=== PATIENT | female | born 1955 | race Caucasian/White ===

== ENCOUNTER 2016-06-02 13:05 | Inpatient (IN) | payer OTHER ==
--- NOTE | 2016-06-02 14:15 | ED EKG INTERP ---
EKG Interpretation - EKG Time of EKG reading by physician:: 14:01 EKG Read and Signed by:: Rose Marie Kenney Jr EKG Interpretation (*Must complete 3 of following elements*): Abnormal (poss lae ) Rate: 103 Rhythm: sinus tach [place]: normal QRS: normal Attestation - Scribe Verification/Attestation Scribe:: Tania Bajwa Acting as Scribe for:: Rose Marie Kenney Jr Scribe documention review:: This chart was documented by a scribe and accurately reflects the service the provider performed and the decisions made by the provider.
[2016-06-02] MEDS ORDERED: ASPIRIN PO STA (15:14)
[2016-06-02] MEDS ORDERED: NITROGLYCERIN SL PRN (15:14)
[2016-06-02] MEDS ORDERED: DUONEB (A & A) INH ONE (15:43)
--- NOTE | 2016-06-02 15:43 | PROVIDER DOCUMENTATION ---
HPI-Respiratory General - General Source: patient - History of Present Illness-Resp Quality of Pain: reports: none Severity in ED: reports: moderate Onset/Duration: reports: other (2 weeks) Timing: reports: still present Cough Quality/Degree: reports: dry cough Episode Frequency: occasional episodes Current Respiratory Medication Therapy: Initiated see nurses note Modifying Factors: worse with: exertion Similar Symptoms Previously?: Yes Recently seen or treated by another doctor?: No <Tania Bajwa - Last Filed: 06/02/16 17:42> <Sandrita Deng - Last Filed: 06/02/16 20:12> - General Chief Complaint: Shortness of Breath Stated Complaint: TROUBLE BREATHING/NOSTRIL SWOLLEN Time Seen by Provider: 06/02/16 15:14 Allergies/Adverse Reactions: Patient Allergies Allergy/AdvReac Type Severity Reaction Status Date / Time erythromycin base Allergy Mild RASH Verified 06/02/16 16:34 [Erythromycin Base] amoxicillin trihydrate * Allergy Unknown Verified 06/02/16 16:34 [From Augmentin] potassium clavulanate * Allergy Unknown Verified 06/02/16 16:34 [From Augmentin] Home Medications: Cholecalciferol (Vitamin D3) [Vitamin D3] 1,000 unit PO QAM 04/30/15 Fluticasone 50 Mcg Nasal [place] [Flonase] 1 spray LI QAM 04/30/15 Guaifenesin [Mucinex] 600 mg PO BID 04/30/15 Levalbuterol HCl [Xopenex] 1.25 mg IH RTQ8H 04/30/15 Levothyroxine [Synthroid] 50 microgm PO QAM 04/30/15 Multivitamin [Multivitamins] 1 each PO QAM 04/30/15 Vitamin E Acetate [Vitamin E] 400 unit PO QAM 04/30/15 - History of Present Illness-Resp Nature of Presenting Problem: Reports to er with cc of Shortness of Breath. Reports diagnosed with CLL in 2008 pt reports she has been using a Holistic approach with juicing and states hxo f chronic bronchitis and diagnosed with copd and hx of pneumonia. Pt reports wearing 3 lpm of oxygen daily. Pt reports worsens with exertion better with rest. Pt also reports right nare swelling. Pt reports she has abd swelling but that will go away she reports if she takes prednisone because the internet said it would. (Tania Bajwa) Review of Systems - Adult - REVIEW OF SYSTEMS - ADULT Constitutional: reports: see HPI. denies: chills, fever, fatique Eyes: reports: no symptoms reported Ears, Nose, Mouth & Throat: reports: see HPI Cardiovascular: denies: chest pain, irregular heart rate, orthopnea Respiratory: reports: see HPI, cough, shortness of breath. denies: hemoptysis, pleurisy, wheezing Gastrointestinal: denies: abdominal pain, diarrhea, nausea, vomiting Genitourinary: reports: no symptoms reported Musculoskeletal: reports: no symptoms reported Integumentary: reports: no symptoms reported Neurological: reports: no symptoms reported Psychiatric: reports: no symptoms reported Endocrine: reports: no symptoms reported Hematologic/Lymphatic: reports: no symptoms reported Allergic/Immunologic: reports: no symptoms reported All Other Systems: Reviewed and Negative <Tania Bajwa - Last Filed: 06/02/16 17:42> Past History - Adult - PAST MEDICAL HISTORY-ADULT Review of Records: reports: Nursing Assessment Review, Medications Reviewed Major Childhood Illnesses: reports: denies history Cardiovascular: reports: HTN Respiratory: reports: bronchitis, COPD, pneumonia, sleep apnea Gastrointestinal: reports: denies history Obstetrical/Gynecological: reports: denies history Genitourinary: reports: denies history Musculoskeletal: reports: denies history Neurological: reports: denies history Endocrine/Immune: reports: Leukemia (CLL) Other Conditions: reports: denies history - PRIOR SURGERIES/PROCEDURES Surgical/Procedure History: reports: cholecystectomy, other (rhinoplasty, removal of acustic neuroma) - PRIOR HOSPITALIZATIONS Prior Hospitalizations: reports: for similar symptoms - IMMUNIZATION STATUS Childhood Immunizations: See Nurse Assessment Flu Vaccine: See Nurse Assessment - FAMILY HISTORY Family History: reviewed, not pertinent - SOCIAL HISTORY Smoking: denies Substance Use: none/never <Tania Bajwa - Last Filed: 06/02/16 17:42> Physical Exam-General - PHYSICAL EXAM-ADULT Initial Vital Signs Reviewed: Yes - CONSTITUTIONAL General Appearance: appears well, alert, no apparent distress, thin - EYES Eyes: PERRL/EOMI, pink conjunctivae - RESPIRATORY Respiratory: chest non-tender, lungs clear, normal breath sounds, no pleuratic chest pain, no accessory muscle use, respiratory distress - CARDIOVASCULAR Cardiovascular: normal peripheral pulses, tachycardia - GASTROINTESTINAL (ABDOMEN) Abdominal Exam: normal bowel sounds, non tender, no organomegaly, no pulsatile mass. negative: soft (hard) - MUSCULOSKELETAL Back Exam: normal inspection, no CVA tenderness, no vertebral tenderness Extremity: normal range of motion, non-tender - SKIN Integumentary: normal color, normal turgor, warm/dry - PSYCHIATRIC Psych/Mental Status: normal mood/affect, normal thought content, normal thought process, oriented x 3 <Tania Bajwa - Last Filed: 06/02/16 17:42> Progress - CHANGE OF SHIFT REPORT (ED Provider) Report Given and Care Transferred to:: Time of Transfer: 18:00 Items Pending: CT/MRI Results <Tania Bajwa - Last Filed: 06/02/16 17:42> - REASSESSMENT Reassessment #1 Time Reassessed: 18:38 (Dr. Manriquez at bedside discussing results of CT scans. Will consult with Dr. Chao for possible admission) - CT/MRI 1 CT Study: Abdomen, Pelvis Impression: Abnormal (worsening in severe lymphadnopathy, now measures up to 25x13 cm.) 2 CT Study: Angiogram Impression: Abnormal (No PE. Pulmonary edema. Bronchitis with endobronchially spread process such as aspiration or pneumonia.) - CONSULTS/PCP/HOSPITALIST Notification #1 *Consult/PCP/Hospitalist*: Dr. Chao Time Discussed: 20:00 Reason/Comments: SOB Consult Disposition: Admit <Sandrita Deng - Last Filed: 06/02/16 20:12> - PLAN OF CARE/RESULTS Progress/Plan/Lab Results: discussed with pt her options for plan of care. Pt agreed to having blood work done, a CT and medications to help her breathing. Orders Category Date Time Status Cardiac Monitoring DIRECTED Care 06/02/16 15:14 Active Saline Loc NOW Care 06/02/16 15:14 Active CBC WITH ELECTRONIC DIFF [HEME] Stat Lab 06/02/16 15:14 Uncollected CK PROFILE [SP CHEM] Stat Lab 06/02/16 15:14 Uncollected COMPREHENSIVE METABOLIC PANEL [CHEM] Stat Lab 06/02/16 15:14 Uncollected D-DIMER [CHEM] Stat Lab 06/02/16 15:14 Uncollected MAGNESIUM [CHEM] Stat Lab 06/02/16 15:14 Uncollected PRO B-NATRIURETIC PEPTIDE Stat Lab 06/02/16 15:14 Uncollected PROTIME WITH INR [COAG] Stat Lab 06/02/16 15:14 Uncollected PTT [COAG] Stat Lab 06/02/16 15:14 Uncollected TROPONIN T Stat Lab 06/02/16 15:14 Uncollected Albuterol 2.5MG/Ipratrop 0.5MG [Duoneb (A & A)] Med 06/02/16 15:43 Discontinued 3 ml INH NOW ONE Aspirin Med 06/02/16 15:14 Discontinued 325 mg PO STAT STA Nitroglycerin Sl [Nitroglycerin] Med 06/02/16 15:14 Active 0.4 mg SL Q5M PRN PRN Aerosol Treatments Routine Oth 06/02/16 15:43 Active Aerosol Treatments Stat Oth 06/02/16 15:43 Active EKG [EKG] Stat Ther 06/02/16 13:54 Ordered Vital Signs - 24 hr 06/02/16 13:48 Temperature 98.3 F Pulse Rate 106 H Respiratory 22 Rate Blood Pressure 111/63 O2 Sat by Pulse 93 L Oximetry Laboratory Tests 06/02/16 06/02/16 06/02/16 16:25 16:25 16:25 WBC 3.93 L RBC 4.18 L Hgb 12.1 Hct 37.8 MCV 90.4 MCH 28.9 MCHC 32.0 L RDW Std Deviation 14.4 Plt Count 122 L MPV 11.5 H Immature Gran % (Auto) 0.5 Neut % (Auto) 39.9 L Lymph % (Auto) 50.4 [place] % (Auto) 7.6 Eos % (Auto) 0.8 Baso % (Auto) 0.8 Immature Gran # (Auto) 0.02 Neut # 1.57 Lymph # 1.98 [place] # 0.30 Eos # 0.03 Baso # 0.03 PT INR PTT (Actin FS) D-Dimer 0.68 H Sodium 137 Potassium 4.5 Chloride 95 L Carbon Dioxide 30 Anion Gap 12 BUN 16 Creatinine 0.6 Estimated GFR/1.73 m2 > 60 BUN/Creatinine Ratio 27 Glucose 82 Calculated Osmolality 274 Calcium 9.1 Magnesium 2.0 Total Bilirubin 0.37 AST 34 H ALT 22 Alkaline Phosphatase 78 Creatine Kinase 16 L Troponin T Vso-Z-Lnwlbynpvzl Pept Total Protein 6.6 Albumin 4.2 Globulin 2.4 Albumin/Globulin Ratio 1.8 06/02/16 06/02/16 06/02/16 16:25 16:25 16:25 WBC RBC Hgb Hct MCV MCH MCHC RDW Std Deviation Plt Count MPV Immature Gran % (Auto) Neut % (Auto) Lymph % (Auto) [place] % (Auto) Eos % (Auto) Baso % (Auto) Immature Gran # (Auto) Neut # Lymph # [place] # Eos # Baso # PT 10.0 INR 0.94 PTT (Actin FS) 24.0 D-Dimer Sodium Potassium Chloride Carbon Dioxide Anion Gap BUN Creatinine Estimated GFR/1.73 m2 BUN/Creatinine Ratio Glucose Calculated Osmolality Calcium Magnesium Total Bilirubin AST ALT Alkaline Phosphatase Creatine Kinase Troponin T < 0.010 Ijb-F-Cpoaobhtpqw Pept 1895 H Total Protein Albumin Globulin Albumin/Globulin Ratio (Tania Bajwa) plan of care: imaging, labs, medications, EKG Orders Category Date Time Status Cardiac Monitoring DIRECTED Care 06/02/16 15:14 Active Saline Loc NOW Care 06/02/16 15:14 Active ABD/PELVIS/PULM ARTERIES [CT] Stat Exams 06/02/16 17:16 Taken CBC WITH ELECTRONIC DIFF [HEME] Stat Lab 06/02/16 16:25 Completed CK PROFILE [SP CHEM] Stat Lab 06/02/16 16:25 Completed COMPREHENSIVE METABOLIC PANEL [CHEM] Stat Lab 06/02/16 16:25 Completed D-DIMER [CHEM] Stat Lab 06/02/16 16:25 Completed MAGNESIUM [CHEM] Stat Lab 06/02/16 16:25 Completed PRO B-NATRIURETIC PEPTIDE Stat Lab 06/02/16 16:25 Completed PROTIME WITH INR [COAG] Stat Lab 06/02/16 16:25 Completed PTT [COAG] Stat Lab 06/02/16 16:25 Completed TROPONIN T Stat Lab 06/02/16 16:25 Completed Albuterol 2.5MG/Ipratrop 0.5MG [Duoneb (A & A)] Med 06/02/16 15:43 Discontinued 3 ml INH NOW ONE Aspirin Med 06/02/16 15:14 Discontinued 325 mg PO STAT STA Nitroglycerin Sl [Nitroglycerin] Med 06/02/16 15:14 Active 0.4 mg SL Q5M PRN PRN Aerosol Treatments Routine Oth 06/02/16 15:43 Completed Aerosol Treatments Stat Oth 06/02/16 15:43 Completed EKG [EKG] Stat Ther 06/02/16 13:54 Ordered Laboratory Tests 06/02/16 06/02/16 06/02/16 16:25 16:25 16:25 WBC 3.93 L RBC 4.18 L Hgb 12.1 Hct 37.8 MCV 90.4 MCH 28.9 MCHC 32.0 L RDW Std Deviation 14.4 Plt Count 122 L MPV 11.5 H Immature Gran % (Auto) 0.5 Neut % (Auto) 39.9 L Lymph % (Auto) 50.4 [place] % (Auto) 7.6 Eos % (Auto) 0.8 Baso % (Auto) 0.8 Immature Gran # (Auto) 0.02 Neut # 1.57 Lymph # 1.98 [place] # 0.30 Eos # 0.03 Baso # 0.03 PT INR PTT (Actin FS) D-Dimer 0.68 H Sodium 137 Potassium 4.5 Chloride 95 L Carbon Dioxide 30 Anion Gap 12 BUN 16 Creatinine 0.6 Estimated GFR/1.73 m2 > 60 BUN/Creatinine Ratio 27 Glucose 82 Calculated Osmolality 274 Calcium 9.1 Magnesium 2.0 Total Bilirubin 0.37 AST 34 H ALT 22 Alkaline Phosphatase 78 Creatine Kinase 16 L Troponin T Gfg-A-Yzvmcahsxis Pept Total Protein 6.6 Albumin 4.2 Globulin 2.4 Albumin/Globulin Ratio 1.8 06/02/16 06/02/16 06/02/16 16:25 16:25 16:25 WBC RBC Hgb Hct MCV MCH MCHC RDW Std Deviation Plt Count MPV Immature Gran % (Auto) Neut % (Auto) Lymph % (Auto) [place] % (Auto) Eos % (Auto) Baso % (Auto) Immature Gran # (Auto) Neut # Lymph # [place] # Eos # Baso # PT 10.0 INR 0.94 PTT (Actin FS) 24.0 D-Dimer Sodium Potassium Chloride Carbon Dioxide Anion Gap BUN Creatinine Estimated GFR/1.73 m2 BUN/Creatinine Ratio Glucose Calculated Osmolality Calcium Magnesium Total Bilirubin AST ALT Alkaline Phosphatase Creatine Kinase Troponin T < 0.010 Cae-J-Ttqwpypnuzq Pept 1895 H Total Protein Albumin Globulin Albumin/Globulin Ratio Vital Signs - 24 hr 06/02/16 06/02/16 06/02/16 13:48 17:23 17:25 Temperature 98.3 F Pulse Rate 106 H 104 H 104 H Respiratory 22 21 20 Rate Blood Pressure 111/63 136/75 O2 Sat by Pulse 93 L 96 Oximetry 06/02/16 19:36 Temperature Pulse Rate 105 H Respiratory 26 H Rate Blood Pressure 119/76 O2 Sat by Pulse 96 Oximetry Pt/family given results. Pt will be admitted to the hospital by Dr. Chao. PT/ Family in agreement with plan of care. (Sandrita Deng) Departure <Tania Bajwa - Last Filed: 06/02/16 17:42> - Departure Time of Disposition Order: 20:09 Certified Medical Emergency: Emergent <Sandrita Deng - Last Filed: 06/02/16 20:12> - Departure DIAGNOSIS: CLL (chronic lymphocytic leukemia) Disposition: ADMITTED INPATIENT 09 Condition: Stable Referrals: None,PCP [NON-STAFF] - Attestation - Scribe Verification/Attestation Scribe:: Tania Bajwa Acting as Scribe for:: Rose Marie Kenney Jr Scribe documention review:: This chart was documented by a scribe and accurately reflects the service the provider performed and the decisions made by the provider. <Tania Bajwa - Last Filed: 06/02/16 17:42> - Scribe Verification/Attestation #2 Shift Change Time: 18:00 Scribe Name: Sandrita Deng Acting as Scribe for:: Jeremi Manriquez <Sandrita Deng - Last Filed: 06/02/16 20:12> Physician Attestation - Physician Attestation I, the provider, attest to the following statement:: Jeremi Manriquez Physician documentation Attestation:: This documentation recorded by the scribe accurately reflects the service I personally performed and the decisions made by me. <Sandrita Deng - Last Filed: 06/02/16 20:12>
[2016-06-02 16:39] LABS: MANUAL DIFF NEEDED? NO
[2016-06-02 16:47] LABS: BASO% 0.8 % (0.0-0.8); EOS# 0.03 X1000 (0.0-0.7); EOS% 0.8 % (0.0-10.0); HEMATOCRIT 37.8 % (37.0-47.0); HEMOGLOBIN 12.1 g/dL (12.0-16.0); IMM GRAN# 0.02 X1000 (0.0-0.04); IMM GRAN% 0.5 % (0.0-0.5); LYMPH# 1.98 X1000 (1.2-3.4); LYMPH% 50.4 % (20.5-51.1); MCH 28.9 PG (27-31); MCV 90.4 FL (81-99); MONO% 7.6 % (1.7-9.3); MPV 11.5 FL (7.4-10.4); NEUT% 39.9 % (42.2-75.2); PLT 122 X1000 (130-400); RBC 4.18 XMIL (4.2-5.4)
[2016-06-02 16:58] LABS: INR 0.94
[2016-06-02 17:11] LABS: AGAP 12; ALBUMIN 4.2 g/dL (3.5-5.0); ALKALINE PHOSPHATASE 78 U/L (32-104); BUN 16 mg/dL (8-22); CALCIUM 9.1 mg/dL (8.8-10.2); CHLORIDE 95 mmol/L (98-107); CK PROFILE 16 U/L (24-173); COSMO 274; GOT 34 U/L (10-30); GPT 22 U/L (10-36); POTASSIUM 4.5 mmol/L (3.5-5.1); SODIUM 137 mmol/L (136-145); TCO2 30 mmol/L (25-35); TOTAL BILIRUBIN 0.37 mg/dL (0.20-1.00); TOTAL PROTEIN 6.6 g/dL (6.3-8.3)
[2016-06-02] MEDS ORDERED: MEDROL DOSEPAK PO SCH (21:03)
[2016-06-02] MEDS ORDERED: VANCOMYCIN IV PER PHARMACY MISC SCH (21:45)
--- NOTE | 2016-06-02 21:55 | HISTORY AND PHYSICAL ---
ATTENDING PHYSICIAN: Mario Black MD ADMITTING PHYSICIAN: Miguel Chao Jr., MD CHIEF COMPLAINT: Shortness of breath with cough. PRESENT ILLNESS: Patient presents with productive cough and cream-colored sputum. She has had a history of bronchiectasis and chronic bronchitis. She has a history of CLL and has had adenopathy on her scans in the past. Apparently has had lymph nodes that were swollen the past and she says was given steroids and they went down. Some question about whether this could be lymphoma, but some sort of adenopathy. She does not remember any biopsies. She decided when it was discovered she has CLL to treat holistically, but she does not even to do that most of the time. She says she needs help with it and she is now . Her son tries to help on occasion but her is not there to help. She started getting worse with her breathing over the last few days. Her abdomen is also swollen. She says that it happened earlier in the year as well and then it went down and that she had some large swellings under her jaw that also went down. 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 Davies, her director religious education-oncologist. She has a history of levothyroxine. She tells me she was allergic to erythromycin, but in our old chart it also mentioned Augmentin. PAST SURGICAL HISTORY: Cholecystectomy. Removal of acoustic neuroma. Rhinoplasty. FAMILY HISTORY: A grandfather of hers had leukemia. She has 1 son alive and in good health. Denies using any tobacco or any illicit substances. REVIEW OF SYSTEMS: Neurological: Denies headaches, seizures, visual problems, hearing problems, other than from the acoustic neuroma. Pulmonary: Has had a cough with occasional wheeze. Cardiovascular: She has had no chest pains, heart palpitations, PND orthopnea. GI: She has had swelling of her abdomen. It is somewhat firm. She says she had this before and it went down. Denies hematochezia, hematemesis, melena, constipation, diarrhea. : Denies any difficulty with urination. Endocrine: Does have hypothyroidism and is on replacement hormone. PHYSICAL EXAMINATION: VITAL SIGNS: Blood pressure is 111/63, respirations 22, pulse 106 and regular, temperature 98.3 degrees Fahrenheit. Oxygen saturation was 93% with 3 L per nasal cannula. She says she is on oxygen at home and her O2 saturations got down into the 80s when she was there. HEENT: She is normocephalic. Extraocular movements intact. PERRLA. Throat clear. Fundi not seen well due to constriction of pupils. NECK: Supple with some anterior cervical chain lymphadenopathy. I hear no carotid bruits. LUNGS: Have scattered rales and occasional wheeze. HEART: Regular rate and rhythm without murmurs, gallops, or friction rubs. Sinus tachycardia. ABDOMEN: Somewhat distended. CT scan seems to indicate masses and adenopathy there. She has had adenopathy in the past. No tenderness at this time. PELVIC EXAMINATION: Deferred. RECTAL EXAMINATION: Deferred. BREAST EXAMINATION: Deferred. INTEGUMENT: Shows no lesions consistent with melanoma or other skin cancers. LYMPH NODES: Are palpable in the anterior cervical chain. NEUROLOGICAL: Cranial nerves 2-12 intact grossly. Sensory and motor intact. Reflexes 1+ all. LABORATORY: Shows a white count 3930, hemoglobin 12.1. Platelet count slightly low at 122,000. ProBNP slightly up at 1895. Chemistry profile: Otherwise within normal limits. One liver enzyme was slightly up with an AST of 34. ASSESSMENT: 1. Respiratory distress. 2. Bronchitis. 3. Bronchiectasis. 4. Chronic lymphocytic leukemia. 5. Adenopathy possibly lymphoma that we will defer to Oncology. 6. Hypothyroidism. 7. Thrombocytopenia, mild. PLAN: We will admit. Start on IV steroids, IV antibiotics and breathing treatments as needed. We will consult Oncology in the morning.
[2016-06-02] MEDS: SOLU-MEDROL IV SCH (22:20)
[2016-06-02] MEDS: SEPTRA DS PO SCH (22:20)
[2016-06-02] MEDS: PROTONIX IV SCH (22:20)
[2016-06-02] MEDS: MUCINEX PO SCH (22:20)
[2016-06-02] MEDS: XOPENEX NEB INH SCH (22:50)
[2016-06-02] MEDS ORDERED: VANCOMYCIN 1,600 MG in NS 250 ML IV ONE (23:00)
[2016-06-03 05:37] LABS: MANUAL DIFF NEEDED? NO
[2016-06-03 05:40] LABS: BASO% 0.3 % (0.0-0.8); EOS# 0.01 X1000 (0.0-0.7); EOS% 0.3 % (0.0-10.0); HEMATOCRIT 40.8 % (37.0-47.0); HEMOGLOBIN 12.9 g/dL (12.0-16.0); IMM GRAN# 0.03 X1000 (0.0-0.04); LYMPH% 30.2 % (20.5-51.1); MCH 28.8 PG (27-31); MCHC 31.6 g/dL (33-37); MCV 91.1 FL (81-99); MONO# 0.08 X1000 (0.11-0.59); MONO% 2.7 % (1.7-9.3); MPV 11.2 FL (7.4-10.4); NEUT% 65.5 % (42.2-75.2); PLT 126 X1000 (130-400); RBC 4.48 XMIL (4.2-5.4)
--- NOTE | 2016-06-03 05:49 | EKG Report ---
Test Performed on : 06/02/2016 2:01:36 PM Test Reason : sob Blood Pressure : / mmHG Vent. Rate : 103 BPM Atrial Rate : 103 BPM P-R Int : 112 ms QRS Dur : 080 ms QT Int : 318 ms P-R-T Axes : 068 078 052 degrees QTc Int : 416 ms Sinus tachycardia. Possible Left atrial enlargement Borderline ECG When compared with ECG of 21-MAR-2016 13:18, No significant change was found Unconfirmed Result
[2016-06-03 06:28] LABS: AGAP 7; BUN 17 mg/dL (8-22); CALCIUM 9.1 mg/dL (8.8-10.2); CHLORIDE 97 mmol/L (98-107); COSMO 280; POTASSIUM 5.3 mmol/L (3.5-5.1); SODIUM 138 mmol/L (136-145); TCO2 34 mmol/L (25-35)
[2016-06-03] MEDS: SOLU-MEDROL IV SCH ×3 (06:30→21:00)
[2016-06-03] MEDS: XOPENEX NEB INH SCH ×3 (07:44→22:50)
--- NOTE | 2016-06-03 08:23 | Diag Imaging Result Document ---
PROCEDURE NAME: ABD/PELVIS/PULM ARTERIES - 06/02/2016 CT OF THE CHEST WITH INTRAVENOUS CONTRAST: FINDINGS: There area no filling defects in the pulmonary arteries. There is increasing mediastinal adenopathy with matted nodes throughout the superior mediastinum, aorticopulmonary window region, and subcarina. This in comparison with 12/12/2015. There is a loculated right pleural effusion which was also present at the time of the previous study. The patchy ground- glass opacities, which were present at the time of the previous study, have diminished and the more dense opacification of the upper lobes has resolved largely. There is peribronchial thickening and bilateral lower lobe bronchiectasis which was also present at the time of the previous study. There is apparent fibrosis in the inferior lingula. There is bilateral axillary adenopathy which appears worse than on the previous study. The largest left-sided axillary node has increased from over 15 mm in long axis dimension to currently over 18 mm. The inferiormost right axillary noted has increased in size from 18 mm to 23 mm. The regional skeleton appears stable. IMPRESSION: Right pulmonary parenchymal changes and right pleural effusion. Worsened adenopathy as described. No evidence of pulmonary emboli. CT OF THE ABDOMEN WITH INTRAVENOUS CONTRAST: FINDINGS: There is extensive retroperitoneal and mesenteric adenopathy which was also present at the time of the previous study of 12/07/2015, however, this has increased in bulk since the previous examination and when measured at the level of slice 87 of the current arterial series which appears to be identical with slice 81 of the previous study. The long axis transversely has increased from 22 to almost 25 cm and the AP dimension has increased from 9.2 to 11 cm. There is some prominence of the biliary tree with the common bile duct measuring up to 6 mm in the silva hepatis. This is more distended than it was on previous study. The spleen measures 13.8 cm in greatest dimension transverse, versus 12.9 cm previously. The portal vein is patent. The pancreas is distorted by the adenopathy, but otherwise unchanged in appearance. The kidneys are also displaced by the large lymph nodes but are essentially stable in appearance. The aorta is not distended. CT OF THE PELVIS WITH INTRAVENOUS CONTRAST: FINDINGS: There is no evidence of significant free fluid. There is some slight edema in the perirectal fat. There is significant adenopathy both in the mesentery of the retroperitoneum with large nodes in the iliac chains bilaterally. The previous abdominal study of 12/07/2015 did not include pelvis. The external and internal iliac adenopathy which is currently present has worsened considerably compared to the previous pelvic CT of 10/31/2013. The regional skeleton appears to be intact. IMPRESSION: Markedly worsened adenopathy and slightly worsened splenomegaly since 12/07/2015.
[2016-06-03] MEDS: THERA M PLUS PO SCH (09:06)
[2016-06-03] MEDS: VITAMIN D PO SCH (09:06)
[2016-06-03] MEDS: CULTURELLE PO SCH (09:06)
[2016-06-03] MEDS: VITAMIN E PO SCH (09:06)
[2016-06-03] MEDS: TYLENOL PO PRN (09:06)
[2016-06-03] MEDS: MUCINEX PO SCH ×2 (09:07→21:00)
[2016-06-03] MEDS: SEPTRA DS PO SCH ×2 (09:07→21:00)
[2016-06-03] MEDS: FLONASE NAS SCH (09:07)
[2016-06-03] MEDS: BACTROBAN OINTMENT TOP SCH (09:08)
[2016-06-03] MEDS: SYNTHROID PO SCH (09:08)
[2016-06-03] MEDS: LEVAQUIN 500 MG/D5W 100 ML IV SCH (09:58)
[2016-06-03] MEDS ORDERED: SODIUM CHLORIDE 0.9% 10 ML ONE (15:54)
[2016-06-03] MEDS: VANCOMYCIN 1,200 MG in NS 250 ML IV SCH (17:47)
[2016-06-03] MEDS ORDERED: COLACE PO PRN (19:43)
[2016-06-03] MEDS ORDERED: MILK OF MAGNESIA PO PRN (19:44)
[2016-06-03] MEDS ORDERED: AYR NASAL SPRAY NAS PRN (20:43)
[2016-06-03] MEDS: PROTONIX IV SCH (21:00)
[2016-06-04 06:10] LABS: MANUAL DIFF NEEDED? NO
[2016-06-04] MEDS: SOLU-MEDROL IV SCH ×3 (06:22→23:25)
[2016-06-04 06:27] LABS: BASO% 0.2 % (0.0-0.8); HEMATOCRIT 36.6 % (37.0-47.0); HEMOGLOBIN 11.5 g/dL (12.0-16.0); IMM GRAN# 0.02 X1000 (0.0-0.04); IMM GRAN% 0.5 % (0.0-0.5); LYMPH# 1.21 X1000 (1.2-3.4); LYMPH% 28.1 % (20.5-51.1); MCH 28.8 PG (27-31); MCHC 31.4 g/dL (33-37); MCV 91.5 FL (81-99); MONO# 0.37 X1000 (0.11-0.59); MONO% 8.6 % (1.7-9.3); MPV 11.6 FL (7.4-10.4); NEUT% 62.6 % (42.2-75.2); PLT 139 X1000 (130-400)
[2016-06-04 06:49] LABS: AGAP 8; BUN 28 mg/dL (8-22); CHLORIDE 97 mmol/L (98-107); COSMO 286; POTASSIUM 5.2 mmol/L (3.5-5.1); SODIUM 140 mmol/L (136-145); TCO2 35 mmol/L (25-35)
[2016-06-04] MEDS: XOPENEX NEB INH SCH ×3 (07:45→22:47)
[2016-06-04] MEDS: THERA M PLUS PO SCH (09:01)
[2016-06-04] MEDS: SYNTHROID PO SCH (09:01)
[2016-06-04] MEDS: VITAMIN D PO SCH (09:01)
[2016-06-04] MEDS: CULTURELLE PO SCH (09:01)
[2016-06-04] MEDS: MUCINEX PO SCH ×2 (09:01→23:26)
[2016-06-04] MEDS: VITAMIN E PO SCH (09:01)
[2016-06-04] MEDS: SEPTRA DS PO SCH ×2 (09:01→23:26)
[2016-06-04] MEDS: BACTROBAN OINTMENT TOP SCH (09:02)
[2016-06-04] MEDS: FLONASE NAS SCH (09:02)
[2016-06-04] MEDS: LEVAQUIN 500 MG/D5W 100 ML IV SCH (11:04)
[2016-06-04] MEDS: VANCOMYCIN 1,200 MG in NS 250 ML IV SCH (12:10)
[2016-06-04] MEDS ORDERED: SODIUM CHLORIDE 0.9% 10 ML ONE (15:18)
[2016-06-04] MEDS: PROTONIX IV SCH (23:25)
[2016-06-05] MEDS: TYLENOL PO PRN (04:16)
[2016-06-05 04:45] LABS: ALLEN TEST YES; BE 12.7 mmoll (-3.0-3.0); BLOOD TYPE ARTERIAL; DRAW SITE R RADIAL; METHB 2.1 % (0.0-1.5); PO2(98.6) 147 mmHg (60-100); SAMPLE BLOOD; SAO2 99.1 % (95.0-100.0); THB 11.7 g/dL (11.5-17.4); pH(98.6) 7.27 (7.35-7.45)
[2016-06-05 04:47] LABS: PCO2(98.6) 94 mmHg (35-45)
[2016-06-05 04:48] LABS: MODALITY CANNULA
[2016-06-05 05:32] LABS: MANUAL DIFF NEEDED? NO
[2016-06-05 05:35] LABS: BASO% 0.2 % (0.0-0.8); EOS# 0.01 X1000 (0.0-0.7); EOS% 0.2 % (0.0-10.0); HEMATOCRIT 37.2 % (37.0-47.0); HEMOGLOBIN 11.4 g/dL (12.0-16.0); IMM GRAN# 0.02 X1000 (0.0-0.04); IMM GRAN% 0.5 % (0.0-0.5); LYMPH# 2.05 X1000 (1.2-3.4); LYMPH% 47.3 % (20.5-51.1); MCH 28.4 PG (27-31); MCHC 30.6 g/dL (33-37); MCV 92.5 FL (81-99); MONO# 0.42 X1000 (0.11-0.59); MONO% 9.7 % (1.7-9.3); NEUT% 42.1 % (42.2-75.2); PLT 144 X1000 (130-400); RBC 4.02 XMIL (4.2-5.4)
[2016-06-05 06:03] LABS: AGAP 8; BUN 34 mg/dL (8-22); CALCIUM 8.8 mg/dL (8.8-10.2); CHLORIDE 93 mmol/L (98-107); COSMO 277; POTASSIUM 4.7 mmol/L (3.5-5.1); SODIUM 135 mmol/L (136-145); TCO2 34 mmol/L (25-35)
[2016-06-05] MEDS: SOLU-MEDROL IV SCH ×3 (06:13→19:45)
[2016-06-05] MEDS: VANCOMYCIN 1,200 MG in NS 250 ML IV SCH ×2 (07:52→19:45)
[2016-06-05] MEDS ORDERED: NS 500 ML ONE (07:54)
[2016-06-05] MEDS: XOPENEX NEB INH SCH ×3 (08:05→22:45)
[2016-06-05] MEDS: SYNTHROID PO SCH (08:10)
[2016-06-05] MEDS: FLONASE NAS SCH (08:10)
[2016-06-05] MEDS: THERA M PLUS PO SCH (08:10)
[2016-06-05] MEDS: BACTROBAN OINTMENT TOP SCH (08:10)
[2016-06-05] MEDS: MUCINEX PO SCH ×2 (08:10→19:46)
[2016-06-05] MEDS: CULTURELLE PO SCH (08:10)
[2016-06-05] MEDS: SEPTRA DS PO SCH ×2 (08:10→19:46)
[2016-06-05] MEDS: VITAMIN D PO SCH (08:10)
[2016-06-05] MEDS: VITAMIN E PO SCH (08:10)
--- NOTE | 2016-06-05 09:30 | Diag Imaging Result Document ---
PROCEDURE NAME: CHEST-PORTABLE - 06/05/2016 PORTABLE CHEST X-RAY: COMPARISON: 06/02/2016, 03/27/2016. FINDINGS: There is widening of the mediastinum due to mediastinal adenopathy. There is a small pleural effusion on the right. There are some peribronchial markings in the bases which may represent edema or bronchitis. IMPRESSION: Little change from prior.
[2016-06-05] MEDS: LEVAQUIN 500 MG/D5W 100 ML IV SCH (12:29)
[2016-06-05] MEDS ORDERED: SODIUM CHLORIDE 0.9% 10 ML ONE (16:59)
[2016-06-05] MEDS: PROTONIX IV SCH (19:45)
[2016-06-06] MEDS: PROTONIX IV SCH ×2 (00:06→21:14)
[2016-06-06] MEDS: MUCINEX PO SCH ×3 (00:06→21:13)
[2016-06-06] MEDS: SEPTRA DS PO SCH ×3 (00:06→21:14)
[2016-06-06] MEDS: SOLU-MEDROL IV SCH ×4 (00:06→21:14)
[2016-06-06] MEDS: XOPENEX NEB INH SCH ×3 (07:43→23:34)
[2016-06-06] MEDS: VANCOMYCIN 1,200 MG in NS 250 ML IV SCH ×2 (08:34→21:13)
[2016-06-06] MEDS: VITAMIN E PO SCH (08:35)
[2016-06-06] MEDS: VITAMIN D PO SCH (08:35)
[2016-06-06] MEDS: SYNTHROID PO SCH (08:35)
[2016-06-06] MEDS: THERA M PLUS PO SCH (08:35)
[2016-06-06] MEDS: CULTURELLE PO SCH (08:35)
[2016-06-06] MEDS: FLONASE NAS SCH (08:35)
[2016-06-06] MEDS: BACTROBAN OINTMENT TOP SCH (08:36)
[2016-06-06] MEDS: LEVAQUIN 500 MG/D5W 100 ML IV SCH (10:33)
[2016-06-06] MEDS: DUONEB (A & A) INH PRN (11:27)
[2016-06-06] MEDS ORDERED: SODIUM CHLORIDE 0.9% 10 ML ONE (17:18)
[2016-06-07 04:51] LABS: ALLEN TEST YES; BE 10.3 mmoll (-3.0-3.0); BLOOD TYPE ARTERIAL; DRAW SITE R RADIAL; METHB 1.4 % (0.0-1.5); O2(CT) 15.9 mL/dL (15.0-23.0); PO2(98.6) 73 mmHg (60-100); SAMPLE BLOOD; SAO2 96.7 % (95.0-100.0); SRATE 10 BPM; THB 12.1 g/dL (11.5-17.4); pH(98.6) 7.33 (7.35-7.45)
[2016-06-07 04:52] LABS: MODALITY BI PAP; PCO2(98.6) 74 mmHg (35-45)
[2016-06-07] MEDS: SOLU-MEDROL IV SCH ×3 (05:45→21:51)
[2016-06-07 05:55] LABS: HEMATOCRIT 35.9 % (37.0-47.0); HEMOGLOBIN 11.1 g/dL (12.0-16.0); MCHC 30.9 g/dL (33-37); MCV 93.7 FL (81-99); MPV 11.2 FL (7.4-10.4); RBC 3.83 XMIL (4.2-5.4)
[2016-06-07 06:19] LABS: AGAP 7; BUN 29 mg/dL (8-22); CALCIUM 9.2 mg/dL (8.8-10.2); CHLORIDE 95 mmol/L (98-107); COSMO 281; POTASSIUM 5.4 mmol/L (3.5-5.1); SODIUM 137 mmol/L (136-145); TCO2 35 mmol/L (25-35)
[2016-06-07] MEDS ORDERED: KAYEXALATE PO ONE (07:47)
[2016-06-07] MEDS: XOPENEX NEB INH SCH ×3 (07:51→22:59)
--- NOTE | 2016-06-07 08:32 | PROGRESS NOTE ---
DATE: 06/07/2016 SUBJECTIVE: The patient is a 60-year-old white female patient admitted with chest congestion, cough, shortness of breath, yellowish-creamish expectoration. The patient does have history of bronchiectasis and chronic bronchitis. The patient also had history of lymphadenopathy. The patient found to be in acute respiratory failure. The patient is using BiPAP. The patient is feeling some better. She denied any chest pain, does have cough. Shortness of breath improving. No nausea or vomiting. Does have mild abdominal distention. No diarrhea. No dysuria or hematuria. The patient does have Dorman catheter. Admission history and physical noted. PAST MEDICAL HISTORY: Significant for chronic bronchitis, lymphadenopathy, history suggestive of chronic lymphocytic leukemia, questionable lymphoma, removal of caustic neuroma, cholecystectomy, and rhinoplasty. OBJECTIVE: Vital signs: Reviewed. Neck: Supple. No JVD. Patient does have cervical adenopathy. Lungs: Bilateral occasional wheezing. CVS: S1 and S2 heard. Abdomen: Soft, globular. Bowel sounds present. Spleen is palpable. Extremities: No cyanosis, clubbing. No acute DVT. FARM SPECIALIST: Alert, awake, and able to move all 4 limbs. LABORATORY AND X-RAY DATA: Her lab data done today reveals hemoglobin of 11.1, hematocrit 35.9, WBC count 4.57, platelet 140,000. Blood gas: pH of 7.33, pCO2 of 74, PO2 was 73, this was done on BiPAP and it did show some improvement compared to yesterday. Her potassium today was 5.4, BUN 29, creatinine 0.7. CT scan results reviewed. CONSIDERATION: 1. Acute respiratory failure. 2. History of mediastinal lymphadenopathy. 3. Bronchitis. 4. Hyperkalemia. 5. Chronic lymphocytic leukemia. 6. She does have history of hypothyroidism on Synthroid. PLAN: We will continue current treatment. We will treat her hyperkalemia appropriately. The patient is on bronchodilator treatment, IV antibiotics. Overall plan discussed with the patient and she is in agreement.
[2016-06-07] MEDS: FLONASE NAS SCH (09:06)
[2016-06-07] MEDS: VANCOMYCIN 1,200 MG in NS 250 ML IV SCH ×2 (09:06→22:03)
[2016-06-07] MEDS: THERA M PLUS PO SCH (09:07)
[2016-06-07] MEDS: MUCINEX PO SCH ×2 (09:07→21:50)
[2016-06-07] MEDS: VITAMIN E PO SCH (09:07)
[2016-06-07] MEDS: LOVENOX SUBQ SCH (09:07)
[2016-06-07] MEDS: SEPTRA DS PO SCH ×2 (09:07→21:50)
[2016-06-07] MEDS: VITAMIN D PO SCH (09:07)
[2016-06-07] MEDS: BACTROBAN OINTMENT TOP SCH (09:07)
[2016-06-07] MEDS: SYNTHROID PO SCH (09:07)
[2016-06-07] MEDS: CULTURELLE PO SCH (09:07)
[2016-06-07] MEDS: LEVAQUIN 500 MG/D5W 100 ML IV SCH (12:51)
[2016-06-07] MEDS ORDERED: SODIUM CHLORIDE 0.9% 10 ML ONE (14:26)
[2016-06-07] MEDS: PROTONIX IV SCH (21:50)
[2016-06-08 04:54] LABS: ALLEN TEST YES; BE 12.8 mmoll (-3.0-3.0); BLOOD TYPE ARTERIAL; DRAW SITE R RADIAL; METHB 1.7 % (0.0-1.5); O2(CT) 14.3 mL/dL (15.0-23.0); PO2(98.6) 163 mmHg (60-100); SAMPLE BLOOD; SAO2 99.5 % (95.0-100.0); SRATE 10 BPM; THB 10.3 g/dL (11.5-17.4); pH(98.6) 7.31 (7.35-7.45)
[2016-06-08 05:11] LABS: MODALITY BI PAP
[2016-06-08] MEDS: SOLU-MEDROL IV SCH ×3 (05:34→21:46)
[2016-06-08 05:36] LABS: PCO2(98.6) 83 mmHg (35-45)
[2016-06-08 05:57] LABS: MANUAL DIFF NEEDED? NO
[2016-06-08 06:04] LABS: HEMATOCRIT 37.3 % (37.0-47.0); HEMOGLOBIN 11.5 g/dL (12.0-16.0); IMM GRAN# 0.03 X1000 (0.0-0.04); IMM GRAN% 0.5 % (0.0-0.5); LYMPH# 2.74 X1000 (1.2-3.4); LYMPH% 47.7 % (20.5-51.1); MCH 28.5 PG (27-31); MCHC 30.8 g/dL (33-37); MCV 92.3 FL (81-99); MONO# 0.24 X1000 (0.11-0.59); MONO% 4.2 % (1.7-9.3); MPV 11.1 FL (7.4-10.4); NEUT% 47.6 % (42.2-75.2); PLT 171 X1000 (130-400); RBC 4.04 XMIL (4.2-5.4)
[2016-06-08 06:46] LABS: AGAP 9; ALKALINE PHOSPHATASE 64 U/L (32-104); BUN 29 mg/dL (8-22); CALCIUM 8.9 mg/dL (8.8-10.2); CHLORIDE 96 mmol/L (98-107); COSMO 285; GOT 21 U/L (10-30); GPT 17 U/L (10-36); POTASSIUM 4.9 mmol/L (3.5-5.1); SODIUM 139 mmol/L (136-145); TCO2 34 mmol/L (25-35); TOTAL BILIRUBIN 0.16 mg/dL (0.20-1.00); TOTAL PROTEIN 6.2 g/dL (6.3-8.3)
[2016-06-08] MEDS: XOPENEX NEB INH SCH ×2 (07:37→23:25)
--- NOTE | 2016-06-08 08:48 | Diag Imaging Result Document ---
PROCEDURE NAME: CHEST-PORTABLE - 06/08/2016 AP PORTABLE CHEST AT 0500 HOURS: FINDINGS: There is a pleural effusion on the right. This was also present on 06/05/2016. There may be bronchiectasis, particularly in the right base. Overall, there has been no appreciable change since the previous study. IMPRESSION: Right pleural effusion. Basilar bronchiectasis, particularly in the right lower lobe.
[2016-06-08] MEDS: VANCOMYCIN 1,200 MG in NS 250 ML IV SCH ×2 (09:36→21:46)
[2016-06-08] MEDS: THERA M PLUS PO SCH (09:38)
[2016-06-08] MEDS: SYNTHROID PO SCH (09:38)
[2016-06-08] MEDS: VITAMIN D PO SCH (09:38)
[2016-06-08] MEDS: MUCINEX PO SCH ×2 (09:38→21:46)
[2016-06-08] MEDS: SEPTRA DS PO SCH ×2 (09:38→21:46)
[2016-06-08] MEDS: FLONASE NAS SCH (09:38)
[2016-06-08] MEDS: LOVENOX SUBQ SCH (09:38)
[2016-06-08] MEDS: CULTURELLE PO SCH (09:38)
[2016-06-08] MEDS: VITAMIN E PO SCH (09:38)
[2016-06-08] MEDS: LEVAQUIN 500 MG/D5W 100 ML IV SCH (09:39)
[2016-06-08] MEDS: BACTROBAN OINTMENT TOP SCH (09:57)
[2016-06-08] MEDS ORDERED: SODIUM CHLORIDE 0.9% 10 ML ONE (16:04)
[2016-06-08] MEDS: DUONEB (A & A) INH PRN (16:12)
--- NOTE | 2016-06-08 16:35 | PROGRESS NOTE ---
DATE: 06/08/2016 SUBJECTIVE: Ms. Erica Parnell is feeling better. The patient is using BiPAP at night. She does have mild cough with scanty sputum production. No fever or chills. The patient claims she feels 1000% better than when she came in. No typical chest pain. No diarrhea, blood, or mucus in the stool. Denied any hemoptysis. OBJECTIVE: Vital signs: Her vital signs reviewed. Neck: Supple. No JVD. Lungs: Bibasilar crepitations. Heart: S1 and S2 heard. Abdomen: Soft, globular. Bowel sounds present. Extremities: No cyanosis, clubbing. No acute DVT. MARKET CONSULTANT: Alert, awake and able to move all 4 limbs. LABORATORY DATA: Done today, hemoglobin 11.5, hematocrit 37.3. WBC count 5.74 platelet count 171,000. Blood gas: PH 7.31, pCO2 83, PO2 was 163. This was done on BiPAP. The patient electrolytes noted. CONSIDERATION: 1. Acute on chronic respiratory failure. 2. Bronchiectasis. 3. Chronic obstructive pulmonary disease exacerbation. 4. Hypothyroidism. PLAN: The patient is on antibiotics, Synthroid. Lab data noted. We will continue current treatment and close observation. Overall plan discussed with the patient and she is in agreement.
[2016-06-08] MEDS: PROTONIX IV SCH (21:46)
[2016-06-09] MEDS: SOLU-MEDROL IV SCH ×3 (05:34→22:06)
[2016-06-09] MEDS: XOPENEX NEB INH SCH ×3 (07:48→23:35)
[2016-06-09] MEDS: SEPTRA DS PO SCH ×3 (07:57→22:06)
[2016-06-09] MEDS: MUCINEX PO SCH ×3 (07:57→22:06)
[2016-06-09] MEDS: VITAMIN E PO SCH ×2 (07:57→10:13)
[2016-06-09] MEDS: LOVENOX SUBQ SCH (07:57)
[2016-06-09] MEDS: VITAMIN D PO SCH ×2 (07:58→10:13)
[2016-06-09] MEDS: THERA M PLUS PO SCH ×2 (07:58→10:14)
[2016-06-09] MEDS: SYNTHROID PO SCH ×2 (07:58→10:14)
[2016-06-09] MEDS: CULTURELLE PO SCH ×2 (07:58→10:13)
[2016-06-09] MEDS: FLONASE NAS SCH (07:59)
[2016-06-09] MEDS: LEVAQUIN 500 MG/D5W 100 ML IV SCH (07:59)
[2016-06-09] MEDS: VANCOMYCIN 1,200 MG in NS 250 ML IV SCH ×2 (11:21→22:06)
[2016-06-09] MEDS: BACTROBAN OINTMENT TOP SCH (15:24)
[2016-06-09] MEDS: PRILOSEC PO SCH (16:30)
--- NOTE | 2016-06-09 17:02 | PROGRESS NOTE ---
DATE: 06/09/2016 SUBJECTIVE: The patient has right pleural effusion. She has basilar infiltrate and some bronchiectasis on both bases more on the left side. She is on IV Levaquin as well as vancomycin and Solu-Medrol. ASSESSMENT/PLAN: PCO2 yesterday. We will do arterial blood gases on her. -7
[2016-06-10] MEDS: PRILOSEC PO SCH ×2 (05:51→06:34)
[2016-06-10] MEDS: SOLU-MEDROL IV SCH ×3 (05:51→22:07)
[2016-06-10] MEDS: XOPENEX NEB INH SCH ×3 (08:00→23:12)
[2016-06-10] MEDS: LOVENOX SUBQ SCH (08:19)
[2016-06-10] MEDS: VITAMIN E PO SCH (08:19)
[2016-06-10] MEDS: VITAMIN D PO SCH (08:19)
[2016-06-10] MEDS: SYNTHROID PO SCH (08:19)
[2016-06-10] MEDS: CULTURELLE PO SCH (08:19)
[2016-06-10] MEDS: MUCINEX PO SCH ×2 (08:19→22:07)
[2016-06-10] MEDS: THERA M PLUS PO SCH (08:20)
[2016-06-10] MEDS: LEVAQUIN 500 MG/D5W 100 ML IV SCH (08:20)
[2016-06-10] MEDS: SEPTRA DS PO SCH ×2 (08:20→22:07)
[2016-06-10] MEDS: FLONASE NAS SCH (08:20)
[2016-06-10] MEDS: BACTROBAN OINTMENT TOP SCH (08:21)
[2016-06-10] MEDS: VANCOMYCIN 1,200 MG in NS 250 ML IV SCH ×2 (11:30→22:07)
--- NOTE | 2016-06-10 15:09 | CONSULTATION ---
DATE OF CONSULTATION: 06/10/2016 REASON FOR CONSULT: The patient has known CLL and she has refused chemotherapy in the past. She also has hypogammaglobulinemia and known bronchiectasis and COPD on home oxygen. Her CLL has been slowly progressing. HISTORY OF PRESENT ILLNESS: This is a patient with known CLL with adenopathy who has refused treatment. She states that she would like to juice and cut out instead of take treatment. Continues to do worse. Her lymph glands have been more swollen recently. Her breathing has been getting worse over the past several days. Her abdomen is also swollen. Patient does have known hypogammaglobulinemia as well as bronchiectasis and COPD on home oxygen. She denies fevers or chills. REVIEW OF SYSTEMS: All other review of systems negative unless indicated in the HPI. PAST MEDICAL HISTORY: Positive for CLL, hypogammaglobulinemia, bronchiectasis and COPD on home oxygen. Noncompliance with treatment. FAMILY AND SOCIAL HISTORY: Patient has a grandfather with leukemia. She denies alcohol, illicit drug or tobacco usage. PHYSICAL EXAMINATION: Vital Signs: Stable. HEENT: Head is normocephalic, atraumatic. Pupils equal, round, reactive to light. Trachea is midline. Pulmonary: Occasional expiratory wheeze. Respiratory effort is unlabored. Cardiovascular: S1-S2 audible to auscultation. Abdomen: Distended. Positive bowel sounds. No tenderness. Skin: There is no petechiae and no rash. Musculoskeletal: Patient moves all extremities. Neurologic: Cranial nerves 2-12 grossly intact. Psychiatric: Patient is appropriate to the situation. DIAGNOSTIC DATA: CT of chest, abdomen and pelvis shows right pleural effusion, worsening bilateral axillary adenopathy, worsening retroperitoneal and mesenteric adenopathy, pelvic adenopathy as well and slight worsening of splenomegaly. WBC 5.74, hemoglobin 11.5, hematocrit 37.4, platelet count 171,000. Sodium 139, potassium 4.9, BUN is 29. Creatinine 0.6. ASSESSMENT AND PLAN: 1. Chronic lymphocytic anemia. Patient is in denial. She has refused chemotherapy. Her disease is slowly progressing. 2. Immunodeficiency. Continue IVIG. 3. Acute respiratory failure per Dr. Black. Dictated by ANNA MARIE Davis for Mack Davies MD
[2016-06-11] MEDS: PRILOSEC PO SCH (06:01)
[2016-06-11] MEDS: XOPENEX NEB INH SCH (07:30)
[2016-06-11 07:40] VITALS: BP 104/57
[2016-06-11] MEDS: CULTURELLE PO SCH (08:20)
[2016-06-11] MEDS: SEPTRA DS PO SCH (08:20)
[2016-06-11] MEDS: LEVAQUIN 500 MG/D5W 100 ML IV SCH (08:21)
[2016-06-11] MEDS: MUCINEX PO SCH (08:21)
[2016-06-11] MEDS: THERA M PLUS PO SCH (08:21)
[2016-06-11] MEDS: SYNTHROID PO SCH (08:21)
[2016-06-11] MEDS: VITAMIN E PO SCH (08:21)
[2016-06-11] MEDS: VITAMIN D PO SCH (08:21)
[2016-06-11] MEDS: LOVENOX SUBQ SCH (08:22)
[2016-06-11] MEDS: SOLU-MEDROL IV SCH (08:22)
[2016-06-11] MEDS: FLONASE NAS SCH (08:22)
[2016-06-11] MEDS: BACTROBAN OINTMENT TOP SCH (08:45)
[2016-06-11] MEDS: VANCOMYCIN 1,200 MG in NS 250 ML IV SCH (12:49)
--- NOTE | 2016-06-14 20:42 | DISCHARGE SUMMARY ---
ADMISSION DATE: 06/02/2016 DISCHARGE DATE: 06/11/2016 DISCHARGING DIAGNOSIS: Acute respiratory failure due to chronic obstructive pulmonary disease exacerbation. SECONDARY DIAGNOSES: 1. 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 2. Allergic rhinitis due to pollen. 3. History of bronchiectasis. 4. 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 5. Hypothyroidism. 6. 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 CONSULTS: Dr. Davies. BRIEF HISTORY: Please see the H and P that was done by Dr. Chao. In brief she is a 60-year-old white female, has been suffering from CLL with IgG deficiency refusing chemotherapy, is treating by [employer]. Basically admitted to the hospital with distention of the belly, cough, congestion, shortness of breath, hypoxemia. HOSPITAL COURSE: She was started on oxygen, BiPAP, bronchodilators, IV steroids , IV antibiotics along with the p.o. Bactrim. Patient was seen by Dr. Davies 2 days before the hospitalization for IgG transfusion. She has been refusing for chemotherapy. During this hospital course she had some constipation and no significant untoward side effects. LABS: Chest x-ray was stable. CT scan of the abdomen and pelvis. Worsening of adenopathy and splenomegaly since 12/2015. CT of the chest. Right pulmonary parenchymal changes with pleural effusion, worsening of adenopathy, no PE noted. The findings were discussed with the patient. She got better and she is going to see Dr. Davies as an outpatient. Labs at the time of discharge, CBC. White cell count 5.7, hematocrit 37, platelets 171,000. PT 10, INR 0.9. ABG on 06/08/2016 pH is 7.31, pCO2 83, po2 163 on BiPAP. SMA 7, sodium 139, potassium 4.9, chloride 96, BUN 29, creatinine 0.6, glucose 133. Liver function tests were normal. Cardiac enzymes were normal. ProBNP was 1800. DISCHARGE INSTRUCTIONS: The patient was discharged home in a stable condition with the following instructions. 1. Oxygen 2 L. 2. BiPAP at night. 3. Pneumococcal vaccine 12/05/2014. Refusing for flu vaccine. 4. Vitamin E 400 units in the morning. 5. Multivitamin 1 tablet daily. 6. Synthroid 50 mcg daily. 7. Guaifenesin 600 p.o. b.i.d. 8. Flonase 1 spray each nostril in the morning. 9. Vitamin D3 1000 units in the morning. 10. Xopenex every 8 hours as needed. 11. Culturelle 1 tablet daily. 12. Protonix 40 daily. 13. Bactroban ointment to the tip of the nose for dryness and irritation from continuous oxygen. 14. Bactrim 1 tablet p.o. b.i.d. for 10 days. 15. Medrol Dosepak. 16. Follow up in my office next week as well as arranging funeral director and Dr. Davies for maintenance treatment for IgG transfusion. [facility]
== END 2016-06-11 12:22 | disposition home or self-care (01) | DRG 190 ==
LOC: ED 13:05 → SUPCPDRO 13:05 → 4N 20:52 → DIRADM 06-06 07:52 → 4N 06-06 07:57
PROVIDERS: ADMIT Internal Medicine; ATTEND Internal Medicine
DX: J47.1 Bronchiectasis with (acute) exacerbation (principal); J96.20 Acute and chronic respiratory failure, unspecified whether with hypoxia or hypercapnia; C91.10 Chronic lymphocytic leukemia of B-cell type not having achieved remission; J90 Pleural effusion, not elsewhere classified; D80.1 Nonfamilial hypogammaglobulinemia; E87.5 Hyperkalemia; D69.6 Thrombocytopenia, unspecified; Z80.6 Family history of leukemia; E03.9 Hypothyroidism, unspecified; Z99.81 Dependence on supplemental oxygen; Z79.51 Long term (current) use of inhaled steroids; Z79.899 Other long term (current) drug therapy; K59.00 Constipation, unspecified
CPT/HCPCS: 71010; 71275; 74177; 80048; 80053; 80202; 82550; 82805; 83735; 83880; 84484; 85025; 85027; 85379; 85610; 85730; 93005; 94640; 94660; 94761; C9113; J1650; J2920; J2930; J3370; J7040; J7050; Q9967; 97001-GP; S0164

== ENCOUNTER 2016-07-29 12:00 | Inpatient (IN) | payer OTHER ==
[2016-07-29] MEDS ORDERED: DUONEB (A & A) INH PRN (14:08)
[2016-07-29] MEDS ORDERED: TYLENOL PO PRN (14:08)
[2016-07-29] MEDS ORDERED: TESSALON PO PRN (14:08)
[2016-07-29] MEDS ORDERED: AYR NASAL SPRAY NAS PRN (14:09)
[2016-07-29 14:59] LABS: MANUAL DIFF NEEDED? NO
[2016-07-29 15:05] LABS: ALLEN TEST YES; BE 12.6 mmoll (-3.0-3.0); BLOOD TYPE ARTERIAL; DRAW SITE R RADIAL; METHB 1.4 % (0.0-1.5); O2(CT) 15.4 mL/dL (15.0-23.0); PO2(98.6) 59 mmHg (60-100); SAMPLE BLOOD; SAO2 93.3 % (95.0-100.0); THB 12.2 g/dL (11.5-17.4); pH(98.6) 7.43 (7.35-7.45)
[2016-07-29 15:06] LABS: MODALITY CANNULA
[2016-07-29 15:06] LABS: BASO% 0.6 % (0.0-0.8); EOS# 0.72 X1000 (0.0-0.7); EOS% 14.1 % (0.0-10.0); HEMATOCRIT 37.9 % (37.0-47.0); HEMOGLOBIN 12.2 g/dL (12.0-16.0); LYMPH# 1.76 X1000 (1.2-3.4); LYMPH% 34.4 % (20.5-51.1); MCHC 32.2 g/dL (33-37); MCV 90.2 FL (81-99); MONO% 7.8 % (1.7-9.3); MPV 10.9 FL (7.4-10.4); NEUT% 43.1 % (42.2-75.2); PLT 178 X1000 (130-400)
[2016-07-29 15:08] LABS: PCO2(98.6) 59 mmHg (35-45)
[2016-07-29] MEDS: SOLU-MEDROL IV SCH ×2 (15:30→21:55)
[2016-07-29] MEDS: LOVENOX SUBQ SCH (15:30)
[2016-07-29] MEDS: ZOSYN 3.375 GM/NS 50 ML IV SCH ×2 (15:31→21:55)
[2016-07-29] MEDS: PROTONIX IV SCH (15:31)
[2016-07-29] MEDS: SODIUM CHLORIDE 0.9% INJ SCH (15:31)
[2016-07-29 15:41] LABS: AGAP 10; BUN 13 mg/dL (8-22); CALCIUM 9.5 mg/dL (8.8-10.2); CHLORIDE 92 mmol/L (98-107); COSMO 270; POTASSIUM 4.6 mmol/L (3.5-5.1); SODIUM 135 mmol/L (136-145); TCO2 33 mmol/L (25-35)
[2016-07-29] MEDS: LEVAQUIN 500 MG/D5W 100 ML IV SCH (16:27)
[2016-07-29] MEDS: XOPENEX NEB INH SCH (20:17)
[2016-07-29] MEDS: SEPTRA DS PO SCH (21:56)
--- NOTE | 2016-07-29 22:14 | HISTORY AND PHYSICAL ---
CHIEF COMPLAINT: Shortness of breath, cough, wheezing, swelling of the abdomen, swelling of the lymph nodes in the left submandibular. HPI: She is a 60-year-old white female recently discharged from the hospital for COPD exacerbation, bronchitis. She has a relapse of the CLL with lymphoma. Patient is declining for further options. She is well known to this institution. She had a follow up appointment showing left submandibular swelling and recommended see Dr. Davies for chemotherapy. She is refusing and looking for holistic medicine options. She returned to my office with shortness of breath, cough and wheezing. She has marked rhonchi and hypoxemia. Chest x-ray showed right paratracheal lymphadenopathy and also worsening of lymph nodes in the left neck and the abdomen. She is hypoxic admitted to the hospital with IV steroids, IV antibiotics. PAST MEDICAL HISTORY: Bronchiectasis on the right side, deafness, hyperthyroid, CLL, IgG deficiency, chronic loculated pleural effusion on the right side stable. PAST SURGICAL HISTORY: Cholecystectomy, right acoustic neuroma excision, status post tracheostomy. MEDICATIONS: Vitamin E 400 units, multivitamin 1 tablet daily, Synthroid 50 mcg daily, guaifenesin 600 p.o. b.i.d., Nasonex as needed, vitamin D3 1000 units daily, Culturelle and Bactrim double-strength 1 tablet p.o. b.i.d. ALLERGIES: Erythromycin, amoxicillin. SOCIAL HISTORY: 1 kid, disabled. Lives in [place]. No smoking. No alcohol. FAMILY HISTORY: Father of heart attack at 90, mom of dementia at 89. HEALTH MAINTENANCE: Pneumococcal vaccine 2014, declined flu vaccine. Living will, full code. REVIEW OF SYSTEMS: HEENT: No headache. No vision problem. 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 Lymph nodes swelling on the left neck . Neck: No goiter. Chest: Shortness of breath, cough and wheezing. No chest pain. GI: No nausea, vomiting, abdominal pain, swelling of the abdomen. : No history of hesitancy, frequency . Extremities: No swelling of feet, no joint pain. Neuro: Nonfocal symptoms. EXAMINATION: Vitals: Afebrile, 5 feet 6, 118 pounds on 4 L of oxygen. HEENT: Atraumatic, normocephalic. Pupils equal, react to light. TMs are normal. Submandibular lymphadenopathy present. Neck: Supple. Chest: Bilateral rhonchi. Heart: Sounds are tachycardic. Belly: Soft, obese, slightly protuberant and no hepatosplenomegaly. Extremities: No peripheral edema, cyanosis, clubbing. Neuro: Nonfocal. INVESTIGATIONS: CBC white cell count 5.9, hematocrit 37, platelet 178,000, sed rate 22. ABG pH is 7.43, pCO2 59, PO2 59, 89%. SMA 7 is normal. LDH 271, ProBNP is normal. ASSESSMENT AND PLAN: 1. A 60-year-old white female admitted to the hospital with decompensation of chronic obstructive pulmonary disease exacerbation due to underlying chronic lymphocytic leukemia with the lymphadenopathy refusing for further chemotherapy. Plan is IV steroids, IV Zosyn, Levaquin, Bactrim. 2. Cough. Tessalon Perles, bronchodilators. 3. Deep vein thrombosis, gastrointestinal prophylaxis with Lovenox and Protonix. 4. Health maintenance. Pneumococcal vaccine 2015. 5. Dryness nose on the right side due to continuous oxygen. Continue on Flonase and saline nasal spray and Bactroban. 6. Hypothyroidism on Synthroid. 7. Living Will is full code and if decompensate consider using BiPAP machine and will follow up.
[2016-07-30] MEDS: ZOSYN 3.375 GM/NS 50 ML IV SCH ×4 (02:04→20:03)
[2016-07-30] MEDS: SOLU-MEDROL IV SCH ×4 (06:11→22:34)
[2016-07-30] MEDS: SYNTHROID PO SCH (06:11)
[2016-07-30] MEDS: VITAMIN E PO SCH (08:23)
[2016-07-30] MEDS: VITAMIN D PO SCH (08:23)
[2016-07-30] MEDS: BACTROBAN OINTMENT TOP SCH (08:24)
[2016-07-30] MEDS: FLONASE NAS SCH (08:24)
[2016-07-30] MEDS: SEPTRA DS PO SCH ×2 (08:24→21:10)
[2016-07-30] MEDS: MUCINEX PO SCH (08:24)
[2016-07-30] MEDS: CULTURELLE PO SCH (08:24)
[2016-07-30] MEDS: XOPENEX NEB INH SCH ×2 (08:30→20:25)
[2016-07-30] MEDS ORDERED: CULTURELLE PO SCH (09:00)
[2016-07-30] MEDS ORDERED: PEPCID IV ONE (14:00)
[2016-07-30] MEDS ORDERED: NS IV ONE (14:00)
[2016-07-30] MEDS: LOVENOX SUBQ SCH (14:23)
[2016-07-30] MEDS: PROTONIX IV SCH (14:23)
[2016-07-30] MEDS ORDERED: TYLENOL PO ONE (14:30)
[2016-07-30] MEDS ORDERED: FLEBOGAMMA DIF 5% 20 GM in DILUENT 400 ML IV ONE (14:30)
--- NOTE | 2016-07-30 17:54 | CONSULTATION ---
DATE OF CONSULTATION: 07/30/2016 HEMATOLOGY/ONCOLOGY CONSULTATION: REASON FOR CONSULTATION: This patient is known to us. We treat her for hypogammaglobulinemia, she receives Octagam 400 mg/kg q.4 weekly, last received on June 17 of this year. Her IgG level at that time was 634. She is due to receive another round of IVIG today on the 30 of July. She also has small lymphocytic lymphoma that continues to get worse with retroperitoneal lymphadenopathy. Patient is in denial and does not want any therapy. HISTORY OF PRESENT ILLNESS: The patient with hypogammaglobulinemia on IV IgG last on June 17. IgG level was 634. Due to receive another dose of IV IgG today at our clinic. Also, small lymphocytic lymphoma in a great deal of denial. Does not wish for any treatment other than holistic therapy. Came in with increasing dyspnea, wheezing, and hypoxic. Chest x-ray showed right paratracheal lymphadenopathy and worsening lymph nodes in the left neck and abdomen. REVIEW OF SYSTEMS: Negative unless indicated in the HPI. ALLERGIES: Erythromycin and amoxicillin. PAST MEDICAL/SURGICAL HISTORY: Hypogammaglobulinemia. Bronchiectasis and COPD on home oxygen. Small lymphocytic lymphoma. MEDICATIONS: Vitamin E, Synthroid, guaifenesin, Nasonex, Bactrim. FAMILY AND SOCIAL HISTORY: The patient denies alcohol, illicit drugs, or tobacco use. PHYSICAL EXAMINATION: Vital Signs: Stable. HEENT: Head is normocephalic, atraumatic. Pupils equal, round, and symmetric. Cardiovascular: S1, S2 audible to auscultation with no heaves, lifts, or thrills. Pulmonary: Breath sounds. There is bilateral rhonchi. Abdomen: Soft, nontender. It is distended. Extremities: There is no edema. Neurologic: Alert and oriented. Psychiatric: The patient responds appropriately. DIAGNOSTIC DATA: WBC is 5.1, hemoglobin is 12.2, hematocrit 37.9, platelets 178,000. ASSESSMENT AND PLAN: 1. Hypogammaglobulinemia on replacement. She last received IV IgG on June 17. Her last IgG was 634. She is due to receive IV IgG today. We will replete that. 2. Small lymphocytic lymphoma with worsening lymphadenopathy. Patient continues to be in denial. She only wants holistic therapy. 3. Chronic obstructive pulmonary disease exacerbation. Steroids, antibiotics, and supportive care per primary team. 4. DVT prophylaxis with Lovenox. Dictated by ANNA MARIE Davis for Mack Davies MD
[2016-07-30] MEDS: LEVAQUIN 500 MG/D5W 100 ML IV SCH (18:42)
[2016-07-30] MEDS: NS NEB INH SCH (20:25)
[2016-07-31] MEDS: ZOSYN 3.375 GM/NS 50 ML IV SCH ×4 (01:32→20:28)
[2016-07-31] MEDS: SOLU-MEDROL IV SCH ×3 (06:10→21:22)
[2016-07-31] MEDS: SYNTHROID PO SCH (06:11)
[2016-07-31] MEDS: XOPENEX NEB INH SCH ×2 (08:52→20:25)
[2016-07-31] MEDS: NS NEB INH SCH ×2 (08:52→20:25)
[2016-07-31] MEDS: VITAMIN D PO SCH (09:10)
[2016-07-31] MEDS: FLONASE NAS SCH (09:10)
[2016-07-31] MEDS: SEPTRA DS PO SCH ×2 (09:11→20:28)
[2016-07-31] MEDS: MUCINEX PO SCH (09:11)
[2016-07-31] MEDS: CULTURELLE PO SCH (09:11)
[2016-07-31] MEDS: VITAMIN E PO SCH (09:11)
[2016-07-31] MEDS: BACTROBAN OINTMENT TOP SCH (09:19)
[2016-07-31] MEDS: PROTONIX IV SCH (13:56)
[2016-07-31] MEDS: SODIUM CHLORIDE 0.9% INJ SCH (13:56)
[2016-07-31] MEDS: LOVENOX SUBQ SCH (13:57)
[2016-07-31] MEDS: LEVAQUIN 500 MG/D5W 100 ML IV SCH (17:15)
[2016-08-01] MEDS: ZOSYN 3.375 GM/NS 50 ML IV SCH ×4 (02:34→20:39)
[2016-08-01] MEDS: SYNTHROID PO SCH (06:13)
[2016-08-01] MEDS: SOLU-MEDROL IV SCH ×3 (06:17→22:24)
[2016-08-01] MEDS: NS NEB INH SCH (07:39)
[2016-08-01] MEDS: XOPENEX NEB INH SCH ×2 (07:39→20:02)
[2016-08-01] MEDS: FLONASE NAS SCH (09:19)
[2016-08-01] MEDS: MUCINEX PO SCH (09:19)
[2016-08-01] MEDS: SEPTRA DS PO SCH ×2 (09:19→20:39)
[2016-08-01] MEDS: CULTURELLE PO SCH (09:19)
[2016-08-01] MEDS: BACTROBAN OINTMENT TOP SCH (09:20)
[2016-08-01] MEDS: VITAMIN E PO SCH (09:20)
[2016-08-01] MEDS: VITAMIN D PO SCH (09:20)
[2016-08-01] MEDS: LOVENOX SUBQ SCH (14:48)
[2016-08-01] MEDS: PROTONIX IV SCH (14:48)
[2016-08-01] MEDS: SODIUM CHLORIDE 0.9% INJ SCH (14:48)
[2016-08-01] MEDS: LEVAQUIN 500 MG/D5W 100 ML IV SCH (18:14)
[2016-08-02] MEDS: ZOSYN 3.375 GM/NS 50 ML IV SCH ×4 (04:04→20:05)
[2016-08-02] MEDS: SOLU-MEDROL IV SCH ×3 (05:42→21:37)
[2016-08-02] MEDS: SYNTHROID PO SCH (06:38)
[2016-08-02] MEDS: XOPENEX NEB INH SCH ×2 (07:33→19:11)
[2016-08-02] MEDS: NS NEB INH SCH ×2 (07:33→07:34)
[2016-08-02] MEDS: VITAMIN D PO SCH (11:04)
[2016-08-02] MEDS: VITAMIN E PO SCH (11:04)
[2016-08-02] MEDS: CULTURELLE PO SCH (11:04)
[2016-08-02] MEDS: SEPTRA DS PO SCH ×2 (11:04→20:08)
[2016-08-02] MEDS: MUCINEX PO SCH (11:04)
[2016-08-02] MEDS: FLONASE NAS SCH (11:04)
[2016-08-02] MEDS: BACTROBAN OINTMENT TOP SCH (11:04)
[2016-08-02] MEDS: LEVAQUIN 500 MG/D5W 100 ML IV SCH (17:00)
[2016-08-02] MEDS: LOVENOX SUBQ SCH (17:00)
[2016-08-02] MEDS: PROTONIX IV SCH (17:00)
[2016-08-03] MEDS: ZOSYN 3.375 GM/NS 50 ML IV SCH ×4 (01:49→21:00)
[2016-08-03] MEDS: SOLU-MEDROL IV SCH ×3 (06:03→22:00)
[2016-08-03] MEDS: SYNTHROID PO SCH (06:03)
[2016-08-03] MEDS: NS NEB INH SCH ×2 (08:39)
[2016-08-03] MEDS: XOPENEX NEB INH SCH ×2 (08:39→19:33)
[2016-08-03] MEDS: VITAMIN E PO SCH (10:10)
[2016-08-03] MEDS: CULTURELLE PO SCH (10:10)
[2016-08-03] MEDS: SEPTRA DS PO SCH ×2 (10:11→21:52)
[2016-08-03] MEDS: BACTROBAN OINTMENT TOP SCH (10:11)
[2016-08-03] MEDS: FLONASE NAS SCH (10:11)
[2016-08-03] MEDS: MUCINEX PO SCH (10:11)
[2016-08-03] MEDS: VITAMIN D PO SCH (10:11)
[2016-08-03] MEDS: LOVENOX SUBQ SCH (14:40)
[2016-08-03] MEDS: SODIUM CHLORIDE 0.9% INJ SCH (14:40)
[2016-08-03] MEDS: PROTONIX IV SCH (14:40)
[2016-08-03] MEDS: LEVAQUIN 500 MG/D5W 100 ML IV SCH (18:14)
[2016-08-04] MEDS: ZOSYN 3.375 GM/NS 50 ML IV SCH ×2 (02:55→09:41)
--- NOTE | 2016-08-04 03:01 | PROGRESS NOTE ---
DATE: 08/02/2016 SUBJECTIVE: Ms. Parnell is recovering from pneumonia. She has COPD. She says she is feeling better. She is on Mucinex as well as IV antibiotics. She mentioned that for her for malignancy problems, she is going for holistic medicine. Otherwise, condition is stable. -18
--- NOTE | 2016-08-04 03:05 | PROGRESS NOTE ---
DATE: 08/03/2016 Miss. Parnell is doing better. She has acute exacerbation of COPD. She is getting methylprednisone 40 mg q.8 hours. I am going to change it to q.12 hours. -23
[2016-08-04] MEDS: SYNTHROID PO SCH (06:24)
[2016-08-04 07:57] VITALS: BP 117/59
[2016-08-04] MEDS: XOPENEX NEB INH SCH (08:00)
[2016-08-04] MEDS: NS NEB INH SCH ×2 (08:00)
[2016-08-04] MEDS: FLONASE NAS SCH (09:40)
[2016-08-04] MEDS: SEPTRA DS PO SCH (09:41)
[2016-08-04] MEDS: VITAMIN D PO SCH (09:41)
[2016-08-04] MEDS: MUCINEX PO SCH (09:41)
[2016-08-04] MEDS: CULTURELLE PO SCH (09:41)
[2016-08-04] MEDS: VITAMIN E PO SCH (09:41)
--- NOTE | 2016-08-04 22:29 | DISCHARGE SUMMARY ---
ADMISSION DATE: 07/29/2016 DISCHARGE DATE: 08/04/2016 DISCHARGING DIAGNOSIS: Acute chronic obstructive pulmonary disease exacerbation due to bronchopneumonia. SECONDARY DIAGNOSES: 1. Bronchiectasis on the right side. 2. Deafness. 3. Hypothyroidism. 4. Chronic lymphocytic leukemia. 5. IgG deficiency. 6. Chronic loculated pleural effusion on the right side. CONSULTANTS: Dr. Davies. PROCEDURES: IgG transfusion. BRIEF HISTORY: Please see the H and P that was done on 07/29/2016. In brief she is a 60-year- old white female admitted to the hospital with shortness of breath, cough, wheezing, rhonchi. She has abnormal chest x-ray with worsening of lymphadenopathy. She has left submandibular swelling which is resolved. The patient was given IV steroids, oxygen, bronchodilators, Mucinex along with Bactrim. She got better. She was also seen by Dr. Davies and gave IgG transfusion. Rest of the hospital course was uneventful. LABORATORY DATA: CBC. White cell count 5.1, hematocrit 37, platelets 178,000, sedimentation rate is 22. ABG, pH is 7.43, pCO2 59, PO2 59 on 32%. SMA 7 is normal. LDH 271. ProBNP is normal. Cardiac enzymes were normal. Patient was discharged home with the following instructions. 1. Vitamin E 400 units daily. 2. Multivitamin 1 tablet daily. 3. Synthroid 50 mcg daily. 4. Mucinex 600 p.o. daily. 5. Flonase as needed. 6. Vitamin D 3000 units daily. 7. Xopenex as needed. 8. Culturelle 1 tablet daily. 9. Bactroban ointment as directed. 10. Bactrim 1 tablet p.o. b.i.d. 11. Oxygen. 12. BiPAP as needed. 13. IgG transfusion once a month. 14. Follow up with a Dr. Davies for CLL, IgG deficiency.
== END 2016-08-04 12:18 | disposition home or self-care (01) | DRG 191 ==
LOC: DIRADM 12:00 → 3N 13:45
PROVIDERS: ADMIT Internal Medicine; ATTEND Internal Medicine
PROC: 30233S1 Transfusion of Nonautologous Globulin into Peripheral Vein, Percutaneous Approach (ICD-10-PCS; principal; 2016-07-30)
DX: J47.0 Bronchiectasis with acute lower respiratory infection (principal); C91.12 Chronic lymphocytic leukemia of B-cell type in relapse; J18.0 Bronchopneumonia, unspecified organism; C83.00 Small cell B-cell lymphoma, unspecified site; D80.3 Selective deficiency of immunoglobulin G [IgG] subclasses; J90 Pleural effusion, not elsewhere classified; E87.2 Acidosis; Z99.81 Dependence on supplemental oxygen; E03.9 Hypothyroidism, unspecified; J34.89 Other specified disorders of nose and nasal sinuses; R09.02 Hypoxemia; Z82.49 Family history of ischemic heart disease and other diseases of the circulatory system; H91.90 Unspecified hearing loss, unspecified ear; Z79.51 Long term (current) use of inhaled steroids; Z79.899 Other long term (current) drug therapy; J47.1 Bronchiectasis with (acute) exacerbation
CPT/HCPCS: 80048; 82805; 83615; 83880; 84484; 85025; 85651; 94640; 94761; C9113; J1572; J1650; J2543; J2920; J2930; S0028; S0164

== ENCOUNTER 2016-09-16 13:00 | Inpatient (IN) ==
[2016-09-16 14:15] LABS: MANUAL DIFF NEEDED? NO
[2016-09-16 14:35] LABS: AGAP 8; ALBUMIN 4.2 g/dL (3.5-5.0); ALKALINE PHOSPHATASE 79 U/L (32-104); BASO% 0.5 % (0.0-0.8); BUN 18 mg/dL (8-22); CALCIUM 8.7 mg/dL (8.8-10.2); CHLORIDE 79 mmol/L (98-107); COSMO 247; EOS# 0.08 X1000 (0.0-0.7); EOS% 1.3 % (0.0-10.0); GOT 44 U/L (10-30); GPT 25 U/L (10-36); HEMATOCRIT 37.6 % (37.0-47.0); HEMOGLOBIN 13.4 g/dL (12.0-16.0); LYMPH# 3.05 X1000 (1.2-3.4); LYMPH% 48.9 % (20.5-51.1); MCH 29.8 PG (27-31); MCHC 35.6 g/dL (33-37); MCV 83.7 FL (81-99); MONO# 0.52 X1000 (0.11-0.59); MONO% 8.3 % (1.7-9.3); MPV 11.4 FL (7.4-10.4); PLT 122 X1000 (130-400); POTASSIUM 4.7 mmol/L (3.5-5.1); RBC 4.49 XMIL (4.2-5.4); SODIUM 121 mmol/L (136-145); TCO2 34 mmol/L (25-35); TOTAL BILIRUBIN 0.56 mg/dL (0.20-1.00); TOTAL PROTEIN 6.6 g/dL (6.3-8.3)
--- NOTE | 2016-09-16 14:56 | Diag Imaging Result Document ---
PROCEDURE NAME: KUB ABDOMEN - 09/16/2016 KUB: FINDINGS: There is some improvement in the constipation present on 09/12/2016. There is no evidence of small bowel dilatation. The possibility of ascites cannot be excluded. IMPRESSION: Improved constipation.
--- NOTE | 2016-09-16 15:11 | Diag Imaging Result Document ---
PROCEDURE NAME: HEAD W/O CONTRAST - 09/16/2016 CT OF THE HEAD WITHOUT CONTRAST: FINDINGS: There is no evidence of mass effect, bleed, or abnormal extra-axial fluid collection. There are no previous studies available for comparison. There has been previous temporal occipital craniotomy on the right. The mastoid has been resected. IMPRESSION: No evidence of acute intracranial disease.
[2016-09-16] MEDS ORDERED: NS 1,000 ML IV ONE ×2 (15:39→15:44)
[2016-09-16] MEDS ORDERED: ZOFRAN IV PRN (15:44)
[2016-09-16] MEDS ORDERED: TYLENOL PO PRN (15:44)
[2016-09-16 15:45] LABS: BILIRUBIN URINE NEGATIVE (NEGATIVE); BLOOD URINE NEGATIVE (NEGATIVE); COLOR YELLOW; GLUCOSE URINE NEGATIVE (NEGATIVE); LEUKOCYTES URINE NEGATIVE (NEGATIVE); NITRITE URINE NEGATIVE (NEGATIVE); PH URINE 8.5; TURBIDITY URINE HAZY (CLEAR); URINE CULTURE NEEDED? NO; URINE MICRO REVIEW NEEDED? NO; URINE SOURCE CLEAN CATCH; UROBILINOGEN URINE NORMAL (NORMAL)
[2016-09-16 15:47] LABS: UR EPITHELIAL CELLS <10 /HPF (<10); URINE BACTERIA NEGATIVE /HPF; URINE RBC <10 /HPF (<10); URINE WBC <10 /HPF (<10)
[2016-09-16 15:51] LABS: PROTEIN URINE 30 mg/dL (NEGATIVE); SP GRAVITY URINE 1.022
--- NOTE | 2016-09-16 15:51 | PROVIDER DOCUMENTATION ---
This chart was entered by Delfino Fong Scribe, acting as scribe for Loretta Womack PA. HPI-Neurological Disorder - General Chief Complaint: General Adult Stated Complaint: GENERAL WEAKNESS Time Seen by Provider: 09/16/16 13:44 Unable to obtain history due to:: altered Allergies/Adverse Reactions: Patient Allergies Allergy/AdvReac Type Severity Reaction Status Date / Time erythromycin base Allergy Mild RASH Verified 09/16/16 13:52 [Erythromycin Base] amoxicillin trihydrate * AdvReac Mild DRIES UP Verified 09/16/16 13:52 [From Augmentin] MUCUS IN HER THROAT potassium clavulanate * AdvReac Mild DRIES UP Verified 09/16/16 13:52 [From Augmentin] MUCUS IN HER THROAT Home Medications: Home Medication List Medication Instructions Recorded Confirmed Last Taken Type Cholecalciferol (Vitamin D3) 1,000 unit PO QAM 04/30/15 09/12/16 07/29/16 History [Vitamin D3] 1000 Fluticasone 50 Mcg Nasal [place] 1 spray LI QAM 04/30/15 09/12/16 07/29/16 History [Flonase] 1 Guaifenesin [Mucinex] 600 mg PO DAILY 04/30/15 09/12/16 07/29/16 History 600 Levalbuterol HCl [Xopenex] 1.25 mg IH BID 04/30/15 09/12/16 07/29/16 History 1.25 Levothyroxine [Synthroid] 50 microgm PO QAM 04/30/15 09/12/16 07/29/16 History 50 Multivitamin [Multivitamins] 1 each PO QAM 04/30/15 09/12/16 07/29/16 History 1 Vitamin E Acetate [Vitamin E] 400 unit PO QAM 04/30/15 09/12/16 07/29/16 History 400 Lactobacillus Rhamnosus GG 1 each PO DAILY #0 capsule 05/28/15 09/12/16 Rx [Culturelle] 1 Mupirocin Ointment [Bactroban 1 gm TOP DAILY #0 tube 07/07/16 09/12/16 07/29/16 Rx Ointment] 1 Sulfamethoxazole/Tmp D.s. [Septra 1 each PO BID #30 tablet 07/07/16 09/12/16/17 Rx Ds] 1 Bisacodyl [Dulcolax] 10 mg LA DAILY #5 supp 09/12/16 Unknown Rx Prednisone 40 mg PO DAILY #3 tablet 09/12/16 Unknown Rx - History of Present Illness-Neuro Nature of Presenting Problem: Patient is a 60 y/o F that presents to the ER with confusion, shakiness, generalized weakness, and memory loss since awakening this am. Patient was seen 3 days ago in the ER for shortness of breath and dx with constipation. She denies recent fall, fever/chills, urinary symptoms, or n/v/d. Severity: reports: moderate Onset/Duration: reports: unsure Timing: reports: still present, constant Context: denies: fever, impaired speech, paresthesia, facial droop, falling, seizure activity Character of Altered Mental Status: reports: confused. denies: trouble concentrating, seizure activity Character of Deficits: denies: new weakness New weakness or altered sensation location:: reports: none Cognitive Baseline: alert, oriented x3 Gait Baseline: walks without assistance Associated Symptoms: reports: confusion, weakness, other (tremors). denies: short of breath, headache, fainting, neck/back pain, fatigue, insomnia, loss of consciousness, nausea, sleepy, slurred speech, vomiting, vision changes Similar Symptoms Previously?: Yes Recently seen or treated by another doctor?: Yes (x 3 nights dx with constipation) Review of Systems - Adult - REVIEW OF SYSTEMS - ADULT ROS:: limited per condition (confusion) Constitutional: reports: fatique. denies: chills, fever Eyes: reports: no symptoms reported Ears, Nose, Mouth & Throat: denies: ear pain, sinus problem, throat pain Cardiovascular: denies: chest pain, palpitations, syncope Respiratory: denies: cough, shortness of breath, wheezing Gastrointestinal: denies: abdominal pain, diarrhea, nausea, rectal bleeding Genitourinary: reports: no symptoms reported Musculoskeletal: reports: no symptoms reported Integumentary: reports: no symptoms reported Neurological: reports: tremors, other (confusions). denies: dizziness/vertigo, headache/migraines Psychiatric: reports: no symptoms reported Endocrine: reports: no symptoms reported Hematologic/Lymphatic: reports: no symptoms reported Allergic/Immunologic: reports: no symptoms reported All Other Systems: Reviewed and Negative Past History - Adult - PAST MEDICAL HISTORY-ADULT Review of Records: reports: Old Records Reviewed, Nursing Assessment Review, Medications Reviewed Cardiovascular: reports: HTN Respiratory: reports: bronchitis, COPD, pneumonia, sleep apnea Endocrine/Immune: reports: Leukemia (CLL) - PRIOR SURGERIES/PROCEDURES Surgical/Procedure History: reports: cholecystectomy, other (rhinoplasty, removal of acustic neuroma) - PRIOR HOSPITALIZATIONS Prior Hospitalizations: reports: for similar symptoms - IMMUNIZATION STATUS Childhood Immunizations: See Nurse Assessment Flu Vaccine: See Nurse Assessment - FAMILY HISTORY Family History: reviewed, not pertinent Physical Exam- Neurological - Physical Exam-Neuro Initial Vital Signs Reviewed: Yes General Appearance: appears well, no apparent distress, thin, other (mild expressive aphasia and short attention span) Eye Exam: bilateral eye: normal inspection, PERRL, EOMI HENMT: normocephalic/atraumatic, moist mucous membranes, normal ENT inspection Neck: non-tender, full range of motion, supple. negative: carotid bruit Respiratory: chest non-tender, crackles, rhonchi. negative: accessory muscle use, rales, stridor, wheezing Cardiovascular: normal peripheral pulses, regular rate, rhythm, no edema Abdominal Exam: normal bowel sounds, non tender, soft. 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 negative: sensory deficit Integumentary: normal color, normal turgor, warm/dry Psych/Mental Status: normal mood/affect - Glascow Coma Scale Best Eye Response: (4) open spontaneously Best Verbal Response: (5) oriented Best Motor Response: (6) obeys commands Total Glascow Score: 15 Progress - PLAN OF CARE/RESULTS Progress/Plan/Lab Results: Vital Signs - 8 hr 09/16/16 13:28 09/16/16 15:25 Temperature 97.4 F L Pulse Rate 93 H 91 H Respiratory Rate 28 H 24 Blood Pressure 125/80 138/75 O2 Sat by Pulse Oximetry 90 L Laboratory Results - last 24 hr 09/16/16 09/16/16 13:49 13:49 WBC 6.24 RBC 4.49 Hgb 13.4 Hct 37.6 MCV 83.7 MCH 29.8 MCHC 35.6 RDW Std Deviation 14.3 Plt Count 122 L MPV 11.4 H Immature Gran % (Auto) 0.0 Neut % (Auto) 41.0 L Lymph % (Auto) 48.9 [place] % (Auto) 8.3 Eos % (Auto) 1.3 Baso % (Auto) 0.5 Immature Gran # (Auto) 0.00 Neut # (Auto) 2.56 Lymph # (Auto) 3.05 [place] # (Auto) 0.52 Eos # (Auto) 0.08 Baso # (Auto) 0.03 Sodium 121 L Potassium 4.7 Chloride 79 L Carbon Dioxide 34 Anion Gap 8 BUN 18 Creatinine 0.4 L Estimated GFR/1.73 m2 > 60 BUN/Creatinine Ratio 45 Glucose 109 H Calculated Osmolality 247 Calcium 8.7 L Total Bilirubin 0.56 AST 44 H ALT 25 Alkaline Phosphatase 79 Total Protein 6.6 Albumin 4.2 Globulin 2.4 Albumin/Globulin Ratio 1.8 Orders Category Date Time Status CHEST-2 VIEWS [RAD] Stat Exams 09/16/16 14:05 Taken HEAD W/O CONTRAST [CT] Stat Exams 09/16/16 14:15 Draft KUB ABDOMEN [RAD] Stat Exams 09/16/16 14:06 Draft CBC WITH ELECTRONIC DIFF [HEME] Stat Lab 09/16/16 13:49 Completed COMPREHENSIVE METABOLIC PANEL [CHEM] Stat Lab 09/16/16 13:49 Completed UA NIMS W/REFLEX CULT [URINALYSIS] Stat Lab 09/16/16 15:16 Ordered 0.9% Sodium Chloride Inj [Ns] 1,000 ml Med 09/16/16 15:39 Active IV 999 mls/hr Orders Category Date Time Status Admit - [facility] Routine AdmDCTranf 09/16/16 15:45 Ordered Activity - Strict Bedrest ORDERED Care 09/16/16 15:44 Ordered Call Admitting on Arrival AT ADMISSION Care 09/16/16 15:45 Ordered Neurological Check Q4H Care 09/16/16 15:45 Ordered Saline Loc DIRECTED Care 09/16/16 15:44 Ordered Vital Signs Order Q 8-HR ASSESS Care 09/16/16 15:45 Ordered Regular Diet Diet 09/16/16 19:00 Ordered CHEST-2 VIEWS [RAD] Stat Exams 09/16/16 14:05 Taken HEAD W/O CONTRAST [CT] Stat Exams 09/16/16 14:15 Draft KUB ABDOMEN [RAD] Stat Exams 09/16/16 14:06 Draft CBC WITH ELECTRONIC DIFF [HEME] Stat Lab 09/16/16 13:49 Completed COMPREHENSIVE METABOLIC PANEL [CHEM] Stat Lab 09/16/16 13:49 Completed UA NIMS W/REFLEX CULT [URINALYSIS] Stat Lab 09/16/16 15:16 Ordered 0.9% Sodium Chloride Inj [Ns] 1,000 ml Med 09/16/16 15:44 Ordered IV 75 mls/hr 0.9% Sodium Chloride Inj [Ns] 1,000 ml Med 09/16/16 15:39 Active IV 999 mls/hr Acetaminophen [Tylenol] Med 09/16/16 15:44 Ordered 650 mg PO Q6H PRN PRN Albuterol 2.5MG/Ipratrop 0.5MG [Duoneb (A & A)] Med 09/16/16 19:30 Ordered 3 ml INH RTQ4H Ondansetron [Zofran] Med 09/16/16 15:44 Ordered 4 mg IV Q4H PRN PRN Aerosol Treatments Routine Oth 09/16/16 15:49 Ordered Aerosol Treatments Stat Oth 09/16/16 15:49 Ordered Oxygen Device Routine Oth 09/16/16 15:45 Ordered Result Diagrams: 09/16/16 13:49 09/16/16 13:49 - XRAY 1 XRAY Study: Abdomen Impression: Abnormal Comparison with other Films: changes noted XRAY Interpretation: improving constipation - CT/MRI 1 CT Study: Head Impression: Normal CT Results: no acute changes - CONSULTS/PCP/HOSPITALIST Notification #1 *Consult/PCP/Hospitalist*: Kike Black Time Discussed: 15:44 Consult Disposition: Admit Departure - Departure Time of Disposition Decision: 15:22 DIAGNOSIS: Hyponatremia Disposition: ADMITTED INPATIENT 09 Certified Medical Emergency: Emergent Condition: Stable Referrals and Follow-Ups: None,PCP [NON-STAFF] - Attestation - Physician/ NASEEM Attestation Patient care was provided by Advanced Practice Provider:: Yes Advanced Practice Provider:: Loretta Womack Advanced Practice Provider documentation review:: The Mid-level provider documentation, treatment plan and medical decision making was reviewed by the physician who agrees with all treatment and medical decision making by the MLP. This chart was documented by the indicated scribe, (Delfino Fong, [place]) and accurately reflects the services I performed and decisions made by me, Loretta Womack PA, as attested by the provider's signature.
--- NOTE | 2016-09-16 16:19 | Diag Imaging Result Document ---
PROCEDURE NAME: CHEST-2 VIEWS - 09/16/2016 AP AND LATERAL CHEST: FINDINGS: There is pleural fluid on the right. The inspiration is suboptimal. There is apparent adenopathy or vascular engorgement in the right paratracheal region. The heart size is normal is within normal limits. The appearance of the chest has changed very little since 09/12/2016. IMPRESSION: 1. Right pleural effusion. 2. Adenopathy.
[2016-09-16] MEDS ORDERED: DUONEB (A & A) INH PRN (18:59)
[2016-09-16] MEDS ORDERED: VANCOMYCIN IV PER PHARMACY MISC SCH (19:00)
[2016-09-16] MEDS: DUONEB (A & A) INH SCH (19:35)
[2016-09-16] MEDS: LEVAQUIN 500 MG/D5W 500 MG/100 ML IVPB IV SCH (20:23)
[2016-09-16] MEDS: PROTONIX IV SCH (20:24)
[2016-09-16] MEDS: SODIUM CHLORIDE 0.9% INJ SCH (20:24)
[2016-09-16] MEDS: SOLU-MEDROL IV SCH ×2 (20:24→20:51)
[2016-09-16] MEDS: SEPTRA DS PO SCH (20:25)
[2016-09-16] MEDS ORDERED: VANCOMYCIN 1,750 MG in NS 500 ML IV ONE (21:00)
[2016-09-16] MEDS: XOPENEX NEB INH SCH (22:00)
--- NOTE | 2016-09-16 22:17 | HISTORY AND PHYSICAL ---
CHIEF COMPLAINT: Altered mental status, hyponatremia, upper respiratory infection and constipation. HISTORY OF PRESENT ILLNESS: She is a 60-year-old white female with a known history of bronchiectasis, COPD, underlying humoral immune deficiency with CLL. Was seen in the emergency room on Thursday. She has some abdominal swelling consistent with constipation. She was sent home on laxatives. She was also seen last week at Dr. Davies's office for IgG transfusion. She has IgG deficiency with underlying CLL, refusing for chemotherapy. She is slowly dwindling for the last few months. She came back to the ER with confusion, memory loss associated with upper respiratory infection, sodium levels 121. She has been hospitalized with altered mental status due to metabolic encephalopathy, hyponatremia and also acute COPD exacerbation. 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 PAST SURGICAL HISTORY: Cholecystectomy, right acoustic neuroma excision, status post tracheostomy. MEDICINES: Vitamin E 1 tablet daily, Synthroid 75 mcg daily, guaifenesin 600 p.o. b.i.d., Nasonex as needed, vitamin D 3000 units daily, calcitriol 1 tablet daily, and BiPAP machine. ALLERGIES: Erythromycin and amoxicillin. SOCIAL HISTORY: , 1 kid, disabled, lives in [place]. No smoking. No alcohol. FAMILY HISTORY: Father of heart attack at 90. Mom of dementia at 89. HEALTH MAINTENANCE: Pneumococcal vaccine 2014. Declined flu vaccine. Living will, full code. REVIEW OF SYSTEMS: HEENT: No headache. No vision problem. No earache. No sore throat. Neck: No goiter. No lymphadenopathy. No bruit. Cardiopulmonary: No chest pain, cough, shortness of breath, wheezing. Gastrointestinal: Abdominal swelling, constipation. No nausea or vomiting. No altered bowel habits other than constipation. Bleeding per rectum. Genitourinary: No history of hesitancy, frequency. No swelling of legs. No joint pain. No back pain. Endocrine: On Synthroid replacement therapy. Oncology: CLL. Refusing for treatment, taking drinking once a month IgG transfusion. NEUROLOGIC: No focal symptoms, weakness, seizures or syncope. PHYSICAL EXAMINATION: VITAL SIGNS: Afebrile. Temperature 97.6. Vitals are stable. 90% pulse ox with 2 L of nasal cannula. HEENT: Atraumatic, normocephalic. Pupils equal, reactive to light. No anemia. No cyanosis. No jaundice. Tongue is dry. No thrush noted. NECK: Supple. No lymphadenopathy. No goiter. CHEST: Bilateral wheezing. HEART: Sounds are regular, tachycardic. ABDOMEN: Belly is soft, protuberant. No masses palpable. Bowel sounds present. No signs of peritonitis. No peripheral edema, cyanosis or clubbing. NEUROLOGIC: No obvious deficits. INVESTIGATIONS: CBC: White cell count 6.8, hematocrit 37, platelets 122,000. SMA 7 sodium 121, potassium 4.7, chloride 79, BUN 18, creatinine 0.4, glucose 106, calcium 8.7. AST and ALT were normal. Urinalysis is clear. Chest x-ray was stable, right paratracheal adenopathy. Abdomen x- ray improved constipation comparing with the 09/12/2016. CT head no evidence of acute intracranial disease. ASSESSMENT AND PLAN: A 60-year-old white female, admitted to the hospital with: 1. Altered mental status due to metabolic encephalopathy. 2. Hyponatremia. IV fluids. 3. Acute chronic obstructive pulmonary disease exacerbation with underlying bronchiectasis and immunoglobulin deficiency. IV steroids, IV antibiotics. Bronchodilators, mucolytics and BiPAP as needed. 4. Chronic lymphocytic leukemia refusing for chemotherapy. 5. IgG deficiency. Recently given IgG transfusion. 6. Constipation is resolved. 7. DVT and GI prophylaxis with Protonix and Lovenox. 8. Reconcile home medications. 9. Living Will is full code. cc: Torsten Black MD
[2016-09-16] MEDS: NS 1,000 ML IV SCH (23:52)
[2016-09-17] MEDS: DUONEB (A & A) INH SCH ×6 (00:36→22:53)
[2016-09-17] MEDS: SOLU-MEDROL IV SCH ×3 (03:52→19:08)
[2016-09-17 05:55] LABS: ALLEN TEST YES; BLOOD TYPE ARTERIAL; DRAW SITE R RADIAL; METHB 1.7 % (0.0-1.5); O2(CT) 17.3 mL/dL (15.0-23.0); PO2(98.6) 84 mmHg (60-100); SAMPLE BLOOD; SAO2 98.7 % (95.0-100.0); pH(98.6) 7.32 (7.35-7.45)
[2016-09-17 05:57] LABS: MODALITY CANNULA
[2016-09-17 06:02] LABS: PCO2(98.6) 64 mmHg (35-45)
[2016-09-17 07:15] LABS: AGAP 11; BUN 19 mg/dL (8-22); CALCIUM 8.5 mg/dL (8.8-10.2); CHLORIDE 83 mmol/L (98-107); COSMO 253; POTASSIUM 5.3 mmol/L (3.5-5.1); SODIUM 124 mmol/L (136-145); TCO2 30 mmol/L (25-35)
[2016-09-17] MEDS: XOPENEX NEB INH SCH ×2 (07:29→19:37)
[2016-09-17] MEDS: THERA M PLUS PO SCH (08:47)
[2016-09-17] MEDS: SYNTHROID PO SCH (08:47)
[2016-09-17] MEDS: MUCINEX PO SCH (08:47)
[2016-09-17] MEDS: SEPTRA DS PO SCH ×2 (08:47→21:45)
[2016-09-17] MEDS: BACTROBAN OINTMENT TOP SCH (08:48)
[2016-09-17] MEDS: CULTURELLE PO SCH (08:48)
[2016-09-17] MEDS: FLONASE NAS SCH (08:48)
[2016-09-17] MEDS: VANCOMYCIN 1,350 MG in NS 250 ML IV SCH ×2 (08:49→21:45)
[2016-09-17] MEDS: LOVENOX SUBQ SCH (08:49)
[2016-09-17] MEDS: COLACE PO SCH ×2 (08:49→21:46)
[2016-09-17] MEDS: DULCOLAX PR SCH (08:49)
[2016-09-17] MEDS: VITAMIN D PO SCH (08:50)
--- NOTE | 2016-09-17 09:11 | PROGRESS NOTE ---
DATE: 09/17/2016 SUBJECTIVE: The patient is slightly improved and eating well. REVIEW OF SYSTEMS: General: No obvious shortness of breath, chest pain. Dry cough. GI: Constipation is improving. The rest of the review of systems: None reported. PHYSICAL EXAMINATION: Vital Signs: Stable. HEENT Exam: Within normal limits. Neck: Supple. No lymphadenopathy. Chest: Bilateral air entry with scattered wheezing and rhonchi. Abdomen: Belly is soft, protuberant. No signs of peritonitis. No edema noted. INVESTIGATIONS: ABG: The pH is 7.32, pCO2 64, PO2 84, bicarbonate 28 on 28%. SMA 7: Sodium 124, potassium 5.3, chloride 83. BUN 19, creatinine 0.4, glucose 111, calcium 8.5. Urinalysis is clear. ASSESSMENT AND PLAN: 1. Altered mental status due to metabolic encephalopathy due to hyponatremia. 2. Hyponatremia. Intravenous fluids. Follow up on SMA 7. 3. Acute chronic obstructive pulmonary disease on oxygen, bronchodilators, intravenous antibiotics with Bactrim, vancomycin and Levaquin. 4. Chronic lymphocytic leukemia, refusing for chemotherapy. 5. IgG deficiency. Recently given IgG g transfusion. 6. Hypothyroidism on Synthroid. 7. Nasal vestibulitis on Bactroban. 8. Constipation with use of Colace 100 oral twice daily. LEVEL OF DOCUMENTATION TIME: 25 minutes. cc: Torsten Black MD
[2016-09-17] MEDS: NS 1,000 ML IV SCH ×2 (13:04→21:46)
[2016-09-17] MEDS: LEVAQUIN 500 MG/D5W 500 MG/100 ML IVPB IV SCH (18:59)
[2016-09-17] MEDS: PROTONIX IV SCH (18:59)
[2016-09-17] MEDS: SODIUM CHLORIDE 0.9% INJ SCH (18:59)
[2016-09-18] MEDS: SOLU-MEDROL IV SCH ×3 (03:06→20:31)
[2016-09-18] MEDS: DUONEB (A & A) INH SCH ×5 (03:10→23:35)
[2016-09-18] MEDS: XOPENEX NEB INH SCH ×2 (07:21→19:41)
[2016-09-18 07:34] LABS: AGAP 10; BUN 26 mg/dL (8-22); CALCIUM 8.5 mg/dL (8.8-10.2); CHLORIDE 95 mmol/L (98-107); COSMO 279; POTASSIUM 5.5 mmol/L (3.5-5.1); SODIUM 136 mmol/L (136-145); TCO2 31 mmol/L (25-35)
[2016-09-18] MEDS: CULTURELLE PO SCH (10:38)
[2016-09-18] MEDS: MUCINEX PO SCH (10:38)
[2016-09-18] MEDS: LOVENOX SUBQ SCH (10:39)
[2016-09-18] MEDS: COLACE PO SCH ×2 (10:39→20:31)
[2016-09-18] MEDS: THERA M PLUS PO SCH (10:39)
[2016-09-18] MEDS: DULCOLAX PR SCH (10:39)
[2016-09-18] MEDS: SEPTRA DS PO SCH ×2 (10:39→20:30)
[2016-09-18] MEDS: VITAMIN D PO SCH (10:39)
[2016-09-18] MEDS: VANCOMYCIN 1,350 MG in NS 250 ML IV SCH ×2 (10:40→23:15)
[2016-09-18] MEDS: BACTROBAN OINTMENT TOP SCH (10:41)
[2016-09-18] MEDS: FLONASE NAS SCH (10:41)
[2016-09-18] MEDS: SYNTHROID PO SCH (10:43)
[2016-09-18] MEDS: LEVAQUIN 500 MG/D5W 500 MG/100 ML IVPB IV SCH (18:10)
[2016-09-18] MEDS: PROTONIX IV SCH (18:11)
--- NOTE | 2016-09-18 20:30 | PROGRESS NOTE ---
DATE: 09/18/2016 SUBJECTIVE: Mental confusion is improving. REVIEW OF SYSTEMS: None reported. Breathing is better. No shortness of breath or wheezing. Constipation is improving. PHYSICAL EXAMINATION: Vital Signs: Afebrile. Tachycardic on 2 L of oxygen 94%. HEENT: Within normal limits. No lymphadenopathy in the neck noted. Chest: Scattered wheezing. Heart: Sounds are tachycardic. Abdomen: Belly is soft, protuberant. No masses palpable. Extremities: No peripheral edema, cyanosis, clubbing. Neurologic: Nonfocal. INVESTIGATIONS: SMA7: Sodium 136, potassium 5.5, chloride 95, BUN 26, creatinine 0.5, glucose 131. ASSESSMENT AND PLAN: 1. Hyponatremia is improved after IV hydration. 2. Constipation is improving. 3. Chronic obstructive pulmonary disease exacerbation. Continue present IV antibiotics with Levaquin, IV steroids, IV vancomycin and Bactrim. LEVEL OF DICTATION: Levels 2. cc: Torsten Black MD
[2016-09-19] MEDS: DUONEB (A & A) INH SCH ×6 (03:09→23:07)
[2016-09-19] MEDS: NS 1,000 ML IV SCH ×2 (04:50→09:45)
[2016-09-19] MEDS: SOLU-MEDROL IV SCH ×3 (05:37→21:34)
[2016-09-19 07:15] LABS: AGAP 5; BUN 26 mg/dL (8-22); CALCIUM 8.1 mg/dL (8.8-10.2); CHLORIDE 100 mmol/L (98-107); COSMO 284; POTASSIUM 5.4 mmol/L (3.5-5.1); SODIUM 140 mmol/L (136-145); TCO2 35 mmol/L (25-35)
[2016-09-19] MEDS: XOPENEX NEB INH SCH ×2 (09:15→19:28)
[2016-09-19] MEDS: THERA M PLUS PO SCH (09:45)
[2016-09-19] MEDS: BACTROBAN OINTMENT TOP SCH (09:45)
[2016-09-19] MEDS: VITAMIN D PO SCH (09:45)
[2016-09-19] MEDS: SYNTHROID PO SCH (09:45)
[2016-09-19] MEDS: FLONASE NAS SCH (09:46)
[2016-09-19] MEDS: LOVENOX SUBQ SCH (09:46)
[2016-09-19] MEDS: SEPTRA DS PO SCH ×2 (09:46→21:34)
[2016-09-19] MEDS: CULTURELLE PO SCH (09:46)
[2016-09-19] MEDS: MUCINEX PO SCH (09:46)
[2016-09-19] MEDS: DULCOLAX PR SCH (09:46)
[2016-09-19] MEDS: COLACE PO SCH ×2 (09:46→21:34)
[2016-09-19] MEDS: VANCOMYCIN 1,350 MG in NS 250 ML IV SCH (11:52)
--- NOTE | 2016-09-19 12:01 | PROGRESS NOTE ---
DATE: 09/19/2016 Ms. Yu feels her mental status has improved. Sodium is 140 now, potassium 5.4, BUN 26, creatinine 0.4. She has COPD with acute exacerbation and had metabolic encephalopathy. Overall, condition is stable. -4 cc: MD Torsten Hercules MD
[2016-09-19] MEDS: LEVAQUIN 500 MG/D5W 500 MG/100 ML IVPB IV SCH (21:34)
[2016-09-19] MEDS: PROTONIX IV SCH (21:34)
[2016-09-19] MEDS: SODIUM CHLORIDE 0.9% INJ SCH (21:34)
[2016-09-20] MEDS: VANCOMYCIN 1,350 MG in NS 250 ML IV SCH ×3 (00:05→23:08)
[2016-09-20] MEDS: DUONEB (A & A) INH SCH ×4 (02:56→23:00)
[2016-09-20] MEDS: NS 1,000 ML IV SCH ×3 (04:32→23:07)
[2016-09-20] MEDS: SOLU-MEDROL IV SCH ×3 (04:33→20:20)
[2016-09-20] MEDS: XOPENEX NEB INH SCH ×2 (08:01→19:16)
[2016-09-20] MEDS: THERA M PLUS PO SCH (08:51)
[2016-09-20] MEDS: LOVENOX SUBQ SCH (08:51)
[2016-09-20] MEDS: CULTURELLE PO SCH (08:51)
[2016-09-20] MEDS: MUCINEX PO SCH (08:51)
[2016-09-20] MEDS: COLACE PO SCH ×2 (08:52→20:22)
[2016-09-20] MEDS: VITAMIN D PO SCH (08:52)
[2016-09-20] MEDS: SEPTRA DS PO SCH ×2 (08:52→20:21)
[2016-09-20] MEDS: DULCOLAX PR SCH (08:52)
[2016-09-20] MEDS: SYNTHROID PO SCH (08:53)
[2016-09-20] MEDS: BACTROBAN OINTMENT TOP SCH (09:00)
[2016-09-20] MEDS: FLONASE NAS SCH (09:00)
--- NOTE | 2016-09-20 12:19 | PROGRESS NOTE ---
DATE: 09/20/2016 SUBJECTIVE: The patient feels better. Her taking is better. She came in with mental confusion, thought that she was somewhat dehydrated. She was hyponatremic with a sodium of 121, and now it is 140. She had had constipation and COPD exacerbation. OBJECTIVE: Vital signs: Blood pressure 115/53, respirations 16, pulse 98, temp 97.5 degrees Fahrenheit. HEENT: She is normocephalic, EOMs intact. PERRLA. Throat clear. Lungs: Clear to auscultation and percussion without rhonchi, rales, or wheezes. Heart: Regular rate and rhythm without murmurs, gallops, or friction rubs. Abdomen: Somewhat distended from her constipation. Neurological: Exam is intact grossly. Her confusion and altered mental status has improved but not completely cleared. There are things that she says that she just cannot remember. PLAN: Will continue IV fluids and care. cc: MD Torsten Hammer Jr, MD
[2016-09-20] MEDS: SODIUM CHLORIDE 0.9% INJ SCH (20:20)
[2016-09-20] MEDS: LEVAQUIN 500 MG/D5W 500 MG/100 ML IVPB IV SCH (20:20)
[2016-09-20] MEDS: PROTONIX IV SCH (20:21)
[2016-09-21] MEDS: DUONEB (A & A) INH SCH ×4 (03:02→20:21)
[2016-09-21] MEDS: SOLU-MEDROL IV SCH ×3 (04:11→21:10)
[2016-09-21 07:38] LABS: AGAP 6; BUN 23 mg/dL (8-22); CALCIUM 8.5 mg/dL (8.8-10.2); CHLORIDE 99 mmol/L (98-107); COSMO 283; POTASSIUM 5.7 mmol/L (3.5-5.1); SODIUM 139 mmol/L (136-145); TCO2 34 mmol/L (25-35)
[2016-09-21] MEDS: XOPENEX NEB INH SCH ×2 (07:54→20:23)
[2016-09-21] MEDS: SYNTHROID PO SCH (10:04)
[2016-09-21] MEDS: THERA M PLUS PO SCH (10:05)
[2016-09-21] MEDS: SEPTRA DS PO SCH ×2 (10:05→21:10)
[2016-09-21] MEDS: VITAMIN D PO SCH (10:06)
[2016-09-21] MEDS: COLACE PO SCH ×2 (10:06→21:10)
[2016-09-21] MEDS: DULCOLAX PR SCH (10:06)
[2016-09-21] MEDS: CULTURELLE PO SCH (10:06)
[2016-09-21] MEDS: MUCINEX PO SCH (10:06)
[2016-09-21] MEDS: LOVENOX SUBQ SCH (10:06)
[2016-09-21] MEDS: BACTROBAN OINTMENT TOP SCH (10:07)
[2016-09-21] MEDS: FLONASE NAS SCH (10:08)
[2016-09-21] MEDS: VANCOMYCIN 1,350 MG in NS 250 ML IV SCH (12:12)
--- NOTE | 2016-09-21 13:23 | PROGRESS NOTE ---
DATE: 09/21/2016 SUBJECTIVE: The patient says she feels much better. She thinks her mentation is about normal now. She wonders why her abdomen is a little distended. She has apparently talked with her regular doctor, Dr. Black, about this. She also has questions about why she became hyponatremia. I have explained to her that there are a lot of different causes for hyponatremia and that she was very constipated and still may have some constipation issues with her abdomen. OBJECTIVE: Vital Signs: Blood pressure is 116/54, respirations 18, pulse 114, temperature 97.9 degrees. HEENT: She is normocephalic. PERRLA. Throat clear. Lungs: Clear to auscultation and percussion without rhonchi, rales, or wheezes. Heart: Regular rate and rhythm without murmurs, gallops, or friction rubs. Abdomen: A little distended but soft. Neurological: Intact grossly. Patient is oriented x3. ASSESSMENT: 1. Altered mental status. 2. Chronic lymphocytic leukemia. 3. Constipation. 4. Has some chronic obstructive pulmonary disease. Does not seem to be flared up at this time. PLAN: Continue support. cc: MD Torsten Hammer Jr, MD
[2016-09-21] MEDS: NS 1,000 ML IV SCH (15:52)
[2016-09-21] MEDS: LEVAQUIN 500 MG/D5W 500 MG/100 ML IVPB IV SCH (21:09)
[2016-09-21] MEDS: PROTONIX IV SCH (21:10)
[2016-09-21] MEDS: SODIUM CHLORIDE 0.9% INJ SCH (21:10)
[2016-09-22] MEDS: VANCOMYCIN 1,350 MG in NS 250 ML IV SCH ×2
[2016-09-22] MEDS: NS 1,000 ML IV SCH ×2 (03:07→06:18)
[2016-09-22] MEDS: SOLU-MEDROL IV SCH ×3 (03:15→20:53)
[2016-09-22] MEDS: DUONEB (A & A) INH SCH ×6 (04:49→21:59)
[2016-09-22 06:42] LABS: AGAP 6; BUN 24 mg/dL (8-22); CALCIUM 8.8 mg/dL (8.8-10.2); CHLORIDE 99 mmol/L (98-107); COSMO 286; POTASSIUM 5.7 mmol/L (3.5-5.1); SODIUM 140 mmol/L (136-145); TCO2 35 mmol/L (25-35)
[2016-09-22] MEDS: XOPENEX NEB INH SCH ×2 (08:06→19:50)
[2016-09-22] MEDS: MUCINEX PO SCH (08:39)
[2016-09-22] MEDS: LOVENOX SUBQ SCH (08:39)
[2016-09-22] MEDS: THERA M PLUS PO SCH (08:41)
[2016-09-22] MEDS: SEPTRA DS PO SCH ×2 (08:41→20:54)
[2016-09-22] MEDS: CULTURELLE PO SCH (08:41)
[2016-09-22] MEDS: COLACE PO SCH ×2 (08:41→20:54)
[2016-09-22] MEDS: VITAMIN D PO SCH (08:42)
[2016-09-22] MEDS: BACTROBAN OINTMENT TOP SCH (08:42)
[2016-09-22] MEDS: DULCOLAX PR SCH (08:42)
[2016-09-22] MEDS: SYNTHROID PO SCH (08:42)
[2016-09-22] MEDS: FLONASE NAS SCH (08:43)
[2016-09-22] MEDS: SODIUM CHLORIDE 0.9% INJ SCH (20:53)
[2016-09-22] MEDS: PROTONIX IV SCH (20:53)
--- NOTE | 2016-09-22 21:23 | PROGRESS NOTE ---
DATE: 09/22/2016 INTERVAL HISTORY: Reviewed for the last 3 days. Patient is doing very well. No significant compliance. Confusion is improved. REVIEW OF SYSTEMS: None reported other than swelling of the abdomen. PHYSICAL EXAMINATION: Vital Signs: Afebrile. Pulse is 90. Blood pressure is stable. HEENT Examination: Within normal limits. Neck: Supple. No lymphadenopathy. Chest : Decreased wheezing and rhonchi. Abdomen: Belly is soft, protuberant, no masses palpable. Extremities: No peripheral edema, cyanosis or clubbing. INVESTIGATIONS: SMA 7, sodium 140, potassium 5.7, chloride 99, CO2 35, BUN 24, creatinine 0.5, glucose 8.8. ASSESSMENT AND PLAN: 1. Hyponatremia is improving. Discontinue IV fluids. 2. Hypothyroidism on Synthroid. 3. Acute chronic obstructive pulmonary disease improving. Discontinue Levaquin and vancomycin. Continue on oral Bactrim and decrease IV steroids. As constipation is improving continue on Dulcolax. 4. Chronic lymphocytic leukemia. Consider chemotherapy. patient is declining. 5. If she is stable in the next 24 hours, we will be discharging her home in the morning. cc: Torsten Black MD MTDD
[2016-09-23] MEDS: SOLU-MEDROL IV SCH (03:35)
[2016-09-23] MEDS: DUONEB (A & A) INH SCH ×2 (04:06→08:51)
[2016-09-23 05:44] VITALS: BP 108/56
[2016-09-23 06:57] LABS: AGAP 5; BUN 26 mg/dL (8-22); CALCIUM 8.7 mg/dL (8.8-10.2); CHLORIDE 98 mmol/L (98-107); COSMO 286; POTASSIUM 5.6 mmol/L (3.5-5.1); SODIUM 140 mmol/L (136-145); TCO2 37 mmol/L (25-35)
[2016-09-23] MEDS: XOPENEX NEB INH SCH (08:50)
[2016-09-23] MEDS: VITAMIN D PO SCH (08:58)
[2016-09-23] MEDS: CULTURELLE PO SCH (08:58)
[2016-09-23] MEDS: LOVENOX SUBQ SCH (08:58)
[2016-09-23] MEDS: SEPTRA DS PO SCH (08:58)
[2016-09-23] MEDS: MUCINEX PO SCH (08:58)
[2016-09-23] MEDS: COLACE PO SCH (08:58)
[2016-09-23] MEDS: THERA M PLUS PO SCH (08:58)
[2016-09-23] MEDS: DULCOLAX PR SCH (08:58)
[2016-09-23] MEDS: SYNTHROID PO SCH (08:58)
[2016-09-23] MEDS: FLONASE NAS SCH (08:59)
--- NOTE | 2016-09-23 23:02 | DISCHARGE SUMMARY ---
ADMISSION DATE: 09/16/2016 DISCHARGE DATE: 09/23/2016 DISCHARGING DIAGNOSIS: Altered mental status, due to metabolic encephalopathy from hyponatremia. SECONDARY DIAGNOSIS: 1. Acute COPD exacerbation. 2. Bronchiectasis on the right side. 3. Deafness. 4. Hypothyroidism. 5. CLL. 6. IgG deficiency. 7. Chronic loculated effusion on the right side. BRIEF HISTORY: Please see the H and P was done on 09/16/2016. In brief, she is a 60-year-old white female, who was admitted to the hospital with shortness of breath, cough, and confusion. Patient was also was found to have hyponatremia. HOSPITAL COURSE: She was given IV fluids, follow up hydration. Sodium came back to normal. For her COPD, she was given IV steroids, IV antibiotics with vancomycin, Bactrim and Levaquin. Patient did not require any Bi-PAP. She continues to have intermittent constipation requiring laxatives. The rest of the hospital course was uneventful. She was given a week before this admission for IgG transfusion. Patient has been declining for chemotherapy for underlying CLL. LABORATORIES: At the time of discharge, SMA 7, sodium 140, potassium 5.6, chloride 98, CO2 of 37, BUN 26, creatinine 0.4, glucose 87. Chest x-ray was stable. ABG pH is 7.32, pCO2 of 64, PO2 of 84 on 28%. CBC: White cell count 6.2, hematocrit 37, platelets 122,000. DISCHARGE INSTRUCTIONS: As follows: 1. Multivitamins 1 tablet daily. 2. Synthroid 75 mcg daily. 3. Mucinex 600 daily. 4. Flonase 1 spray in the morning daily. 5. Vitamin D 3000 units daily. 6. Xopenex b.i.d. 7. Culturelle 1 tablet daily. 8. Bactroban ointment topically daily. 9. Dulcolax as needed. 10. Bi-PAP machine as needed. 11. IgG transfusion once a month under Dr. Davies. 12. Vaccinations are up-to-date. 13. Follow up all my office in 1 week, as well as, Dr. Davies. cc: Mack Davies MD
== END 2016-09-23 11:35 | disposition home or self-care (01) ==
LOC: SUPCPDRO → ED 13:00 → 3N 16:22
PROVIDERS: ADMIT Internal Medicine; ATTEND Internal Medicine

== ENCOUNTER 2016-09-29 04:53 | Inpatient (IN) ==
[2016-09-29] MEDS ORDERED: ASPIRIN PO STA (05:02)
[2016-09-29 05:20] LABS: MANUAL DIFF NEEDED? NO
[2016-09-29 05:25] LABS: ALLEN TEST YES; BE 8.1 mmoll (-3.0-3.0); BLOOD TYPE ARTERIAL; DRAW SITE R RADIAL; METHB 1.8 % (0.0-1.5); O2(CT) 13.7 mL/dL (15.0-23.0); PO2(98.6) 69 mmHg (60-100); SAMPLE BLOOD; SAO2 97.2 % (95.0-100.0); THB 10.4 g/dL (11.5-17.4); pH(98.6) 7.33 (7.35-7.45)
[2016-09-29 05:26] LABS: MODALITY CANNULA; PCO2(98.6) 68 mmHg (35-45)
--- NOTE | 2016-09-29 05:26 | EKG Report ---
Test Performed on : 09/29/2016 05:03:32 AM Test Reason : sob Blood Pressure : / mmHG Vent. Rate : 107 BPM Atrial Rate : 107 BPM P-R Int : 126 ms QRS Dur : 082 ms QT Int : 320 ms P-R-T Axes : 069 082 051 degrees QTc Int : 427 ms Sinus tachycardia. Otherwise normal ECG When compared with ECG of 02-JUN-2016 14:01, No significant change was found Unconfirmed Result
[2016-09-29 05:35] LABS: BASO% 0.2 % (0.0-0.8); EOS# 0.02 X1000 (0.0-0.7); EOS% 0.4 % (0.0-10.0); HEMATOCRIT 35.6 % (37.0-47.0); HEMOGLOBIN 11.5 g/dL (12.0-16.0); LYMPH# 0.95 X1000 (1.2-3.4); MCH 29.6 PG (27-31); MCHC 32.3 g/dL (33-37); MCV 91.5 FL (81-99); MONO# 0.25 X1000 (0.11-0.59); MPV 10.6 FL (7.4-10.4); NEUT% 75.4 % (42.2-75.2); PLT 105 X1000 (130-400); RBC 3.89 XMIL (4.2-5.4)
--- NOTE | 2016-09-29 05:37 | PROVIDER DOCUMENTATION ---
HPI-Respiratory General - General Chief Complaint: Shortness of Breath Stated Complaint: sob Time Seen by Provider: 09/29/16 05:17 Source: patient, old records Allergies/Adverse Reactions: Patient Allergies Allergy/AdvReac Type Severity Reaction Status Date / Time erythromycin base Allergy Mild RASH Verified 09/29/16 05:29 [Erythromycin Base] amoxicillin trihydrate * AdvReac Mild DRIES UP Verified 09/29/16 05:29 [From Augmentin] MUCUS IN HER THROAT potassium clavulanate * AdvReac Mild DRIES UP Verified 09/29/16 05:29 [From Augmentin] MUCUS IN HER THROAT Home Medications: Home Medication List Medication Instructions Recorded Confirmed Last Taken Type Cholecalciferol (Vitamin D3) 1,000 unit PO QAM 04/30/15 09/29/16 09/28/16 09:00 History [Vitamin D3] Fluticasone 50 Mcg Nasal Libby 1 spray LI QAM 04/30/15 09/29/16 09/28/16 09:00 History [Flonase] Guaifenesin [Mucinex] 600 mg PO DAILY 04/30/15 09/29/16 09/28/16 09:00 History Levalbuterol HCl [Xopenex] 1.25 mg IH BID 04/30/15 09/29/16 09/28/16 21:00 History Levothyroxine [Synthroid] 75 microgm PO QAM 04/30/15 09/29/16 09/28/16 09:00 History Multivitamin [Multivitamins] 1 each PO QAM 04/30/15 09/29/16 1 Day Ago History Lactobacillus Rhamnosus GG 1 each PO DAILY #0 capsule 05/28/15 09/29/16 1 Day Ago Rx [Culturelle] 1 Mupirocin Ointment [Bactroban 1 gm TOP DAILY #0 tube 07/07/16 09/29/16 09/28/16 09:00 Rx Ointment] Bisacodyl [Dulcolax] 10 mg AL DAILY #5 supp 09/12/16 09/29/16 1 Day Ago Rx Fluticasone/Vilanterol [Breo 1 each IH DAILY #1 aer.pow.ba 10/07/16 Unknown Rx Ellipta Inhaler] Prednisone 10 mg PO DAILY #30 tablet 10/07/16 Unknown Rx Sulfamethoxazole/Trimethoprim 1 each PO BID #28 tablet 10/07/16 Unknown Rx [Bactrim Ds Tablet] - History of Present Illness-Resp Nature of Presenting Problem: pt w/ hx of COPD (as well as IgG deficiency w/ CLL) reports worsening dyspnea at home. ABG done here today following EMS transport shows cont'd CO2 retention w/ assoc mild resp acidosis, but today p02 is 68 on 4L, whereas last ( 09/17) was 84 on 2L. no report of fever or sputum production. last chest CT neg for PE. Review of Systems - Adult - REVIEW OF SYSTEMS - ADULT Constitutional: reports: fatique Eyes: reports: no symptoms reported Ears, Nose, Mouth & Throat: reports: no symptoms reported Cardiovascular: reports: no symptoms reported Respiratory: reports: see HPI, chronic cough, shortness of breath Gastrointestinal: reports: no symptoms reported Genitourinary: reports: no symptoms reported Musculoskeletal: reports: no symptoms reported Integumentary: reports: no symptoms reported Neurological: reports: no symptoms reported Psychiatric: reports: no symptoms reported Endocrine: reports: no symptoms reported Hematologic/Lymphatic: reports: no symptoms reported Allergic/Immunologic: reports: no symptoms reported All Other Systems: Reviewed and Negative Past History - Adult - PAST MEDICAL HISTORY-ADULT Review of Records: reports: Old Records Reviewed Major Childhood Illnesses: reports: denies history Cardiovascular: reports: HTN Respiratory: reports: bronchitis, COPD, pneumonia, sleep apnea Gastrointestinal: reports: denies history Obstetrical/Gynecological: reports: denies history Genitourinary: reports: denies history Musculoskeletal: reports: denies history Neurological: reports: denies history Endocrine/Immune: reports: Leukemia (CLL) Other Conditions: reports: denies history - PRIOR SURGERIES/PROCEDURES Surgical/Procedure History: reports: cholecystectomy, other (rhinoplasty, removal of acustic neuroma) - PRIOR HOSPITALIZATIONS Prior Hospitalizations: reports: for similar symptoms - IMMUNIZATION STATUS Childhood Immunizations: See Nurse Assessment Flu Vaccine: See Nurse Assessment - FAMILY HISTORY Family History: reviewed, not pertinent Physical Exam-General - PHYSICAL EXAM-ADULT Initial Vital Signs Reviewed: Yes - CONSTITUTIONAL General Appearance: alert, mild distress - EYES Eyes: PERRL/EOMI, pink conjunctivae - HEAD, EARS, NOSE, MOUTH & THROAT HENMT: normocephalic/atraumatic, moist mucous membranes, normal ENT inspection, TMs normal, pharynx normal - NECK Neck: non-tender, full range of motion, supple, normal inspection - RESPIRATORY Respiratory: chest non-tender, no pleuratic chest pain, crackles, wheezing ( faint) - CARDIOVASCULAR Cardiovascular: normal peripheral pulses, regular rate, rhythm, no edema, no gallop, no murmur, other (mild JVD) - GASTROINTESTINAL (ABDOMEN) Abdominal Exam: normal bowel sounds, non tender, soft, no pulsatile mass, distended (hx of splenomegaly and path. 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, no motor/sensory deficits - PSYCHIATRIC Psych/Mental Status: normal mood/affect, normal thought content, normal thought process, oriented x 3 Progress - PLAN OF CARE/RESULTS Progress/Plan/Lab Results: Orders Category Date Time Status Admit - [facility] Routine AdmDCTranf 09/29/16 08:33 Ordered Cardiac Monitoring DIRECTED Care 09/29/16 05:02 Completed Oxygen Therapy- ED Nursing DIRECTED Care 09/29/16 05:02 Completed Saline Loc NOW Care 09/29/16 05:02 Completed CHEST-2 VIEWS [RAD] Stat Exams 09/29/16 05:02 Completed ABG [RESP] Routine Lab 09/29/16 05:14 Completed CBC WITH ELECTRONIC DIFF [HEME] Stat Lab 09/29/16 05:02 Completed CK PROFILE [SP CHEM] Stat Lab 09/29/16 05:02 Completed COMPREHENSIVE METABOLIC PANEL [CHEM] Stat Lab 09/29/16 05:02 Completed D-DIMER [CHEM] Stat Lab 09/29/16 05:02 Completed LACTATE, PLASMA [CHEM] Stat Lab 09/29/16 05:02 Completed MAGNESIUM [CHEM] Stat Lab 09/29/16 05:02 Completed PRO B-NATRIURETIC PEPTIDE Stat Lab 09/29/16 05:02 Completed PROTIME WITH INR [COAG] Stat Lab 09/29/16 05:02 Completed PTT [COAG] Stat Lab 09/29/16 05:02 Completed TROPONIN T Stat Lab 09/29/16 05:02 Completed Aspirin Med 09/29/16 05:02 Discontinued 325 mg PO STAT STA EKG [EKG] Stat Ther 09/29/16 04:58 Draft Transfer/Admit Order [TRANSFER] Routine Transfer 09/29/16 08:35 Completed CXR shows cont'd limited inspiratory excursion (likely due to abd distension), R pleural effusion, little changed if at all from 09/27. Result Diagrams: 10/03/16 04:45 10/03/16 04:45 Departure - Departure Time of Disposition Decision: 13:00 DIAGNOSIS: COPD exacerbation, CLL (chronic lymphocytic leukemia) Disposition: ADMITTED INPATIENT 09 Certified Medical Emergency: Emergent Condition: Serious - Critical Care Note This patient required my direct & personal management of CC.: Yes
[2016-09-29 05:49] LABS: INR 0.92; PROTIME 9.6 Seconds (9.2-11.7); PTT 24.5 Seconds (22.0-36.0)
[2016-09-29 05:56] LABS: AGAP 8; ALKALINE PHOSPHATASE 66 U/L (32-104); BUN 13 mg/dL (8-22); CALCIUM 8.7 mg/dL (8.8-10.2); CHLORIDE 90 mmol/L (98-107); CK PROFILE 19 U/L (24-173); COSMO 263; GOT 35 U/L (10-30); GPT 25 U/L (10-36); MAGNESIUM 1.8 mg/dL (1.5-2.7); POTASSIUM 5.4 mmol/L (3.5-5.1); SODIUM 131 mmol/L (136-145); TCO2 33 mmol/L (25-35); TOTAL BILIRUBIN 0.38 mg/dL (0.20-1.00); TOTAL PROTEIN 6.4 g/dL (6.3-8.3)
--- NOTE | 2016-09-29 08:22 | Diag Imaging Result Document ---
PROCEDURE NAME: CHEST-2 VIEWS - 09/29/2016 TWO VIEWS OF THE CHEST: FINDINGS: There are pleural effusions, particularly on the right. There is apparent adenopathy in the upper mediastinum, particularly in the right paratracheal region. This has been seen on previous studies including the CT of 06/02/2016. Compared to 09/27/2016 there has been no appreciable change. IMPRESSION: Stable chest.
[2016-09-29] MEDS ORDERED: ATIVAN IV PRN (14:54)
[2016-09-29] MEDS ORDERED: DUONEB (A & A) INH SCH (15:30)
[2016-09-29] MEDS: NS 1,000 ML IV SCH (15:51)
[2016-09-29] MEDS: LEVAQUIN 500 MG/D5W 500 MG/100 ML IVPB IV SCH (15:51)
[2016-09-29] MEDS: ZOSYN 3.375 GM/NS 3.375 GM/50 ML IVPB IV SCH ×2 (15:51→21:47)
[2016-09-29] MEDS: SOLU-MEDROL IV SCH (15:52)
[2016-09-29] MEDS: LOVENOX SUBQ SCH (15:52)
[2016-09-29] MEDS: PROTONIX IV SCH (15:52)
[2016-09-29] MEDS: SODIUM CHLORIDE 0.9% INJ SCH (15:52)
[2016-09-29] MEDS: HUMALOG SUBQ SCH ×2 (18:44→21:48)
[2016-09-29] MEDS: XOPENEX NEB INH SCH ×2 (19:29→23:17)
[2016-09-29] MEDS ORDERED: XOPENEX NEB INH SCH (19:30)
--- NOTE | 2016-09-29 22:10 | HISTORY AND PHYSICAL ---
CHIEF COMPLAINT: Shortness of breath, cough, and wheezing. HISTORY OF PRESENT ILLNESS: She is a 60-year-old white female recently discharged from the hospital for hyponatremia, altered mental status and constipation. She came to the ER twice this week with the above symptoms. Initially she was sent home. Today she has some wheezing and hypercarbia, hypoxemia on 36%. She has been hospitalized for acute COPD exacerbation with underlying bronchiectasis and immunodeficiency. She needs some BiPAP and also needs a bronchial toilet with IV steroids IV antibiotics. I did ask Dr. Cummins to assist for immunocompromised state. She is a full code. She is refusing for treatment for CLL. She is slowly declining and increasing adenopathy in the abdomen as well as splenomegaly. PAST MEDICAL HISTORY: Bronchiectasis on the right side. Deafness, hypothyroidism, CLL, IgG deficiency, chronic loculated pleural effusion on the right side. PAST SURGICAL HISTORY: Cholecystectomy, right acoustic neuroma excision status post tracheostomy. MEDICATIONS: Multivitamin 1 tablet daily. Synthroid 75 mcg daily. Mucinex 600 daily. Flonase 1 spray every day. Vitamin D3 1000 units daily. Xopenex b.i.d. Culturelle 1 tablet daily. Bactroban ointment daily. Dulcolax 10 mg daily. ALLERGIES: Erythromycin. amoxicillin. SOCIAL HISTORY: , 1 child. Disabled. Lives in [place]. No smoking. No alcohol. FAMILY HISTORY: Father of heart attack at 90. Mom of dementia at 89. HEALTH MAINTENANCE: Pneumococcal vaccine 2014. Flu vaccine declined. Living will, full code. REVIEW OF SYSTEMS: HEENT: No headache. No vision problem. No earache. No sore throat. Neck: No goiter. No lymphadenopathy. Cardiopulmonary: Cough, shortness of breath and wheezing. No chest pain. No PND. No orthopnea. No swelling of legs. GI: Abdominal swelling. Constipation. No nausea, vomiting. No bleeding per rectum. : No history of hesitancy, frequency. No swelling of feet. No joint pain. Skin: No skin rashes. Neurologic: No focal symptoms, weakness or seizures. PHYSICAL EXAMINATION: VITAL SIGNS: Afebrile. Tachycardic. VITALS: Stable. HEENT: Atraumatic, normocephalic. Pupils equal, react to light. TMs are normal. Nose and throat within normal limits. NECK: Supple. No lymphadenopathy. No goiter. CHEST: Bilateral wheezing, rhonchi. HEART: Sounds are tachycardic. ABDOMEN: Belly is soft, protuberant. No signs of peritonitis. No hepatosplenomegaly palpable. EXTREMITIES: No peripheral edema, cyanosis, clubbing. NEUROLOGIC: No obvious neurological deficits. INVESTIGATIONS: Chest x-ray was stable with a right paratracheal adenopathy and chronic right blunting of costophrenic angle. CBC: White cell count 4.9, hematocrit 35, platelets 105,000. PT/INR is normal. ABG: PH is 7.33, pCO2 68, PO2 69. SMA7: Sodium 131, potassium 5.4, chloride 90, BUN 13, creatinine 0.4, glucose 110, calcium 8.7. LFTs were normal. ProBNP slightly high. ASSESSMENT AND PLAN: 1. A 60-year-old white female with known history of bronchiectasis and chronic lymphocytic leukemia readmitted to the hospital with acute respiratory insufficiency with hypercarbia, hypoxemia, due to worsening of bronchitis. Plan is BiPAP machine, guaifenesin, IV steroids, IV Zosyn and Levaquin. Dr. Cummins consult. Chronic lymphocytic leukemia immunocompromised state with immune deficiency, status post IgG transfusion. 2. Chronic lymphocytic leukemia. Refusing for chemotherapy. 3. Deep venous thrombosis. Gastrointestinal prophylaxis with Lovenox and Protonix. 4. Reconcile home medications. 5. Dehydration. IV fluids. 6. Care of the skin, bladder, and bowels. Once again, thanks for Dr. Cummins consult. If she is agreeable for chemotherapy, we will ask for Dr. Davies to be consulted. cc: Torsten Black MD
[2016-09-30] MEDS: SOLU-MEDROL IV SCH ×3 (00:16→16:18)
[2016-09-30] MEDS: XOPENEX NEB INH SCH ×5 (02:43→19:30)
[2016-09-30] MEDS: ZOSYN 3.375 GM/NS 3.375 GM/50 ML IVPB IV SCH ×4 (03:01→20:52)
[2016-09-30] MEDS: NS 1,000 ML IV SCH ×2 (04:35→16:18)
[2016-09-30 05:05] LABS: BLOOD TYPE ARTERIAL; SAMPLE BLOOD
[2016-09-30 05:07] LABS: PO2(98.6) 117 mmHg (60-100)
[2016-09-30 05:08] LABS: ALLEN TEST YES; DRAW SITE R RADIAL; MODALITY BI PAP; pH(98.6) 7.18 (7.35-7.45)
[2016-09-30 05:09] LABS: PCO2(98.6) 94 mmHg (35-45)
--- NOTE | 2016-09-30 05:47 | CONSULTATION ---
DATE OF CONSULTATION: 09/29/2016 CONCLUSION: Patient is admitted to the hospital. Her main complaint is dyspnea, cough rarely accompanied with mucous, and abdominal swelling. I am at this time unable to identify a definite infection in the patient. RECOMMENDATIONS: I have ordered 2 blood cultures and a urine analysis and urine culture if appropriate. DISCUSSION: The patient tells me in the past week she has had dyspnea, a cough that is productive infrequently of a mucoid-like fluid. Her abdomen also has swollen of up. Chest x-ray shows pleural effusions and mediastinal adenopathy. The patient's CBC shows a white count of 4990, hemoglobin 11.5, and platelet count 105,000. Patient's blood gases show a pH of 7.33, a PO2 of 69, and a pCO2 of 68. Creatinine 0.4. GFR is greater than 60. OBSTETRICAL AND GYNECOLOGICAL HISTORY: She is a 1, para 1, AB 0. REVIEW OF SYSTEMS: Eyes and Ears: She can hear okay. She wears glasses. Neck: No stiffness. Respiratory: She is short of breath, and she has been coughing. Cardiovascular: She is not having chest pain or palpitations. Gastrointestinal: No nausea, vomiting, or diarrhea. Genitourinary: No dysuria or flank pain. Bones, Joints, Muscles: The patient has generalized weakness. She has not had any joint swelling or pain. Endocrine: Patient has hypothyroidism, but not diabetes. Neurologic: The patient has not had a seizure. She complains of have having generalized weakness. PREVIOUS HOSPITALIZATIONS AND OPERATIONS: She has had labor and delivery, removal of acoustic neuroma, a cholecystectomy, and multiple admissions for pneumonia. MEDICAL DISEASES: Positive for CLL and associated hypogammaglobulinemia. The patient also has COPD and hypothyroidism. INFECTIOUS DISEASE HISTORY: Positive for pneumonia. FAMILY HISTORY: Positive for myocardial infarction, cancer, and dementia. SOCIAL HISTORY: The patient lives in [place]. She does not smoke cigarettes or drink alcoholic beverages. She is . She lives with her son. She has a dog as a pet. HOME MEDICATIONS: Multivitamins, Synthroid, Xopenex, lactobacillus, Mucinex, fluticasone, cholecalciferol, and Dulcolax. PHYSICAL EXAMINATION: Vital Signs: Temperature is 97.5 degrees, pulse 112, respirations 20, blood pressure 136/81. Patient weighs 119 pounds. General: Generally, this is a chronically ill-appearing middle-aged female. She is in no acute distress. Head, Eyes, Ears, Nose, and Throat: She can hear my spoken words and see near objects. There were no white patches on the tongue. Neck: No meningismus. Thorax: There was increased AP diameter of the chest. Lungs: There were bilateral rhonchi and a few wheezes. Cardiovascular: Heart rate was regular. There was a slight edema of the legs. Abdomen: It was firm and very distended. Neurologic: The patient is awake. She is very weak. She is not having any tremors. Her sensation was intact to touch. Integument: No rash noted. Thank you for the consultation. cc: MD Torsten Cruz MD
[2016-09-30 05:53] LABS: INR 0.95; PROTIME 9.9 Seconds (9.2-11.7)
[2016-09-30 05:59] LABS: HEMATOCRIT 34.1 % (37.0-47.0); HEMOGLOBIN 11.3 g/dL (12.0-16.0); IMM GRAN# 0.02 X1000 (0.0-0.04); IMM GRAN% 0.4 % (0.0-0.5); LYMPH# 0.41 X1000 (1.2-3.4); LYMPH% 7.5 % (20.5-51.1); MANUAL DIFF NEEDED? YES; MCH 29.8 PG (27-31); MCHC 33.1 g/dL (33-37); MONO# 0.06 X1000 (0.11-0.59); MONO% 1.1 % (1.7-9.3); MPV 11.3 FL (7.4-10.4); PLT 111 X1000 (130-400); RBC 3.79 XMIL (4.2-5.4)
[2016-09-30] MEDS: SYNTHROID PO SCH (06:11)
[2016-09-30 06:14] LABS: AGAP 8; ALBUMIN 3.7 g/dL (3.5-5.0); ALKALINE PHOSPHATASE 66 U/L (32-104); BUN 22 mg/dL (8-22); CALCIUM 8.2 mg/dL (8.8-10.2); CHLORIDE 90 mmol/L (98-107); COSMO 266; GOT 27 U/L (10-30); GPT 20 U/L (10-36); POTASSIUM 5.5 mmol/L (3.5-5.1); SODIUM 130 mmol/L (136-145); TCO2 32 mmol/L (25-35); TOTAL BILIRUBIN 0.28 mg/dL (0.20-1.00)
[2016-09-30] MEDS: HUMALOG SUBQ SCH ×5 (06:35→20:56)
[2016-09-30 06:39] LABS: URINE CULTURE NEEDED? NO; URINE MICRO REVIEW NEEDED? NO; URINE SOURCE CLEAN CATCH
[2016-09-30 06:40] LABS: ALLEN TEST YES; BE 9.3 mmoll (-3.0-3.0); BLOOD TYPE ARTERIAL; DRAW SITE R RADIAL; O2(CT) 14.9 mL/dL (15.0-23.0); PO2(98.6) 68 mmHg (60-100); SAMPLE BLOOD; SAO2 96.9 % (95.0-100.0); THB 11.4 g/dL (11.5-17.4); pH(98.6) 7.29 (7.35-7.45)
[2016-09-30 06:44] LABS: MODALITY BI PAP
[2016-09-30 06:45] LABS: PCO2(98.6) 80 mmHg (35-45)
[2016-09-30 06:49] LABS: BILIRUBIN URINE NEGATIVE (NEGATIVE); BLOOD URINE NEGATIVE (NEGATIVE); COLOR STRAW; GLUCOSE URINE NEGATIVE (NEGATIVE); LEUKOCYTES URINE NEGATIVE (NEGATIVE); NITRITE URINE NEGATIVE (NEGATIVE); PROTEIN URINE TRACE mg/dL (NEGATIVE); SP GRAVITY URINE 1.011; TURBIDITY URINE CLEAR (CLEAR); UR EPITHELIAL CELLS <10 /HPF (<10); URINE BACTERIA NEGATIVE /HPF; URINE RBC <10 /HPF (<10); URINE WBC <10 /HPF (<10); UROBILINOGEN URINE NORMAL (NORMAL)
[2016-09-30 06:50] LABS: BANDS 10 % (0-1); LYMPHS 6 % (21-51); MONO 2 % (1-9)
[2016-09-30 06:51] LABS: SED RATE 21 mm/hr (0-20)
--- NOTE | 2016-09-30 08:21 | Diag Imaging Result Document ---
PROCEDURE NAME: CHEST-1 VIEW - 09/30/2016 PORTABLE CHEST: COMPARISON: 09/29/2016. FINDINGS: The lungs are well expanded. There is a small to moderate sized right sided pleural effusion which remains and is unchanged. There are bibasilar infiltrates versus atelectasis. No definite improvement. The heart remains mildly prominent similar to the prior exam. The overall appearance of the chest has changed very little considering the differences in technique. IMPRESSION: Stable chest.
[2016-09-30] MEDS: THERA M PLUS PO SCH (08:28)
[2016-09-30] MEDS: FLONASE NAS SCH (08:28)
[2016-09-30] MEDS: VITAMIN D PO SCH (08:28)
[2016-09-30] MEDS: DULCOLAX PR SCH (08:28)
[2016-09-30] MEDS: MUCINEX PO SCH (08:28)
[2016-09-30] MEDS: BACTROBAN OINTMENT TOP SCH (08:28)
[2016-09-30] MEDS: CULTURELLE PO SCH (08:28)
--- NOTE | 2016-09-30 11:23 | PROGRESS NOTE ---
DATE: 09/29/2016 SUBJECTIVE: Patient is increased work of breathing last night. She is retaining CO2. She was placed on BiPAP machine. History was not obtained. Vitals: Afebrile. Stable on BiPAP machine. Chest: Bilateral air entry with rhonchi and squeaks. Tachycardic. Belly is soft, nontender. Obese. Extremities: No peripheral edema, cyanosis clubbing. No obvious neurological deficits. INVESTIGATIONS: CBC: White cell count 5.4, hematocrit 34, platelets 111,000. PT 9.9, INR 0.95. ABG pH is 7.39, pCO2 80, PO2 68 on BiPAP. SMA 7: Sodium 135, potassium 5.5, chloride 90, glucose 119, calcium 8.2. LFTs were normal. Cardiac enzymes were normal. Blood cultures are pending. ASSESSMENT AND PLAN: 1. Acute respiratory failure with underlying COPD requiring BiPAP machine. Continue on IV Zosyn, Levaquin, IV steroids, bronchodilators. 2. Hyponatremia, IV fluids. 3. DVT. GI prophylaxis with Lovenox and Protonix. 4. CLL. Patient is refusing for chemotherapy. Level of documentation 25 minute. cc: MD Dr. Placido Arriola
[2016-09-30 12:09] LABS: ALLEN TEST YES; BE 13.7 mmoll (-3.0-3.0); BLOOD TYPE ARTERIAL; DRAW SITE R RADIAL; METHB 1.6 % (0.0-1.5); PO2(98.6) 72 mmHg (60-100); SAMPLE BLOOD; SAO2 98.3 % (95.0-100.0); THB 10.5 g/dL (11.5-17.4); pH(98.6) 7.37 (7.35-7.45)
[2016-09-30 12:12] LABS: MODALITY BI PAP; PCO2(98.6) 72 mmHg (35-45)
--- NOTE | 2016-09-30 14:36 | CONSULTATION ---
DATE OF CONSULTATION: 09/30/2016 REFERRING PHYSICIAN: Dr. Black. CHIEF COMPLAINT: Shortness of breath. HISTORY OF PRESENT ILLNESS: This is a 60-year-old female with a past medical history of bronchiectasis on the right side, deafness, hypothyroidism, CLL, IgE deficiency , chronic loculated pleural effusion on the right side that presented to the hospital with complaints of shortness of breath. She does have a chronic cough. She was also wheezing upon arrival. She was found to be in respiratory distress with hypoxic hypercapnic respiratory failure. She denies any chest pain, nausea, vomiting, diarrhea, weakness, headache. She does have chronic abdominal pain and chronic cough. REVIEW OF SYSTEMS: A 10-point review of systems was conducted. Pertinent as noted in HPI, otherwise noncontributory. PAST MEDICAL HISTORY: As mentioned in HPI, otherwise noncontributory. PAST SURGICAL HISTORY: Cholecystectomy, right acoustic neuroma excision status post tracheostomy. ALLERGIES: Erythromycin, amoxicillin. SOCIAL HISTORY: The patient is , disabled. Denies use of tobacco, alcohol, or illicit drugs. FAMILY HISTORY: Notable for LA and dementia. ACTIVE MEDICATIONS: Dulcolax, vitamin D, Lovenox, Flonase, Mucinex, Humalog, Culturelle, Xopenex, Levaquin, Synthroid, Ativan, Solu-Medrol, Protonix, Zosyn. PHYSICAL EXAMINATION: Vital Signs: Temperature 96.5 degrees heart rate 82, respiratory rate 32, blood pressure 110/61, oxygen saturation 96%. General: Awake, alert, no acute distress noted. HEENT: Normocephalic, atraumatic. PERRL. Cardiovascular: S1, S2 present. Chest: Reduced entry with expiratory wheezes. Abdomen: Abdominal swelling is present with no nausea, vomiting or diarrhea. Bowel sounds present. Extremities: No edema noted. Neurologic: No focal deficits. LABS/INVESTIGATIONS: WBC 5.44, RBC 3.7, hemoglobin 11.3, hematocrit 34.1, platelet count 111,000. Sodium 130, potassium 5.5, chloride 90, CO2 32, anion gap 8, glucose 127, BUN 22 , creatinine 0.5. Blood gas reveals a pH of 7.29, CO2 of 80, PO2 of 68, HC03 of 32.1, base excess 9.3, saturated oxygen 93. Chest x-ray performed on 09/30/2016 shows stable chest. ASSESSMENT AND PLAN: This is a 60-year-old female with a past medical history mentioned in the history of present illness presented to the hospital with complaints of shortness of breath and cough. Respiratory failure, COPD, Bronchiecatsis. She also had hyponatremia and has recently been hospitalized for the same. She appears to be tolerating BiPAP well. Continue IV antibiotics, Xopenex, DVT and GI prophylaxis. Further recommendations pending diagnostic studies. Thank you for the courtesy of this consult. Dictated by ANNA MARIE Yeh for Nataliya Nair MD cc: ANNA MARIE Yeh MD Jagan Reddy, MD MTDD
[2016-09-30] MEDS: PROTONIX IV SCH (14:38)
[2016-09-30] MEDS: LOVENOX SUBQ SCH (14:38)
[2016-09-30] MEDS: LEVAQUIN 500 MG/D5W 500 MG/100 ML IVPB IV SCH (14:38)
[2016-10-01] MEDS: SOLU-MEDROL IV SCH ×4 (00:39→23:57)
[2016-10-01] MEDS: XOPENEX NEB INH SCH ×6 (04:20→23:23)
[2016-10-01 04:29] LABS: ALLEN TEST YES; BE 11.4 mmoll (-3.0-3.0); BLOOD TYPE ARTERIAL; DRAW SITE R RADIAL; METHB 1.2 % (0.0-1.5); PO2(98.6) 90 mmHg (60-100); SAMPLE BLOOD; SAO2 99.2 % (95.0-100.0); THB 12.6 g/dL (11.5-17.4); pH(98.6) 7.32 (7.35-7.45)
[2016-10-01 04:30] LABS: MODALITY BI PAP
[2016-10-01 04:31] LABS: PCO2(98.6) 79 mmHg (35-45)
[2016-10-01 05:24] LABS: HEMATOCRIT 30.9 % (37.0-47.0); IMM GRAN# 0.02 X1000 (0.0-0.04); IMM GRAN% 0.6 % (0.0-0.5); LYMPH# 0.34 X1000 (1.2-3.4); LYMPH% 10.9 % (20.5-51.1); MANUAL DIFF NEEDED? YES; MCH 29.7 PG (27-31); MCHC 32.4 g/dL (33-37); MCV 91.7 FL (81-99); MONO# 0.06 X1000 (0.11-0.59); MONO% 1.9 % (1.7-9.3); MPV 11.5 FL (7.4-10.4); NEUT% 86.6 % (42.2-75.2); PLT 91 X1000 (130-400); RBC 3.37 XMIL (4.2-5.4)
[2016-10-01] MEDS: NS 1,000 ML IV SCH (05:30)
[2016-10-01] MEDS: ZOSYN 3.375 GM/NS 3.375 GM/50 ML IVPB IV SCH ×4 (05:30→23:57)
[2016-10-01] MEDS: SYNTHROID PO SCH ×2 (05:32→20:30)
[2016-10-01 05:42] LABS: AGAP 7; BUN 26 mg/dL (8-22); CALCIUM 8.5 mg/dL (8.8-10.2); CHLORIDE 100 mmol/L (98-107); COSMO 289; POTASSIUM 4.9 mmol/L (3.5-5.1); SODIUM 141 mmol/L (136-145); TCO2 34 mmol/L (25-35)
[2016-10-01 06:01] LABS: BANDS 8 % (0-1); LYMPHS 8 % (21-51); MONO 4 % (1-9)
[2016-10-01] MEDS: HUMALOG SUBQ SCH ×4 (06:01→20:30)
--- NOTE | 2016-10-01 08:08 | PROGRESS NOTE ---
DATE: 10/01/2016 PRESENT ILLNESS: The patient has bibasilar infiltrates, which I think are due to pneumonia. MEDICATIONS: Currently, the patient is receiving Zosyn. This is day 2 of Zosyn. She is also on Levaquin, and it is day 2 for Levaquin also. PHYSICAL EXAMINATION: Vital Signs: Temperature 97.4, pulse 103, respirations 23, blood pressure 111/59. Patient weighs 124 pounds. General: This is an ill-appearing middle- aged female. She seems to be somewhat short of breath even at rest. Ears, nose, and throat: No white patches were noted in the mouth. Lungs: There were bibasilar rales. Cardiovascular: Heart rate is regular. Abdomen is very protuberant and firm. LABORATORY DATA AND X-RAY: CBC today shows a white count of 3110, hemoglobin 10 , platelet count 91,000. Blood gases show a pH of 7.32, a PO2 of 90 and CO2 of 79, creatinine 0.5. GFR is greater than 60. Blood cultures are sterile. As mentioned above, the chest x-ray showed bibasilar infiltrates versus atelectasis. ASSESSMENT AND PLAN: The patient has bibasilar pneumonia. My plan is to continue Zosyn, stop Levaquin and add Septra. The patient in the past has tolerated Septra well, and it seems to have helped her when she was sick. The patient's comorbidities include CLL, and she refuses treatment for the CLL. She also has COPD. cc: MD Torsten Cruz MD MTDD
--- NOTE | 2016-10-01 09:20 | PROGRESS NOTE ---
DATE: 10/01/2016 SUBJECTIVE: The patient has been off BiPAP machine. Doing a little better and wants to eat. REVIEW OF SYSTEMS: Decreased shortness of breath, work of breathing, nonproductive cough. No chest pain.GI: Abdominal distention. No constipation. PHYSICAL EXAMINATION: Vital Signs: Afebrile. Vitals are stable. HEENT: Within normal limits. Neck: Supple. No lymphadenopathy. Chest: Bilateral rhonchi and wheezing. Cardiovascular: Heart sounds are tachycardic. Abdomen: Belly is soft, protuberant. Extremities: No peripheral edema, cyanosis, clubbing. INVESTIGATIONS: CBC: White cell count 3.1, hematocrit 30.9, platelets 91,000. ABG: PH is 7.32, pCO2 79, PO2 90 on BiPAP. SMA 7 is normal. Blood sugar is 140. ASSESSMENT AND PLAN: 1. Acute respiratory failure. Off BiPAP. Continue IV antibiotics, steroids, bronchodilators. Added on Bactrim. 2. Chronic lymphocytic leukemia with IgG deficiency. Will find out when is next due for the IgG transfusion. 3. Chronic lymphocytic leukemia. Refusing chemo. 4. Advance diet. 5. Hyponatremia, better. Change the IV fluids to IV PPN 50 mL/hour. LEVEL OF DOCUMENTATION: 25 minutes. cc: Torsten Black MD [facility]
[2016-10-01] MEDS: BACTROBAN OINTMENT TOP SCH (09:27)
[2016-10-01] MEDS: FLONASE NAS SCH (09:27)
[2016-10-01] MEDS: VITAMIN D PO SCH (09:28)
[2016-10-01] MEDS: THERA M PLUS PO SCH (09:29)
[2016-10-01] MEDS: CULTURELLE PO SCH (09:29)
[2016-10-01] MEDS: SEPTRA DS PO SCH ×2 (09:29→20:30)
[2016-10-01] MEDS: MUCINEX PO SCH (09:29)
[2016-10-01] MEDS: DULCOLAX PR SCH (09:30)
[2016-10-01] MEDS: CLINIMIX E 4.25%-5% SOLUTION 1,000 ML IV SCH (09:30)
[2016-10-01] MEDS: PROTONIX IV SCH (16:03)
[2016-10-01] MEDS: LOVENOX SUBQ SCH (16:03)
[2016-10-02] MEDS: XOPENEX NEB INH SCH ×6 (03:48→23:33)
[2016-10-02 04:39] LABS: ALLEN TEST YES; BE 14.1 mmoll (-3.0-3.0); BLOOD TYPE ARTERIAL; DRAW SITE R RADIAL; METHB 1.8 % (0.0-1.5); O2(CT) 14.7 mL/dL (15.0-23.0); PO2(98.6) 111 mmHg (60-100); SAMPLE BLOOD; THB 10.8 g/dL (11.5-17.4); pH(98.6) 7.32 (7.35-7.45)
[2016-10-02 04:41] LABS: MODALITY BI PAP; PCO2(98.6) 84 mmHg (35-45)
[2016-10-02 05:28] LABS: HEMOGLOBIN 10.5 g/dL (12.0-16.0); IMM GRAN# 0.05 X1000 (0.0-0.04); IMM GRAN% 0.9 % (0.0-0.5); LYMPH# 0.52 X1000 (1.2-3.4); LYMPH% 9.8 % (20.5-51.1); MANUAL DIFF NEEDED? YES; MCH 30.1 PG (27-31); MCHC 31.8 g/dL (33-37); MCV 94.6 FL (81-99); MONO# 0.18 X1000 (0.11-0.59); MONO% 3.4 % (1.7-9.3); MPV 11.2 FL (7.4-10.4); NEUT% 85.9 % (42.2-75.2); PLT 99 X1000 (130-400); RBC 3.49 XMIL (4.2-5.4)
[2016-10-02 05:36] LABS: BANDS 4 % (0-1); LYMPHS 10 % (21-51); MONO 4 % (1-9)
[2016-10-02] MEDS: SYNTHROID PO SCH ×2 (05:46→06:13)
[2016-10-02] MEDS: ZOSYN 3.375 GM/NS 3.375 GM/50 ML IVPB IV SCH ×5 (05:46→23:45)
[2016-10-02] MEDS: CLINIMIX E 4.25%-5% SOLUTION 1,000 ML IV SCH ×2 (05:46→23:45)
[2016-10-02 05:50] LABS: AGAP 7; BUN 30 mg/dL (8-22); CALCIUM 8.9 mg/dL (8.8-10.2); CHLORIDE 100 mmol/L (98-107); COSMO 290; POTASSIUM 5.4 mmol/L (3.5-5.1); SODIUM 141 mmol/L (136-145); TCO2 34 mmol/L (25-35)
[2016-10-02] MEDS: HUMALOG SUBQ SCH ×4 (06:13→23:13)
[2016-10-02] MEDS: SEPTRA DS PO SCH ×2 (08:54→20:59)
[2016-10-02] MEDS: CULTURELLE PO SCH (08:54)
[2016-10-02] MEDS: MUCINEX PO SCH (08:54)
[2016-10-02] MEDS: THERA M PLUS PO SCH (08:55)
[2016-10-02] MEDS: SOLU-MEDROL IV SCH ×3 (08:55→23:44)
[2016-10-02] MEDS: FLONASE NAS SCH (08:55)
[2016-10-02] MEDS: VITAMIN D PO SCH (08:55)
[2016-10-02] MEDS: BACTROBAN OINTMENT TOP SCH (08:55)
[2016-10-02] MEDS: DULCOLAX PR SCH (09:19)
--- NOTE | 2016-10-02 10:31 | PROGRESS NOTE ---
DATE: 10/02/2016 SUBJECTIVE: Off BiPAP machine, improving breathing. Patient has been on triple antibiotics. REVIEW OF SYSTEMS: None reported. PHYSICAL EXAMINATION: Vital Signs: Stable. HEENT: Within normal limits. Neck: Supple. No lymphadenopathy. Chest: Wheezing, occasional rhonchi. Heart: Sounds are tachycardic. Abdomen: Belly is soft, protuberant. No signs of peritonitis. Extremities: No peripheral edema, cyanosis, clubbing. INVESTIGATIONS: CBC: White cell count 5.2, hematocrit 33, platelets 99,000. ABG: pH is 7.32, pCO2 is 84, PO2 is 111 on BiPAP. SMA-7 is normal. ASSESSMENT AND PLAN: 1. Acute respiratory failure with hypercarbia, off BiPAP machine. Decrease oxygen to 3L. Continue on triple antibiotics and IV steroids. 2. Chronic lymphocytic leukemia, refusing chemotherapy. 3. IgG deficiency. The patient is due for IgG transfusion on 10/04/2016. 4. Protein calorie malnutrition. IV PPN and continue present medical therapy. LEVEL OF DOCUMENTATION: Twenty-five minutes. cc: Torsten Black MD
[2016-10-02] MEDS: PROTONIX IV SCH (16:27)
[2016-10-02] MEDS: LOVENOX SUBQ SCH (16:27)
[2016-10-03] MEDS: ZOSYN 3.375 GM/NS 3.375 GM/50 ML IVPB IV SCH ×3 (04:40→19:18)
[2016-10-03 05:19] LABS: ALLEN TEST YES; BE 12.1 mmoll (-3.0-3.0); BLOOD TYPE ARTERIAL; DRAW SITE R RADIAL; METHB 1.9 % (0.0-1.5); O2(CT) 15.3 mL/dL (15.0-23.0); PO2(98.6) 122 mmHg (60-100); SAMPLE BLOOD; SAO2 99.3 % (95.0-100.0); THB 11.2 g/dL (11.5-17.4); pH(98.6) 7.31 (7.35-7.45)
[2016-10-03 05:20] LABS: MODALITY BI PAP; PCO2(98.6) 82 mmHg (35-45)
[2016-10-03 05:34] LABS: MANUAL DIFF NEEDED? NO
[2016-10-03 05:41] LABS: HEMATOCRIT 35.5 % (37.0-47.0); HEMOGLOBIN 11.1 g/dL (12.0-16.0); IMM GRAN# 0.03 X1000 (0.0-0.04); IMM GRAN% 0.6 % (0.0-0.5); LYMPH# 0.71 X1000 (1.2-3.4); LYMPH% 13.4 % (20.5-51.1); MCH 29.7 PG (27-31); MCHC 31.3 g/dL (33-37); MCV 94.9 FL (81-99); MONO# 0.14 X1000 (0.11-0.59); MONO% 2.6 % (1.7-9.3); MPV 11.7 FL (7.4-10.4); NEUT% 83.4 % (42.2-75.2); PLT 106 X1000 (130-400); RBC 3.74 XMIL (4.2-5.4)
[2016-10-03 05:57] LABS: AGAP 8; BUN 30 mg/dL (8-22); CALCIUM 9.4 mg/dL (8.8-10.2); CHLORIDE 97 mmol/L (98-107); COSMO 292; POTASSIUM 5.8 mmol/L (3.5-5.1); SODIUM 142 mmol/L (136-145); TCO2 37 mmol/L (25-35)
[2016-10-03] MEDS: HUMALOG SUBQ SCH ×4 (06:36→22:16)
[2016-10-03] MEDS: SYNTHROID PO SCH (06:37)
[2016-10-03] MEDS: XOPENEX NEB INH SCH ×4 (07:59→19:45)
[2016-10-03] MEDS ORDERED: FLEBOGAMMA DIF 5% IV ONE (08:30)
[2016-10-03] MEDS: FLONASE NAS SCH (08:37)
[2016-10-03] MEDS: BACTROBAN OINTMENT TOP SCH (08:37)
[2016-10-03] MEDS: SEPTRA DS PO SCH ×2 (08:37→20:39)
[2016-10-03] MEDS: SOLU-MEDROL IV SCH ×2 (08:38→15:17)
[2016-10-03] MEDS: MUCINEX PO SCH (08:38)
[2016-10-03] MEDS: DULCOLAX PR SCH (08:38)
[2016-10-03] MEDS: THERA M PLUS PO SCH (08:38)
[2016-10-03] MEDS: VITAMIN D PO SCH (08:38)
[2016-10-03] MEDS: CULTURELLE PO SCH (08:38)
--- NOTE | 2016-10-03 10:39 | PROGRESS NOTE ---
DATE: 10/03/2016 PRESENT ILLNESS: The patient has a bibasilar pneumonia. MEDICATIONS: This is day 3 of treatment with Zosyn and day 1 of treatment with Septra. PHYSICAL EXAMINATION: Vital Signs: Temperature is 97.6 degrees, pulse 88, respirations 20, blood pressure 127/68. General: This is a chronically ill-appearing, middle-aged female who is in no acute distress. Lungs: Clear to auscultation. Cardiovascular: Heart rate is regular. Abdomen: Protuberant and somewhat firm. It is not tender. Extremities: Patient has a minimal amount of edema in the legs. LAB AND X-RAY: The patient's CBC today shows a white count of 5300, hemoglobin 11.1, and platelet count 106,000. Patient's blood gases show a pH of 7.31, a PO2 of 122 and a pCO2 of 82, creatinine 0.6. GFR is greater than 60. Blood cultures are sterile. ASSESSMENT AND PLAN: Patient has pneumonia. I plan to continue her current antibiotics, namely Septra and Zosyn. COMORBIDITIES: The patient's comorbidities include CLL and COPD. cc: MD Torsten Cruz MD
--- NOTE | 2016-10-03 11:55 | PROGRESS NOTE ---
DATE: 10/03/2016 SUBJECTIVE: The patient has been off the BiPAP machine. Mental status is clear and declining for chemotherapy for CLL. Patient was seen by Dr. Cummins and started on IgG transfusion. REVIEW OF SYSTEMS: None reported. OBJECTIVE: Vital Signs: On exam, vitals are stable. HEENT: Exam within normal limits. Neck: Supple. No lymphadenopathy. Chest: Wheezing. Heart: Sounds are regular. Abdomen: Belly is soft, protuberant. No masses palpable. Extremities: No peripheral edema, cyanosis, clubbing. INVESTIGATIONS: CBC: White cell count 5.3, hematocrit 35, platelet 106. ABG: The pH is 7.31, pCO2 82, PO2 122 on BiPAP. SMA 7: Sodium 142, potassium 5.8, chloride 97, BUN 30, creatinine 0.6, calcium 9.4. Urinalysis is clear. Blood cultures were negative. ASSESSMENT AND PLAN: 1. Acute respiratory failure on BiPAP machine. Continue on triple antibiotics and BiPAP in the night time. 2. Protein calorie malnutrition. Continue intravenous peripheral parenteral nutrition. 3. Thrombocytopenia. I discussed with the patient possible hypersplenism or involvement of the bone marrow of chronic lymphocytic leukemia. 4. IgG deficiency. Will transfuse 20 g of intravenous immunoglobulin today. 5. Hypothyroidism on Synthroid. Continue present medical therapy. Will follow up this weekend. cc: Torsten Black MD
[2016-10-03] MEDS: LOVENOX SUBQ SCH (15:17)
[2016-10-03] MEDS: PROTONIX IV SCH (15:17)
[2016-10-03] MEDS: SODIUM CHLORIDE 0.9% INJ SCH (15:17)
[2016-10-03] MEDS: CLINIMIX E 4.25%-5% SOLUTION 1,000 ML IV SCH (20:40)
[2016-10-04] MEDS: SOLU-MEDROL IV SCH ×5 (00:21→23:51)
[2016-10-04] MEDS: ZOSYN 3.375 GM/NS 3.375 GM/50 ML IVPB IV SCH ×6 (00:21→23:51)
[2016-10-04 05:35] LABS: ALLEN TEST YES; BE 12.5 mmoll (-3.0-3.0); BLOOD TYPE ARTERIAL; DRAW SITE R BRACHIAL; O2(CT) 15.4 mL/dL (15.0-23.0); PO2(98.6) 146 mmHg (60-100); SAMPLE BLOOD; SAO2 99.8 % (95.0-100.0); THB 11.2 g/dL (11.5-17.4); pH(98.6) 7.31 (7.35-7.45)
[2016-10-04 05:36] LABS: MODALITY BI PAP; PCO2(98.6) 83 mmHg (35-45)
[2016-10-04] MEDS: SYNTHROID PO SCH ×2 (05:51→06:10)
[2016-10-04] MEDS: XOPENEX NEB INH SCH ×5 (05:51→20:00)
[2016-10-04] MEDS: HUMALOG SUBQ SCH ×4 (06:09→20:39)
[2016-10-04] MEDS: CULTURELLE PO SCH (08:51)
[2016-10-04] MEDS: MUCINEX PO SCH (08:51)
[2016-10-04] MEDS: VITAMIN D PO SCH (08:51)
[2016-10-04] MEDS: SEPTRA DS PO SCH ×2 (08:51→20:39)
[2016-10-04] MEDS: DULCOLAX PR SCH (08:52)
[2016-10-04] MEDS: BACTROBAN OINTMENT TOP SCH (08:52)
[2016-10-04] MEDS: FLONASE NAS SCH (08:52)
[2016-10-04] MEDS: THERA M PLUS PO SCH (10:19)
--- NOTE | 2016-10-04 12:59 | PROGRESS NOTE ---
DATE: 10/04/2016 SUBJECTIVE: No complaints. Decreased shortness of breath. Able to get in and out of the bed. Off BiPAP machine. The patient did receive IgG transfusion yesterday 10/03/2016. REVIEW OF SYSTEMS: None reported. OBJECTIVE: Vital Signs: Vitals are stable. HEENT: Within normal limits. Neck: Supple. No lymphadenopathy. No goiter. Abdomen: Belly is soft, nontender. Good bowel sounds. LABS: ABG: The pH is 7.31, pCO2 83, PO2 146 on BiPAP. INVESTIGATIONS: No other investigations. ASSESSMENT AND PLAN: 1. Chronic lymphocytic leukemia with immunocompromise state, status post IgG transfusion on 10/03/2016. 2. Acute respiratory failure with hypercarbia. Continue on BiPAP. Continue the antibiotics and decrease the intravenous steroids. 3. Currently stable. Continue present medical therapy. LEVEL OF DOCUMENTATION: 15 minutes. cc: Torsten Black MD
[2016-10-04] MEDS: PROTONIX IV SCH ×2 (15:23→15:42)
[2016-10-04] MEDS: LOVENOX SUBQ SCH ×2 (15:23→15:42)
[2016-10-04] MEDS: SODIUM CHLORIDE 0.9% INJ SCH (15:42)
[2016-10-04] MEDS: CLINIMIX E 4.25%-5% SOLUTION 1,000 ML IV SCH (15:43)
[2016-10-05] MEDS: SOLU-MEDROL IV SCH ×3 (00:20→16:41)
[2016-10-05] MEDS: ZOSYN 3.375 GM/NS 3.375 GM/50 ML IVPB IV SCH ×5 (03:39→19:17)
[2016-10-05 04:59] LABS: ALLEN TEST YES; BE 13.1 mmoll (-3.0-3.0); BLOOD TYPE ARTERIAL; DRAW SITE R RADIAL; METHB 1.7 % (0.0-1.5); O2(CT) 14.8 mL/dL (15.0-23.0); PO2(98.6) 138 mmHg (60-100); SAMPLE BLOOD; SAO2 100.7 % (95.0-100.0); THB 10.7 g/dL (11.5-17.4); pH(98.6) 7.31 (7.35-7.45)
[2016-10-05 05:01] LABS: MODALITY BI PAP; PCO2(98.6) 84 mmHg (35-45)
[2016-10-05] MEDS: SYNTHROID PO SCH ×2 (05:35→06:23)
[2016-10-05] MEDS: HUMALOG SUBQ SCH ×4 (06:23→19:42)
[2016-10-05] MEDS: XOPENEX NEB INH SCH ×5 (07:23→19:21)
[2016-10-05] MEDS: DULCOLAX PR SCH (08:55)
[2016-10-05] MEDS: VITAMIN D PO SCH (08:55)
[2016-10-05] MEDS: MUCINEX PO SCH (08:55)
[2016-10-05] MEDS: THERA M PLUS PO SCH (08:55)
[2016-10-05] MEDS: CULTURELLE PO SCH (08:55)
[2016-10-05] MEDS: SEPTRA DS PO SCH ×2 (08:55→19:41)
[2016-10-05] MEDS: BACTROBAN OINTMENT TOP SCH (08:56)
[2016-10-05] MEDS: FLONASE NAS SCH (08:56)
[2016-10-05] MEDS: CLINIMIX E 4.25%-5% SOLUTION 1,000 ML IV SCH (14:18)
--- NOTE | 2016-10-05 14:23 | PROGRESS NOTE ---
DATE: 10/05/2016 SUBJECTIVE: Patient is doing very well off the BiPAP. Decreased work of breathing, cough. REVIEW OF SYSTEMS: None reported. PHYSICAL EXAMINATION: Vital Signs: Stable. Slightly tachycardic. General: Emaciated. Chest: Decreased rhonchi and wheezing. Cardiovascular: Heart sounds are regular. Abdomen: Belly is soft, protuberant. No masses palpable. Extremities: No peripheral edema, cyanosis, clubbing. LABS: Today pH is 7.31, pCO2 84, PO2 138 on BiPAP machine. Blood sugars are running well. ASSESSMENT AND PLAN: 1. Acute respiratory failure on BiPAP. Slowly improving. Continue oral antibiotics with Bactrim, Levaquin, Zosyn, bronchodilators. 2. Deep vein thrombosis prophylaxis with Lovenox. 3. Protein calorie malnutrition. IV PPN. Continue present medical therapy. LEVEL OF DOCUMENTATION: 15 minutes. cc: Torsten Black MD
[2016-10-05] MEDS: LOVENOX SUBQ SCH (16:41)
[2016-10-05] MEDS: SODIUM CHLORIDE 0.9% INJ SCH (16:41)
[2016-10-05] MEDS: PROTONIX IV SCH (16:41)
[2016-10-06] MEDS: XOPENEX NEB INH SCH ×6 (00:16→19:19)
[2016-10-06] MEDS: SEPTRA DS PO SCH ×3 (00:37→20:18)
[2016-10-06] MEDS: SOLU-MEDROL IV SCH ×3 (00:37→20:18)
[2016-10-06] MEDS: HUMALOG SUBQ SCH ×5 (00:38→20:22)
[2016-10-06] MEDS: ZOSYN 3.375 GM/NS 3.375 GM/50 ML IVPB IV SCH ×4 (00:39→18:31)
[2016-10-06 04:48] LABS: ALLEN TEST YES; BE 12.1 mmoll (-3.0-3.0); BLOOD TYPE ARTERIAL; DRAW SITE R RADIAL; METHB 1.5 % (0.0-1.5); O2(CT) 15.1 mL/dL (15.0-23.0); PO2(98.6) 102 mmHg (60-100); SAMPLE BLOOD; SAO2 99.2 % (95.0-100.0); THB 11.1 g/dL (11.5-17.4); pH(98.6) 7.31 (7.35-7.45)
[2016-10-06 04:49] LABS: PCO2(98.6) 82 mmHg (35-45)
[2016-10-06 04:50] LABS: MODALITY BI PAP
[2016-10-06] MEDS: SYNTHROID PO SCH (06:04)
--- NOTE | 2016-10-06 07:11 | PROGRESS NOTE ---
DATE: 10/06/2016 PRESENT ILLNESS: The patient is being treated for a pneumonia. Also, her abdomen was quite protuberant. MEDICATIONS: The patient is on Zosyn, Septra, and steroids. PHYSICAL EXAMINATION: Vital Signs: Temperature is 97.5 degrees, pulse 97, respirations 20, blood pressure 101/55. General: This is a chronically ill-appearing elderly female. She is in no acute distress. Lungs: There were few rales heard in the bases. The left lung appeared clear. Cardiovascular: Heart rate is regular. Abdomen: Much less swollen than it was. It is not tender. Neurologic: The patient is alert. She can move her extremities. LABORATORY AND X-RAY: There is no new x-ray. The labs for today show a CBC with a white count of 5300, hemoglobin 11.1, and platelet count 106,000. Arterial blood gases show a pH of 7.31, a PO2 of 102, and a pCO2 of 82. Blood cultures are sterile. The patient's creatinine, the last one I have is on the 2016 and was 0.6. ASSESSMENT AND PLAN: The patient has a bibasilar pneumonia. Also, she had a severe flare-up of her chronic lymphocytic leukemia. Medications, this is day 6 of treatment with Zosyn and day 4 of treatment with Septra. Also, she has had a marked decrease in her abdominal girth. I think most likely that is due to the fact that she is on steroids, which are treating her chronic lymphocytic leukemia. Also, she is on Septra, which may be treating her bilateral pulmonary infiltrates. My suggestion is to let the patient go home today on a combination of Septra DS 1 p.o. every 12 hours and also continue her steroids because it appears it is helping. I would suggest treating her with steroids because it appears to be benefitting her chronic lymphocytic leukemia.. COMORBIDITIES: Include chronic lymphocytic leukemia and chronic obstructive pulmonary disease. I am available to see the patient on a p.r.n. basis after discharge. cc: MD Torsten Cruz MD MTDD
[2016-10-06] MEDS: DULCOLAX PR SCH (09:45)
[2016-10-06] MEDS: CLINIMIX E 4.25%-5% SOLUTION 1,000 ML IV SCH (09:45)
[2016-10-06] MEDS: MUCINEX PO SCH (09:45)
--- NOTE | 2016-10-06 09:45 | PROGRESS NOTE ---
DATE: 10/06/2016 SUBJECTIVE: Patient is slowly improving. I discussed with Dr. Cummins. Decreased shortness of breath off BiPAP. PHYSICAL EXAMINATION: Vital Signs: She is afebrile. Vitals are stable. On 3 L of nasal cannula 93%. I's and O's negative 1.5. HEENT: Within normal limits. Neck: Supple. No lymphadenopathy. Chest: Bilateral air entry. Decreased wheezing. Abdomen: Belly is soft, protuberant. No masses palpable. INVESTIGATIONS: ABG, pH is 7.31, pCO2 82, PO2 102, bicarb 34 on BiPAP. Blood sugars are running fine. ASSESSMENT AND PLAN: 1. Acute respiratory failure is improving. Decrease the IV steroids. 2. Chronic obstructive pulmonary disease. Dr. Cummins recommended continue on low dose prednisone 10 mg a day and also Bactrim for 14 days. 3. Acute respiratory failure. Continue the BiPAP at home. 4. Chronic lymphocytic leukemia. Not interested in chemotherapy. Will be discharged in the morning. cc: Torsten Black MD
[2016-10-06] MEDS: CULTURELLE PO SCH (09:46)
[2016-10-06] MEDS: THERA M PLUS PO SCH (09:46)
[2016-10-06] MEDS: VITAMIN D PO SCH (09:46)
[2016-10-06] MEDS: BACTROBAN OINTMENT TOP SCH (12:48)
[2016-10-06] MEDS: FLONASE NAS SCH (12:48)
[2016-10-06] MEDS: LOVENOX SUBQ SCH (16:50)
[2016-10-06] MEDS: PROTONIX IV SCH (16:50)
[2016-10-06] MEDS: SODIUM CHLORIDE 0.9% INJ SCH (16:50)
[2016-10-07] MEDS: ZOSYN 3.375 GM/NS 3.375 GM/50 ML IVPB IV SCH ×2 (00:04→06:01)
[2016-10-07] MEDS: CLINIMIX E 4.25%-5% SOLUTION 1,000 ML IV SCH (03:53)
[2016-10-07] MEDS: XOPENEX NEB INH SCH ×2 (04:48→07:47)
[2016-10-07] MEDS: HUMALOG SUBQ SCH (06:00)
[2016-10-07] MEDS: SYNTHROID PO SCH (06:01)
--- NOTE | 2016-10-07 06:43 | PROGRESS NOTE ---
DATE: 10/07/2016 PRESENT ILLNESS: The patient is being treated for pneumonia. She also has a very protuberant abdomen which has gotten much better on steroids and is felt to be due to her chronic lymphocytic leukemia. PHYSICAL EXAMINATION: Vital Signs: Temperature is 96.8 degrees, pulse 103, respirations 18, blood pressure 125/67. Generally: This is an ill-appearing, middle-aged female. She is in no acute distress. Lungs: Clear to auscultation. Cardiovascular: Heart rate was regular. Abdomen: Less protuberant. It is soft and not tender. LAB AND X-RAY: For today, there are no new laboratory studies except for a glucose which was 86. The patient's blood cultures are sterile. There is no new radiographic study. ASSESSMENT AND PLAN: The patient has pneumonia superimposed on chronic lymphocytic leukemia. The plan today is Dr. Black will discharge the patient on p.o. Septra and p.o. steroids and he will be seeing the patient back in the office in 1-2 weeks. COMORBIDITIES: Include chronic lymphocytic leukemia and COPD. I am available to see the patient on a p.r.n. basis. cc: MD Torsten Cruz MD MTDD
[2016-10-07 07:57] VITALS: BP 110/60
[2016-10-07] MEDS: VITAMIN D PO SCH (08:24)
[2016-10-07] MEDS: THERA M PLUS PO SCH (08:24)
[2016-10-07] MEDS: SOLU-MEDROL IV SCH (08:24)
[2016-10-07] MEDS: SEPTRA DS PO SCH (08:24)
[2016-10-07] MEDS: BACTROBAN OINTMENT TOP SCH (08:24)
[2016-10-07] MEDS: FLONASE NAS SCH (08:24)
[2016-10-07] MEDS: MUCINEX PO SCH (08:24)
[2016-10-07] MEDS: CULTURELLE PO SCH (08:24)
[2016-10-07] MEDS: DULCOLAX PR SCH (08:25)
[2016-10-07 09:16] LABS: ALLEN TEST YES; BE 12.9 mmoll (-3.0-3.0); BLOOD TYPE ARTERIAL; DRAW SITE L RADIAL; METHB 1.7 % (0.0-1.5); O2(CT) 15.2 mL/dL (15.0-23.0); PCO2(98.6) 47 mmHg (35-45); PO2(98.6) 74 mmHg (60-100); SAMPLE BLOOD; SAO2 98.4 % (95.0-100.0); THB 11.3 g/dL (11.5-17.4); pH(98.6) 7.51 (7.35-7.45)
[2016-10-07 09:17] LABS: MODALITY CANNULA
--- NOTE | 2016-10-08 09:17 | DISCHARGE SUMMARY ---
ADMISSION DATE: 09/29/2016 DISCHARGE DATE: 10/07/2016 DISCHARGING DIAGNOSIS: Acute respiratory failure due to chronic obstructive pulmonary disease with bronchitis. SECONDARY DIAGNOSES: 1. Chronic right bronchiectasis. 2. Deafness. 3. Hypothyroidism. 4. Chronic lymphocytic leukemia. 5. IgG deficiency. 6. Chronic loculated pleural effusion on the right side. 7. Deconditioning. CONSULTS: 1. Lebron Cummins MD 2. Nataliya Nair MD PROCEDURES: 1. BiPAP machine. 2. IgG transfusion on 10/04/2016. BRIEF HISTORY: Please see the history and physical that was done on 09/29/2016. In brief, she is a 60-year-old white female who was recently discharged from the hospital for hyponatremia. Came back with shortness of breath, cough, and wheezing. Seen twice in the emergency room. HOSPITAL COURSE: She was given oxygen, bronchodilators, triple antibiotics, with Zosyn, Levaquin, and Bactrim, along with prednisone. She was also assisted with BiPAP machine. Patient refusing for chemotherapy for chronic lymphocytic leukemia. She was given IgG transfusion on 10/04/2016. The patient got better. Dr. Lebron Cummins recommended prednisone 10 mg daily, along with 2 weeks of Bactrim. The rest of the hospital course was uneventful. LABS: ABGs: pH is 7.41, pCO2 47, pO2 74 on 32%. CBC 5.3. White cell count: Hematocrit 35, platelets 106,000. PT/INR is normal. SMA-7: Sodium 142, potassium 5.8, BUN 30, creatinine 0.6. DISCHARGE INSTRUCTIONS: 1. Outpatient home health care. 2. Oxygen 3 L. 3. BiPAP 15/50 at nighttime. 4. Multivitamin one tablet daily. 5. Synthroid 75 mcg daily. 6. Mucinex 600 daily. 7. Flonase 1 spray in each nostril daily. 8. Vitamin D3 1000 units daily. 9. Xopenex 1 puff q.12 hours. 10. Culturelle 1 tablet daily. 11. Bactroban ointment to the nose daily. 12. Dulcolax 10 mg as needed for constipation. 13. Breo 1 puff daily. 14. Bactrim one tablet p.o. b.i.d. for 2 weeks. 15. Prednisone 10 mg daily. FOLLOWUP: Followup in my office in 10 days, as well as Dr. Cummins. She is also going to see Dr. Davies once a month for IgG transfusion. cc: Torsten Black MD
== END 2016-10-07 11:10 | disposition home health service (06) ==
LOC: SUPCPDRO → ED 04:53 → 3S 08:47
PROVIDERS: ADMIT Internal Medicine; ATTEND Internal Medicine

== ENCOUNTER 2016-11-15 14:49 | Inpatient (IN) ==
[2016-11-15] MEDS ORDERED: DUONEB (A & A) INH ONE (16:17)
[2016-11-15] MEDS ORDERED: ROCEPHIN 1 GM/NS 1 GM/50 ML IVPB IV ONE (16:20)
--- NOTE | 2016-11-15 16:22 | PROVIDER DOCUMENTATION ---
HPI-Respiratory General - General Chief Complaint: Shortness of Breath Stated Complaint: SOB/ on home O2 Time Seen by Provider: 11/15/16 15:00 Source: patient Allergies/Adverse Reactions: Patient Allergies Allergy/AdvReac Type Severity Reaction Status Date / Time erythromycin base Allergy Mild RASH Verified 11/15/16 16:03 [Erythromycin Base] amoxicillin trihydrate * AdvReac Mild DRIES UP Verified 11/15/16 16:03 [From Augmentin] MUCUS IN HER THROAT potassium clavulanate * AdvReac Mild DRIES UP Verified 11/15/16 16:03 [From Augmentin] MUCUS IN HER THROAT Home Medications: Home Medication List Medication Instructions Recorded Confirmed Last Taken Type Cholecalciferol (Vitamin D3) 1,000 unit PO QAM 04/30/15 09/29/16 11/15/16 History [Vitamin D3] Levothyroxine [Synthroid] 75 microgm PO QAM 04/30/15 09/29/16 11/15/16 History Multivitamin [Multivitamins] 1 each PO QAM 04/30/15 09/29/16 11/15/16 History - History of Present Illness-Resp Nature of Presenting Problem: Pt is a 61 y/o F c chief complaint of cough and shortness of breath x 2-3 weeks. Pt states that she has a h/o COPD, CLL, and PNA. She has had progressive weakness and productive cough. Pt arrived via EMS. On arrival, she is in minimal distress. Review of Systems - Adult - REVIEW OF SYSTEMS - ADULT Constitutional: reports: no symptoms reported. denies: chills, fatique Eyes: reports: no symptoms reported. denies: blurred vision, double vision Ears, Nose, Mouth & Throat: reports: no symptoms reported. denies: ear pain, nose pain Cardiovascular: reports: no symptoms reported. denies: chest pain, orthopnea Respiratory: reports: see HPI, cough, shortness of breath, wheezing Gastrointestinal: reports: no symptoms reported. denies: abdominal pain, nausea , vomiting Genitourinary: reports: no symptoms reported. denies: frequent UTI's, hematuria Musculoskeletal: reports: no symptoms reported. denies: bone pain, joint pain Integumentary: reports: no symptoms reported. denies: itching, rash Neurological: reports: no symptoms reported. denies: numbness, paresthesia Psychiatric: reports: no symptoms reported. denies: anxiety, emotional problems Endocrine: reports: no symptoms reported. denies: cold intolerance, heat intolerance Hematologic/Lymphatic: reports: no symptoms reported. denies: blood clots, low blood count Allergic/Immunologic: reports: no symptoms reported. denies: food allergy All Other Systems: Reviewed and Negative Past History - Adult - PAST MEDICAL HISTORY-ADULT Review of Records: reports: Old Records Reviewed, Nursing Assessment Review, Medications Reviewed, Social history reviewed & non-contributory. Major Childhood Illnesses: reports: denies history Cardiovascular: reports: HTN Respiratory: reports: bronchitis, COPD, pneumonia, sleep apnea Gastrointestinal: reports: denies history Obstetrical/Gynecological: reports: denies history Genitourinary: reports: denies history Musculoskeletal: reports: denies history Neurological: reports: denies history Endocrine/Immune: reports: Leukemia (CLL) Other Conditions: reports: denies history - PRIOR SURGERIES/PROCEDURES Surgical/Procedure History: reports: cholecystectomy, other (rhinoplasty, removal of acustic neuroma) - PRIOR HOSPITALIZATIONS Prior Hospitalizations: reports: for similar symptoms - IMMUNIZATION STATUS Childhood Immunizations: See Nurse Assessment Flu Vaccine: See Nurse Assessment - FAMILY HISTORY Family History: reviewed, not pertinent - SOCIAL HISTORY Smoking: denies Substance Use: none/never Alcohol Use Frequency: never Number of drinks per typical drinking period:: 2 drinks Physical Exam-General - PHYSICAL EXAM-ADULT Initial Vital Signs Reviewed: Yes - CONSTITUTIONAL General Appearance: alert, mild distress - EYES Eyes: PERRL/EOMI, pink conjunctivae - HEAD, EARS, NOSE, MOUTH & THROAT HENMT: normocephalic/atraumatic, moist mucous membranes, normal ENT inspection - NECK Neck: normal inspection - RESPIRATORY Respiratory: chest non-tender, accessory muscle use, rales, rhonchi, wheezing - CARDIOVASCULAR Cardiovascular: normal peripheral pulses, regular rate, rhythm - GASTROINTESTINAL (ABDOMEN) Abdominal Exam: normal bowel sounds, non tender, soft - LYMPHATIC Lymphatic: no adenopathy - MUSCULOSKELETAL Back Exam: normal inspection, no CVA tenderness, no vertebral tenderness Extremity: normal range of motion, non-tender, normal inspection - SKIN Integumentary: normal color, normal turgor, warm/dry - NEUROLOGIC Neurologic: grossly normal, no motor/sensory deficits - PSYCHIATRIC Psych/Mental Status: normal mood/affect, normal thought content, normal thought process, oriented x 3 Progress - PLAN OF CARE/RESULTS Progress/Plan/Lab Results: Vital Signs - 8 hr 11/15/16 15:48 11/15/16 17:04 11/15/16 17:09 Temperature 97.9 F Pulse Rate 112 H 102 H 103 H Respiratory Rate 30 H 20 Blood Pressure 118/67 116/69 O2 Sat by Pulse Oximetry 92 L 94 L 93 L 11/15/16 18:40 Temperature Pulse Rate 114 H Respiratory Rate 20 Blood Pressure 103/68 O2 Sat by Pulse Oximetry 94 L Laboratory Results - last 24 hr 11/15/16 11/15/16 11/15/16 16:17 16:56 16:56 WBC 3.53 L RBC 3.80 L Hgb 11.6 L Hct 35.9 L MCV 94.5 MCH 30.5 MCHC 32.3 L RDW Std Deviation 14.6 H Plt Count 90 L MPV 11.1 H Immature Gran % (Auto) 1.7 H Neut % (Auto) 51.3 Lymph % (Auto) 38.2 Armstrong % (Auto) 7.1 Eos % (Auto) 1.1 Baso % (Auto) 0.6 Immature Gran # (Auto) 0.06 H Neut # (Auto) 1.81 Lymph # (Auto) 1.35 Armstrong # (Auto) 0.25 Eos # (Auto) 0.04 Baso # (Auto) 0.02 Specimen Type ARTERIAL Sample Site R BRACHIAL pH 7.37 pCO2 70 H* pO2 83 HCO3 34.5 H Base Excess 12.3 H Oxyhemoglobin 95.4 ABG O2 Sat (Calculated) 17.1 ABG O2 Saturation 97.9 ABG Carboxyhemoglobin 1.80 ABG Methemoglobin 0.8 Mega Test NO A-a O2 Difference 58.0 Total Hemoglobin 12.7 Lactate 0.50 Liter Flow 3.0 Blood Gas Modality CANNULA FiO2 % 32.0 Sodium 141 Potassium 4.5 Chloride 97 L Carbon Dioxide 38 H Anion Gap 6 BUN 11 Creatinine 0.6 Estimated GFR/1.73 m2 > 60 BUN/Creatinine Ratio 18 Glucose 108 H Calculated Osmolality 281 Calcium 9.1 Total Bilirubin 0.35 AST 37 H ALT 17 Alkaline Phosphatase 75 Total Protein 6.6 Albumin 4.2 Globulin 2.4 Albumin/Globulin Ratio 1.8 Plasma Lactate 11/15/16 16:56 WBC RBC Hgb Hct MCV MCH MCHC RDW Std Deviation Plt Count MPV Immature Gran % (Auto) Neut % (Auto) Lymph % (Auto) Armstrong % (Auto) Eos % (Auto) Baso % (Auto) Immature Gran # (Auto) Neut # (Auto) Lymph # (Auto) Armstrong # (Auto) Eos # (Auto) Baso # (Auto) Specimen Type Sample Site pH pCO2 pO2 HCO3 Base Excess Oxyhemoglobin ABG O2 Sat (Calculated) ABG O2 Saturation ABG Carboxyhemoglobin ABG Methemoglobin Mega Test A-a O2 Difference Total Hemoglobin Lactate Liter Flow Blood Gas Modality FiO2 % Sodium Potassium Chloride Carbon Dioxide Anion Gap BUN Creatinine Estimated GFR/1.73 m2 BUN/Creatinine Ratio Glucose Calculated Osmolality Calcium Total Bilirubin AST ALT Alkaline Phosphatase Total Protein Albumin Globulin Albumin/Globulin Ratio Plasma Lactate 0.4 L Orders Category Date Time Status Saline Loc NOW Care 11/15/16 16:17 Active Regular Diet Diet 11/15/16 17:34 Active CHEST-2 VIEWS [RAD] Stat Exams 11/15/16 16:17 Completed ABG [RESP] Routine Lab 11/15/16 16:17 Completed BLOOD CULTURE [BLDCUL] Stat Lab 11/15/16 16:56 Results CBC WITH DIFF [HEME] Stat Lab 11/15/16 16:56 Completed COMPREHENSIVE METABOLIC PANEL [CHEM] Stat Lab 11/15/16 16:56 Completed LACTATE, PLASMA [CHEM] Stat Lab 11/15/16 16:56 Completed Albuterol 2.5MG/Ipratrop 0.5MG [Duoneb (A & A)] Med 11/15/16 16:17 Discontinued 6 ml INH NOW ONE CefTRIAXONE 1 GM/NS [Rocephin 1 gm/Ns] Med 11/15/16 16:20 Discontinued 1 gm in 50 ml IV NOW Dexamethasone [Decadron] Med 11/15/16 19:06 Discontinued 10 mg IV NOW ONE Aerosol Treatments Routine Oth 11/15/16 16:18 Completed Aerosol Treatments Stat Oth 11/15/16 16:18 Completed Pulse Oximetry Stat Oth 11/15/16 16:17 Completed EKG [EKG] Stat Ther 11/15/16 15:32 Ordered Result Diagrams: 11/15/16 16:56 11/15/16 16:56 - REASSESSMENT Reassessment #1 Time Reassessed: 16:22 (Discussed plan of care c Dr. Reis who agreed. ) - XRAY 1 XRAY Study: Chest Impression: Abnormal (DECREASED DENSITY IN R BASE, STABLE CHEST- RADIOLOGY) - CONSULTS/PCP/HOSPITALIST Notification #1 *Consult/PCP/Hospitalist*: Dr. Wild (call center support consultant for Dr. Black) Time Discussed: 18:30 (Admit pt. Write transition orders. Start abx. ) Departure - Departure Date of Disposition Decision: 11/15/16 Time of Disposition Decision: 18:30 DIAGNOSIS: COPD exacerbation Disposition: ADMITTED INPATIENT 09 Certified Medical Emergency: Emergent Condition: Stable Referrals and Follow-Ups: None,PCP [Clinical Support] - - Critical Care Note This patient required my direct & personal management of CC.: No Attestation - Physician/ NASEEM Attestation Patient care was provided by Advanced Practice Provider:: Yes Advanced Practice Provider:: Wyatt Biggs Advanced Practice Provider documentation review:: The Mid-level provider documentation, treatment plan and medical decision making was reviewed by the physician who agrees with all treatment and medical decision making by the MLP.
[2016-11-15 16:53] LABS: ALLEN TEST NO; BE 12.3 mmoll (-3.0-3.0); BLOOD TYPE ARTERIAL; DRAW SITE R BRACHIAL; METHB 0.8 % (0.0-1.5); O2(CT) 17.1 mL/dL (15.0-23.0); PO2(98.6) 83 mmHg (60-100); SAMPLE BLOOD; SAO2 97.9 % (95.0-100.0); THB 12.7 g/dL (11.5-17.4); pH(98.6) 7.37 (7.35-7.45)
[2016-11-15 16:56] LABS: MODALITY CANNULA; PCO2(98.6) 70 mmHg (35-45)
[2016-11-15 17:12] LABS: MANUAL DIFF NEEDED? NO
[2016-11-15 17:23] LABS: BASO% 0.6 % (0.0-0.8); EOS# 0.04 X1000 (0.0-0.7); EOS% 1.1 % (0.0-10.0); HEMATOCRIT 35.9 % (37.0-47.0); HEMOGLOBIN 11.6 g/dL (12.0-16.0); IMM GRAN# 0.06 X1000 (0.0-0.04); IMM GRAN% 1.7 % (0.0-0.5); LYMPH# 1.35 X1000 (1.2-3.4); LYMPH% 38.2 % (20.5-51.1); MCH 30.5 PG (27-31); MCHC 32.3 g/dL (33-37); MCV 94.5 FL (81-99); MONO# 0.25 X1000 (0.11-0.59); MONO% 7.1 % (1.7-9.3); MPV 11.1 FL (7.4-10.4); NEUT% 51.3 % (42.2-75.2); PLT 90 X1000 (130-400)
--- NOTE | 2016-11-15 17:30 | Diag Imaging Result Doc PS360 ---
EXAM: CHEST-2 VIEWS HISTORY: cough TECHNIQUE: COMPARISON: 09/30/2016 FINDINGS: There is blunting to the right costophrenic angle secondary to a small pleural effusion versus pleural thickening. Mild mediastinal prominence is unchanged since the prior exam. Heart is not enlarged. Poor inspiratory effort. Likely scarring in the left costophrenic angle. IMPRESSION: Decreased density in the right base compared to the prior exam, otherwise stable chest. Electronically signed by Cory Kang 11/15/2016 5:27 PM
[2016-11-15 17:44] LABS: AGAP 6; ALBUMIN 4.2 g/dL (3.5-5.0); ALKALINE PHOSPHATASE 75 U/L (32-104); BUN 11 mg/dL (8-22); CALCIUM 9.1 mg/dL (8.8-10.2); CHLORIDE 97 mmol/L (98-107); COSMO 281; GOT 37 U/L (10-30); GPT 17 U/L (10-36); POTASSIUM 4.5 mmol/L (3.5-5.1); SODIUM 141 mmol/L (136-145); TCO2 38 mmol/L (25-35); TOTAL BILIRUBIN 0.35 mg/dL (0.20-1.00); TOTAL PROTEIN 6.6 g/dL (6.3-8.3)
[2016-11-15] MEDS ORDERED: DECADRON IV ONE (19:06)
[2016-11-15] MEDS ORDERED: NS 1,000 ML IV ONE (19:08)
[2016-11-15] MEDS ORDERED: DUONEB (A & A) INH PRN (19:12)
[2016-11-15] MEDS ORDERED: SOLU-MEDROL IV SCH (20:00)
--- NOTE | 2016-11-15 21:36 | HISTORY AND PHYSICAL ---
HISTORY OF PRESENT ILLNESS: She is a 61-year-old white female a patient of Dr. Black, known case of COPD, comes with generalized weakness, increased shortness of breath and more cough with expectoration which is not very dark according to her. Ms. Parnell has COPD for last 3 years. She has never smoked, she does not drink, she is allergic to azithromycin and amoxicillin trihydrate as well as some potassium at it looks like it she is allergic to Augmentin. MEDICATIONS: Will be mentioned later on, other than bronchodilator she takes antibiotics intermittently. REVIEW OF SYSTEMS: Other than generalized weakness, cough with expectoration, increasing shortness of breath denies any history of chest pain for the time being. Review of systems otherwise negative for GI, , endocrine, breast, neurological systems. PHYSICAL EXAMINATION: VITAL SIGNS: Reveal temperature normal, pulse 114 per minute, respiratory rate 20 per minute, blood pressure 103/68, O2 saturation was 94%. HEENT: Head normocephalic. Pupils PERRLA. Fundus examination normal. NECK: Supple. JVP normal. ENT examination unremarkable. There is no evidence of lymphadenopathy, thyroid enlargement, pedal edema, calf tenderness, anemia, cyanosis or clubbing. Pedal pulses well felt. BREASTS: Exam not done. CHEST: Normal inspection. LUNGS: Reveal bilateral expiratory wheezing with some basal rales bilaterally, PMI in the normal position. HEART: Sounds normal. No murmur, gallop or rub noted. ABDOMEN: Nondistended. Hernial orifices normal. No guarding, rigidity, free fluid, masses, organomegaly. Bowel sounds normal. RECTAL: Deferred. She has a scar from previous surgery. AIR CHIEF MARSHAL: Higher functions. Patient is apprehensive, cranial nerves normal. Motor and sensory system examination unremarkable. Deep tendon reflexes normal. Plantars downgoing. Skull and spine examination normal for age. No cerebellar signs or signs of meningeal irritation. Locomotor system and skin exam unremarkable. CLINICAL IMPRESSION: Acute exacerbation of chronic obstructive pulmonary disease . Her pCO2 is around 70, heart rate is high but she is in regular sinus rhythm. We will continue the bronchodilators as well as IV Solu-Medrol and IV antibiotics. She is on Rocephin which will continue. cc: MD Torsten Hercules MD
[2016-11-15] MEDS: LOVENOX SUBQ SCH (21:49)
[2016-11-16] MEDS: PRILOSEC PO SCH (06:52)
[2016-11-16] MEDS ORDERED: SYNTHROID PO SCH (07:00)
[2016-11-16] MEDS ORDERED: THERA M PLUS PO SCH (09:00)
[2016-11-16] MEDS ORDERED: VITAMIN D PO SCH (09:00)
[2016-11-16] MEDS ORDERED: TYLENOL PO PRN (12:25)
[2016-11-16] MEDS: SOLU-MEDROL IV SCH ×2 (12:35→22:46)
[2016-11-16] MEDS: XOPENEX NEB INH PRN ×2 (13:08→21:00)
--- NOTE | 2016-11-16 14:10 | PROGRESS NOTE ---
DATE: 11/16/2016 Ms. Parnell is doing better. Her lung sounds slightly better. She is on IV Solu-Medrol as well as IV Rocephin. Overall condition is improving. We will continue with the current management. cc: MD Torsten Hercules MD
[2016-11-16] MEDS: ROCEPHIN 1 GM/NS 1 GM/50 ML IVPB IV SCH (16:49)
[2016-11-16] MEDS: ATROVENT NEB INH PRN (21:00)
[2016-11-16] MEDS: MUCINEX PO SCH (22:46)
[2016-11-16] MEDS: LOVENOX SUBQ SCH (22:46)
[2016-11-16] MEDS: BACTROBAN OINTMENT TOP SCH (22:46)
[2016-11-17] MEDS: SOLU-MEDROL IV SCH ×4 (06:50→22:36)
[2016-11-17] MEDS: PRILOSEC PO SCH (06:50)
--- NOTE | 2016-11-17 07:22 | EKG Report ---
Test Performed on : 11/15/2016 3:24:38 PM Test Reason : SOB Blood Pressure : / mmHG Vent. Rate : 107 BPM Atrial Rate : 107 BPM P-R Int : 122 ms QRS Dur : 080 ms QT Int : 320 ms P-R-T Axes : 070 067 047 degrees QTc Int : 427 ms Sinus tachycardia. Otherwise normal ECG When compared with ECG of 29-SEP-2016 05:03, No significant change was found Unconfirmed Result
[2016-11-17] MEDS: XOPENEX NEB INH PRN (07:45)
[2016-11-17] MEDS: ATROVENT NEB INH PRN (07:45)
[2016-11-17] MEDS ORDERED: SYNTHROID PO ONE (08:15)
[2016-11-17] MEDS: MUCINEX PO SCH ×3 (09:28→22:35)
[2016-11-17] MEDS: BACTROBAN OINTMENT TOP SCH ×2 (09:28→22:50)
[2016-11-17] MEDS: PROTONIX IV SCH (09:35)
[2016-11-17] MEDS: SEPTRA DS PO SCH ×2 (09:35→20:33)
--- NOTE | 2016-11-17 09:57 | PROGRESS NOTE ---
DATE: 11/17/2016 SUBJECTIVE: The patient is here for shortness of breath, coughing, and wheezing, and review of systems slowly improving. The patient did receive IgG gamma globulin transfusion. OBJECTIVE: Vital signs: Stable. HEENT: Within normal limits. Neck: Supple. No lymphadenopathy. Chest: Bilateral wheezing. Heart: Sounds are tachycardic. Abdomen: Belly is soft, nontender, protuberant. Extremities: No peripheral edema or cyanosis. Neurologic: No neurological deficits. INVESTIGATIONS: CBC was normal. ABG, pCO2 70, SMA 12; is normal. Chest x-ray was stable. ASSESSMENT AND PLAN: 1. Acute chronic obstructive pulmonary disease exacerbation, stable. Continue on IV steroids, oxygen, BiPAP machine, ceftriaxone, and Bactrim. 2. Deep vein thrombosis prophylaxis with Lovenox. 3. Gastrointestinal prophylaxis with IV Protonix. 4. Hypothyroidism. On Synthroid. 5. Mucolytics with Mucinex. 6. IgG deficiency. Status post recent transfusion by Dr. Davies. We will follow up. LEVEL OF DOCUMENTATION: 25 minute. cc: Torsten Black MD
[2016-11-17] MEDS: ROCEPHIN 1 GM/NS 1 GM/50 ML IVPB IV SCH (15:09)
[2016-11-17] MEDS: LOVENOX SUBQ SCH (20:35)
[2016-11-18] MEDS: SOLU-MEDROL IV SCH ×3 (06:20→21:48)
[2016-11-18] MEDS: SODIUM CHLORIDE 0.9% INJ SCH (08:29)
[2016-11-18] MEDS: PROTONIX IV SCH (08:29)
[2016-11-18] MEDS: SEPTRA DS PO SCH ×2 (08:30→21:48)
[2016-11-18] MEDS: BACTROBAN OINTMENT TOP SCH ×2 (08:30→21:48)
[2016-11-18] MEDS: MUCINEX PO SCH ×3 (08:30→21:48)
[2016-11-18] MEDS: MIRALAX PO SCH (09:21)
[2016-11-18] MEDS: ROCEPHIN 1 GM/NS 1 GM/50 ML IVPB IV SCH (15:31)
[2016-11-18] MEDS: XOPENEX NEB INH PRN ×3 (16:51→23:11)
[2016-11-18] MEDS: ATROVENT NEB INH PRN ×3 (16:51→23:11)
--- NOTE | 2016-11-18 18:10 | PROGRESS NOTE ---
DATE: 11/18/2016 SUBJECTIVE: Decreased shortness of breath. No chest pain. REVIEW OF SYSTEMS: Abdominal swelling, constipation. OBJECTIVE: Vital signs: Afebrile. Vitals are stable. HEENT: Within normal limits. Neck: Supple. No lymphadenopathy. No goiter. Chest: Bilateral air entry. Decreased rhonchi and wheezing. Heart: Sounds are regular. Abdomen: Belly is soft, protuberant. No signs of peritonitis. ASSESSMENT AND PLAN: 1. Acute chronic obstructive pulmonary disease exacerbation. Continue on oxygen, BiPAP, ceftriaxone, Bactrim, and IV steroids. 2. Deep vein thrombosis prophylaxis with Lovenox. 3. Constipation. Start on MiraLAX. 4. Hypothyroidism. On Synthroid. 5. Repeat the CBC, SMA 7, and blood gas in the morning. LEVEL OF DOCUMENTATION: 25 minutes. cc: Torsten Black MD
[2016-11-18] MEDS: LOVENOX SUBQ SCH (21:48)
[2016-11-19 03:32] LABS: ALLEN TEST YES; BE 13.7 mmoll (-3.0-3.0); BLOOD TYPE ARTERIAL; DRAW SITE R BRACHIAL; METHB 1.5 % (0.0-1.5); O2(CT) 17.2 mL/dL (15.0-23.0); PO2(98.6) 177 mmHg (60-100); SAMPLE BLOOD; SAO2 99.7 % (95.0-100.0); THB 12.4 g/dL (11.5-17.4); pH(98.6) 7.24 (7.35-7.45)
[2016-11-19 03:34] LABS: MODALITY BI PAP; PCO2(98.6) 106 mmHg (35-45)
[2016-11-19] MEDS: SOLU-MEDROL IV SCH ×4 (05:27→22:06)
[2016-11-19 05:59] LABS: MANUAL DIFF NEEDED? NO
[2016-11-19 06:08] LABS: HEMATOCRIT 36.7 % (37.0-47.0); HEMOGLOBIN 11.4 g/dL (12.0-16.0); IMM GRAN# 0.05 X1000 (0.0-0.04); LYMPH# 1.43 X1000 (1.2-3.4); LYMPH% 29.7 % (20.5-51.1); MCH 30.2 PG (27-31); MCHC 31.1 g/dL (33-37); MCV 97.1 FL (81-99); MONO# 0.25 X1000 (0.11-0.59); MONO% 5.2 % (1.7-9.3); MPV 10.8 FL (7.4-10.4); NEUT% 64.1 % (42.2-75.2); PLT 116 X1000 (130-400); RBC 3.78 XMIL (4.2-5.4)
[2016-11-19 06:30] LABS: AGAP 7; BUN 31 mg/dL (8-22); CHLORIDE 99 mmol/L (98-107); COSMO 298; POTASSIUM 4.9 mmol/L (3.5-5.1); SODIUM 145 mmol/L (136-145); TCO2 39 mmol/L (25-35)
[2016-11-19] MEDS: MUCINEX PO SCH ×3 (09:37→22:06)
[2016-11-19] MEDS: SODIUM CHLORIDE 0.9% INJ SCH (09:37)
[2016-11-19] MEDS: PROTONIX IV SCH (09:37)
[2016-11-19] MEDS: SEPTRA DS PO SCH ×2 (09:38→20:07)
[2016-11-19] MEDS: MIRALAX PO SCH (09:38)
[2016-11-19] MEDS: BACTROBAN OINTMENT TOP SCH ×2 (09:38→20:11)
[2016-11-19] MEDS: ATROVENT NEB INH PRN ×3 (09:45→22:23)
[2016-11-19] MEDS: XOPENEX NEB INH PRN ×3 (09:45→22:23)
[2016-11-19] MEDS: ROCEPHIN 1 GM/NS 1 GM/50 ML IVPB IV SCH (15:37)
--- NOTE | 2016-11-19 19:50 | PROGRESS NOTE ---
DATE: 11/19/2016 SUBJECTIVE: The patient is on BiPAP, slightly confused. FiO2 was 44%. She is hypercarbic. REVIEW OF SYSTEMS: Slightly confused on BiPAP machine. OBJECTIVE: Vital signs: Vitals are stable. HEENT: On BiPAP machine. Chest: Bilateral air entry. Cardiac: Heart sounds are tachycardic. Abdomen: Soft, obese, nontender. No masses palpable. Extremities: No peripheral edema. Neurologic: Nonfocal. LABORATORY DATA: CBC: White cell count 4.8, hematocrit 36, platelets 116. ABG with pH 7.24, pCO2 of 106, pO2 of 177 on BiPAP, 40%. SMA7 is normal. ASSESSMENT AND PLAN: Acute chronic obstructive pulmonary disease exacerbation. On BiPAP. Decrease FiO2 to 28%. Continue bronchodilators, IV steroids, IV antibiotics. DVT and GI prophylaxis respectively. LEVEL OF DOCUMENTATION: Twenty-five minutes. cc: Torsten Black MD
[2016-11-19] MEDS: LOVENOX SUBQ SCH (20:07)
[2016-11-20] MEDS: ATROVENT NEB INH PRN ×4 (04:22→22:25)
[2016-11-20] MEDS: XOPENEX NEB INH PRN ×4 (04:22→22:25)
[2016-11-20] MEDS: SOLU-MEDROL IV SCH ×3 (05:39→20:22)
[2016-11-20] MEDS: PROTONIX IV SCH (07:59)
[2016-11-20] MEDS: SODIUM CHLORIDE 0.9% INJ SCH (07:59)
[2016-11-20] MEDS: BACTROBAN OINTMENT TOP SCH ×2 (08:03→20:22)
[2016-11-20] MEDS: SEPTRA DS PO SCH ×2 (08:03→20:22)
[2016-11-20] MEDS: MIRALAX PO SCH (08:03)
[2016-11-20] MEDS: MUCINEX PO SCH ×3 (08:04→20:22)
[2016-11-20] MEDS: ROCEPHIN 1 GM/NS 1 GM/50 ML IVPB IV SCH (17:14)
--- NOTE | 2016-11-20 19:46 | PROGRESS NOTE ---
DATE: 11/20/2016 SUBJECTIVE: Patient is doing very well. Decreased shortness of breath off BiPAP. No chest pain, shortness of breath. REVIEW OF SYSTEMS: None reported. PHYSICAL EXAMINATION: Vital Signs: Stable. Tachycardic. Afebrile. Blood pressure is 130/75, on nasal cannula 3 L. Chest: Decreased wheezing. Heart: Sounds are regular. Abdomen: Belly is soft, nontender. Good bowel sounds. ASSESSMENT AND PLAN: Acute chronic obstructive pulmonary disease exacerbation. Stable. Continue present medical treatment with IV steroids, IV antibiotics. Deep venous thrombosis, gastrointestinal prophylaxis with Lovenox and Protonix respectively. Constipation is improving. History of chronic lymphocytic leukemia with conservative management with IgG transfusion. If she is stable, will be discharged in the home in the morning. LEVEL OF DOCUMENTATION: 15 minutes. cc: Torsten Black MD
[2016-11-20] MEDS: LOVENOX SUBQ SCH (20:22)
[2016-11-21] MEDS: MUCINEX PO SCH ×2 (01:08→09:04)
[2016-11-21] MEDS: SOLU-MEDROL IV SCH ×2 (01:08→06:06)
[2016-11-21] MEDS: ATROVENT NEB INH PRN ×2 (03:35→11:14)
[2016-11-21] MEDS: XOPENEX NEB INH PRN ×2 (03:35→11:14)
[2016-11-21 08:30] VITALS: BP 127/74
[2016-11-21] MEDS: PROTONIX IV SCH (09:03)
[2016-11-21] MEDS: SEPTRA DS PO SCH (09:04)
[2016-11-21] MEDS: SODIUM CHLORIDE 0.9% INJ SCH (09:04)
[2016-11-21] MEDS: MIRALAX PO SCH (09:07)
[2016-11-21] MEDS: BACTROBAN OINTMENT TOP SCH (09:12)
--- NOTE | 2016-11-21 20:35 | DISCHARGE SUMMARY ---
ADMISSION DATE: 11/15/2016 DISCHARGE DATE: 11/21/2016 DISCHARGE DIAGNOSIS: Acute chronic obstructive pulmonary disease exacerbation. SECONDARY DIAGNOSES: 1. IgG deficiency. 2. Chronic right bronchiectasis. 3. Deafness. 4. Hypothyroidism. 5. Chronic lymphocytic leukemia. 6. Chronic loculated effusion on the right side. PROCEDURES: BiPAP machine. BRIEF HISTORY: Please see the H and P that was done by Dr. Combs. In brief, she is a 61-year-old white female with above problems, admitted to the hospital with shortness of breath, cough, wheezing. She was given IV steroids, bronchodilators, BiPAP and antibiotics. Chest x-ray was stable. She just received IgG transfusion by Dr. Davies. Rest of the hospital course was uneventful. LABS DURING THIS ADMISSION: CBC: White cell count 4.8, hematocrit 36, platelets 116,000. SMA 7, sodium 145, potassium 4.9, BUN 31, creatinine 0.6, glucose 141, liver function tests were normal. DISCHARGE INSTRUCTIONS: 1. Oxygen 2 L/3 L nasal cannula. 2. BiPAP machine at nighttime. 3. Bactroban put in the nose for chronic irritation and vestibulitis 4. Multivitamin 1 tablet daily. 5. Synthroid 75 mcg daily. 6. Vitamin D 3000 units daily. 7. Probiotic 1 tablet daily. 8. Xopenex nebulizer as needed. 9. MiraLAX 17 g daily. 10. Prednisone 5 mg daily. 11. Guaifenesin 600 p.o. b.i.d. 12. Bactrim 1 tablet p.o. BID . 13. The patient is refusing CLL treatment. 14. Followup in my office next week as well as Dr. Davies for monthly IgG transfusion. cc: Torsten Black MD [facility]
== END 2016-11-21 14:10 | disposition home or self-care (01) ==
LOC: SUPCPDRO → ED 14:49 → 4N 19:33
PROVIDERS: ADMIT Internal Medicine; ATTEND Internal Medicine

== ENCOUNTER 2017-01-13 18:43 | Inpatient (IN) ==
[2017-01-13 20:05] LABS: MANUAL DIFF NEEDED? NO
[2017-01-13 20:08] LABS: BASO% 0.2 % (0.0-0.8); EOS% 1.2 % (0.0-10.0); HEMOGLOBIN 12.8 g/dL (12.0-16.0); IMM GRAN# 0.02 X1000 (0.0-0.04); IMM GRAN% 0.2 % (0.0-0.5); LYMPH% 43.3 % (20.5-51.1); MCH 30.4 PG (27-31); MCHC 34.6 g/dL (33-37); MCV 87.9 FL (81-99); MONO# 0.14 X1000 (0.11-0.59); MONO% 1.6 % (1.7-9.3); MPV 10.3 FL (7.4-10.4); NEUT% 53.5 % (42.2-75.2); PLT 244 X1000 (130-400); RBC 4.21 XMIL (4.2-5.4)
--- NOTE | 2017-01-13 20:26 | Diag Imaging Result Doc PS360 ---
EXAM: CHEST-PORTABLE HISTORY: crackles TECHNIQUE: Portable AP COMPARISON: 11/15/2016 FINDINGS: There is a small right-sided pleural effusion with basilar atelectasis. There is scarring in the left costophrenic angle. The heart is not enlarged. The vessels are not distended. Mediastinal prominence is similar to the prior exam. IMPRESSION: Stable chest. Electronically signed by Cory Kang 01/13/2017 8:23 PM
[2017-01-13 20:28] LABS: AGAP 6; ALBUMIN 4.3 g/dL (3.5-5.0); ALKALINE PHOSPHATASE 113 U/L (32-104); BUN 27 mg/dL (8-22); CALCIUM 8.9 mg/dL (8.8-10.2); CHLORIDE 81 mmol/L (98-107); COSMO 263; GOT 31 U/L (10-30); GPT 15 U/L (10-36); POTASSIUM 4.5 mmol/L (3.5-5.1); SODIUM 127 mmol/L (136-145); TCO2 40 mmol/L (25-35); TOTAL BILIRUBIN 0.42 mg/dL (0.20-1.00); TOTAL PROTEIN 6.8 g/dL (6.3-8.3)
[2017-01-13 20:38] LABS: URINE CULTURE NEEDED? NO; URINE MICRO REVIEW NEEDED? NO; URINE SOURCE CATH
[2017-01-13 20:40] LABS: BILIRUBIN URINE NEGATIVE (NEGATIVE); BLOOD URINE NEGATIVE (NEGATIVE); COLOR YELLOW; GLUCOSE URINE NEGATIVE (NEGATIVE); LEUKOCYTES URINE NEGATIVE (NEGATIVE); NITRITE URINE NEGATIVE (NEGATIVE); PROTEIN URINE 30 mg/dL (NEGATIVE); SP GRAVITY URINE 1.026; TURBIDITY URINE CLEAR (CLEAR); UROBILINOGEN URINE NORMAL (NORMAL)
[2017-01-13 20:42] LABS: UR EPITHELIAL CELLS <10 /HPF (<10); URINE BACTERIA NEGATIVE /HPF; URINE RBC <10 /HPF (<10); URINE WBC <10 /HPF (<10)
[2017-01-13] MEDS ORDERED: NS 1,000 ML IV ONE (21:06)
[2017-01-13 21:52] LABS: UR AMPHETAMINES QUAL NONE DETECTED (NONE DETECT); UR BARBITUATES QUAL NONE DETECTED (NONE DETECT); UR BENZODIAZEPIN QUAL NONE DETECTED (NONE DETECT); UR CANNABINOIDS QUAL NONE DETECTED (NONE DETECT); UR COCAINE QUAL NONE DETECTED (NONE DETECT); UR METHADONE QUAL NONE DETECTED (NONE DETECT); UR OPIATES QUAL NONE DETECTED (NONE DETECT); UR OXYCODONE QUAL NONE DETECTED (NONE DETECT); UR PCP QUAL NONE DETECTED (NONE DETECT)
--- NOTE | 2017-01-14 02:49 | PROVIDER DOCUMENTATION ---
This chart was entered by Sandrita Deng Scribe, acting as scribe for Stalin Kumar MD. HPI-General Adult - General Chief Complaint: Abnormal Lab[s] Stated Complaint: "LOW SODIUM" Time Seen by Provider: 01/13/17 19:43 Source: family, RN notes reviewed Unable to obtain history due to:: altered (confusion) Allergies/Adverse Reactions: Patient Allergies Allergy/AdvReac Type Severity Reaction Status Date / Time erythromycin base Allergy Mild RASH Verified 11/15/16 16:03 [Erythromycin Base] amoxicillin trihydrate * AdvReac Mild DRIES UP Verified 11/15/16 16:03 [From Augmentin] MUCUS IN HER THROAT potassium clavulanate * AdvReac Mild DRIES UP Verified 11/15/16 16:03 [From Augmentin] MUCUS IN HER THROAT Home Medications: Home Medication List Medication Instructions Recorded Confirmed Last Taken Type Unobtainable [Home Meds 01/14/17 01/14/17 Unknown History Unobtainable] - History of Present Illness -Gen Adult Nature of Presenting Problems: 61 year old F presents to the ED due to low sodium. Pt had labs drawn today and was told that sodium was low. PT unable to answer questions due to the confusion. Family states that pt has been more altered over the last 24 hours. Onset/Duration: reports: this afternoon Timing: reports: still present Similar Symptoms Previously?: No Recently seen or treated by another doctor?: No Review of Systems - Adult - REVIEW OF SYSTEMS - ADULT ROS:: unobtainable per condition Constitutional: reports: no symptoms reported Eyes: reports: no symptoms reported Ears, Nose, Mouth & Throat: reports: no symptoms reported Cardiovascular: reports: no symptoms reported Respiratory: reports: no symptoms reported Gastrointestinal: reports: no symptoms reported Genitourinary: reports: no symptoms reported Musculoskeletal: reports: no symptoms reported Integumentary: reports: no symptoms reported Neurological: reports: no symptoms reported Psychiatric: reports: no symptoms reported Endocrine: reports: no symptoms reported Hematologic/Lymphatic: reports: no symptoms reported Allergic/Immunologic: reports: no symptoms reported All Other Systems: Reviewed and Negative Past History - Adult - PAST MEDICAL HISTORY-ADULT Review of Records: reports: Nursing Assessment Review, Medications Reviewed Major Childhood Illnesses: reports: denies history Cardiovascular: reports: HTN Respiratory: reports: bronchitis, COPD, pneumonia, sleep apnea Gastrointestinal: reports: denies history Obstetrical/Gynecological: reports: denies history Genitourinary: reports: denies history Musculoskeletal: reports: denies history Neurological: reports: denies history Endocrine/Immune: reports: Leukemia (CLL) Other Conditions: reports: denies history - PRIOR SURGERIES/PROCEDURES Surgical/Procedure History: reports: cholecystectomy, other (rhinoplasty, removal of acustic neuroma) - PRIOR HOSPITALIZATIONS Prior Hospitalizations: reports: for similar symptoms - IMMUNIZATION STATUS Childhood Immunizations: See Nurse Assessment Flu Vaccine: See Nurse Assessment - FAMILY HISTORY Family History: reviewed, not pertinent - SOCIAL HISTORY Smoking: non-smoker Substance Use: none/never Alcohol Use Frequency: never Living Situation: family Physical Exam-General - PHYSICAL EXAM-ADULT Initial Vital Signs Reviewed: Yes - CONSTITUTIONAL General Appearance: appears well, alert, no apparent distress - RESPIRATORY Respiratory: crackles (bilateral crackles) - CARDIOVASCULAR Cardiovascular: normal peripheral pulses, regular rate, rhythm, no edema - GASTROINTESTINAL (ABDOMEN) Abdominal Exam: distended - SKIN Integumentary: normal color, normal turgor, warm/dry - PSYCHIATRIC Psych/Mental Status: normal mood/affect, normal thought content, normal thought process, oriented x 3 Progress - PLAN OF CARE/RESULTS Progress/Plan/Lab Results: Vital Signs - 8 hr 01/13/17 19:02 Temperature 97.2 F L Pulse Rate 99 H Respiratory Rate 24 Blood Pressure 119/62 O2 Sat by Pulse Oximetry 94 L Orders Category Date Time Status CBC WITH DIFF [HEME] Stat Lab 01/13/17 19:35 Received Chem12 [COMPREHENSIVE METABOLIC PANEL] [CHEM] Stat Lab 01/13/17 19:35 Received EKG [EKG] Stat Ther 01/13/17 19:11 Ordered Result Diagrams: 01/13/17 19:35 01/13/17 19:35 - EKG 1 Time of EKG reading by physician:: 19:07 EKG Read and Signed by:: Stalin Kumar EKG Interpretation (*Must complete 3 of following elements*): Abnormal Rate: 98 Rhythm: sinus rhythm with short KS Comments: possible LAE - CT/MRI 1 CT Study: Head Impression: Normal (status post right mastoidectomy. Small right area of encephalomalacia within the right lobe of the cerebellum. This is secondary to postoperative change. This is unchanged: Dr. Delgado(radiologist)) 2 CT Study: Abdomen, Pelvis Impression: Abnormal (Moderate right pleural effusion with associated volume loss, increased. Prominent brochiectasis with micronodular disease in the lower lobes. Large mass withing the central mesentery. This likely represents lymphoma. This has increased. Retroperitoneal adenopathy increased.: Dr. Delgado (radiologist)) - CONSULTS/PCP/HOSPITALIST Notification #1 *Consult/PCP/Hospitalist*: Dr. Zamora(hospitalist) Time Discussed: 02:46 Consult Disposition: Admit Departure - Departure Date of Disposition Decision: 01/14/17 Time of Disposition Decision: 01:00 DIAGNOSIS: Hyponatremia, Altered mental status Disposition: ADMITTED INPATIENT 09 Certified Medical Emergency: Emergent Condition: Fair Referrals and Follow-Ups: Kike Black MD [Primary Care Provider] - - Critical Care Note This patient required my direct & personal management of CC.: No Attestation - Physician/ NASEEM Attestation Patient care was provided by Advanced Practice Provider:: No The physician spent face to face time with patient:: Yes (there was no NASEEM involvement) Advanced Practice Provider documentation review:: Supervising physician onsite and consulted in the evaluation and care of this patient. The physician did have a face to face encounter with the patient. This chart was documented by the indicated scribe, (Sandrita Deng Scribe) and accurately reflects the services I performed and decisions made by me, Stalin Kumar MD, as attested by the provider's signature.
--- NOTE | 2017-01-14 05:05 | EKG Report ---
Test Performed on : 01/13/2017 7:07:31 PM Test Reason : abnormal labs Blood Pressure : / mmHG Vent. Rate : 098 BPM Atrial Rate : 098 BPM P-R Int : 110 ms QRS Dur : 088 ms QT Int : 336 ms P-R-T Axes : 073 069 059 degrees QTc Int : 428 ms Sinus rhythm. with short DC Possible Left atrial enlargement Borderline ECG When compared with ECG of 15-NOV-2016 15:24, No significant change was found Unconfirmed Result
--- NOTE | 2017-01-14 05:07 | Diag Imaging Result Doc PS360 ---
EXAM: HEAD W/O CONTRAST HISTORY: ams TECHNIQUE: CT brain without contrast. Dose reduction protocol. COMPARISON: 09/16/2016 FINDINGS: No parenchymal hemorrhage. No epidural or subdural hematoma. No subarachnoid hemorrhage. No mass identified on this noncontrasted exam. No hydrocephalus. There is a small area of encephalomalacia in the lateral right cerebellum secondary to prior surgery. No sinus opacification. IMPRESSION: No hemorrhage. Prior right mastoidectomy with a tiny area of encephalomalacia lateral right cerebellum. A preliminary report was given at 11:17 PM. Electronically signed by Cory Kang 01/14/2017 5:05 AM
[2017-01-14] MEDS ORDERED: ZOFRAN IV PRN (05:50)
[2017-01-14] MEDS ORDERED: DUONEB (A & A) INH PRN (05:50)
[2017-01-14 05:54] LABS: ALLEN TEST YES; BLOOD TYPE ARTERIAL; DRAW SITE R RADIAL; METHB 1.5 % (0.0-1.5); PO2(98.6) 123 mmHg (60-100); SAMPLE BLOOD; SAO2 99.6 % (95.0-100.0); THB 11.7 g/dL (11.5-17.4); pH(98.6) 7.27 (7.35-7.45)
[2017-01-14 06:01] LABS: MODALITY CANNULA; PCO2(98.6) 100 mmHg (35-45)
--- NOTE | 2017-01-14 06:16 | Diag Imaging Result Doc PS360 ---
EXAM: ABDOMEN/PELVIS W/PO AND IV CON HISTORY: abd distention TECHNIQUE: CT abdomen and pelvis with oral and intravenous contrast. Dose reduction protocol. COMPARISON: 10/31/2013 FINDINGS: There is a tiny right-sided pleural effusion. Mild bronchiectasis in the lower lobes. The spleen is borderline mildly enlarged measuring 13.0 cm. The gallbladder apparently has been removed. Normal liver, pancreas, adrenal glands, and kidneys. There is massive adenopathy throughout the abdomen and pelvis. This has markedly increased in size since the prior exam. This measures over 26 cm in transverse dimension. No bowel obstruction. Urinary bladder is decompressed with a Dorman catheter. Uterus is small or has been removed. IMPRESSION: 1. Massive abdominal, retroperitoneal, and pelvis adenopathy 2. Small right pleural effusion with lower lobe bronchiectasis 3. Mildly prominent spleen A preliminary report was given at 11:21 PM Electronically signed by Cory Kang 01/14/2017 6:14 AM
--- NOTE | 2017-01-14 06:36 | HISTORY AND PHYSICAL ---
PRIMARY CARE PROVIDER: Mario Black MD. ONCOLOGIST: Mack Davies MD. CHIEF COMPLAINT: Altered mental status. HISTORY OF PRESENT ILLNESS: This is a 61-year-old female who presented to the emergency room with family members originally. However, during my assessment, no family was present. She has had altered mental status for the past couple of days, which has been worsening. She has had admissions in the past for altered mental status secondary for hyponatremia. She is known to have a lymphocytic lymphoma, with worsening lymphadenopathy, for which she does not undergo treatment, as well as hypogammaglobulinemia, and apparently receives IgG treatments. She also has COPD, some degree of deafness, hypothyroidism, and a chronic loculated pleural effusion on the right side. Patient's laboratory data was grossly normal, other than a sodium of 127, chloride of 81, and a carbon dioxide of 40. ABG will be ordered, but is pending. CT scan of her head without contrast showed a prior right mastoidectomy, with a tiny area of encephalomalacia lateral right cerebellum. CT of her abdomen showed moderate right-sided pleural effusion, with volume loss , which is increased over last scan. She has had a thoracentesis of this in the past. Prominent bronchiectasis, with micronodular disease in the lower lobes, which likely represents an atypical infection. A large mass within the central mesentery, with a total size of 24.5 x 12.5 cm. She will be admitted to the medical floor, and Dr. Mario Black will resume care, as this is his primary patient, after admission. PAST MEDICAL HISTORY: See HPI. PREVIOUS SURGICAL HISTORY: 1. Cholecystectomy. 2. Right acoustic neuroma excision, status post tracheostomy. 3. Previous thoracentesis secondary to pleural effusion. ALLERGIES: Amoxicillin and erythromycin. SOCIAL HISTORY: , with 1 child. Disabled. Lives in [place]. No tobacco, alcohol, or illicit drug use or abuse. FAMILY HISTORY: Father of a heart attack at 90. Mother of dementia at age 89. HOME MEDICATIONS: The list is not available at this time. An order was placed for nursing to reconcile home medications. REVIEW OF SYSTEMS: Fourteen-point review of systems could not be conducted, as the patient is very somnolent. Will arouse, but does not follow commands or answer questions. No family is present at the time of assessment. PHYSICAL EXAMINATION: VITAL SIGNS: Temperature 98.2 degrees, pulse 93, respirations 19, blood pressure 115/58, oxygen saturation 97% on 4 L nasal cannula. GENERAL: Very frail, chronically ill-appearing, 61-year-old female lying in the medical floor bed. Does arouse. Nonverbal at this time. Does retract from painful stimulus. Does not follow commands. No family is present. HEENT: Head is atraumatic, normocephalic. Pupils equal, round, reactive to light. Extraocular eye movement could not be tested. Sclerae is anicteric. Conjunctivae is pink. Oral mucosa is dry. NECK: Supple. Trachea is midline. No carotid bruit. CARDIAC: S1-S2 appreciated. No murmurs, gallops, rubs. Regular rhythm. LUNGS: Decreased bilaterally, right greater than left. No rhonchi, wheezes, or rales. Symmetrical rise and fall with respirations. ABDOMEN: Protuberant, soft, and mildly distended. Negative fluid wave test. Nonrigid. No guarding. No pulsatile mass. No organomegaly could be palpated. EXTREMITIES: No clubbing, cyanosis, or edema. 2+ pedal pulses. GENITOURINARY: Dorman catheter in place, draining clear yellow urine. Otherwise , deferred. SKIN: Warm, dry, and intact. Poor skin turgor noted. NEUROLOGICAL: Patient nonverbal at this time. Retracts to painful stimulus. Does not follow commands. Cranial nerves could not be evaluated. DIAGNOSTIC DATA: CT of the head and abdomen: See HPI. LABORATORY DATA: WBC within normal limits. Sodium 127, potassium 4.5, chloride 81, carbon dioxide 40, BUN 27, creatinine 0.5, glucose 151. Urine unremarkable. Urine sodium is 60. Urine specific gravity 1.026. Toxicology screen is negative. Stat ABG is pending. ASSESSMENT AND PLAN: 1. Altered mental status of unknown etiology. Could be secondary to hyponatremia or metabolic acidosis. ABG is pending at this time. Could also be infectious encephalopathy. The patient had what appeared to be atypical pneumonia on the CT scan. Last sodium was checked at 7 p.m. on 01/13/2017. She has received fluids. We will order a stat sodium at this time. 2. Atypical pneumonia. We will treat with IV doxycycline and Rocephin. Obtain blood cultures. ABG pending. 3. Chronic obstructive pulmonary disease, with unknown exacerbation status. As noted above, ABG is ordered stat. Unsure whether the patient is retaining CO2 at this time, which could be resolved possibly with BiPAP. Will order DuoNebs. A home medication list is not available at this time. 4. Lymphocytic lymphoma. Has refused all treatment, except for homeopathic apparently. We will defer to Dr. Mario Black. 5. Fluid volume depletion. Normal saline has been administered. We will continue at 100 mL an hour. Further recommendations per patient's clinical course. Dictated by ANNA MARIE Miller for Raleigh Zamora MD Seen and examined pt: discussed case with CHIEF SECURITY AND SAFETY OFFICER. cc: MD Sudheer Auguste CRNP [place] P. Akins[place], MD Jagan Reddy, MD MTDD
[2017-01-14] MEDS: ROCEPHIN 1 GM/NS 1 GM/50 ML IVPB IV SCH (07:06)
[2017-01-14] MEDS: LOVENOX SUBQ SCH (07:06)
[2017-01-14] MEDS: DOXYCYCLINE 100 MG in NS 250 ML IV SCH ×2 (09:06→22:00)
[2017-01-14] MEDS: CLINIMIX E 4.25%-5% SOLUTION 1,000 ML IV SCH (09:17)
[2017-01-14] MEDS: SODIUM CHLORIDE 0.9% INJ SCH (09:17)
[2017-01-14] MEDS: PROTONIX IV SCH (09:17)
[2017-01-14] MEDS: SOLU-MEDROL IV SCH ×2 (09:18→17:34)
[2017-01-14] MEDS: DUONEB (A & A) INH SCH ×3 (11:20→21:33)
--- NOTE | 2017-01-14 14:06 | CONSULTATION ---
DATE OF CONSULTATION: 01/14/2017 REASON FOR CONSULT: The patient is known to us with small lymphocytic lymphoma with progression and hypogammaglobulinemia. HISTORY OF PRESENT ILLNESS: This patient who is known to us, recent most last seen in our clinic by provider on 01/06. She has small lymphocytic lymphoma with progression, as well as hypogammaglobulinemia. Her last IVIG was on 01/07. She received 400 mg/kg. Her last IgG level on 01/06 was 695. When the patient was seen in our clinic on 01/06 she reported a rapidly enlarging lymph node on the right side of her neck. She had went to an urgent care clinic for this and was given 7 days of Levaquin for possible infection, although she did not have any fevers or chills. It did not improve on antibiotics and she was noted to have some night sweats that are non-drenching. We were concerned that her SLL had transformed into diffuse large B-cell lymphoma. We discussed the need for a biopsy to confirm and patient decided she did not want that. She only wanted holistic treatment. But she apparently has been having altered mental status for the last several days, getting worse, so she was brought into the emergency room for further evaluation. ABG was performed which showed her to be quite hypercapnic as her CO2 was 100. Sodium was 127. CT of the head was performed which showed prior right mastoidectomy with a tiny area of encephalomalacia lateral right cerebellum. She also had a CT abdomen and pelvis performed that showed massive abdominal, retroperitoneal, and pelvic adenopathy, small right pleural effusion with lower lobe bronchiectasis, and a prominent spleen. She has been admitted for further evaluation and management. ALLERGIES: Amoxicillin and erythromycin. REVIEW OF SYSTEMS: Negative unless indicated in the HPI. SOCIAL HISTORY: Patient denies alcohol, tobacco, or illicit drug use. PAST MEDICAL HISTORY: 1. Small lymphocytic lymphoma with progression with concerns of it transforming to diffuse large B-cell lymphoma. She continued to decline any type of treatment. 2. Hypogammaglobulinemia status post IVIG. Gets it every 4 weeks. Last on . 3. History of thrombocytopenia. 4. History of bronchiectasis and chronic obstructive pulmonary disease, on home oxygen. HOME MEDICATIONS: Not available at this time. PHYSICAL EXAMINATION: Vital Signs: Stable. Constitutional: This is a frail- appearing, chronically ill, female, who does not follow commands. HEENT: Head is normocephalic. There are large lymph nodes on the right side of her neck that appear to be larger than when she was in our clinic on 01/06. Trachea is midline. Cardiovascular: S1, S2 audible to auscultation with no heaves, lifts, thrills. Pulmonary: Breath sounds clear to auscultation with diminished bases. Abdomen: Protuberant, distended. Positive bowel sounds. Skin: No petechiae, ecchymosis, or rash. Neurologic: Patient is lethargic. DIAGNOSTIC DATA: CT abdomen, pelvis, and head as above. As stated in HPI, WBC 8.52, hemoglobin 12.8, hematocrit 37, platelet count 244,000. ABG showed a pH of 7.27 with a pCO2 of 100, bicarb of 36.6, and a PO2 of 123. Sodium was 127. Upon repeat, however, it was 130. Potassium 4.5, BUN 27, creatinine 0.5. ASSESSMENT AND PLAN: 1. Small lymphocytic lymphoma with progression. It is concerning for diffuse large B-cell lymphoma. Patient has vehemently declined any type of medical treatment for this. She has chosen to use holistic therapy instead. Last seen in our clinic on 01/06. The patient continues to decline any further biopsy or treatment. 2. Hypogammaglobulinemia from small lymphocytic lymphoma. She remains on IVIG treatment q.4 weekly at 400 mcg/kg; last received on 01/07. Her last IgG level in our clinic on 01/07 was 695. 3. Altered mental status, likely multifactorial. Per primary team. 4. Chronic obstructive pulmonary disease, bronchiectasis. Hypercapnic. She remains on oxygen. Dictated by ANNA MARIE Davis for Mack Davies MD cc: ANNA MARIE Davis MD Jagan Reddy, MD [facility]
[2017-01-14 16:15] LABS: ALLEN TEST YES; BE 17.4 mmoll (-3.0-3.0); BLOOD TYPE ARTERIAL; DRAW SITE R RADIAL; METHB 1.3 % (0.0-1.5); O2(CT) 15.3 mL/dL (15.0-23.0); PO2(98.6) 61 mmHg (60-100); SAMPLE BLOOD; SAO2 95.9 % (95.0-100.0); THB 11.7 g/dL (11.5-17.4); pH(98.6) 7.38 (7.35-7.45)
[2017-01-14 16:18] LABS: MODALITY BI PAP; PCO2(98.6) 78 mmHg (35-45)
--- NOTE | 2017-01-14 21:14 | PROGRESS NOTE ---
DATE: 01/14/2017 SUBJECTIVE: The patient was seen this morning on BiPAP machine. The patient was admitted by hospitalist yesterday with altered mental status, hypercarbia and shortness of breath. The patient was seen a week ago at Dr. Davies's office. She has a recurrence of CLL, with significant lymphadenopathy on the right side of the neck as well as in the belly. Interval history was obtained. REVIEW OF SYSTEMS: Unable to obtain. Patient was awake on the BiPAP machine on 40% FiO2. PAST MEDICAL HISTORY: Reviewed. PAST SURGICAL HISTORY: Reviewed. MEDICINES: Reviewed. PHYSICAL EXAMINATION: Vital Signs: She is afebrile, tachycardic. Blood pressure is 100/60 on BiPAP machine. Neck: Significant right-sided lymphadenopathy noted. Chest: Bilateral air entry. Heart: Sounds are tachycardic. Belly is soft, protuberant. Extremities: No peripheral edema, cyanosis. Neurologic: No obvious neurological deficits. LABORATORY: CBC: White cell count 8.5, hematocrit 37, platelet count 244,000. ABG: PH is 7.27, pCO2 100, PO2 123 on 40%. SMA7: Sodium 127, potassium 4.5, carbon dioxide 40, BUN 27, creatinine 0.5, glucose 151, calcium 8.9. AST, ALT normal. Alkaline phosphatase is normal. ProBNP 375. LDH 192. TSH is normal. Free T4 is normal. Blood cultures are pending. IMAGING: CT head: No hemorrhage prior to the right mastectomy. CT scan of the abdomen and pelvis: Massive abdominal retroperitoneal and pelvic adenopathy. Small chronic right pleural effusion. Chest x-ray was stable. ASSESSMENT AND PLAN: 1. Altered mental status due to metabolic encephalopathy from hypercarbia. 2. Chronic obstructive pulmonary disease. Discussed with respiratory therapist. Cut down the FiO2 to 3 L to prevent CO2 narcosis and continue on low dose of FiO2 of oxygen, not more than 35% and continue on IV steroids, IV antibiotics with doxycycline and ceftriaxone. 3. Protein calorie malnutrition. IV total parenteral nutrition. 4. Deep venous thrombosis and gastrointestinal prophylaxis with Lovenox and Protonix. 5. IgG deficiency and chronic lymphocytic leukemia. Patient is refusing for further interventions. We will discuss with the family. 6. Living Will is Full Code. We will reconcile home medications. Discussed with Dr. Davies. LEVEL OF DOCUMENTATION: 35 minutes. cc: Torsten Black MD
[2017-01-15] MEDS: SOLU-MEDROL IV SCH ×4 (01:31→18:16)
[2017-01-15] MEDS: DUONEB (A & A) INH SCH ×4 (03:20→21:00)
[2017-01-15 04:43] LABS: ALLEN TEST YES; BE 14.7 mmoll (-3.0-3.0); BLOOD TYPE ARTERIAL; DRAW SITE R RADIAL; METHB 0.3 % (0.0-1.5); O2(CT) 15.4 mL/dL (15.0-23.0); PO2(98.6) 140 mmHg (60-100); SAMPLE BLOOD; pH(98.6) 7.33 (7.35-7.45)
[2017-01-15 04:44] LABS: MODALITY BI PAP; PCO2(98.6) 83 mmHg (35-45)
[2017-01-15] MEDS: SYNTHROID PO SCH ×2 (05:35→06:04)
[2017-01-15] MEDS: ROCEPHIN 1 GM/NS 1 GM/50 ML IVPB IV SCH (05:36)
[2017-01-15] MEDS: LOVENOX SUBQ SCH (05:36)
[2017-01-15 06:33] LABS: HEMOGLOBIN 11.2 g/dL (12.0-16.0); IMM GRAN# 0.02 X1000 (0.0-0.04); IMM GRAN% 0.3 % (0.0-0.5); LYMPH# 1.52 X1000 (1.2-3.4); LYMPH% 19.6 % (20.5-51.1); MANUAL DIFF NEEDED? YES; MCH 30.4 PG (27-31); MCHC 32.9 g/dL (33-37); MCV 92.1 FL (81-99); MONO# 0.37 X1000 (0.11-0.59); MONO% 4.8 % (1.7-9.3); NEUT% 75.3 % (42.2-75.2); PLT 201 X1000 (130-400); RBC 3.69 XMIL (4.2-5.4)
[2017-01-15 06:47] LABS: AGAP 4; ALBUMIN 4.2 g/dL (3.5-5.0); ALKALINE PHOSPHATASE 99 U/L (32-104); BUN 31 mg/dL (8-22); CALCIUM 8.6 mg/dL (8.8-10.2); CHLORIDE 92 mmol/L (98-107); COSMO 283; GOT 24 U/L (10-30); GPT 12 U/L (10-36); POTASSIUM 5.1 mmol/L (3.5-5.1); SODIUM 137 mmol/L (136-145); TCO2 41 mmol/L (25-35); TOTAL BILIRUBIN 0.28 mg/dL (0.20-1.00); TOTAL PROTEIN 6.7 g/dL (6.3-8.3)
[2017-01-15] MEDS: CLINIMIX E 4.25%-5% SOLUTION 1,000 ML IV SCH (06:56)
[2017-01-15 07:35] LABS: LYMPHS 24 % (21-51); MONO 3 % (1-9)
[2017-01-15] MEDS: SODIUM CHLORIDE 0.9% INJ SCH (08:07)
[2017-01-15] MEDS: PROTONIX IV SCH (08:07)
[2017-01-15] MEDS: DOXYCYCLINE 100 MG in NS 250 ML IV SCH ×3 (08:08→22:01)
--- NOTE | 2017-01-15 20:46 | PROGRESS NOTE ---
DATE: 01/15/2017 SUBJECTIVE: The patient is still on BiPAP. No respiratory distress. Emaciated. REVIEW OF SYSTEMS: Shortness of breath, wants to get off prednisone, to go for cataracts. PHYSICAL EXAMINATION: Vital Signs: She is afebrile, tachycardic. Vitals are stable. Input and positive 90 mL. HEENT: Within normal limits except significant lymphadenopathy in the right neck. Chest: Is clear. Heart: Sounds are regular. Abdomen: Belly is soft. Splenomegaly, distended. Extremities: No peripheral edema, cyanosis. Neurologic: No obvious neurological deficits. INVESTIGATIONS: CBC: White cell count 7.7, hematocrit 34, platelets 201,000. ABG: PH is 7.3, pCO2 83, PO2 140 on BiPAP. SMA7: Sodium 137, potassium 5.1, chloride 92, BUN 31, creatinine 0.5, glucose 152. Calcium is normal. LDH 262. Urinalysis is clear. ASSESSMENT AND PLAN: 1. Acute respiratory failure due to chronic obstructive pulmonary disease, on BiPAP machine. Keep the FiO2 35%. 2. Chronic lymphocytic leukemia with progression. Not interested in further treatment plans. I will defer to Dr. Davies. 3. DVT, gastrointestinal prophylaxis with Lovenox and Protonix. 4. Hypothyroidism on Synthroid. 5. Cataracts. We will discuss once her clinical situation improves. 6. IgG deficiency. We will discuss with Dr. Davies about the last IgG transfusion. 7. Poor nutritional status. Continue on IV ProcalAmine. 8. Living will, Do Not Resuscitate: Full code. We will follow up. Continue present medical therapy. LEVEL OF DOCUMENTATION: 25 minutes. cc: Torsten Black MD
[2017-01-15] MEDS ORDERED: TYLENOL PO ONE (23:29)
[2017-01-16] MEDS: SOLU-MEDROL IV SCH ×3 (01:40→18:17)
[2017-01-16] MEDS: DUONEB (A & A) INH SCH ×4 (03:29→22:13)
[2017-01-16] MEDS: ROCEPHIN 1 GM/NS 1 GM/50 ML IVPB IV SCH (05:39)
[2017-01-16] MEDS: LOVENOX SUBQ SCH (05:40)
[2017-01-16] MEDS: SYNTHROID PO SCH ×2 (05:40→07:26)
[2017-01-16 06:42] LABS: AGAP 8; ALBUMIN 3.6 g/dL (3.5-5.0); ALKALINE PHOSPHATASE 89 U/L (32-104); BUN 33 mg/dL (8-22); CALCIUM 9.3 mg/dL (8.8-10.2); CHLORIDE 94 mmol/L (98-107); COSMO 290; GOT 22 U/L (10-30); GPT 10 U/L (10-36); SODIUM 140 mmol/L (136-145); TCO2 38 mmol/L (25-35); TOTAL BILIRUBIN 0.25 mg/dL (0.20-1.00); TOTAL PROTEIN 6.3 g/dL (6.3-8.3)
[2017-01-16] MEDS: CLINIMIX E 4.25%-5% SOLUTION 1,000 ML IV SCH (10:30)
[2017-01-16] MEDS: SODIUM CHLORIDE 0.9% INJ SCH (10:31)
[2017-01-16] MEDS: PROTONIX IV SCH (10:31)
[2017-01-16] MEDS: DOXYCYCLINE 100 MG in NS 250 ML IV SCH (16:58)
--- NOTE | 2017-01-16 18:58 | PROGRESS NOTE ---
DATE: 01/16/2017 SUBJECTIVE: The patient is here for followup from the lymphadenopathy. Dr. Davies's consult was appreciated. Patient is off by BiPAP, losing weight. Still coughing. No significant complaints. Vitals: Are afebrile, tachycardic. Hemodynamics are stable. 2 L nasal cannula 97%. Chest: Is scattered wheezing. No rhonchi. Abdomen: Belly is soft, protuberant. Splenomegaly. Significant adenopathy on the right neck. No obvious neurological deficits. INVESTIGATIONS: None reported except SMA 7: Sodium 140, potassium 5.0, chloride 94, BUN 33, creatinine 0.4. Glucose 164. LFTs were normal. ASSESSMENT AND PLAN: 1. Hyponatremia is better. 2. Acute respiratory failure off BiPAP. 3. COPD exacerbation. Continue present medical therapy with IV steroids, IV antibiotics. 4. Hypothyroidism on Synthroid. 5. CLL with lymphoma. Patient is not interested on biopsy or further treatment. 6. Protein calorie malnutrition. IV PPN. 7. DVT and GI prophylaxis. 8. Cataracts, stable. 9. Last IgG transfusion on 01/07/2017 and we will follow up. Level of documentation 25 minutes. cc: Torsten Black MD
[2017-01-17] MEDS: CLINIMIX E 4.25%-5% SOLUTION 1,000 ML IV SCH ×2 (01:49→15:27)
[2017-01-17] MEDS: DUONEB (A & A) INH SCH ×4 (03:42→18:54)
[2017-01-17] MEDS: DOXYCYCLINE 100 MG in NS 250 ML IV SCH ×3 (06:07→22:34)
[2017-01-17] MEDS: SYNTHROID PO SCH (06:09)
[2017-01-17] MEDS: LOVENOX SUBQ SCH (06:09)
[2017-01-17] MEDS: SOLU-MEDROL IV SCH ×3 (06:09→22:35)
[2017-01-17] MEDS: ROCEPHIN 1 GM/NS 1 GM/50 ML IVPB IV SCH (06:15)
[2017-01-17 07:57] LABS: AGAP 4; ALBUMIN 3.5 g/dL (3.5-5.0); ALKALINE PHOSPHATASE 78 U/L (32-104); BUN 27 mg/dL (8-22); CALCIUM 8.9 mg/dL (8.8-10.2); CHLORIDE 96 mmol/L (98-107); COSMO 284; GOT 16 U/L (10-30); GPT 10 U/L (10-36); POTASSIUM 5.1 mmol/L (3.5-5.1); SODIUM 138 mmol/L (136-145); TCO2 38 mmol/L (25-35); TOTAL PROTEIN 6.4 g/dL (6.3-8.3)
[2017-01-17] MEDS: PROTONIX IV SCH (08:50)
[2017-01-17] MEDS: SODIUM CHLORIDE 0.9% INJ SCH (08:51)
[2017-01-17] MEDS ORDERED: XOPENEX HFA INH PRN (11:45)
--- NOTE | 2017-01-17 17:39 | PROGRESS NOTE ---
DATE: 01/17/2017 SUBJECTIVE: The patient is off the BiPAP machine. Wants to start her home medicines which include Nasonex, multivitamins. Patient is not interested in further biopsy and also workup for CLL. Obviously she has a significant change in the lymph nodes. REVIEW OF SYSTEMS: None reported. OBJECTIVE: Vital Signs: Afebrile, tachycardic. Vitals are stable. HEENT: Within normal limits. Significant right-sided lymphadenopathy noted. Chest: Scattered wheezing. Heart: Sounds are regular. Abdomen: Belly is soft, nontender. Good bowel sounds without hepatosplenomegaly and protuberant. No focal deficits. INVESTIGATIONS: Sodium 138, potassium 5.1. BUN 27, creatinine 0.4, glucose 153. LFTs were normal. Blood cultures were negative. ASSESSMENT AND PLAN: 1. Acute COPD exacerbation. Off BiPAP. We will do the blood gas on Thursday and continue on present IV doxycycline, IV ceftriaxone, IV steroids. 2. DVT prophylaxis with Lovenox. 3. CLL, not interested in further treatment options. 4. Protein calorie malnutrition. IV PPN. 5. Hyponatremia resolving. 6. Reconcile home medications. Level of documentation 25 minutes. cc: Torsten Black MD
[2017-01-17] MEDS: MUCINEX PO SCH (22:35)
[2017-01-18] MEDS: DUONEB (A & A) INH SCH ×4 (03:11→19:19)
[2017-01-18] MEDS: SOLU-MEDROL IV SCH ×3 (04:13→21:54)
[2017-01-18] MEDS: ROCEPHIN 1 GM/NS 1 GM/50 ML IVPB IV SCH (05:51)
[2017-01-18] MEDS: LOVENOX SUBQ SCH (05:51)
[2017-01-18] MEDS: DOXYCYCLINE 100 MG in NS 250 ML IV SCH ×2 (05:51→17:13)
[2017-01-18] MEDS: PROTONIX IV SCH ×2 (05:52→07:37)
[2017-01-18] MEDS: SYNTHROID PO SCH ×2 (05:52→07:36)
[2017-01-18] MEDS: THERA M PLUS PO SCH (09:10)
[2017-01-18] MEDS: MUCINEX PO SCH ×2 (09:10→21:54)
[2017-01-18] MEDS: CLINIMIX E 4.25%-5% SOLUTION 1,000 ML IV SCH (13:39)
--- NOTE | 2017-01-18 13:51 | PROGRESS NOTE ---
DATE: 01/18/2017 SUBJECTIVE: The patient is doing very well. No complaints. Decreased shortness of breath. REVIEW OF SYSTEMS: None reported. PHYSICAL EXAMINATION: Vital Signs: Stable. Afebrile. Tachycardic. HEENT: No significant change in the right cervical lymphadenopathy. Chest: Decreased wheezing. No rhonchi. Heart: Sounds are tachycardic. Abdomen: Belly is soft, protuberant. Extremities: No peripheral edema. Neurologic: No obvious neurological deficits. ASSESSMENT AND PLAN: 1. Hyponatremia is better. 2. Acute chronic obstructive pulmonary disease. Off BiPAP machine. We will repeat the labs in the morning. 3. Deep vein thrombosis prophylaxis with Lovenox. 4. Protein calorie malnutrition, IV PPN. 5. Chronic lymphocytic leukemia, progression of the disease. Refusing further biopsies and treatment as per Dr. Davies. LEVEL OF DOCUMENTATION: 15 minutes. cc: Torsten Black MD
[2017-01-19] MEDS: ROCEPHIN 1 GM/NS 1 GM/50 ML IVPB IV SCH (04:31)
[2017-01-19] MEDS: SOLU-MEDROL IV SCH ×2 (04:31→09:27)
[2017-01-19] MEDS: DOXYCYCLINE 100 MG in NS 250 ML IV SCH ×2 (04:31→19:06)
[2017-01-19 04:43] LABS: ALLEN TEST YES; BE 11.4 mmoll (-3.0-3.0); BLOOD TYPE ARTERIAL; DRAW SITE R RADIAL; METHB 0.7 % (0.0-1.5); O2(CT) 16.5 mL/dL (15.0-23.0); PO2(98.6) 122 mmHg (60-100); SAMPLE BLOOD; SAO2 100.7 % (95.0-100.0); THB 11.9 g/dL (11.5-17.4); pH(98.6) 7.38 (7.35-7.45)
[2017-01-19 04:44] LABS: MODALITY BI PAP
[2017-01-19 04:45] LABS: PCO2(98.6) 66 mmHg (35-45)
[2017-01-19] MEDS: DUONEB (A & A) INH SCH ×4 (04:57→20:30)
[2017-01-19 06:11] LABS: MANUAL DIFF NEEDED? NO
[2017-01-19 06:19] LABS: BASO% 0.1 % (0.0-0.8); HEMATOCRIT 36.1 % (37.0-47.0); HEMOGLOBIN 11.3 g/dL (12.0-16.0); IMM GRAN# 0.04 X1000 (0.0-0.04); IMM GRAN% 0.3 % (0.0-0.5); LYMPH# 3.32 X1000 (1.2-3.4); LYMPH% 20.8 % (20.5-51.1); MCH 30.4 PG (27-31); MCHC 31.3 g/dL (33-37); MONO# 0.25 X1000 (0.11-0.59); MONO% 1.6 % (1.7-9.3); MPV 10.4 FL (7.4-10.4); NEUT% 77.2 % (42.2-75.2); PLT 241 X1000 (130-400); RBC 3.72 XMIL (4.2-5.4)
[2017-01-19 06:39] LABS: AGAP 6; BUN 30 mg/dL (8-22); CALCIUM 9.2 mg/dL (8.8-10.2); CHLORIDE 96 mmol/L (98-107); COSMO 288; POTASSIUM 5.4 mmol/L (3.5-5.1); SODIUM 140 mmol/L (136-145); TCO2 38 mmol/L (25-35)
[2017-01-19] MEDS: LOVENOX SUBQ SCH (06:53)
[2017-01-19] MEDS: PROTONIX IV SCH (06:53)
[2017-01-19] MEDS: SYNTHROID PO SCH (06:53)
[2017-01-19] MEDS ORDERED: MIRALAX PO ONE (08:36)
--- NOTE | 2017-01-19 09:05 | PROGRESS NOTE ---
DATE: 01/19/2017 SUBJECTIVE: The patient is doing very well. Extremely weak. Not able to go to the bathroom. REVIEW OF SYSTEMS: No shortness of breath, constipation. OBJECTIVE: Vital signs: Vitals are stable. Off BiPAP machine. I's and O's are positive 1000 mL. HEENT: No changes in the cervical lymphadenopathy. Chest: Clear. Heart: Sounds are tachycardic. Abdomen: Belly is soft, nontender. Good bowel. Protuberant. Extremities: No peripheral edema. INVESTIGATIONS: CBC: White cell count 15, hematocrit 36, platelets 241,000. ABG, pH is 7.38, pCO2 66, PO2 122 on BiPAP 30%. SMA 7 is normal. ASSESSMENT AND PLAN: 1. Acute chronic obstructive pulmonary disease exacerbation. Stable. 2. Constipation. Will use the MiraLAX and discontinue IV PPN. Out of bed with physical therapy. 3. Decreased intravenous steroids once a day. Continue present intravenous antibiotics. Refusing further treatment options for CLL. LEVEL OF DOCUMENTATION: 15 minutes. cc: Torsten Black MD
[2017-01-19] MEDS: THERA M PLUS PO SCH (09:27)
[2017-01-19] MEDS: MUCINEX PO SCH ×2 (09:27→21:01)
[2017-01-20] MEDS: ROCEPHIN 1 GM/NS 1 GM/50 ML IVPB IV SCH (03:18)
[2017-01-20] MEDS: DUONEB (A & A) INH SCH ×2 (03:23→09:22)
[2017-01-20] MEDS: DOXYCYCLINE 100 MG in NS 250 ML IV SCH (04:00)
[2017-01-20 05:30] VITALS: BP 118/70
[2017-01-20] MEDS: LOVENOX SUBQ SCH (05:34)
[2017-01-20] MEDS: SYNTHROID PO SCH ×2 (05:35→06:04)
[2017-01-20] MEDS: PROTONIX PO SCH ×2 (05:35→06:04)
[2017-01-20] MEDS ORDERED: TYLENOL PO PRN (05:43)
[2017-01-20] MEDS: THERA M PLUS PO SCH (10:30)
[2017-01-20] MEDS: MUCINEX PO SCH (10:30)
[2017-01-20] MEDS: SOLU-MEDROL IV SCH (10:30)
--- NOTE | 2017-01-20 21:40 | DISCHARGE SUMMARY ---
ADMISSION DATE: 01/14/2017 DISCHARGE DATE: 01/20/2017 DISCHARGING DIAGNOSIS: Altered mental status due to metabolic encephalopathy. SECONDARY DIAGNOSES: 1. Acute chronic obstructive pulmonary disease exacerbation with hypercarbia. 2. IgG deficiency. 3. Chronic right bronchiectasis. 4. 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 5. Hypothyroidism. 6. Chronic lymphocytic leukemia with worsening of lymphadenopathy. 7. Chronic loculated effusion on the right side. PROCEDURES: BiPAP machine. CONSULTATIONS: Mack Davies MD. BRIEF HISTORY: Please see the H and P that was done by the hospitalist. In brief, she is a 61- year-old white female with a known history of CLL, IgG deficiency, worsening of lymph nodes on the right neck as well as the lymph nodes in the belly, splenomegaly, declining of performance status. Was seen by Dr. Davies in beginning of January. He did advise the patient to undergo the biopsy and further treatment. The patient vehemently refused present options on the table and continues to believe in holistic medicine. She did receive IgG transfusion office. She came into the hospital with confusion, hyponatremia, constipation, and increased work of breathing. HOSPITAL COURSE: Patient was given IV ceftriaxone, doxycycline, IV steroids, and bronchodilators on BiPAP machine. Chest x-ray was stable. Clinically she has significant lymphadenopathy in the right neck. I did reiterate about going for the options that were discussed by Dr. Davies. The patient did not want to do any further intervention at this time. She is worried about the cataracts and is going to see Dr. Carrillo. During this hospital course, she was hyponatremic. Given IV fluids followed by IV ProcalAmine. MiraLAX was given for constipation. The patient is stable. She wants to go home. DISCHARGE LABORATORY STUDIES: At the time of discharge, the labs are as follows. CBC, white cell count 15, hematocrit 36, platelet count 241,000. ABG revealed pH is 7.38, pCO2 66, pO2 102 on BiPAP. SMA 7: Sodium 140, potassium 5.4, chloride 96, BUN 30, creatinine 0.5, glucose 140. LFTs were normal. Blood cultures were negative. CT head is negative. Chest x-ray was stable. CT scan of the abdomen and pelvis: Massive abdominal, retroperitoneal, pelvic adenopathy. Small right pleural effusion with lower lobe bronchiectasis. Prominent spleen. DISCHARGE INSTRUCTIONS: 1. Continue oxygen 2 L. 2. Bi-PAP machine at home. 3. IgG transfusion once a month. 4. Synthroid 75 mcg daily. 5. Guaifenesin 600 p.o. b.i.d. 6. Medrol Dosepak. 7. Multivitamin 1 tablet daily. 8. MiraLAX 17 g daily. 9. Nebulizers 1 q.6 h. as needed. 10. Bactrim double-strength 1 tablet p.o. b.i.d. for 10 days. 11. Probiotic 1 tablet daily. 12. IgG transfusion as per Dr. Davies. 13. Follow up in my office next week. cc: MD Mack Arriola MD Leroy F. Harris, MD MTDD
== END 2017-01-20 12:36 | disposition home or self-care (01) ==
LOC: ED 18:43 → SUATTDRO 01-14 03:27 → 4N 01-14 03:27
PROVIDERS: ADMIT Internal Medicine; ATTEND Internal Medicine

== ENCOUNTER 2017-02-04 21:56 | Inpatient (IN) ==
[2017-02-04] MEDS ORDERED: DUONEB (A & A) INH ONE (22:06)
[2017-02-04 22:17] LABS: ALLEN TEST YES; BE 16.2 mmoll (-3.0-3.0); BLOOD TYPE ARTERIAL; DRAW SITE L RADIAL; O2(CT) 17.1 mL/dL (15.0-23.0); PO2(98.6) 177 mmHg (60-100); SAMPLE BLOOD; SAO2 99.8 % (95.0-100.0); THB 12.3 g/dL (11.5-17.4); pH(98.6) 7.29 (7.35-7.45)
[2017-02-04 22:18] LABS: MODALITY NRB; PCO2(98.6) 98 mmHg (35-45)
[2017-02-04 22:45] LABS: INR 0.96; PROTIME 10.1 Seconds (9.2-11.7); PTT 25.9 Seconds (22.0-36.0)
[2017-02-04 23:07] LABS: MANUAL DIFF NEEDED? NO
[2017-02-04 23:09] LABS: BASO% 0.1 % (0.0-0.8); EOS# 0.13 X1000 (0.0-0.7); EOS% 1.8 % (0.0-10.0); HEMATOCRIT 35.5 % (37.0-47.0); LYMPH# 1.73 X1000 (1.2-3.4); LYMPH% 23.9 % (20.5-51.1); MCH 29.7 PG (27-31); MCV 95.9 FL (81-99); MONO# 0.38 X1000 (0.11-0.59); MONO% 5.3 % (1.7-9.3); MPV 10.3 FL (7.4-10.4); NEUT% 68.9 % (42.2-75.2); PLT 146 X1000 (130-400)
[2017-02-04] MEDS ORDERED: LASIX IV ONE (23:34)
[2017-02-04 23:36] LABS: AGAP 4; ALBUMIN 3.5 g/dL (3.5-5.0); ALKALINE PHOSPHATASE 92 U/L (32-104); BUN 16 mg/dL (8-22); CALCIUM 8.6 mg/dL (8.8-10.2); CHLORIDE 96 mmol/L (98-107); COSMO 285; GOT 15 U/L (10-30); GPT 10 U/L (10-36); LIPASE 23 U/L (13-60); POTASSIUM 5.6 mmol/L (3.5-5.1); SODIUM 141 mmol/L (136-145); TCO2 41 mmol/L (25-35); TOTAL PROTEIN 5.7 g/dL (6.3-8.3)
[2017-02-04 23:37] LABS: ALLEN TEST YES; BE 16.2 mmoll (-3.0-3.0); BLOOD TYPE ARTERIAL; DRAW SITE R RADIAL; LACTATE < 0.30 mmoll (0.44-2.22); METHB 1.1 % (0.0-1.5); O2(CT) 15.8 mL/dL (15.0-23.0); PO2(98.6) 154 mmHg (60-100); SAMPLE BLOOD; SAO2 100.1 % (95.0-100.0); SRATE 12 BPM; THB 11.4 g/dL (11.5-17.4); pH(98.6) 7.28 (7.35-7.45)
[2017-02-04 23:38] LABS: PCO2(98.6) 100 mmHg (35-45)
[2017-02-04 23:39] LABS: MODALITY BI PAP
[2017-02-04] MEDS ORDERED: AMIDATE IV ONE (23:54)
[2017-02-04] MEDS ORDERED: ZEMURON IV ONE (23:54)
[2017-02-04] MEDS ORDERED: DIPRIVAN 1% 1,000 MG/100 ML BOTTLE ONE (23:58)
--- NOTE | 2017-02-05 00:05 | PROVIDER DOCUMENTATION ---
HPI-Respiratory General - General Chief Complaint: Shortness of Breath Stated Complaint: sob Time Seen by Provider: 02/04/17 22:03 Source: patient Allergies/Adverse Reactions: Patient Allergies Allergy/AdvReac Type Severity Reaction Status Date / Time erythromycin base Allergy Mild RASH Verified 02/04/17 22:49 [Erythromycin Base] amoxicillin trihydrate * AdvReac Mild DRIES UP Verified 02/04/17 22:49 [From Augmentin] MUCUS IN HER THROAT potassium clavulanate * AdvReac Mild DRIES UP Verified 02/04/17 22:49 [From Augmentin] MUCUS IN HER THROAT Home Medications: Home Medication List Medication Instructions Recorded Confirmed Last Taken Type Guaifenesin E.r. [Mucinex] 600 mg PO BID 01/17/17 01/17/17 01/12/17 History 600 Levothyroxine [Synthroid] 75 microgm PO DAILY 01/17/17 01/17/17 01/12/17 History Albuterol 2.5MG/Ipratrop 0.5MG 3 ml INH RTQ6H #120 neb 01/20/17 Unknown Rx [Duoneb (A & A)] Methylprednisolone [Medrol Dosepak] 4 mg PO DIRECTED #1 package 01/20/17 Unknown Rx Multivit,Fe,Ca,FA & Min [Thera M 1 each PO DAILY #30 tablet 01/20/17 Unknown Rx Plus] Polyethylene Glycol 3350 [Miralax] 17 gm PO DAILY #30 powd.pack 01/20/17 Unknown Rx Sulfamethoxazole/Trimethoprim 1 each PO BID #20 tablet 01/20/17 Unknown Rx [Bactrim Ds Tablet] - History of Present Illness-Resp Nature of Presenting Problem: Mrs. Parnell presents today with acute onset of respiratory distress. She has a PMH of CLL, COPD, abdominal ascites. Her symptoms have started this afternoon. She was sating at 85% on 6 L NC. She is alert and orientated while in the ED. ABG CO2 was 98% on initial blood work. Patient placed on BiPAP. She also has purluent drainage from the right side of her neck - two separate abscess's. Patient will be admitted in ICU. Quality of Pain: reports: none Severity in ED: reports: mild Onset/Duration: reports: abrupt Timing: reports: still present, constant, getting worse Context: denies: recent foreign travel, insect bite (possible tick) Exposure: reports: unknown cause Episode Frequency: other (Previous episodes) Current Respiratory Medication Therapy: Initiated see nurses note, Initiated prednisone, Initiated albuterol Modifying Factors: improves with: albuterol nebulizer, antibiotics, coughing, oxygen, sitting upright Associated Symptoms: reports: shortness of breath, short of breath, wheezing. denies: chest pain/soreness, dizziness, facial pain, flu-like symptoms, headache , heart racing, hurts to breathe, hyperventilating, lightheadedness, nasal congestion, nasal drainage Similar Symptoms Previously?: Yes Recently seen or treated by another doctor?: No Review of Systems - Adult - REVIEW OF SYSTEMS - ADULT Constitutional: reports: no symptoms reported Eyes: reports: no symptoms reported Ears, Nose, Mouth & Throat: reports: no symptoms reported Cardiovascular: reports: no symptoms reported Respiratory: reports: chronic cough, dyspnea on exertion, shortness of breath, wheezing Gastrointestinal: reports: no symptoms reported Genitourinary: reports: no symptoms reported Musculoskeletal: reports: no symptoms reported Integumentary: reports: skin sores/ulcer (lateral side of neck) Neurological: reports: no symptoms reported Psychiatric: reports: no symptoms reported Endocrine: reports: no symptoms reported Hematologic/Lymphatic: reports: no symptoms reported Allergic/Immunologic: reports: no symptoms reported All Other Systems: Reviewed and Negative Past History - Adult - PAST MEDICAL HISTORY-ADULT Review of Records: reports: Old Records Reviewed, Nursing Assessment Review, Medications Reviewed, Social history reviewed & non-contributory. Major Childhood Illnesses: reports: denies history Cardiovascular: reports: HTN Respiratory: reports: bronchitis, COPD, pneumonia, sleep apnea Gastrointestinal: reports: denies history Obstetrical/Gynecological: reports: denies history Genitourinary: reports: denies history Musculoskeletal: reports: denies history Neurological: reports: denies history Endocrine/Immune: reports: Leukemia (CLL) Other Conditions: reports: denies history - PRIOR SURGERIES/PROCEDURES Surgical/Procedure History: reports: cholecystectomy, other (rhinoplasty, removal of acustic neuroma) - PRIOR HOSPITALIZATIONS Prior Hospitalizations: reports: for similar symptoms - IMMUNIZATION STATUS Childhood Immunizations: See Nurse Assessment Flu Vaccine: See Nurse Assessment - FAMILY HISTORY Family History: reviewed, not pertinent Physical Exam-General - PHYSICAL EXAM-ADULT Initial Vital Signs Reviewed: Yes - CONSTITUTIONAL General Appearance: appears well, alert, no apparent distress - EYES Eyes: PERRL/EOMI - HEAD, EARS, NOSE, MOUTH & THROAT HENMT: normocephalic/atraumatic, moist mucous membranes - NECK Neck: non-tender, full range of motion, other (two purluent draining ulcers on the right lateral side of the neck) - RESPIRATORY Respiratory: respiratory distress, accessory muscle use, rhonchi, wheezing, retractions, increased rate. negative: decreased breath sounds - CARDIOVASCULAR Cardiovascular: normal peripheral pulses, regular rate, rhythm - GASTROINTESTINAL (ABDOMEN) Abdominal Exam: distended. negative: guarding, rigid, rebound, tenderness - LYMPHATIC Lymphatic: enlargement - MUSCULOSKELETAL Back Exam: normal inspection Extremity: normal range of motion - SKIN Integumentary: normal color - NEUROLOGIC Neurologic: grossly normal - PSYCHIATRIC Psych/Mental Status: normal mood/affect Progress - PLAN OF CARE/RESULTS Progress/Plan/Lab Results: Vital Signs - 8 hr 02/04/17 22:10 02/04/17 22:15 02/04/17 22:30 Pulse Rate 120 H 117 H Respiratory Rate 24 41 H Blood Pressure 138/81 148/79 O2 Sat by Pulse Oximetry 98 99 97 02/04/17 23:40 02/05/17 00:49 Pulse Rate 123 H 129 H Respiratory Rate 32 H 26 H Blood Pressure 162/84 122/83 O2 Sat by Pulse Oximetry 96 97 Laboratory Results - last 24 hr 02/04/17 02/04/17 02/04/17 22:00 22:00 22:00 WBC RBC Hgb Hct MCV MCH MCHC RDW Std Deviation Plt Count MPV Immature Gran % (Auto) Neut % (Auto) Lymph % (Auto) [place] % (Auto) Eos % (Auto) Baso % (Auto) Immature Gran # (Auto) Neut # (Auto) Lymph # (Auto) [place] # (Auto) Eos # (Auto) Baso # (Auto) PT 10.1 INR 0.96 PTT (Actin FS) 25.9 D-Dimer Specimen Type Sample Site pH pCO2 pO2 HCO3 Base Excess Oxyhemoglobin ABG O2 Sat (Calculated) ABG O2 Saturation ABG Carboxyhemoglobin ABG Methemoglobin Mega Test A-a O2 Difference Total Hemoglobin Lactate Blood Gas Modality Vent Mode Spontaneous Rate FiO2 % Inspiratory BiPAP Expiratory BiPAP Sodium Potassium Chloride Carbon Dioxide Anion Gap BUN Creatinine Estimated GFR/1.73 m2 BUN/Creatinine Ratio Glucose Calculated Osmolality Calcium Total Bilirubin AST ALT Alkaline Phosphatase Troponin T < 0.010 Aog-W-Uphvtlgykzn Pept 1242 H Total Protein Albumin Globulin Albumin/Globulin Ratio Lipase Plasma Lactate 02/04/17 02/04/17 02/04/17 22:00 22:00 22:00 WBC 7.23 RBC 3.70 L Hgb 11.0 L Hct 35.5 L MCV 95.9 MCH 29.7 MCHC 31.0 L RDW Std Deviation 14.0 Plt Count 146 MPV 10.3 Immature Gran % (Auto) 0.0 Neut % (Auto) 68.9 Lymph % (Auto) 23.9 [place] % (Auto) 5.3 Eos % (Auto) 1.8 Baso % (Auto) 0.1 Immature Gran # (Auto) 0.00 Neut # (Auto) 4.98 Lymph # (Auto) 1.73 [place] # (Auto) 0.38 Eos # (Auto) 0.13 Baso # (Auto) 0.01 PT INR PTT (Actin FS) D-Dimer 0.63 H Specimen Type Sample Site pH pCO2 pO2 HCO3 Base Excess Oxyhemoglobin ABG O2 Sat (Calculated) ABG O2 Saturation ABG Carboxyhemoglobin ABG Methemoglobin Mega Test A-a O2 Difference Total Hemoglobin Lactate Blood Gas Modality Vent Mode Spontaneous Rate FiO2 % Inspiratory BiPAP Expiratory BiPAP Sodium 141 Potassium 5.6 H Chloride 96 L Carbon Dioxide 41 H Anion Gap 4 BUN 16 Creatinine 0.3 L Estimated GFR/1.73 m2 > 60 BUN/Creatinine Ratio 53 Glucose 139 H Calculated Osmolality 285 Calcium 8.6 L Total Bilirubin 0.50 AST 15 ALT 10 Alkaline Phosphatase 92 Troponin T Gyf-I-Ctxawozktvr Pept Total Protein 5.7 L Albumin 3.5 Globulin 2.2 Albumin/Globulin Ratio 1.6 Lipase 23 Plasma Lactate 02/04/17 02/04/17 02/04/17 22:00 22:07 23:23 WBC RBC Hgb Hct MCV MCH MCHC RDW Std Deviation Plt Count MPV Immature Gran % (Auto) Neut % (Auto) Lymph % (Auto) [place] % (Auto) Eos % (Auto) Baso % (Auto) Immature Gran # (Auto) Neut # (Auto) Lymph # (Auto) [place] # (Auto) Eos # (Auto) Baso # (Auto) PT INR PTT (Actin FS) D-Dimer Specimen Type ARTERIAL ARTERIAL Sample Site L RADIAL R RADIAL pH 7.29 L 7.28 L pCO2 98 H* 100 H* pO2 177 H 154 H HCO3 37.6 H 37.6 H Base Excess 16.2 H 16.2 H Oxyhemoglobin 96.6 96.5 ABG O2 Sat (Calculated) 17.1 15.8 ABG O2 Saturation 99.8 100.1 H ABG Carboxyhemoglobin 2.20 2.50 ABG Methemoglobin 1.0 1.1 Mega Test YES YES A-a O2 Difference 414.0 78.0 Total Hemoglobin 12.3 11.4 L Lactate 0.30 L < 0.30 L Blood Gas Modality NRB BI PAP Vent Mode BIPAP Spontaneous Rate 12 FiO2 % 100.0 50.0 Inspiratory BiPAP 14.0 Expiratory BiPAP 6.0 Sodium Potassium Chloride Carbon Dioxide Anion Gap BUN Creatinine Estimated GFR/1.73 m2 BUN/Creatinine Ratio Glucose Calculated Osmolality Calcium Total Bilirubin AST ALT Alkaline Phosphatase Troponin T Dey-K-Hsokqducfix Pept Total Protein Albumin Globulin Albumin/Globulin Ratio Lipase Plasma Lactate 0.4 L Orders Category Date Time Status CHEST-1 VIEW [RAD] Stat Exams 02/04/17 22:07 Taken KUB ABDOMEN [RAD] Stat Exams 02/04/17 22:07 Taken ABG [RESP] Routine Lab 02/04/17 22:07 Completed ABG [RESP] Routine Lab 02/04/17 23:23 Completed ANAEROBIC CULTURE [RM] Routine Lab 02/05/17 00:30 Ordered BLOOD CULTURE [BLDCUL] Stat Lab 02/04/17 22:15 Received CBC WITH ELECTRONIC DIFF [HEME] Stat Lab 02/04/17 22:00 Completed CMP [COMPREHENSIVE METABOLIC PANEL] [CHEM] Stat Lab 02/04/17 22:00 Completed D-DIMER [CHEM] Stat Lab 02/04/17 22:00 Completed LACTATE, PLASMA [CHEM] Stat Lab 02/04/17 22:00 Completed LIPASE [CHEM] Stat Lab 02/04/17 22:00 Completed PRO B-NATRIURETIC PEPTIDE Stat Lab 02/04/17 22:00 Completed PROTIME WITH INR [COAG] Stat Lab 02/04/17 22:00 Completed PTT [COAG] Stat Lab 02/04/17 22:00 Completed TROPONIN T Stat Lab 02/04/17 22:00 Completed URINALYSIS W/POSS RFLX CULT-1 [URINALYSIS] Stat Lab 02/04/17 22:51 Ordered WOUND CULTURE INC GRAM STAIN [RM] Routine Lab 02/04/17 22:20 Received Albuterol 2.5MG/Ipratrop 0.5MG [Duoneb (A & A)] Med 02/04/17 22:06 Discontinued 9 ml INH NOW ONE Etomidate [Amidate] Med 02/04/17 23:54 Discontinued 20 mg IV NOW ONE Furosemide [Lasix] Med 02/04/17 23:34 Discontinued 20 mg IV NOW ONE Propofol [Diprivan 1%] Med 02/04/17 23:58 Discontinued 1,000 mg in 100 ml .ROUTE As Directed Propofol [Diprivan 1%] Med 02/04/17 23:45 Active 1,000 mg in 100 ml IV Per Protocol Rocuronium [place] [Zemuron] Med 02/04/17 23:54 Discontinued 50 mg IV NOW ONE Aerosol Treatments Routine Oth 02/04/17 22:06 Active Aerosol Treatments Stat Oth 02/04/17 22:06 Active BIPAP Stat Oth 02/04/17 22:25 Active Oxygen Device Stat Oth 02/04/17 22:08 Active Result Diagrams: 02/04/17 22:00 02/04/17 22:00 - REASSESSMENT Reassessment #1 Time Reassessed: 23:50 (Discussed with and Son and Mrs. Parnell that her CO2 is now 100 and she is failing BIPAP treatment --they are in agreeance with intubation. Discussed potential for extubation failure. Patient states she is FULL CODE. ) Status: worsening Reassessment #2 Time Reassessed: 00:58 (Patient was intubated - will be admited to Dr. Ellis ) - XRAY 1 XRAY: Bilateral XRAY Study: Chest Impression: Abnormal (mild right pleural effusion) 2 XRAY: Bilateral XRAY Study: Abdomen Impression: Abnormal, See EMR Report - CONSULTS/PCP/HOSPITALIST Notification #1 *Consult/PCP/Hospitalist*: Dr. Ellis Time Discussed: 00:18 (Patient will be admitted to ICU) Consult Disposition: Admit Procedures - INTUBATION Time of Intubation: 00:59 Intubation Method: orotracheal Equipment: Glidescope Tube Size (cm): 6.5 Pretreated with 100% Oxygen?: Yes Breath Sounds after Intubation: equal ETT Primary Tube Confirmation: Capnometry CO2 Change, Chest Rise and Fall, Tube placement verified on XRAY Intubation Complications: no complications Vent Settings: See Respiratory Therapy Notes Procedure Comment: 50 of Rocuronium and 30 of Etomidate Departure - Departure Date of Disposition Decision: 02/05/17 Time of Disposition Decision: 01:00 DIAGNOSIS: Respiratory failure, CLL (chronic lymphocytic leukemia), Neck abscess Disposition: ADMITTED INPATIENT 09 Certified Medical Emergency: Emergent Condition: Critical Referrals and Follow-Ups: None,PCP [Primary Care Provider] - - Critical Care Note This patient required my direct & personal management of CC.: Yes Total Time (mins): 75 Critical Care Statement: This patient required my direct personal management to treat or rule out processes, the absence of which, could potentiallly result in sudden, clinically significant life or limb threatening deterioration. Attestation - Physician/ NASEEM Attestation Patient care was provided by Advanced Practice Provider:: No The physician spent face to face time with patient:: Yes Advanced Practice Provider documentation review:: Supervising physician onsite and consulted in the evaluation and care of this patient. The physician did have a face to face encounter with the patient.
[2017-02-05] MEDS: DIPRIVAN 1% 1,000 MG/100 ML BOTTLE IV SCH ×3 (00:40→04:42)
[2017-02-05 01:09] LABS: URINE CULTURE NEEDED? NO; URINE MICRO REVIEW NEEDED? NO; URINE SOURCE CATH
[2017-02-05 01:13] LABS: BILIRUBIN URINE NEGATIVE (NEGATIVE); BLOOD URINE NEGATIVE (NEGATIVE); COLOR STRAW; GLUCOSE URINE NEGATIVE (NEGATIVE); LEUKOCYTES URINE NEGATIVE (NEGATIVE); NITRITE URINE NEGATIVE (NEGATIVE); PROTEIN URINE NEGATIVE (NEGATIVE); SP GRAVITY URINE 1.004; TURBIDITY URINE CLEAR (CLEAR); UROBILINOGEN URINE NORMAL (NORMAL)
[2017-02-05 01:14] LABS: UR EPITHELIAL CELLS <10 /HPF (<10); URINE BACTERIA NEGATIVE /HPF; URINE RBC <10 /HPF (<10); URINE WBC <10 /HPF (<10)
[2017-02-05 02:23] LABS: ALLEN TEST YES; BE 13.1 mmoll (-3.0-3.0); BLOOD TYPE ARTERIAL; DRAW SITE R RADIAL; METHB 1.3 % (0.0-1.5); O2(CT) 25.9 mL/dL (15.0-23.0); PO2(98.6) 104 mmHg (60-100); SAMPLE BLOOD; SAO2 98.3 % (95.0-100.0); SRATE 18 BPM; THB 19.3 g/dL (11.5-17.4); TVOL 400 mL; pH(98.6) 7.27 (7.35-7.45)
[2017-02-05 02:24] LABS: MODALITY VENTILATOR; PCO2(98.6) 103 mmHg (35-45)
[2017-02-05] MEDS ORDERED: ZOFRAN IV PRN (02:25)
--- NOTE | 2017-02-05 02:41 | ED EKG INTERP ---
This chart was entered by Trinidad Orozco Scribe, acting as scribe for Mak Nguyễn MD. EKG Interpretation - EKG Time of EKG reading by physician:: 23:35 EKG Read and Signed by:: Mak Nguyễn EKG Interpretation (*Must complete 3 of following elements*): Normal Rate: 122 Rhythm: Sinus Tachycardia Comments: Borderline ECG, Possible left atrial enlargement Attestation - Physician/ NASEEM Attestation Patient care was provided by Advanced Practice Provider:: No The physician spent face to face time with patient:: Yes Advanced Practice Provider documentation review:: Supervising physician onsite and consulted in the evaluation and care of this patient. The physician did have a face to face encounter with the patient. This chart was documented by the indicated scribe, (Trinidad Orozco Scribe) and accurately reflects the services I performed and decisions made by me, Mak Nguyễn MD, as attested by the provider's signature.
[2017-02-05] MEDS: LEVAQUIN 500 MG/D5W 500 MG/100 ML IVPB IV SCH (03:30)
[2017-02-05] MEDS: DUONEB (A & A) INH SCH ×4 (03:35→19:17)
[2017-02-05] MEDS ORDERED: NS 500 ML ONE (03:40)
[2017-02-05] MEDS ORDERED: NS 500 ML IV ONE (03:40)
[2017-02-05] MEDS: LEVOPHED 8 MG in D5 1/2 NS 250 ML IV SCH ×2 (04:00→04:40)
--- NOTE | 2017-02-05 04:36 | HISTORY AND PHYSICAL ---
PRIMARY CARE PHYSICIAN: Dr. Black. CHIEF COMPLAINT: Lethargic, difficulty breathing. HISTORY OF PRESENTING ILLNESS: A 61-year-old female with a history of COPD on home oxygen and small lymphocytic lymphoma who had presented to the emergency department with a several days history of having shortness of breath. Patient apparently went into respiratory distress in the emergency department and subsequently, she was intubated. Most of the history, due to her current condition, is obtained from family members. As per family members, she was getting lethargic for the past week or so. Earlier today, the symptoms worsened. However, the family had denied patient having any fevers, chills, chest pain, or any nausea. PAST MEDICAL HISTORY: Includes COPD on home oxygen, small lymphocytic lymphoma. PAST SURGICAL HISTORY: Cholecystectomy. ALLERGIES: Erythromycin, amoxicillin. CURRENT MEDICATIONS: As listed on the medication reconciliation sheet. SOCIAL HISTORY: No history of smoking, alcohol, or illicit drug use. FAMILY HISTORY: No history of coronary artery disease. REVIEW OF SYSTEMS: Unable to obtain due to patient being intubated. PHYSICAL EXAMINATION: GENERAL: The patient is currently intubated and on a ventilator. VITAL SIGNS: Temperature 97.8 degrees, pulse 117, blood pressure 120/66. HEENT: Atraumatic, normocephalic. CHEST: Bibasilar rales. CARDIOVASCULAR: Regular rate and rhythm. ABDOMEN: Soft, obese, positive bowel sounds. EXTREMITIES: Trace edema. NEUROLOGIC: Patient is sedated. : No bladder distention. SKIN: Warm. LABORATORIES AND STUDIES: WBC 7.23, hemoglobin 11.1, hematocrit 35.5, platelets 146,000. Sodium 141, potassium 5.6, chloride 96, CO2 41, BUN is 16, creatinine 0.3, glucose is 139. ASSESSMENT: A 61-year-old female with a history of chronic obstructive pulmonary disease on home oxygen and small lymphocytic lymphoma who had presented to the emergency department due to shortness of breath. She apparently went into respiratory distress and subsequently was intubated. Patient will need hospitalization and admission to the intensive care unit for further management. 1. Acute hypercapnic respiratory failure. 2. Chronic obstructive pulmonary disease exacerbation, acute. 3. Small lymphocytic lymphoma. PLAN: 1. We will admit patient to ICU. 2. We will continue with ventilator support. 3. We will consult pulmonology for management of ventilator. 4. We will continue patient on IV antibiotics and DuoNebs. 5. We will put patient on DVT prophylaxis with SCD. 6. We will continue to follow and reassess. cc: Collins Ellis MD MTDEneida
--- NOTE | 2017-02-05 05:52 | EKG Report ---
Test Performed on : 02/04/2017 10:35:51 PM Test Reason : SOB Blood Pressure : / mmHG Vent. Rate : 122 BPM Atrial Rate : 122 BPM P-R Int : 128 ms QRS Dur : 084 ms QT Int : 288 ms P-R-T Axes : 064 077 051 degrees QTc Int : 410 ms Sinus tachycardia. Possible Left atrial enlargement Borderline ECG When compared with ECG of 13-JAN-2017 19:07, No significant change was found Unconfirmed Result
[2017-02-05 06:34] LABS: MANUAL DIFF NEEDED? NO
[2017-02-05 06:36] LABS: BASO% 0.2 % (0.0-0.8); EOS# 0.13 X1000 (0.0-0.7); EOS% 1.5 % (0.0-10.0); HEMOGLOBIN 10.7 g/dL (12.0-16.0); IMM GRAN# 0.02 X1000 (0.0-0.04); IMM GRAN% 0.2 % (0.0-0.5); LYMPH# 2.16 X1000 (1.2-3.4); LYMPH% 25.6 % (20.5-51.1); MCH 29.9 PG (27-31); MCHC 31.5 g/dL (33-37); MONO# 0.17 X1000 (0.11-0.59); MPV 9.8 FL (7.4-10.4); NEUT% 70.5 % (42.2-75.2); PLT 180 X1000 (130-400); RBC 3.58 XMIL (4.2-5.4)
[2017-02-05 06:37] LABS: ALLEN TEST YES; BE 21.7 mmoll (-3.0-3.0); BLOOD TYPE ARTERIAL; DRAW SITE R RADIAL; METHB 1.5 % (0.0-1.5); O2(CT) 15.1 mL/dL (15.0-23.0); PO2(98.6) 130 mmHg (60-100); SAMPLE BLOOD; SAO2 99.9 % (95.0-100.0); SRATE 23 BPM; TVOL 450 mL; pH(98.6) 7.51 (7.35-7.45)
[2017-02-05 06:38] LABS: MODALITY VENTILATOR; PCO2(98.6) 60 mmHg (35-45)
[2017-02-05] MEDS ORDERED: CALMOSEPTINE OINTMENT TOP SCH (06:45)
[2017-02-05 07:02] LABS: AGAP 8; BUN 19 mg/dL (8-22); CALCIUM 8.7 mg/dL (8.8-10.2); CHLORIDE 94 mmol/L (98-107); COSMO 281; MAGNESIUM 1.7 mg/dL (1.5-2.7); POTASSIUM 5.3 mmol/L (3.5-5.1); SODIUM 140 mmol/L (136-145); TCO2 38 mmol/L (25-35)
--- NOTE | 2017-02-05 07:31 | Diag Imaging Result Doc PS360 ---
CHEST-1 VIEW - 02/04/2017 INDICATION: Shortness of breath TECHNIQUE: COMPARISON: 01/13/2017 FINDINGS: Lung volumes are low. Stable small right basilar pleural effusion. There is worsening pulmonary vascular congestion and some interstitial pulmonary edema. Heart size remains borderline enlarged. IMPRESSION: Worsening from prior. Small right pleural effusion. Mild pulmonary edema. Electronically signed by Jayden Potter 02/05/2017 7:29 AM
--- NOTE | 2017-02-05 07:32 | Diag Imaging Result Doc PS360 ---
CHEST-1 VIEW - 02/05/2017 INDICATION: tube placement TECHNIQUE: COMPARISON: 02/04/2017 FINDINGS: There is a new endotracheal tube at T3. New nasogastric tube with the tip in the stomach. Lung volumes are slightly improved. Otherwise the lungs are unchanged. IMPRESSION: Good tube placement. Otherwise no significant change from prior. Electronically signed by Jayden Potter 02/05/2017 7:30 AM
--- NOTE | 2017-02-05 07:47 | Diag Imaging Result Doc PS360 ---
KUB ABDOMEN - 02/04/2017 INDICATION: Abdominal distention TECHNIQUE: COMPARISON: 09/16/2016 FINDINGS: The transverse and descending colon are hyperinflated with gas. No small bowel obstruction. There is moderate stool in the ascending colon. No free air or abnormal calcifications. IMPRESSION: Mildly abnormal but nonspecific colonic gas pattern. Electronically signed by Jayden Potter 02/05/2017 7:44 AM
[2017-02-05] MEDS ORDERED: DIPRIVAN 1% 1,000 MG/100 ML BOTTLE ONE (08:50)
--- NOTE | 2017-02-05 09:33 | CONSULTATION ---
DATE OF CONSULTATION: 02/05/2017 REFERRING PHYSICIAN: Dr. Collins Ellis. CHIEF COMPLAINT: Respiratory distress. HISTORY OF PRESENT ILLNESS: This is a 61-year-old female with a past medical history of COPD and small lymphocytic lymphoma that presented to the emergency room with a several- day history of shortness of breath. Apparently, she went into severe respiratory distress and was intubated in the emergency room. She will be placed in ICU for close evaluation, monitoring , and treatment. REVIEW OF SYSTEMS: Unable to obtain. PAST MEDICAL HISTORY: COPD and small lymphocytic lymphoma. PAST SURGICAL HISTORY: Cholecystectomy. ALLERGIES: Erythromycin and amoxicillin. FAMILY HISTORY: Noncontributory. SOCIAL HISTORY: No documented history of smoking, alcohol use, or illicit drug use. ACTIVE MEDICATIONS: 1. DuoNeb. 2. Levaquin. 3. Solu-Medrol. 4. Levophed. 5. Zofran. PHYSICAL EXAMINATION: Vital Signs: Temperature 99.6, heart rate 107, respiratory rate 18, blood pressure 112/65, oxygen saturation 95%. General: Lying on a stretcher, intubated. HEENT: Normocephalic and atraumatic. ET tube in place. Cardiovascular: S1-S2 present. Chest: Reduced entry. Abdomen: Soft. Bowel sounds present. Extremities: Trace pedal edema. Neurologic: Sedated. LABORATORY DATA AND INVESTIGATIONS: WBC 8.45, RBCs 3.5, hemoglobin 10.7, hematocrit 34, platelet count 180,000. Sodium 140, potassium 5.3, chloride 94, CO2 of 38, anion gap 8. BUN 19, creatinine 0.5, glucose 92. Blood gas reveals a pH of 7.51, pCO2 of 60, PO2 of 130, HCO3 of 41.8, base excess 21.7. Saturated oxygen 100. Chest x-ray performed on 02/05/2017 shows improved lung volumes, otherwise, stable chest. ASSESSMENT AND PLAN: This is a 61-year-old female with past medical history mentioned in the history of present illness that presented to the hospital in respiratory distress and was intubated in the emergency room. She awaits placement in the ICU. Continue inhaled bronchodilators and IV steroids for chronic obstructive pulmonary disease exacerbation. Also, IV antibiotics, ventilator support, sequential compression devices for deep venous thrombosis prophylaxis. Further recommendations pending diagnostic studies. Respiratory failure due to end stage COPD and Lymphoma as a co-morbidity. Thank for the courtesy of this consult. Dictated by ANNA MARIE Yeh for Nataliya Nair MD cc: ANNA MARIE Yeh MD Jagan Reddy, MD [facility]
[2017-02-05] MEDS: PEPCID IV SCH ×2 (09:35→20:48)
[2017-02-05] MEDS: SOLU-MEDROL IV SCH ×3 (09:35→18:27)
[2017-02-05] MEDS ORDERED: VANCOMYCIN 1 GM/NS 1 GM/250 ML IVPB IV ONE (12:42)
[2017-02-05] MEDS ORDERED: VANCOMYCIN IV PER PHARMACY MISC SCH (12:45)
[2017-02-05] MEDS: ATIVAN IV PRN ×2 (13:43→20:29)
[2017-02-05] MEDS ORDERED: VANCOMYCIN 1,200 MG in NS 250 ML IV ONE (15:00)
--- NOTE | 2017-02-05 18:43 | PROGRESS NOTE ---
DATE: 02/05/2017 SUBJECTIVE: Interval history was reviewed. The patient came to the emergency room with acute respiratory failure, was intubated based on the clinical grounds. Patient was examined in the ER this morning as well as in the ICU. LEVEL OF DOCUMENTATION: 35 minutes. HISTORY: A 61-year-old, white female with a known history of CLL IgG deficiency. Worsening of lymphoma, refusing for further palliative chemotherapy as per Dr. Davies suggested. I had a long discussion a week ago in my office. The patient has been refusing. I offered to go for palliative services. Instead, she came back to the hospital. The patient is awake, intubated, oral gastric tube was seen. REVIEW OF SYSTEMS: None reported. EXAM: Vital Signs: She is afebrile. Tachycardic on ventilator support. HEENT Exam: Huge, matted lymphadenopathy on the right neck, opened up. Chest: Bilateral air entry, wheezing. Heart: Sounds are tachycardic. Abdomen: Belly is soft, protuberant. Extremities: No peripheral edema, cyanosis. Neurologic: No obvious neurological deficits noted. INVESTIGATIONS: CBC: White cell count 8.4, hematocrit 34, platelet 180. ABG: pH is 7.51, pCO2 of 60, pO2 of 130 on 60% assisted control. SMA-7: Sodium 140, potassium 5.3, chloride 94, BUN 19, creatinine 0.5. Glucose 92, magnesium 1.7. LFTs were normal. Wound cultures were negative. ASSESSMENT AND PLAN: 1. Acute respiratory failure due to chronic obstructive pulmonary disease exacerbation, along with underlying lymphadenopathy. Continue IV steroids. 2. Deep vein thrombosis prophylaxis with Lovenox. 3. Gastrointestinal prophylaxis with IV Pepcid. 4. Ventilator support as per Dr. Nataliya Nair. 5. IgG deficiency secondary infection. Continue on vancomycin and Levaquin. 6. Will initiate either enteral feeding, if not successfully extubated and will discuss with the family about advanced care planning and further palliative services. LEVEL OF DOCUMENTATION: 35 minutes. cc: Torsten Black MD
[2017-02-05] MEDS: SODIUM CHLORIDE 0.9% INJ SCH (20:48)
[2017-02-06] MEDS: MORPHINE IV PRN ×3 (00:52→19:45)
[2017-02-06] MEDS: ATIVAN IV PRN ×5 (01:21→21:40)
[2017-02-06] MEDS: SOLU-MEDROL IV SCH ×3 (02:25→17:54)
[2017-02-06] MEDS: LEVAQUIN 500 MG/D5W 500 MG/100 ML IVPB IV SCH (02:25)
[2017-02-06] MEDS: DUONEB (A & A) INH SCH ×4 (02:56→19:08)
[2017-02-06] MEDS: VANCOMYCIN 1 GM/NS 1 GM/250 ML IVPB IV SCH ×2 (03:45→15:45)
[2017-02-06 04:32] LABS: ALLEN TEST YES; BE 16.7 mmoll (-3.0-3.0); BLOOD TYPE ARTERIAL; DRAW SITE R RADIAL; METHB 1.4 % (0.0-1.5); O2(CT) 22.1 mL/dL (15.0-23.0); PO2(98.6) 93 mmHg (60-100); SAMPLE BLOOD; SAO2 98.3 % (95.0-100.0); SRATE 12 BPM; THB 16.5 g/dL (11.5-17.4); TVOL 500 mL
[2017-02-06 04:33] LABS: MODALITY VENTILATOR
[2017-02-06 04:34] LABS: PCO2(98.6) 75 mmHg (35-45)
[2017-02-06 05:19] LABS: MANUAL DIFF NEEDED? NO
[2017-02-06 05:32] LABS: HEMATOCRIT 32.6 % (37.0-47.0); HEMOGLOBIN 10.3 g/dL (12.0-16.0); LYMPH% 15.7 % (20.5-51.1); MCHC 31.6 g/dL (33-37); MONO# 0.27 X1000 (0.11-0.59); MONO% 3.3 % (1.7-9.3); MPV 10.7 FL (7.4-10.4); PLT 188 X1000 (130-400); RBC 3.43 XMIL (4.2-5.4)
[2017-02-06 06:39] LABS: AGAP 9; BUN 41 mg/dL (8-22); CALCIUM 9.1 mg/dL (8.8-10.2); CHLORIDE 96 mmol/L (98-107); COSMO 297; MAGNESIUM 2.4 mg/dL (1.5-2.7); POTASSIUM 5.3 mmol/L (3.5-5.1); SODIUM 144 mmol/L (136-145); TCO2 39 mmol/L (25-35)
--- NOTE | 2017-02-06 07:31 | Diag Imaging Result Doc PS360 ---
CHEST-1 VIEW - 02/06/2017 INDICATION: SOB TECHNIQUE: COMPARISON: 02/05/2017 FINDINGS: Support tubes are stable. Stable small right basilar pleural effusion. There is improvement in the hazy central infiltrates suggesting pulmonary edema. No new infiltrates. Heart size remains normal. IMPRESSION: Slight improvement in the hazy central infiltrates/edema. Electronically signed by Jayden Potter 02/06/2017 7:29 AM
[2017-02-06] MEDS: NS 1,000 ML IV SCH ×2 (07:41→21:22)
[2017-02-06] MEDS: PEPCID IV SCH ×2 (08:15→20:35)
[2017-02-06] MEDS: SODIUM CHLORIDE 0.9% INJ SCH ×2 (08:15→20:35)
[2017-02-06] MEDS: LOVENOX SUBQ SCH (08:16)
[2017-02-06] MEDS: CLINIMIX E 4.25%-5% SOLUTION 1,000 ML IV SCH (21:25)
[2017-02-07] MEDS: ATIVAN IV PRN ×3 (00:52→23:30)
[2017-02-07] MEDS: MORPHINE IV PRN ×2 (00:53→16:55)
[2017-02-07] MEDS ORDERED: LOPRESSOR IV ONE (02:34)
[2017-02-07] MEDS: LEVAQUIN 500 MG/D5W 500 MG/100 ML IVPB IV SCH (02:49)
[2017-02-07] MEDS: SOLU-MEDROL IV SCH ×3 (02:49→18:45)
[2017-02-07] MEDS: DUONEB (A & A) INH SCH ×4 (03:16→20:15)
[2017-02-07] MEDS: VANCOMYCIN 1 GM/NS 1 GM/250 ML IVPB IV SCH ×2 (03:50→16:14)
[2017-02-07 04:12] LABS: ALLEN TEST YES; BE 13.2 mmoll (-3.0-3.0); BLOOD TYPE ARTERIAL; DRAW SITE R RADIAL; METHB 1.3 % (0.0-1.5); PO2(98.6) 78 mmHg (60-100); SAMPLE BLOOD; SAO2 96.7 % (95.0-100.0); SRATE 12 BPM; THB 16.8 g/dL (11.5-17.4); TVOL 500 mL; pH(98.6) 7.33 (7.35-7.45)
[2017-02-07 04:14] LABS: MODALITY VENTILATOR; PCO2(98.6) 84 mmHg (35-45)
[2017-02-07 04:55] LABS: MANUAL DIFF NEEDED? NO
[2017-02-07 04:58] LABS: HEMOGLOBIN 9.9 g/dL (12.0-16.0); LYMPH# 1.64 X1000 (1.2-3.4); LYMPH% 16.3 % (20.5-51.1); MCH 30.2 PG (27-31); MCHC 30.9 g/dL (33-37); MCV 97.6 FL (81-99); MONO# 0.19 X1000 (0.11-0.59); MONO% 1.9 % (1.7-9.3); MPV 10.7 FL (7.4-10.4); NEUT% 81.8 % (42.2-75.2); PLT 216 X1000 (130-400); RBC 3.28 XMIL (4.2-5.4)
--- NOTE | 2017-02-07 05:24 | PROGRESS NOTE ---
DATE: 02/06/2017 SUBJECTIVE: The patient was seen in the ICU. She was intubated. Oral gastric tube noted. Awake. Slowly weaning off from the vent. Chest x-ray was stable. REVIEW OF SYSTEMS: None reported. PHYSICAL EXAMINATION: Vital Signs: Low-grade fever, tachycardic. Vitals are stable. HEENT: A necrotic mass on the right side of the neck noted. Chest: Bilateral air entry. Heart: Sounds are regular, tachycardic. Abdomen: Belly is soft, protuberant. Extremities: No peripheral edema or cyanosis. Orogastric tube. No secretions are coming out. Minimal amount of bile noted. INVESTIGATIONS: CBC: White cell count 8.3, hematocrit 32, platelet count 188,000. Blood gas: ABG pH is 7.40, pCO2 75, PO2 93, on AC mode ventilated 12, FiO2 40%. SMA-7: Sodium 144, potassium 5.3, chloride 96, BUN 41, creatinine 0.6, glucose 105. Urinalysis was clear. Wound cultures are pending. Blood cultures were negative. ASSESSMENT AND PLAN: 1. Acute respiratory failure, with underlying chronic lymphocytic leukemia lymphadenopathy. Weaning protocol as per Dr. Nair. 2. Impending dehydration. Clamp the nasogastric tube. We will start with IV fluids and enteral feeding. 3. Deep vein thrombosis prophylaxis with Lovenox. 4. Gastrointestinal prophylaxis with Protonix. 5. Continue antibiotics with vancomycin and Levaquin, along with steroids. 6. Hypothyroidism, on Synthroid. 7. No family was there to discuss the advanced care planning. 8. She is full code. LEVEL OF DOCUMENTATION: 35 minutes. cc: Torsten Black MD
[2017-02-07] MEDS: SYNTHROID PO SCH (06:09)
--- NOTE | 2017-02-07 07:17 | Diag Imaging Result Doc PS360 ---
EXAM: CHEST-1 VIEW HISTORY: SOB TECHNIQUE: Erect AP portable at 0510 COMMENT: There is an endotracheal tube with its tip slightly below the thoracic inlet and an NG tube which passes into the distal stomach. There is pleural thickening versus loculated effusion on the right. The appearance of the chest has not changed appreciably since 02/06/2017. Compared to 02/05/2017 the right lower lobe opacities may have improved slightly. IMPRESSION: Loculated right pleural effusion with basilar atelectasis versus pneumonia, slightly improved since 02/05/2017. Electronically signed by Sunil Camacho 02/07/2017 7:14 AM
[2017-02-07] MEDS: LOVENOX SUBQ SCH (08:52)
[2017-02-07] MEDS: SODIUM CHLORIDE 0.9% INJ SCH (08:52)
[2017-02-07] MEDS: PEPCID IV SCH ×2 (08:52→20:19)
[2017-02-07] MEDS: NS 1,000 ML IV SCH (10:22)
[2017-02-07] MEDS: CLINIMIX E 4.25%-5% SOLUTION 1,000 ML IV SCH (13:13)
--- NOTE | 2017-02-07 19:22 | PROGRESS NOTE ---
DATE: 02/07/2017 Ms. Parnell is dependent on the ventilator. She has slight hypotension and stays in tachycardia heart rate around 110, at times heart rate fluctuates and goes up to 180 for few seconds and comes down. She is very nervous person. Her lungs reveal some expiratory wheezing. She has history of lymphoma however she is not getting any therapy for it. CBC is unremarkable except that the hemoglobin is 9.9, hematocrit is 32. ABGs reveal pCO2 went up to 84 from 75, pH is 7.33 and potassium is 5.3, BUN is 41, creatinine 0.6, magnesium was 2.4. Chest x-ray done this morning revealed loculated right pleural effusion with basilar atelectasis versus pneumonia on the right side. She is getting peripheral hyperalimentation as well as enoxaparin 40 mg q.12 hours and she is on IV Levaquin and vancomycin. She is followed by the senior administrative assistant Dr. James and Dr. Nair. Overall condition is unchanged. Will continue with the current management. Last night we had to give her some IV Lopressor as the heart rate went up however since the blood pressure is borderline we want to just watch her heart rate. -9 cc: MD Torsten Hercules MD
[2017-02-08] MEDS: NS 1,000 ML IV SCH ×2 (01:30→14:27)
[2017-02-08] MEDS: SOLU-MEDROL IV SCH ×3 (02:01→17:28)
[2017-02-08] MEDS: LEVAQUIN 500 MG/D5W 500 MG/100 ML IVPB IV SCH (02:01)
[2017-02-08] MEDS: MORPHINE IV PRN ×3 (02:32→20:35)
[2017-02-08] MEDS: DUONEB (A & A) INH SCH ×4 (03:10→21:30)
[2017-02-08] MEDS: VANCOMYCIN 1 GM/NS 1 GM/250 ML IVPB IV SCH (03:37)
[2017-02-08 04:20] LABS: ALLEN TEST YES; BE 15.5 mmoll (-3.0-3.0); BLOOD TYPE ARTERIAL; DRAW SITE R RADIAL; METHB 1.1 % (0.0-1.5); O2(CT) 13.4 mL/dL (15.0-23.0); PO2(98.6) 93 mmHg (60-100); SAMPLE BLOOD; SAO2 99.3 % (95.0-100.0); SRATE 12 BPM; THB 9.8 g/dL (11.5-17.4); TVOL 600 mL; pH(98.6) 7.39 (7.35-7.45)
[2017-02-08 04:21] LABS: MODALITY VENTILATOR; PCO2(98.6) 71 mmHg (35-45)
[2017-02-08 05:41] LABS: MANUAL DIFF NEEDED? NO
[2017-02-08] MEDS: ATIVAN IV PRN ×4 (05:45→23:55)
[2017-02-08 05:48] LABS: HEMATOCRIT 30.2 % (37.0-47.0); HEMOGLOBIN 9.3 g/dL (12.0-16.0); LYMPH% 11.7 % (20.5-51.1); MCH 29.8 PG (27-31); MCHC 30.8 g/dL (33-37); MCV 96.8 FL (81-99); MONO# 0.23 X1000 (0.11-0.59); MONO% 3.8 % (1.7-9.3); MPV 10.9 FL (7.4-10.4); NEUT% 84.5 % (42.2-75.2); PLT 162 X1000 (130-400); RBC 3.12 XMIL (4.2-5.4)
[2017-02-08] MEDS: SYNTHROID PO SCH (06:00)
--- NOTE | 2017-02-08 07:03 | Diag Imaging Result Doc PS360 ---
EXAM: CHEST-1 VIEW HISTORY: SOB TECHNIQUE: Erect AP portable at 0535 COMMENT: There is an endotracheal tube approximately 2 cm above the fracisco and an NG tube which passes into the distal stomach. There are patchy opacities throughout the left upper lobe and the entire right lung. This is not appreciably changed since 02/07/2017. Inspiration is slightly less optimal. IMPRESSION: Patchy pneumonia versus pulmonary edema. Electronically signed by Sunil Camacho 02/08/2017 7:01 AM
[2017-02-08] MEDS: CLINIMIX E 4.25%-5% SOLUTION 1,000 ML IV SCH ×2 (07:13→23:55)
[2017-02-08] MEDS: SODIUM CHLORIDE 0.9% INJ SCH (08:15)
[2017-02-08] MEDS: LOVENOX SUBQ SCH (08:15)
[2017-02-08] MEDS: PEPCID IV SCH ×2 (08:15→20:35)
[2017-02-08] MEDS ORDERED: LASIX IV ONE (09:15)
[2017-02-08] MEDS: HALDOL IV PRN (09:40)
[2017-02-08 10:16] LABS: ALLEN TEST YES; BE 14.8 mmoll (-3.0-3.0); BLOOD TYPE ARTERIAL; DRAW SITE R RADIAL; METHB 1.3 % (0.0-1.5); O2(CT) 11.8 mL/dL (15.0-23.0); PO2(98.6) 78 mmHg (60-100); SAMPLE BLOOD; SAO2 97.6 % (95.0-100.0); THB 8.8 g/dL (11.5-17.4); pH(98.6) 7.32 (7.35-7.45)
[2017-02-08 10:18] LABS: MODALITY VENTILATOR; PCO2(98.6) 84 mmHg (35-45)
--- NOTE | 2017-02-08 15:38 | PROGRESS NOTE ---
DATE: 02/08/2017 The patient is still dependent on the vent. We had a weaning trial this morning, and her pCO2 went up from 71 to 82, and she was placed back on the vent again. Her heart rate is around 120. Hemoglobin is 9.2, hematocrit is 30.2, white count is 5.93. Chest x-ray continues to show some patchy pneumonia. She had a low urine output this morning. She was given injection of Lasix 40 mg. We will see the results. Overall prognosis is poor. She believes in holistic medicine and does not want to take any medication for her cancer. We will continue the current management. cc: MD Torsten Hercules MD
[2017-02-08] MEDS: VANCOMYCIN 1,200 MG in NS 250 ML IV SCH (16:08)
[2017-02-09] MEDS: LEVAQUIN 500 MG/D5W 500 MG/100 ML IVPB IV SCH (02:20)
[2017-02-09] MEDS: MORPHINE IV PRN ×3 (02:20→19:25)
[2017-02-09] MEDS: SOLU-MEDROL IV SCH ×3 (02:20→17:25)
[2017-02-09] MEDS: DUONEB (A & A) INH SCH ×5 (03:25→19:11)
[2017-02-09] MEDS: VANCOMYCIN 1,200 MG in NS 250 ML IV SCH ×2 (03:42→14:01)
[2017-02-09] MEDS: ATIVAN IV PRN ×5 (03:42→23:35)
[2017-02-09] MEDS: NS 1,000 ML IV SCH ×2 (03:46→17:46)
[2017-02-09 04:53] LABS: ALLEN TEST YES; BE 16.6 mmoll (-3.0-3.0); BLOOD TYPE ARTERIAL; DRAW SITE R RADIAL; METHB 1.1 % (0.0-1.5); O2(CT) 13.5 mL/dL (15.0-23.0); PO2(98.6) 143 mmHg (60-100); SAMPLE BLOOD; SAO2 100.6 % (95.0-100.0); SRATE 12 BPM; THB 9.7 g/dL (11.5-17.4); TVOL 600 mL; pH(98.6) 7.46 (7.35-7.45)
[2017-02-09 04:55] LABS: MODALITY VENTILATOR; PCO2(98.6) 60 mmHg (35-45)
[2017-02-09] MEDS: SYNTHROID PO SCH (06:15)
[2017-02-09 06:19] LABS: MANUAL DIFF NEEDED? NO
[2017-02-09 06:34] LABS: EOS# 0.02 X1000 (0.0-0.7); EOS% 0.4 % (0.0-10.0); HEMATOCRIT 29.9 % (37.0-47.0); HEMOGLOBIN 9.3 g/dL (12.0-16.0); LYMPH% 14.7 % (20.5-51.1); MCH 29.8 PG (27-31); MCHC 31.1 g/dL (33-37); MCV 95.8 FL (81-99); MONO# 0.13 X1000 (0.11-0.59); MONO% 2.7 % (1.7-9.3); NEUT% 82.2 % (42.2-75.2); PLT 169 X1000 (130-400); RBC 3.12 XMIL (4.2-5.4)
--- NOTE | 2017-02-09 07:13 | Diag Imaging Result Doc PS360 ---
EXAM: CHEST-1 VIEW HISTORY: SOB TECHNIQUE: AP portable upright at 0450 COMMENT: Compared to the previous study of 02/08/2017 there is slightly more pleural fluid on the right. There continues to be patchy opacification of the right lung which is slightly worse particularly in the perihilar region and there is some question of increasing opacification in the central left lung. IMPRESSION: Worsening pulmonary edema and/or pneumonia with increasing right pleural effusion. Electronically signed by Sunil Camacho 02/09/2017 7:11 AM
[2017-02-09] MEDS: PEPCID IV SCH ×2 (08:56→20:33)
[2017-02-09] MEDS: LOVENOX SUBQ SCH (08:56)
--- NOTE | 2017-02-09 10:35 | EKG Report ---
Test Performed on : 02/07/2017 02:36:18 AM Test Reason : HR 175 Blood Pressure : / mmHG Vent. Rate : 116 BPM Atrial Rate : 116 BPM P-R Int : 130 ms QRS Dur : 080 ms QT Int : 292 ms P-R-T Axes : 071 076 056 degrees QTc Int : 405 ms Sinus tachycardia. Possible Left atrial enlargement Borderline ECG When compared with ECG of February 04, 2017- No significant change was found Confirmed by Arley Conley MD ([id number]) on 02/09/2017 9:26:08 PM
--- NOTE | 2017-02-09 11:26 | Diag Imaging Result Doc PS360 ---
EXAM: CT NECK W/O CONTRAST HISTORY: lymphadenopathy TECHNIQUE: CT of the neck without contrast with reduced radiation dose. COMMENT: There has been partial resection of the temporal bone on the right. There is a mucous retention cyst in the right sphenoid sinus. The nasopharynx is normal in appearance. There is an endotracheal tube and an OG tube. The endotracheal tube terminates slightly below the thoracic inlet just above the sternal notch. There is extensive adenopathy which is some matted along the right jugular chain from just below the parotid gland with a maximum AP and transverse dimension of 7.1 and 4.1 cm respectively. This deviates the pharynx slightly to the left. There is also extensive spinal accessory adenopathy bilaterally and left jugular adenopathy. There is matted adenopathy on the left side extending into the supraclavicular region with a makeda mass measuring at least 5 cm in transverse dimension and 2.5 cm in anterior posterior dimension. The thyroid gland is not enlarged. No prevertebral soft tissue swelling is demonstrated. IMPRESSION: Extensive adenopathy as described, particularly in the right jugular and submandibular regions. Electronically signed by Sunil Camahco 02/09/2017 11:24 AM
--- NOTE | 2017-02-09 11:34 | Diag Imaging Result Doc PS360 ---
EXAM: CT THORAX W/O CONTRAST HISTORY: adenopathy TECHNIQUE: CT of the chest without contrast with dose reduction (clarity.) COMMENT: There is some fibrosis in both apices. There is patchy air trapping and tree-in-bud opacities present in both upper lobes and lower lobes. There is some bronchiectasis particularly in the lower lobes and particularly on the right side. There is atelectasis or pneumonia present in the costophrenic sulci again mostly in the right lower lobe. There are bilateral pleural effusions more so on the right than the left. There is also apparent ascites. The NG tube passes into the stomach. There is massive supraclavicular adenopathy bilaterally. This is apparently worse than on 06/02/2016. There is bilateral axillary adenopathy which was also present at the time the previous study. One of the larger nodes in the right axilla seen on image 34 is actually slightly smaller than on the previous study measuring 1.9 cm versus 2.1 cm previously. Right paratracheal adenopathy is also apparently slightly improved having measured at least 2.4 cm in transverse dimension at the time the previous study versus 1.5 cm now. The adenopathy in the mediastinum is somewhat matted in appearance with very little fat to finding the individual nodes. Subcarinal adenopathy has apparently improved as well since the previous examination. Pleural effusions and atelectasis present today are worse than on the previous exam. Previously there was no pleural fluid at all on the left side. The spleen is less enlarged than it was previously now measuring 12.3 cm transversely compared to over 13.8 cm previously. The visualized portion of the abdomen demonstrates massive retroperitoneal and mesenteric adenopathy which were probably also present previously. Peribronchial thickening in the right lower lobe is worse than it was. The tree-in-bud opacities present in the lingula and left lower lobe were apparently worse previously. IMPRESSION: Improved lymphadenopathy in the chest and diminished splenomegaly since 06/02/2016. Worsened pneumonitis and atelectasis in the right base. Enlarged pleural effusions. Electronically signed by Sunil Camacho 02/09/2017 11:32 AM
--- NOTE | 2017-02-09 11:44 | PROGRESS NOTE ---
DATE: 02/09/2017 SUBJECTIVE: Interval history was reviewed. The patient remains on the vent. Dr. James was ribbon lap machine tender. The patient was attempted CPAP trial; however, chest x-ray showed right upper lobe infiltrate. Dr. James ordered IgG levels, CT of the neck and CT of thorax. The patient is awake. REVIEW OF SYSTEMS: None reported. OBJECTIVE: Vital signs: On examination, she is a tachycardic. Temp is 98 degrees, blood pressure is 106/71. Weight 112 pounds. Inputs and outputs are even. HEENT: Right-sided fungating lymph node mass noted. Chest: Bilateral air entry. Heart: Sounds are tachycardic. abdomen: Belly is soft, protuberant, emaciated. Extremities: No edema noted. INVESTIGATIONS: CBC: White cell count 4.7, hematocrit 29, platelets 169,000. ABG: PH is 7.46, pCO2 60. PO2 143, on the ventilator support. SMA-7 was not done. ASSESSMENT AND PLAN: 1. Acute respiratory failure, with right upper lobe pneumonia. Continue on IV steroids, IV Levaquin, IV vancomycin. 2. Deep vein thrombosis prophylaxis with Lovenox. 3. Gastrointestinal prophylaxis with IV Protonix. 4. Hypothyroidism, on Synthroid. 5. Nutrition through the IV, partial parenteral nutrition. 6. Right upper lobe pneumonia. If no better, add IV Bactrim. 7. IgG deficiency. Check the levels in the morning. 8. Living Will is full code. 9. Fungating lymph nodes on the right side. Follow up on CT of the neck and thorax. Prognosis is poor. We will attempt to reach the son about condition. LEVEL OF DOCUMENTATION: 35 minutes. cc: Torsten Black MD
[2017-02-09] MEDS: CLINIMIX E 4.25%-5% SOLUTION 1,000 ML IV SCH (17:26)
[2017-02-10] MEDS: SOLU-MEDROL IV SCH ×3 (02:09→17:33)
[2017-02-10] MEDS: LEVAQUIN 500 MG/D5W 500 MG/100 ML IVPB IV SCH (02:09)
[2017-02-10] MEDS: MORPHINE IV PRN ×3 (02:16→14:54)
[2017-02-10] MEDS: ATIVAN IV PRN ×5 (03:06→23:29)
[2017-02-10] MEDS: DUONEB (A & A) INH SCH ×4 (03:36→21:10)
[2017-02-10] MEDS: VANCOMYCIN 1,200 MG in NS 250 ML IV SCH ×2 (03:39→14:03)
[2017-02-10 04:42] LABS: ALLEN TEST YES; BE 16.5 mmoll (-3.0-3.0); BLOOD TYPE ARTERIAL; DRAW SITE R RADIAL; METHB 1.7 % (0.0-1.5); O2(CT) 13.7 mL/dL (15.0-23.0); PO2(98.6) 160 mmHg (60-100); SAMPLE BLOOD; SAO2 99.1 % (95.0-100.0); SRATE 12 BPM; THB 9.9 g/dL (11.5-17.4); TVOL 600 mL; pH(98.6) 7.46 (7.35-7.45)
[2017-02-10 04:43] LABS: MODALITY VENTILATOR; PCO2(98.6) 60 mmHg (35-45)
[2017-02-10 04:47] LABS: HEMATOCRIT 29.6 % (37.0-47.0); HEMOGLOBIN 9.3 g/dL (12.0-16.0); LYMPH# 0.86 X1000 (1.2-3.4); LYMPH% 12.1 % (20.5-51.1); MANUAL DIFF NEEDED? YES; MCH 30.2 PG (27-31); MCHC 31.4 g/dL (33-37); MCV 96.1 FL (81-99); MONO# 0.19 X1000 (0.11-0.59); MONO% 2.7 % (1.7-9.3); MPV 10.4 FL (7.4-10.4); NEUT% 85.2 % (42.2-75.2); PLT 198 X1000 (130-400); RBC 3.08 XMIL (4.2-5.4)
[2017-02-10 05:07] LABS: BANDS 2 % (0-1); LYMPHS 20 % (21-51); MONO 1 % (1-9)
[2017-02-10] MEDS: SYNTHROID PO SCH (06:07)
--- NOTE | 2017-02-10 07:13 | Diag Imaging Result Doc PS360 ---
EXAM: CHEST-1 VIEW HISTORY: SOB TECHNIQUE: AP portable at 0435 upright COMMENT: There is an endotracheal tube with its tip of the thoracic inlet and an NG tube which passes below the diaphragm. There is a right pleural effusion. There is alveolar opacity in the right lower lobe which was also present at the time the previous study of 02/09/2017. IMPRESSION: Right pleural effusion and lower lobe pneumonia. Electronically signed by Sunil Camacho 02/10/2017 7:10 AM
[2017-02-10] MEDS: NS 1,000 ML IV SCH (07:41)
[2017-02-10] MEDS: CLINIMIX E 4.25%-5% SOLUTION 1,000 ML IV SCH (07:41)
[2017-02-10] MEDS: LOVENOX SUBQ SCH (08:08)
[2017-02-10] MEDS: PEPCID IV SCH ×2 (09:39→20:18)
[2017-02-10] MEDS: SODIUM CHLORIDE 0.9% INJ SCH ×2 (09:39→20:18)
[2017-02-10 10:29] LABS: BLOOD TYPE ARTERIAL; SAMPLE BLOOD
[2017-02-10 10:32] LABS: ALLEN TEST YES; BE 11.9 mmoll (-3.0-3.0); DRAW SITE R RADIAL; METHB 1.2 % (0.0-1.5); O2(CT) 14.8 mL/dL (15.0-23.0); PO2(98.6) 88 mmHg (60-100); SAO2 98.3 % (95.0-100.0); pH(98.6) 7.32 (7.35-7.45)
[2017-02-10 10:38] LABS: MODALITY VENTILATOR; PCO2(98.6) 79 mmHg (35-45)
--- NOTE | 2017-02-10 18:02 | PROGRESS NOTE ---
DATE: 02/10/2017 SUBJECTIVE: The patient remains in a ventilator support. The patient was started on PPN. The patient is extremely feeble. Had a CT of the neck and a CT of the chest done. IgG levels are pending. Unable to tolerate CPAP trial. Chest x-ray showed right upper lobe infiltrate. REVIEW OF SYSTEMS: None reported. PHYSICAL EXAMINATION: Vital signs: She is afebrile. Tachycardic. Hemodynamics were stable. HEENT: Emaciated, intubated. Orogastric tube present. neck: Significant lymphadenopathy in the right neck. Chest: Bilateral air entry. Heart: Sounds are tachycardic. abdomen: Belly is soft, protuberant. INVESTIGATIONS: CBC: White cell count 7, hematocrit 29, platelets 198,000. ABG: PH is 7.32, pCO2 is 79, PO2 is 88 on ventilator support 40%. Chest x-ray: Right lower lobe pneumonia. CT of the chest: Extensive lymphadenopathy in the right neck. CT thorax: Adenopathy is better. Slight splenomegaly. Worsening of the pneumonia and atelectasis. ASSESSMENT AND PLAN: 1. Acute respiratory failure with right-sided lung pneumonia, not improving. Consult with Dr. Cummins. 2. Protein calorie malnutrition. IV partial parenteral nutrition. 3. Enteral feeding with Jevity. 4. IgG deficiency. Follow up on IgG levels. Discussed with Dr. Cummins. Poor prognosis. LEVEL OF DOCUMENTATION: 25 minutes. cc: Torsten Black MD
--- NOTE | 2017-02-10 18:49 | CONSULTATION ---
DATE OF CONSULTATION: 02/10/2017 CONCLUSION: The patient has a known lymphoma and chronic obstructive pulmonary disease. She was admitted to the hospital with respiratory failure. It was also found that her lymph nodes in the neck have penetrated the skin and caused among other things, a cellulitis of the neck. The patient's chest x-ray shows that she has a right lower lobe pneumonia with a pleural effusion. RECOMMENDATIONS: I agree with treating the patient with vancomycin. I have substituted cefepime for Levaquin pending culture results. I took a culture of the lymph node which herniated through the skin. The patient is intubated and sedated, and no family was present, therefore I was unable to obtain a history. The history I did obtain was from the information in the computer. PAST MEDICAL HISTORY: Positive for COPD, lymphoma, hypothyroidism. PAST SURGICAL HISTORY: Positive for cholecystectomy. ALLERGIES: The patient has allergies to erythromycin and Augmentin. HOME MEDICATIONS: Include Bactrim, MiraLAX, vitamins, Medrol Dosepak, Synthroid , Mucinex and albuterol. SOCIAL HISTORY: The patient does not smoke cigarettes, drink alcoholic beverages or use illicit drugs. FAMILY HISTORY: Negative for coronary artery disease. REVIEW OF SYSTEMS: Unable to obtain. PHYSICAL EXAMINATION: General: This is an ill-appearing middle-aged female who is intubated and sedated. Head eyes, ears, nose, and throat: Oral tracheal tube is in place. No drainage noted from the nose or ears. Neck: On the right side there is a lymph node that is penetrated through the skin. The skin is erythematous. Anterior to that there was a prominent lymph node, but not as big as the 1 behind it and it did not penetrate the skin. Lungs: There were scattered rhonchi bilaterally. Cardiovascular: Heart rate is regular. Abdomen: Protuberant with ascites. Neurologic: Patient is obtunded. She did not respond to verbal stimuli. There was no tremor. Integument: No rash noted. Thank you for the consult. cc: MD Torsten Cruz MD MTDD
[2017-02-10] MEDS: MAXIPIME 1 GM in NS 50 ML IV SCH (20:17)
[2017-02-11] MEDS: NS 1,000 ML IV SCH ×3 (00:19→13:37)
[2017-02-11] MEDS: CLINIMIX E 4.25%-5% SOLUTION 1,000 ML IV SCH ×2 (00:20→16:56)
[2017-02-11] MEDS: MORPHINE IV PRN ×2 (00:20→06:33)
[2017-02-11] MEDS: VANCOMYCIN 1,200 MG in NS 250 ML IV SCH ×2 (02:43→16:03)
[2017-02-11] MEDS: SOLU-MEDROL IV SCH ×3 (02:43→18:12)
[2017-02-11] MEDS: DUONEB (A & A) INH SCH ×4 (03:18→19:22)
[2017-02-11] MEDS: ATIVAN IV PRN ×2 (04:29→08:35)
[2017-02-11 05:17] LABS: ALLEN TEST YES; BE 9.8 mmoll (-3.0-3.0); BLOOD TYPE ARTERIAL; DRAW SITE R RADIAL; O2(CT) 22.7 mL/dL (15.0-23.0); PO2(98.6) 136 mmHg (60-100); SAMPLE BLOOD; SAO2 99.2 % (95.0-100.0); SRATE 12 BPM; THB 16.6 g/dL (11.5-17.4); TVOL 600 mL; pH(98.6) 7.35 (7.35-7.45)
[2017-02-11 05:18] LABS: MODALITY VENTILATOR; PCO2(98.6) 71 mmHg (35-45)
[2017-02-11] MEDS: MAXIPIME 1 GM in NS 50 ML IV SCH ×2 (05:43→18:12)
[2017-02-11 06:31] LABS: EOS# 0.06 X1000 (0.0-0.7); EOS% 1.1 % (0.0-10.0); HEMATOCRIT 30.8 % (37.0-47.0); HEMOGLOBIN 9.5 g/dL (12.0-16.0); LYMPH# 0.77 X1000 (1.2-3.4); LYMPH% 13.8 % (20.5-51.1); MANUAL DIFF NEEDED? YES; MCH 29.6 PG (27-31); MCHC 30.8 g/dL (33-37); MONO# 0.18 X1000 (0.11-0.59); MONO% 3.2 % (1.7-9.3); MPV 11.4 FL (7.4-10.4); NEUT% 81.9 % (42.2-75.2); PLT 205 X1000 (130-400); RBC 3.21 XMIL (4.2-5.4)
[2017-02-11] MEDS: SYNTHROID PO SCH (06:33)
[2017-02-11 06:50] LABS: LYMPHS 8 % (21-51); MONO 3 % (1-9)
--- NOTE | 2017-02-11 07:28 | Diag Imaging Result Doc PS360 ---
EXAM: CHEST-1 VIEW HISTORY: SOB TECHNIQUE: Erect AP portable at 0455 COMMENT: There is a right pleural effusion. Compared to 02/10/2017 there has been some improvement in expansion of both lungs. There continues to be some patchy opacity on the right side particularly in the lower lobe. IMPRESSION: Right pleural effusion and basilar atelectasis versus pneumonia. Electronically signed by Sunil Camacho 02/11/2017 7:26 AM
[2017-02-11] MEDS: LOVENOX SUBQ SCH (08:35)
[2017-02-11] MEDS: PEPCID IV SCH ×2 (08:36→20:36)
[2017-02-11] MEDS: SODIUM CHLORIDE 0.9% INJ SCH ×2 (08:36→20:36)
--- NOTE | 2017-02-11 08:56 | PROGRESS NOTE ---
DATE: 02/11/2017 SUBJECTIVE: The patient is seen by Dr. Cummins. Appreciated his input. Also discussed with Dr. Davies this morning. She is still on CPAP, more awake. REVIEW OF SYSTEMS: None reported. PHYSICAL EXAMINATION: Vital Signs: Afebrile. Vitals are stable. General Appearance: 118 pounds. HEENT: Slightly pale. right neck necrotic lymph nodes. Culture was done. Chest: Bilateral air entry. Heart: Sounds are regular. Abdomen: Belly is soft, protuberant. Extremities: No peripheral edema. INVESTIGATIONS: CBC, white cell count 5.6, hematocrit 30 platelets 205,000. ABG pH is 7.35, pCO2 71, pO2 136, on ventilator support. FiO2 40%. IgG 400. Cultures are pending. ASSESSMENT AND PLAN: 1. Acute respiratory failure with pneumonia, slowly better and slowly weaned off from the vent. 2. ID. Appreciated Dr. Cummins currently doing cefepime and vancomycin. 3. Chronic obstructive pulmonary disease on IV steroids. 4. Deep venous thrombosis. GI prophylaxis with Lovenox and Protonix. 5. Enteral feeding with Ensure and TPN. 6. IgG is low. Consult Dr. Mack Davies. LEVEL OF DOCUMENTATION: Was 25 minutes. cc: Torsten Black MD [facility]
[2017-02-11 10:27] LABS: BE 13.8 mmoll (-3.0-3.0); BLOOD TYPE ARTERIAL; METHB 0.9 % (0.0-1.5); O2(CT) 14.7 mL/dL (15.0-23.0); PO2(98.6) 88 mmHg (60-100); SAMPLE BLOOD; SAO2 98.6 % (95.0-100.0); THB 10.8 g/dL (11.5-17.4); pH(98.6) 7.33 (7.35-7.45)
[2017-02-11 10:29] LABS: ALLEN TEST YES; DRAW SITE R RADIAL; MODALITY VENTILATOR; PCO2(98.6) 81 mmHg (35-45)
[2017-02-11] MEDS: HALDOL IV PRN (13:37)
[2017-02-11] MEDS: DIPRIVAN 1% 1,000 MG/100 ML BOTTLE IV SCH (16:22)
[2017-02-11] MEDS ORDERED: FLEBOGAMMA DIF 5% IV ONE (20:00)
[2017-02-11] MEDS ORDERED: FLEBOGAMMA DIF 5% 20 GM in DILUENT 400 ML IV ONE (20:00)
--- NOTE | 2017-02-12 00:23 | PROGRESS NOTE ---
DATE: 02/11/2017 PRESENT ILLNESS: The patient is admitted to the hospital with respiratory failure. She appears to have pneumonia. In addition, because of her lymphoma, she has marked enlargement of her lymph nodes, especially in the neck, where one on the right side of the neck has perforated through the skin. MEDICATIONS: Patient currently is receiving a combination of vancomycin and cefepime. PHYSICAL EXAMINATION: Vital Signs: Temperature is 98 degrees, pulse 117, respirations 21, blood pressure 103/59. General: This is a chronically ill and malnourished-appearing middle-aged female. She is intubated and sedated. Neck: Patient has large lymph nodes on the right side, the largest one has eroded through the skin. Lungs: There were bilateral rhonchi. Cardiovascular: Regular heart rate. Abdomen: The abdomen is protuberant, most likely because of ascites. Neurologic: The patient, as mentioned above, is intubated and sedated. She did not respond to verbal stimuli. LABS AND X-RAYS: The patient's chest x-ray shows a right pleural effusion and basilar atelectasis and/or pneumonia. The patient's IgG level was only 405. Blood gases showed a pH of 7.33, a PO2 of 88, pCO2 of 81. A sputum culture is growing normal kristina. CBC shows a white count of 5600, hemoglobin 9.5, and platelet count 205,000. Early culture from the neck shows no growth. One culture that I took last night is pending. Blood cultures are negative. ASSESSMENT AND PLAN: The patient has lymphoma. It has eroded through her neck on the right side. She also has pneumonia. Also, we found that her IgG level was low at 405. My plan is to continue with the current antibiotics, and give the patient an infusion of gammaglobulin tonight. Tomorrow morning, I have ordered a BMP. COMORBIDITIES: She has COPD, lymphoma, and an immunoglobulin G deficiency. cc: MD Torsten Cruz MD
[2017-02-12] MEDS: NS 1,000 ML IV SCH ×2 (00:27→10:40)
[2017-02-12] MEDS: SOLU-MEDROL IV SCH ×3 (02:22→17:01)
[2017-02-12] MEDS: DIPRIVAN 1% 1,000 MG/100 ML BOTTLE IV SCH ×4 (02:22→21:22)
[2017-02-12] MEDS: DUONEB (A & A) INH SCH ×4 (03:19→20:08)
[2017-02-12] MEDS: VANCOMYCIN 1,200 MG in NS 250 ML IV SCH ×2 (04:06→14:52)
[2017-02-12 04:17] LABS: ALLEN TEST YES; BE 16.6 mmoll (-3.0-3.0); BLOOD TYPE ARTERIAL; DRAW SITE R RADIAL; METHB 1.3 % (0.0-1.5); O2(CT) 9.1 mL/dL (15.0-23.0); PO2(98.6) 113 mmHg (60-100); SAMPLE BLOOD; SAO2 99.5 % (95.0-100.0); SRATE 12 BPM; THB 6.5 g/dL (11.5-17.4); TVOL 600 mL; pH(98.6) 7.46 (7.35-7.45)
[2017-02-12 04:18] LABS: MODALITY VENTILATOR; PCO2(98.6) 59 mmHg (35-45)
[2017-02-12 04:56] LABS: MANUAL DIFF NEEDED? NO
[2017-02-12 05:00] LABS: HEMATOCRIT 29.6 % (37.0-47.0); HEMOGLOBIN 9.3 g/dL (12.0-16.0); LYMPH# 1.01 X1000 (1.2-3.4); LYMPH% 18.9 % (20.5-51.1); MCH 30.1 PG (27-31); MCHC 31.4 g/dL (33-37); MCV 95.8 FL (81-99); MONO# 0.25 X1000 (0.11-0.59); MONO% 4.7 % (1.7-9.3); MPV 10.8 FL (7.4-10.4); NEUT% 76.4 % (42.2-75.2); PLT 202 X1000 (130-400); RBC 3.09 XMIL (4.2-5.4)
[2017-02-12 05:40] LABS: AGAP 5; BUN 28 mg/dL (8-22); CALCIUM 8.3 mg/dL (8.8-10.2); CHLORIDE 101 mmol/L (98-107); COSMO 292; POTASSIUM 4.3 mmol/L (3.5-5.1); SODIUM 142 mmol/L (136-145); TCO2 36 mmol/L (25-35)
[2017-02-12] MEDS: MAXIPIME 1 GM in NS 50 ML IV SCH ×2 (06:29→17:01)
[2017-02-12] MEDS: SYNTHROID PO SCH (06:29)
--- NOTE | 2017-02-12 07:24 | Diag Imaging Result Doc PS360 ---
CHEST-1 VIEW - 02/12/2017 INDICATION: SOB TECHNIQUE: COMPARISON: 02/11/2017 FINDINGS: Support tubes are stable. Stable small right pleural effusion. Stable hazy infiltrate at the right lung base, and to a lesser extent at the left lung base. Heart size is normal. Pulmonary vascularity is top normal. IMPRESSION: No change from prior. Electronically signed by Jayden Potter 02/12/2017 7:21 AM
[2017-02-12] MEDS: PEPCID IV SCH ×2 (08:37→21:28)
[2017-02-12] MEDS: LOVENOX SUBQ SCH (08:37)
[2017-02-12 09:36] LABS: BLOOD TYPE ARTERIAL; SAMPLE BLOOD
[2017-02-12 09:45] LABS: ALLEN TEST YES; BE 11.3 mmoll (-3.0-3.0); DRAW SITE R RADIAL; METHB 1.3 % (0.0-1.5); O2(CT) 16.4 mL/dL (15.0-23.0); PO2(98.6) 97 mmHg (60-100); SAO2 98.7 % (95.0-100.0); THB 12.1 g/dL (11.5-17.4); pH(98.6) 7.34 (7.35-7.45)
[2017-02-12 09:47] LABS: MODALITY VENTILATOR; PCO2(98.6) 74 mmHg (35-45)
[2017-02-12] MEDS: CLINIMIX E 4.25%-5% SOLUTION 1,000 ML IV SCH (10:39)
[2017-02-12] MEDS ORDERED: NS 1,000 ML IV SCH (18:13)
[2017-02-12] MEDS ORDERED: FLEET ENEMA PR PRN (18:18)
--- NOTE | 2017-02-12 18:47 | PROGRESS NOTE ---
DATE: 02/12/2017 SUBJECTIVE: The patient is awake, unable to wean off from the vent, extremely feeble. Abdomen is distended, constipated. Tolerating the tube feeding intermittently well. REVIEW OF SYSTEMS: None reported. OBJECTIVE: Vital Signs: She is tachycardic, afebrile. Vitals are stable. Input and output are positive 130 mL. HEENT: Within normal limits. Right- sided necrotic material from the lymph nodes seen. Wound has a Band-Aid. Chest: Bilateral air entry. Heart: Heart sounds are regular. Abdomen: Belly is soft, protuberant. Extremities: No edema. INVESTIGATIONS: CBC: White cell count 5.3, hematocrit 29, platelet count 202: ABG: pH is 7.34, pCO2 74, PO2 97 on ventilator support. SMA 7 is normal. INVESTIGATIONS: Gram-positive cocci. Chest x-ray: Infiltrate in the right lung base. ASSESSMENT AND PLAN: 1. Acute respiratory failure. Continue weaning as per Dr. cates.. 2. Chronic lymphocytic leukemia. Refusing chemo treatment. 3. IgG deficiency. IV immunoglobulin today. 4. Right lower lobe pneumonia. Continue on vancomycin and cefepime. 5. Hypothyroidism on Synthroid. 6. Constipation. We will use Dulcolax versus Fleet enema. 7. DVT and GI prophylaxis. Add Lovenox and Pepcid. 8. Prognosis is poor. 9. Nutrition: Enteral feeding. Also we will change to Clinimix 60 mL/h and decrease IV fluids. LEVEL OF DOCUMENTATION: 25 minutes. cc: Torsten Black MD [facility]
[2017-02-12] MEDS: SODIUM CHLORIDE 0.9% INJ SCH (21:28)
[2017-02-12] MEDS: DULCOLAX PR SCH (21:29)
[2017-02-13] MEDS: SOLU-MEDROL IV SCH ×3 (01:52→17:14)
[2017-02-13] MEDS: DIPRIVAN 1% 1,000 MG/100 ML BOTTLE IV SCH ×5 (02:34→23:56)
[2017-02-13] MEDS: VANCOMYCIN 1,200 MG in NS 250 ML IV SCH ×2 (02:36→15:29)
[2017-02-13] MEDS: CLINIMIX E 4.25%-5% SOLUTION 1,000 ML IV SCH (02:54)
[2017-02-13] MEDS: DUONEB (A & A) INH SCH ×4 (03:17→18:59)
[2017-02-13 04:54] LABS: ALLEN TEST YES; BE 18.2 mmoll (-3.0-3.0); BLOOD TYPE ARTERIAL; DRAW SITE R RADIAL; METHB 1.7 % (0.0-1.5); O2(CT) 12.5 mL/dL (15.0-23.0); PCO2(98.6) 46 mmHg (35-45); PO2(98.6) 145 mmHg (60-100); SAMPLE BLOOD; SAO2 99.2 % (95.0-100.0); SRATE 12 BPM; TVOL 600 mL
[2017-02-13 04:56] LABS: MODALITY VENTILATOR; pH(98.6) 7.57 (7.35-7.45)
[2017-02-13 05:06] LABS: MANUAL DIFF NEEDED? NO
[2017-02-13 05:28] LABS: EOS# 0.04 X1000 (0.0-0.7); EOS% 0.6 % (0.0-10.0); HEMATOCRIT 29.7 % (37.0-47.0); HEMOGLOBIN 9.2 g/dL (12.0-16.0); IMM GRAN# 0.02 X1000 (0.0-0.04); IMM GRAN% 0.3 % (0.0-0.5); LYMPH# 1.24 X1000 (1.2-3.4); LYMPH% 17.6 % (20.5-51.1); MCH 29.9 PG (27-31); MCV 96.4 FL (81-99); MONO% 4.3 % (1.7-9.3); NEUT% 77.2 % (42.2-75.2); PLT 127 X1000 (130-400); RBC 3.08 XMIL (4.2-5.4)
[2017-02-13] MEDS: MAXIPIME 1 GM in NS 50 ML IV SCH ×2 (05:56→17:41)
[2017-02-13] MEDS: SYNTHROID PO SCH (06:15)
--- NOTE | 2017-02-13 07:39 | Diag Imaging Result Doc PS360 ---
EXAM: CHEST-1 VIEW - 02/13/2017 HISTORY: SOB TECHNIQUE: Portable chest 0500 COMPARISON: 02/12/2017 FINDINGS: Ill-defined infiltrate and pleural fluid on the right appear grossly stable. There is mild prominence of infrahilar markings on the left similar to the previous exam. There is no pneumothorax identified. Heart size appears within normal limits. Endotracheal tube and nasogastric tube remain in place. IMPRESSION: Stable exam compared to prior. Electronically signed by Casey Weller 02/13/2017 7:37 AM
[2017-02-13] MEDS: PEPCID IV SCH ×2 (09:47→20:50)
[2017-02-13] MEDS: LOVENOX SUBQ SCH (09:47)
[2017-02-13] MEDS: HALDOL IV PRN (09:48)
[2017-02-13 10:25] LABS: ALLEN TEST YES; BE 14.6 mmoll (-3.0-3.0); BLOOD TYPE ARTERIAL; DRAW SITE R RADIAL; METHB 1.6 % (0.0-1.5); O2(CT) 14.3 mL/dL (15.0-23.0); PO2(98.6) 87 mmHg (60-100); SAMPLE BLOOD; SAO2 98.8 % (95.0-100.0); THB 10.6 g/dL (11.5-17.4); pH(98.6) 7.42 (7.35-7.45)
[2017-02-13 10:27] LABS: MODALITY VENTILATOR; PCO2(98.6) 64 mmHg (35-45)
[2017-02-13] MEDS: LASIX IV SCH ×3 (12:17→23:50)
[2017-02-13] MEDS: ALBUMIN 25% IV SCH ×3 (12:17→23:50)
[2017-02-13] MEDS: MIRALAX NG SCH (12:27)
--- NOTE | 2017-02-13 17:55 | PROGRESS NOTE ---
DATE: 02/13/2017 SUBJECT: The patient remains on the vent trying the CPAP trial by Dr. Nair and she is constipated. REVIEW OF SYSTEMS: None reported. PHYSICAL EXAMINATION: Vital Signs: Temperature is 98 degrees, tachycardic, blood pressure is 102/59. I's and O's are negative -500 mL. HEENT: Pale, intubated, orogastric tube present. Chest: Bilateral air entry. Heart: Sounds are regular. Belly: Soft, protuberant. Extremities: No peripheral edema. Neuro: No obvious neurological deficits. INVESTIGATIONS: CBC, white cell count 7, hematocrit 29.7, platelet 127,000. ABG pH is 7.42, pCO2 64, PO2 87 on CPAP trial. SMA 7. Sodium 142, potassium 4.3, BUN 28, creatinine 0.3. Chest x-ray stable. ASSESSMENT AND PLAN: 1. Acute respiratory failure on ventilator support. Continue to wean off as per the platen grinder. 2. Right lower lobe pneumonia currently on IV cefepime and vancomycin. 3. Staph epidermidis from the right neck culture. 4. Hypothyroidism on Synthroid. 5. Constipation. Laxatives as directed. 6. Continue DVT, GI prophylaxis. 7. Appreciated consults with Dr. James and Dr. Lebron Cummins. LEVEL OF DOCUMENTATION: 25 minutes. cc: Torsten Black MD
--- NOTE | 2017-02-13 20:10 | PROGRESS NOTE ---
DATE: 02/13/2017 PRESENT ILLNESS: The patient has respiratory failure. She has a right-sided pneumonia. She has marked lymphadenopathy secondary to her lymphoma. One of the nodes on the right side has perforated through the skin. MEDICATIONS: The patient is on vancomycin and cefepime. This is day 3 of treatment with both of those antibiotics. PHYSICAL EXAMINATION: Vital Signs: Temperature is 98.2 degrees, pulse 117, respirations 25, blood pressure 102/59. General: This is an ill-appearing middle-aged female. She is intubated and sedated. Neck: There are lymph nodes as mentioned above. Lungs: Clear to auscultation. Cardiovascular: Regular heart rate. Abdomen: Seemed to be protuberant with ascites. Neurologic: Patient is sedated. ASSESSMENT AND PLAN: The patient has lymphoma with adenopathy. She has infection where the node perforated through the skin. Patient also has pneumonia. She has secondary to her chronic lymphocytic leukemia a low IgG level. The patient received a dose of immunoglobulin last night. COMORBIDITIES: Include COPD, lymphoma and low IgG level. I plan to repeat the patient's immunoglobulin levels tomorrow. cc: MD Torsten Cruz MD
[2017-02-13] MEDS: DULCOLAX PR SCH (20:50)
[2017-02-14] MEDS: VANCOMYCIN 1,200 MG in NS 250 ML IV SCH (02:23)
[2017-02-14] MEDS: SOLU-MEDROL IV SCH ×3 (02:23→17:38)
[2017-02-14] MEDS: DUONEB (A & A) INH SCH ×4 (03:02→21:05)
[2017-02-14 04:14] LABS: ALLEN TEST YES; BE 28.1 mmoll (-3.0-3.0); BLOOD TYPE ARTERIAL; DRAW SITE R RADIAL; O2(CT) 13.1 mL/dL (15.0-23.0); PO2(98.6) 141 mmHg (60-100); SAMPLE BLOOD; SAO2 99.5 % (95.0-100.0); SRATE 12 BPM; THB 9.4 g/dL (11.5-17.4); TVOL 500 mL
[2017-02-14 04:19] LABS: MODALITY VENTILATOR; PCO2(98.6) 57 mmHg (35-45); pH(98.6) 7.58 (7.35-7.45)
[2017-02-14 04:48] LABS: MANUAL DIFF NEEDED? NO
[2017-02-14] MEDS: DIPRIVAN 1% 1,000 MG/100 ML BOTTLE IV SCH ×5 (04:48→22:19)
[2017-02-14] MEDS: CLINIMIX E 4.25%-5% SOLUTION 1,000 ML IV SCH ×2 (04:48→13:16)
[2017-02-14 05:01] LABS: HEMATOCRIT 29.8 % (37.0-47.0); HEMOGLOBIN 9.1 g/dL (12.0-16.0); IMM GRAN# 0.02 X1000 (0.0-0.04); IMM GRAN% 0.2 % (0.0-0.5); LYMPH# 1.53 X1000 (1.2-3.4); LYMPH% 19.1 % (20.5-51.1); MCH 29.8 PG (27-31); MCHC 30.5 g/dL (33-37); MCV 97.7 FL (81-99); MONO# 0.43 X1000 (0.11-0.59); MONO% 5.4 % (1.7-9.3); NEUT% 75.3 % (42.2-75.2); PLT 183 X1000 (130-400); RBC 3.05 XMIL (4.2-5.4)
[2017-02-14 05:56] LABS: AGAP 4; ALBUMIN 3.8 g/dL (3.5-5.0); ALKALINE PHOSPHATASE 51 U/L (32-104); BUN 35 mg/dL (8-22); CALCIUM 9.5 mg/dL (8.8-10.2); CHLORIDE 96 mmol/L (98-107); COSMO 304; GOT 10 U/L (10-30); GPT 7 U/L (10-36); MAGNESIUM 2.3 mg/dL (1.5-2.7); POTASSIUM 3.9 mmol/L (3.5-5.1); SODIUM 148 mmol/L (136-145); TOTAL PROTEIN 6.3 g/dL (6.3-8.3)
[2017-02-14 05:57] LABS: TCO2 48 mmol/L (25-35)
[2017-02-14] MEDS: MAXIPIME 1 GM in NS 50 ML IV SCH ×2 (06:07→17:39)
[2017-02-14] MEDS: LASIX IV SCH ×3 (06:07→23:26)
[2017-02-14] MEDS: SYNTHROID PO SCH (06:07)
--- NOTE | 2017-02-14 09:08 | Diag Imaging Result Doc PS360 ---
CHEST-1 VIEW - 02/14/2017 INDICATION: SOB TECHNIQUE: COMPARISON: 02/13/2017 FINDINGS: Support tubes are stable. Stable small right basilar pleural effusion. There is improvement in the indistinct hazy central infiltrates bilaterally, nonspecific but the appearance suggests edema. Heart size remains normal. IMPRESSION: Improvement in the hazy central infiltrates/pulmonary edema. Electronically signed by Jayden Potter 02/14/2017 9:05 AM
[2017-02-14] MEDS: LOVENOX SUBQ SCH (09:18)
[2017-02-14] MEDS: MIRALAX NG SCH (09:18)
[2017-02-14] MEDS: PEPCID IV SCH ×2 (09:18→21:37)
[2017-02-14] MEDS: D5W 1,000 ML IV SCH (10:50)
[2017-02-14] MEDS: ALBUMIN 25% IV SCH ×2 (10:53→21:38)
--- NOTE | 2017-02-14 11:45 | PROGRESS NOTE ---
DATE: 02/14/2017 SUBJECTIVE: Patient is still under sedation. Apparently, she was given IV albumin, followed by dialysis yesterday. She is not extremely edematous. As a result, she has excellent diuresis. About -5.5 L negative. REVIEW OF SYSTEMS: None reported. No bowel movements received. PHYSICAL EXAMINATION: Vital Signs: He is afebrile, tachycardic. Blood pressure is low. On mechanical ventilation. Orogastric tube was placed. Chest: Clear. Heart: Sounds are regular. Abdomen: Belly is soft, protuberant. No peripheral edema, cyanosis. No obvious neurological deficits. INVESTIGATIONS: CBC: White cell count 8, hematocrit 29.8, platelet 183. ABG: pH is 7.58, pCO2 of 57, pO2 of 141. SMA-7: Sodium 148, potassium 3.9. BUN 35, creatinine 0.4, glucose 126. Chest x-ray: Improvement of the infiltrates and pulmonary edema. ASSESSMENT AND PLAN: 1. Acute respiratory failure improving, wean off as per Dr. James. 2. Slight azotemia due to excellent diuresis. Currently on normal saline PPN. 3. Enteral feeding. Three cans of Jevity. 4. Constipation, continue on laxatives. 5. Chronic lymphocytic leukemia, IgG deficiency. Status post transfusion. 6. Right upper lobe pneumonia. Currently on cefepime and vancomycin. 7. Deep venous thrombosis and gastrointestinal prophylaxis as per order sheet. CODE STATUS: Living Will, full code. LEVEL OF DOCUMENTATION: 25 minutes. cc: Torsten Black MD
[2017-02-14] MEDS: DULCOLAX PR SCH (21:37)
[2017-02-14] MEDS: VANCOMYCIN 1 GM/NS 1 GM/250 ML IVPB IV SCH (21:38)
[2017-02-15] MEDS: SOLU-MEDROL IV SCH ×3 (02:12→17:22)
[2017-02-15] MEDS: DIPRIVAN 1% 1,000 MG/100 ML BOTTLE IV SCH ×2 (03:02→07:41)
[2017-02-15] MEDS: DUONEB (A & A) INH SCH ×4 (03:27→20:05)
[2017-02-15 04:32] LABS: ALLEN TEST YES; BE 29.8 mmoll (-3.0-3.0); BLOOD TYPE ARTERIAL; DRAW SITE R RADIAL; METHB 1.3 % (0.0-1.5); O2(CT) 11.3 mL/dL (15.0-23.0); PO2(98.6) 65 mmHg (60-100); SAMPLE BLOOD; SAO2 96.8 % (95.0-100.0); SRATE 8 BPM; THB 8.5 g/dL (11.5-17.4); TVOL 550 mL
[2017-02-15 04:33] LABS: MODALITY VENTILATOR; PCO2(98.6) 62 mmHg (35-45); pH(98.6) 7.56 (7.35-7.45)
[2017-02-15 04:54] LABS: MANUAL DIFF NEEDED? NO
[2017-02-15] MEDS: CLINIMIX E 4.25%-5% SOLUTION 1,000 ML IV SCH ×2 (05:17→20:58)
[2017-02-15 05:22] LABS: BASO% 0.1 % (0.0-0.8); HEMATOCRIT 30.9 % (37.0-47.0); HEMOGLOBIN 9.6 g/dL (12.0-16.0); IMM GRAN# 0.03 X1000 (0.0-0.04); IMM GRAN% 0.3 % (0.0-0.5); LYMPH# 1.62 X1000 (1.2-3.4); LYMPH% 16.5 % (20.5-51.1); MCH 29.9 PG (27-31); MCHC 31.1 g/dL (33-37); MCV 96.3 FL (81-99); MONO# 0.44 X1000 (0.11-0.59); MONO% 4.5 % (1.7-9.3); MPV 11.4 FL (7.4-10.4); NEUT% 78.6 % (42.2-75.2); PLT 202 X1000 (130-400); RBC 3.21 XMIL (4.2-5.4)
[2017-02-15] MEDS: SYNTHROID PO SCH (06:12)
[2017-02-15] MEDS: MAXIPIME 1 GM in NS 50 ML IV SCH ×2 (06:12→17:22)
[2017-02-15] MEDS: D5W 1,000 ML IV SCH (06:12)
--- NOTE | 2017-02-15 08:53 | Diag Imaging Result Doc PS360 ---
CHEST-1 VIEW - 02/15/2017 INDICATION: SOB TECHNIQUE: COMPARISON: 02/14/2017 FINDINGS: Support tubes are stable. Stable small right basilar pleural effusion. Stable ill-defined central interstitial opacities in the lungs right greater than left, consistent with pneumonia or pulmonary edema. Heart size remains top normal. IMPRESSION: No change from prior. Electronically signed by Jayden Potter 02/15/2017 8:50 AM
[2017-02-15] MEDS: SODIUM CHLORIDE 0.9% INJ SCH (09:28)
[2017-02-15] MEDS: PEPCID IV SCH ×2 (09:28→20:57)
[2017-02-15] MEDS: MIRALAX NG SCH (09:28)
[2017-02-15] MEDS: LOVENOX SUBQ SCH (09:28)
[2017-02-15] MEDS: VANCOMYCIN 1 GM/NS 1 GM/250 ML IVPB IV SCH ×2 (09:32→20:58)
[2017-02-15 12:50] LABS: AGAP 9; ALBUMIN 4.3 g/dL (3.5-5.0); ALKALINE PHOSPHATASE 63 U/L (32-104); BUN 36 mg/dL (8-22); CALCIUM 9.3 mg/dL (8.8-10.2); CHLORIDE 91 mmol/L (98-107); COSMO 291; GOT 11 U/L (10-30); GPT 7 U/L (10-36); POTASSIUM 4.1 mmol/L (3.5-5.1); SODIUM 141 mmol/L (136-145); TCO2 41 mmol/L (25-35); TOTAL BILIRUBIN 0.35 mg/dL (0.20-1.00); TOTAL PROTEIN 6.4 g/dL (6.3-8.3)
--- NOTE | 2017-02-15 14:42 | PROGRESS NOTE ---
DATE: 02/15/2017 SUBJECTIVE: The patient is awake and alert on the ventilator. I asked her if she was having any pain and she shook her head no. OBJECTIVE: Blood pressure is 129/73, respirations 24 pulse 102 and regular, temperature 98.2 degrees Fahrenheit, O2 sat 94%. LABORATORY: White count 9,840, hemoglobin 9.6. Blood gas showed a pH of 7.56, pCO2 62, PO2 of 65 on 35% FiO2. Sodium 141, potassium 4.1, BUN 36, creatinine 0.3. ASSESSMENT: 1. Respiratory failure. 2. Pneumonia. 3. Chronic lymphocytic leukemia. 4. Enteral feedings. PLAN: Continue support. cc: MD Torsten Hammer Jr, MD
[2017-02-15] MEDS: DULCOLAX PR SCH (20:57)
[2017-02-16] MEDS: HALDOL IV PRN ×2 (01:25→17:58)
[2017-02-16] MEDS: SOLU-MEDROL IV SCH ×3 (01:25→17:06)
[2017-02-16] MEDS: DUONEB (A & A) INH SCH ×4 (03:19→20:45)
[2017-02-16 04:43] LABS: EOS# 0.03 X1000 (0.0-0.7); EOS% 0.3 % (0.0-10.0); HEMATOCRIT 35.3 % (37.0-47.0); HEMOGLOBIN 10.8 g/dL (12.0-16.0); IMM GRAN# 0.02 X1000 (0.0-0.04); IMM GRAN% 0.2 % (0.0-0.5); LYMPH# 1.14 X1000 (1.2-3.4); LYMPH% 10.1 % (20.5-51.1); MANUAL DIFF NEEDED? YES; MCH 29.7 PG (27-31); MCHC 30.6 g/dL (33-37); MONO# 0.42 X1000 (0.11-0.59); MONO% 3.7 % (1.7-9.3); MPV 11.6 FL (7.4-10.4); NEUT% 85.7 % (42.2-75.2); PLT 179 X1000 (130-400); RBC 3.64 XMIL (4.2-5.4)
[2017-02-16 04:43] LABS: ALLEN TEST YES; BE 21.8 mmoll (-3.0-3.0); BLOOD TYPE ARTERIAL; DRAW SITE R RADIAL; METHB 1.2 % (0.0-1.5); O2(CT) 14.5 mL/dL (15.0-23.0); PO2(98.6) 116 mmHg (60-100); SAMPLE BLOOD; SAO2 99.3 % (95.0-100.0); THB 10.6 g/dL (11.5-17.4); pH(98.6) 7.47 (7.35-7.45)
[2017-02-16 04:44] LABS: MODALITY VENTILATOR; PCO2(98.6) 67 mmHg (35-45)
[2017-02-16] MEDS: D5W 1,000 ML IV SCH ×2 (04:49→20:42)
[2017-02-16] MEDS: SYNTHROID PO SCH (06:02)
[2017-02-16] MEDS: MAXIPIME 1 GM in NS 50 ML IV SCH ×2 (06:02→17:06)
[2017-02-16 07:21] LABS: LYMPHS 18 % (21-51)
[2017-02-16] MEDS: VANCOMYCIN 1 GM/NS 1 GM/250 ML IVPB IV SCH ×2 (08:49→20:08)
[2017-02-16] MEDS: LOVENOX SUBQ SCH (08:49)
[2017-02-16] MEDS: MIRALAX NG SCH (08:49)
[2017-02-16] MEDS: PEPCID IV SCH ×2 (08:49→20:24)
[2017-02-16] MEDS: CLINIMIX E 4.25%-5% SOLUTION 1,000 ML IV SCH (14:30)
--- NOTE | 2017-02-16 18:29 | PROGRESS NOTE ---
DATE: 02/16/2017 SUBJECTIVE: The patient remained on the vent, not able to wean off on the CPAP trials REVIEW OF SYSTEMS: None reported. OBJECTIVE: Vital signs: Stable. Tachycardic. The inputs and outputs are positive. HEENT: Within normal limits. Chest: Bilateral air entry. Heart: Sounds are tachycardic. Gastrointestinal: Belly is soft, protuberant. Neurologic: No neurological deficits. INVESTIGATIONS: Staph epidermidis from the right neck. Blood cultures were negative. LABORATORIES: CBC: White cell count 11, hematocrit 35, platelets 179,000. ABG : PH is 7.47, pCO2 is 67, pO2 is 116 on CPAP. SMA-7 and LFTs were normal. ASSESSMENT AND PLAN: 1. Acute respiratory failure. Chest x-ray improved. Unable to wean off from the vent. Consider tracheostomy. 2. Nutrition. IV ProcalAmine and enteral feeding. 3. Hypothyroidism, on Synthroid. 4. Chronic obstructive pulmonary disease, on IV steroids, IV antibiotics with cefepime and vancomycin. 5. IgG deficiency, on replacement therapy. 6. Planning tracheostomy. LEVEL OF DOCUMENTATION: 25 minutes. cc: Torsten Black MD [facility]
[2017-02-16] MEDS: DULCOLAX PR SCH (20:08)
--- NOTE | 2017-02-16 20:14 | PROGRESS NOTE ---
DATE: 02/16/2017 PRESENT ILLNESS: The patient has lymphoma. She developed respiratory failure. She has pneumonia and/or pulmonary edema, as well as marked lymphadenopathy. MEDICATIONS: This is day 6 of treatment with a combination of vancomycin and cefepime. PHYSICAL EXAMINATION: Vital Signs: Temperature is 98.2 degrees, pulse 107, respirations 18, blood pressure 118/74. General: This is an ill-appearing, middle-aged female. She does not seem to be in any acute distress. Head, eyes, ears, nose, and throat: She is intubated. No drainage noted from the nose or ears. Neck: The patient's adenopathy seems to be regressing somewhat. There is an eschar over the node that herniated through the skin. Lungs: Clear to auscultation. Cardiovascular: Regular heart rate. Abdomen: Somewhat swollen with what appears to be ascites. LABORATORY AND X-RAY: The CBC today showed a white count of 11,240, hemoglobin 10.8, and platelet count 179,000. Blood gases showed a pH of 7.47, PO2 of 116, a pCO2 of 67. Chest x-ray shows bilateral opacities which could be due to pneumonia and/or pulmonary edema. ASSESSMENT AND PLAN: The patient has pneumonia. I plan on continuing her current antibiotics. COMORBIDITIES: Include chronic obstructive pulmonary disease, lymphoma and a low IgG level. The latest IgG level was on yesterday and the IgG was 629. The IgA was 17. cc: MD Torsten Cruz MD MTDD
[2017-02-17] MEDS: HALDOL IV PRN ×2 (00:58→20:50)
[2017-02-17] MEDS: SOLU-MEDROL IV SCH ×3 (00:59→18:17)
[2017-02-17] MEDS: DUONEB (A & A) INH SCH ×4 (03:35→21:33)
[2017-02-17 04:53] LABS: ALLEN TEST YES; BE 17.6 mmoll (-3.0-3.0); BLOOD TYPE ARTERIAL; DRAW SITE R RADIAL; METHB 0.6 % (0.0-1.5); O2(CT) 12.5 mL/dL (15.0-23.0); PO2(98.6) 89 mmHg (60-100); SAMPLE BLOOD; SAO2 99.7 % (95.0-100.0); SRATE 12 BPM; THB 9.1 g/dL (11.5-17.4); TVOL 550 mL
[2017-02-17 04:54] LABS: MODALITY VENTILATOR; PCO2(98.6) 55 mmHg (35-45)
[2017-02-17 05:40] LABS: MANUAL DIFF NEEDED? NO
[2017-02-17 05:43] LABS: EOS# 0.04 X1000 (0.0-0.7); EOS% 0.4 % (0.0-10.0); HEMATOCRIT 33.1 % (37.0-47.0); HEMOGLOBIN 10.3 g/dL (12.0-16.0); IMM GRAN# 0.03 X1000 (0.0-0.04); IMM GRAN% 0.3 % (0.0-0.5); LYMPH# 1.34 X1000 (1.2-3.4); LYMPH% 11.9 % (20.5-51.1); MCHC 31.1 g/dL (33-37); MCV 96.5 FL (81-99); MONO# 0.41 X1000 (0.11-0.59); MONO% 3.6 % (1.7-9.3); NEUT% 83.8 % (42.2-75.2); PLT 172 X1000 (130-400); RBC 3.43 XMIL (4.2-5.4)
[2017-02-17] MEDS: MAXIPIME 1 GM in NS 50 ML IV SCH ×2 (05:59→18:18)
[2017-02-17] MEDS: SYNTHROID PO SCH (05:59)
--- NOTE | 2017-02-17 07:43 | Diag Imaging Result Doc PS360 ---
EXAM: CHEST-PORTABLE HISTORY: vent TECHNIQUE: AP portable at 0600 COMMENT: There is a pleural effusion on the right. There is an endotracheal tube with its tip at thoracic inlet and an NG tube which passes below the diaphragm. The left lung remains clear. There is some slight improvement in the opacity seen in the parahilar and lower lobe regions on the right compared to 02/15/2017. IMPRESSION: Improved right-sided pneumonia. Right pleural effusion. Electronically signed by Sunil Camacho 02/17/2017 7:41 AM
[2017-02-17] MEDS: PEPCID IV SCH ×2 (09:07→20:49)
[2017-02-17] MEDS: VANCOMYCIN 1 GM/NS 1 GM/250 ML IVPB IV SCH ×2 (09:07→21:01)
[2017-02-17] MEDS: CLINIMIX E 4.25%-5% SOLUTION 1,000 ML IV SCH (09:07)
[2017-02-17] MEDS: LOVENOX SUBQ SCH (09:07)
[2017-02-17] MEDS: MIRALAX NG SCH (09:07)
[2017-02-17 11:09] LABS: ALLEN TEST NO; BE 15.9 mmoll (-3.0-3.0); BLOOD TYPE ARTERIAL; DRAW SITE R BRACHIAL; METHB 0.3 % (0.0-1.5); O2(CT) 14.7 mL/dL (15.0-23.0); PO2(98.6) 78 mmHg (60-100); SAMPLE BLOOD; SAO2 98.6 % (95.0-100.0); THB 10.8 g/dL (11.5-17.4); pH(98.6) 7.48 (7.35-7.45)
[2017-02-17 11:10] LABS: MODALITY VENTILATOR
[2017-02-17 11:11] LABS: PCO2(98.6) 56 mmHg (35-45)
[2017-02-17 14:22] LABS: ALLEN TEST NO; BE 17.6 mmoll (-3.0-3.0); BLOOD TYPE ARTERIAL; DRAW SITE L BRACHIAL; METHB 1.2 % (0.0-1.5); O2(CT) 14.5 mL/dL (15.0-23.0); PCO2(98.6) 44 mmHg (35-45); PO2(98.6) 139 mmHg (60-100); SAMPLE BLOOD; SAO2 99.3 % (95.0-100.0); THB 10.5 g/dL (11.5-17.4)
[2017-02-17 14:24] LABS: MODALITY COOL AEROSOL; pH(98.6) 7.58 (7.35-7.45)
[2017-02-17] MEDS: D5W 1,000 ML IV SCH (18:18)
--- NOTE | 2017-02-17 18:19 | PROGRESS NOTE ---
DATE: 02/17/2017 SUBJECTIVE: Patient is doing very well. Awake, trying to wean off from the vent. REVIEW OF SYSTEMS: Unable to obtain. PHYSICAL EXAMINATION: Vital Signs: He is afebrile. Vitals are stable. Input and output positive 3 L. HEENT: Within normal limits. Chest: Bilateral air entry. Heart: Sounds are regular. Abdomen: Belly is soft, nontender. Good bowel sounds. Extremities: No peripheral edema, cyanosis. Neurologic: No obvious neurological deficits. ASSESSMENT AND PLAN: 1. Acute respiratory failure. Chest x-ray is improving. We will wean off from the vent. If not, consider tracheostomy. 2. Protein calorie malnutrition. IV Clinimix. 3. DVT, GI prophylaxis as directed. 4. Hypothyroidism, on Synthroid. 5. Chronic obstructive pulmonary disease. Continue on IV steroids and cefepime and vancomycin. I will discuss with Dr. Nair. LEVEL OF DOCUMENTATION: 25 minutes. cc: Torsten Black MD
--- NOTE | 2017-02-17 19:23 | PROGRESS NOTE ---
DATE: 02/17/2017 PRESENT ILLNESS: The patient has a right-sided pneumonia as well as marked lymphadenopathy. MEDICATIONS: Patient is on vancomycin and cefepime for 7 days now. PHYSICAL EXAMINATION: Vital Signs: Temperature is 98.9 degrees, pulse 100, respirations 22, blood pressure 106/61. General: This is an ill-appearing, middle-aged female. She has been extubated. She is talking and can move her extremities. Head, eyes, ears, nose, throat: She can hear my spoken words and see near objects. Lungs: Clear to auscultation. Cardiovascular: Heart rate is regular. Abdomen: Swollen with what appears to be ascites. LAB AND X-RAY: Chest x-ray shows improvement in the right lung pneumonia. CBC today shows a white count of 11,280, hemoglobin 10.3, and platelet count 172,000. Blood gases show a pH of 7.58, PO2 of 139 and pCO2 of 44. ASSESSMENT AND PLAN: Patient has pneumonia. I plan to continue her antibiotics. This is day 7 of treatment with them. COMORBIDITIES: Chronic obstructive pulmonary disease, lymphoma, low IgG level and a very low IgA level which unfortunately we do not have a replacement product for. cc: MD Torsten Cruz MD
[2017-02-17] MEDS: DULCOLAX PR SCH (20:49)
[2017-02-17] MEDS: SODIUM CHLORIDE 0.9% INJ SCH (20:49)
[2017-02-18] MEDS: SOLU-MEDROL IV SCH ×3 (02:14→18:02)
[2017-02-18] MEDS: CLINIMIX E 4.25%-5% SOLUTION 1,000 ML IV SCH ×2 (02:14→18:06)
[2017-02-18] MEDS: DUONEB (A & A) INH SCH ×5 (02:59→19:05)
[2017-02-18 04:55] LABS: ALLEN TEST YES; BE 15.4 mmoll (-3.0-3.0); BLOOD TYPE ARTERIAL; DRAW SITE R RADIAL; O2(CT) 13.8 mL/dL (15.0-23.0); PO2(98.6) 154 mmHg (60-100); SAMPLE BLOOD; SAO2 99.9 % (95.0-100.0); THB 9.9 g/dL (11.5-17.4); pH(98.6) 7.42 (7.35-7.45)
[2017-02-18 04:57] LABS: MODALITY BI PAP; PCO2(98.6) 65 mmHg (35-45)
[2017-02-18] MEDS: MAXIPIME 1 GM in NS 50 ML IV SCH ×2 (06:00→18:06)
[2017-02-18] MEDS: SYNTHROID PO SCH (06:00)
[2017-02-18 06:02] LABS: MANUAL DIFF NEEDED? NO
[2017-02-18 06:11] LABS: HEMATOCRIT 30.5 % (37.0-47.0); HEMOGLOBIN 9.5 g/dL (12.0-16.0); IMM GRAN# 0.02 X1000 (0.0-0.04); IMM GRAN% 0.3 % (0.0-0.5); LYMPH# 1.05 X1000 (1.2-3.4); LYMPH% 13.5 % (20.5-51.1); MCH 30.1 PG (27-31); MCHC 31.1 g/dL (33-37); MCV 96.5 FL (81-99); MONO% 3.9 % (1.7-9.3); MPV 11.6 FL (7.4-10.4); NEUT% 82.3 % (42.2-75.2); PLT 140 X1000 (130-400); RBC 3.16 XMIL (4.2-5.4)
[2017-02-18] MEDS: LOVENOX SUBQ SCH (08:38)
[2017-02-18] MEDS: MIRALAX NG SCH (08:39)
[2017-02-18] MEDS: PEPCID IV SCH ×2 (08:39→20:28)
[2017-02-18] MEDS: VANCOMYCIN 1 GM/NS 1 GM/250 ML IVPB IV SCH (09:12)
[2017-02-18] MEDS: D5W 1,000 ML IV SCH (16:33)
--- NOTE | 2017-02-18 19:13 | PROGRESS NOTE ---
DATE: 02/18/2017 PRESENT ILLNESS: The patient has a right-sided pneumonia as well as lymphadenopathy. MEDICATIONS: This is day 8 of treatment with a combination of vancomycin and cefepime. PHYSICAL EXAMINATION: Vital Signs: Temperature is 99.7 degrees, pulse 118, respirations 25, blood pressure 128/70. General: This is a chronically ill-appearing middle-aged female. She is in no acute distress. The patient has marked adenopathy in the neck. One of the nodes has herniated through the skin. Lungs: Clear to auscultation. Cardiovascular: Regular heart rate. Abdomen: Appears protuberant with most likely ascites. It is soft and nontender. LAB AND X-RAY: There is no new x-ray today. The patient's CBC shows a white count of 7750, hemoglobin 9.5, and platelet count 140,000. Blood gases show a pH of 7.42, a PO2 of 154. PCO2 of 65. ASSESSMENT AND PLAN: The patient has pneumonia. The plan is to continue her antibiotics. She has had 7 days of treatment with them. The patient's comorbidities include chronic obstructive pulmonary disease, lymphoma with a low IgG level and a very low IgA, which unfortunately cannot be replaced. I plan to continue the patient's current antibiotics. cc: MD Torsten Cruz MD
[2017-02-18] MEDS: SODIUM CHLORIDE 0.9% INJ SCH (20:28)
[2017-02-18] MEDS: DULCOLAX PR SCH (20:28)
[2017-02-18] MEDS: VANCOMYCIN 1,100 MG in NS 250 ML IV SCH (21:20)
[2017-02-18] MEDS: TYLENOL PO PRN (22:05)
[2017-02-19] MEDS: SOLU-MEDROL IV SCH ×3 (02:35→17:44)
--- NOTE | 2017-02-19 03:10 | PROGRESS NOTE ---
DATE: 02/18/2017 SUBJECTIVE: The patient was successfully extubated without requiring tracheostomy. Patient is very feeble. Orogastric tube was removed. Patient is weak and feeble. REVIEW OF SYSTEMS: None reported. PHYSICAL EXAMINATION: Vital Signs: On examination afebrile, tachycardic. Vitals are stable. HEENT: Within normal limits, except necrotic lymph node on the right side of the neck which grew staph epidermitis. Chest: Clear to auscultation. Cardiovascular: Tachycardic. Abdomen: Belly is soft, protuberant. Extremities: No peripheral edema, cyanosis. Neurological Examination: No obvious neurological deficits. INVESTIGATIONS: CBC: White cell count 7.7, hematocrit 30, platelet count 140, 000. ABG pH is 7.42, pCO2 65, pO2 154 on BiPAP machine. ASSESSMENT AND PLAN: 1. Acute chronic obstructive pulmonary disease exacerbation. Off the vent. Use the BiPAP in the night time. Continue on vancomycin, IV steroids, IV cefepime. 2. Deep venous thrombosis. Gastrointestinal prophylaxis as per order sheet. 3. Protein calorie malnutrition. IV TPN. 4. We will assess with speech therapy evaluation. Based on that, advanced the diet. Out of the bed with physical therapy. 5. Chronic lymphocytic leukemia. Discussed about the options, about the chemotherapy. The patient is still adamant, not making decisions. 6. IgG deficiency, status post transfusion. LEVEL OF DOCUMENTATION: Was 25 minutes. cc: Torsten Black MD MTDD
[2017-02-19] MEDS: DUONEB (A & A) INH SCH ×4 (03:12→21:19)
[2017-02-19 04:24] LABS: BLOOD TYPE ARTERIAL; SAMPLE BLOOD
[2017-02-19 04:25] LABS: BE 8.6 mmoll (-3.0-3.0); METHB 0.8 % (0.0-1.5); O2(CT) 22.2 mL/dL (15.0-23.0); PO2(98.6) 155 mmHg (60-100); THB 16.1 g/dL (11.5-17.4); pH(98.6) 7.34 (7.35-7.45)
[2017-02-19 04:26] LABS: ALLEN TEST YES; DRAW SITE R RADIAL; MODALITY BI PAP
[2017-02-19 04:34] LABS: PCO2(98.6) 70 mmHg (35-45)
[2017-02-19] MEDS: MAXIPIME 1 GM in NS 50 ML IV SCH ×2 (05:53→17:44)
[2017-02-19] MEDS: SYNTHROID PO SCH (05:59)
[2017-02-19 06:33] LABS: MANUAL DIFF NEEDED? NO
[2017-02-19 06:56] LABS: HEMATOCRIT 32.6 % (37.0-47.0); IMM GRAN# 0.02 X1000 (0.0-0.04); IMM GRAN% 0.2 % (0.0-0.5); LYMPH# 0.95 X1000 (1.2-3.4); LYMPH% 11.8 % (20.5-51.1); MCH 29.7 PG (27-31); MCHC 30.7 g/dL (33-37); MCV 96.7 FL (81-99); MONO# 0.31 X1000 (0.11-0.59); MONO% 3.9 % (1.7-9.3); MPV 12.2 FL (7.4-10.4); NEUT% 84.1 % (42.2-75.2); PLT 140 X1000 (130-400); RBC 3.37 XMIL (4.2-5.4)
[2017-02-19 07:11] LABS: AGAP 6; BUN 24 mg/dL (8-22); CALCIUM 9.2 mg/dL (8.8-10.2); CHLORIDE 99 mmol/L (98-107); COSMO 283; POTASSIUM 4.4 mmol/L (3.5-5.1); SODIUM 139 mmol/L (136-145); TCO2 34 mmol/L (25-35)
[2017-02-19] MEDS: CLINIMIX E 4.25%-5% SOLUTION 1,000 ML IV SCH (08:50)
[2017-02-19] MEDS: VANCOMYCIN 1,100 MG in NS 250 ML IV SCH ×2 (08:50→20:32)
[2017-02-19] MEDS: LOVENOX SUBQ SCH (08:50)
[2017-02-19] MEDS: PEPCID IV SCH ×2 (08:50→20:27)
[2017-02-19] MEDS: D5W 1,000 ML IV SCH (08:51)
[2017-02-19] MEDS: MIRALAX NG SCH (08:51)
[2017-02-19 09:16] LABS: ALLEN TEST YES; BE 13.6 mmoll (-3.0-3.0); BLOOD TYPE ARTERIAL; DRAW SITE R RADIAL; METHB 1.2 % (0.0-1.5); PO2(98.6) 104 mmHg (60-100); SAMPLE BLOOD; SAO2 99.6 % (95.0-100.0); THB 10.2 g/dL (11.5-17.4); pH(98.6) 7.42 (7.35-7.45)
[2017-02-19 09:18] LABS: MODALITY BI PAP
[2017-02-19 09:19] LABS: PCO2(98.6) 62 mmHg (35-45)
[2017-02-19] MEDS: DULCOLAX PR SCH (20:28)
--- NOTE | 2017-02-19 22:03 | PROGRESS NOTE ---
DATE: 02/19/2017 SUBJECTIVE: The patient is still on BiPAP this morning. Tolerating the diet very well. REVIEW OF SYSTEMS: None reported. PHYSICAL EXAMINATION: Vital Signs: Afebrile. Tachycardic. Vitals are stable. 2 L nasal cannula on oxygen 91%. HEENT: Within normal limits. Right cervical lymphadenopathy noted. Chest: Bilateral air entry. Heart: Sounds are regular. Abdomen: Belly is soft, nontender. Good bowel sounds. Extremities: No peripheral edema, cyanosis. Neurologic: No obvious neurological deficits. INVESTIGATIONS: CBC: White cell count 8, hematocrit 32, platelets 140,000. ABG: PH is 7.42, pCO2 62, PO2 104 on BiPAP. SMA7: Sodium 139, potassium 4.4, chloride 99, BUN 24, creatinine 0.3, glucose 221. ASSESSMENT AND PLAN: 1. Acute respiratory failure, off machine on BiPAP, doing very well. Continue on cefepime and vancomycin, IV steroids. 2. DVT and GI prophylaxis as per order sheet. 3. Protein calorie malnutrition. IV total parenteral nutrition. 4. Swallowing studies. Patient is better. Continue mechanical soft diet. 5. Out of the bed with physical therapy, and if she is stable, will transfer her out of the ICU in the morning. LEVEL OF DOCUMENTATION: 25 minutes. cc: Torsten Black MD
[2017-02-20] MEDS: CLINIMIX E 4.25%-5% SOLUTION 1,000 ML IV SCH ×2 (01:10→17:56)
[2017-02-20] MEDS: SOLU-MEDROL IV SCH ×3 (01:11→18:10)
[2017-02-20] MEDS: DUONEB (A & A) INH SCH ×4 (03:35→21:00)
[2017-02-20 04:46] LABS: MANUAL DIFF NEEDED? NO
[2017-02-20 04:48] LABS: HEMATOCRIT 31.6 % (37.0-47.0); HEMOGLOBIN 9.9 g/dL (12.0-16.0); IMM GRAN# 0.03 X1000 (0.0-0.04); IMM GRAN% 0.3 % (0.0-0.5); LYMPH# 1.39 X1000 (1.2-3.4); LYMPH% 13.1 % (20.5-51.1); MCH 30.3 PG (27-31); MCHC 31.3 g/dL (33-37); MCV 96.6 FL (81-99); MONO# 0.21 X1000 (0.11-0.59); MPV 12.2 FL (7.4-10.4); NEUT% 84.6 % (42.2-75.2); PLT 142 X1000 (130-400); RBC 3.27 XMIL (4.2-5.4)
[2017-02-20 04:50] LABS: ALLEN TEST YES; BE 12.4 mmoll (-3.0-3.0); BLOOD TYPE ARTERIAL; DRAW SITE R RADIAL; METHB 1.4 % (0.0-1.5); O2(CT) 14.3 mL/dL (15.0-23.0); PO2(98.6) 135 mmHg (60-100); SAMPLE BLOOD; SAO2 99.6 % (95.0-100.0); THB 10.4 g/dL (11.5-17.4); pH(98.6) 7.45 (7.35-7.45)
[2017-02-20 04:51] LABS: MODALITY BI PAP; PCO2(98.6) 55 mmHg (35-45)
[2017-02-20] MEDS: D5W 1,000 ML IV SCH (04:55)
[2017-02-20] MEDS: MAXIPIME 1 GM in NS 50 ML IV SCH ×2 (04:59→18:10)
[2017-02-20] MEDS: SYNTHROID PO SCH (06:04)
[2017-02-20] MEDS: VANCOMYCIN 1,100 MG in NS 250 ML IV SCH (09:34)
[2017-02-20] MEDS: SODIUM CHLORIDE 0.9% INJ SCH (09:34)
[2017-02-20] MEDS: LOVENOX SUBQ SCH (09:35)
[2017-02-20] MEDS: PEPCID IV SCH ×2 (09:35→20:15)
[2017-02-20] MEDS: MIRALAX NG SCH (09:36)
--- NOTE | 2017-02-20 17:41 | PROGRESS NOTE ---
DATE: 02/20/2017 PRESENT ILLNESS: The patient is admitted to the hospital with a severe right lung pneumonia as well as lymphadenopathy especially in the neck where the node appeared to herniate through the skin. MEDICATIONS: This is day 10 of treatment with a combination of vancomycin and cefepime. PHYSICAL EXAMINATION: Vital Signs: Temperature is 99.2 degrees, pulse 117, respirations 29, blood pressure 136/74. General: This is a chronically ill-appearing, middle-aged female. She has even a little bit of dyspnea at rest. Neck: The patient has marked adenopathy on the right side of the neck with partial perforation of the skin. Lungs: Clear to auscultation. Cardiovascular: Regular and rapid heart rate. Abdomen: Appeared to be distended most likely with ascitic fluid. The abdomen is nontender. LAB AND X-RAY: CBC today showed a white count of 10,620, hemoglobin 9.9, and platelet count 142,000. Blood gases show a pH of 7.45, a PO2 of 135, and a pCO2 of 55. Creatinine 0.3. GFR is greater than 60. Chest x-ray shows improvement in the right lung pneumonia. ASSESSMENT AND PLAN: The patient has pneumonia. The plan is to continue her current antibiotics. COMORBIDITIES: Include COPD, lymphoma with a low IgG level and very much lower IgA level which unfortunately cannot be replaced. cc: MD Torsten Cruz MD
--- NOTE | 2017-02-20 18:01 | PROGRESS NOTE ---
DATE: 02/20/2017 SUBJECTIVE: The patient is doing very well off BiPAP machine. REVIEW OF SYSTEMS: None reported. OBJECTIVE: Vital Signs: She has low-grade fever. Vitals are stable, 2 L nasal cannula 93%. HEENT: Within normal limits except open wound on the right side of the neck. Chest: Bilateral air entry. Heart: Sounds are regular. Abdomen: Belly is soft, nontender. Good bowel sounds. Neurologic: No obvious neurological deficits. LABORATORIES: CBC: White cell count 10, hematocrit 31, platelets 142,000. ABG : PH is 7.45, pCO2 55, PO2 135, on BiPAP 50%. SMA7 was normal. ASSESSMENT AND PLAN: 1. Acute respiratory failure. Off ventilator support. 2. Bi-PAP machine in the night time. Doing very well. Continue on IV steroids , IV antibiotics with vancomycin and cefepime. 3. Chronic lymphocytic leukemia/lymphoma, not interested in further treatment. 4. DVT GI prophylaxis. 5. Continue IV total parenteral nutrition. Patient is stable and transferred out of the ICU to the regular floor. Please see the transfer order sheet. LEVEL OF DOCUMENTATION: 25 minutes. cc: Torsten Black MD MTDD
[2017-02-20] MEDS: DULCOLAX PR SCH (20:02)
[2017-02-20] MEDS: VANCOMYCIN 1,300 MG in NS 250 ML IV SCH (23:35)
[2017-02-21] MEDS: DUONEB (A & A) INH SCH ×4 (02:40→19:22)
[2017-02-21] MEDS: SOLU-MEDROL IV SCH ×3 (02:50→18:00)
[2017-02-21] MEDS: MAXIPIME 1 GM in NS 50 ML IV SCH ×2 (05:41→18:00)
[2017-02-21 06:38] LABS: MANUAL DIFF NEEDED? NO
[2017-02-21] MEDS: SYNTHROID PO SCH (06:39)
[2017-02-21 06:46] LABS: HEMATOCRIT 34.3 % (37.0-47.0); HEMOGLOBIN 10.4 g/dL (12.0-16.0); LYMPH# 1.36 X1000 (1.2-3.4); LYMPH% 13.1 % (20.5-51.1); MCH 29.7 PG (27-31); MCHC 30.3 g/dL (33-37); MONO# 0.23 X1000 (0.11-0.59); MONO% 2.2 % (1.7-9.3); MPV 11.9 FL (7.4-10.4); NEUT% 84.7 % (42.2-75.2); PLT 146 X1000 (130-400)
[2017-02-21] MEDS: LOVENOX SUBQ SCH (11:01)
[2017-02-21] MEDS: PEPCID IV SCH ×3 (11:01→23:47)
[2017-02-21] MEDS: VANCOMYCIN 1,300 MG in NS 250 ML IV SCH (11:02)
[2017-02-21] MEDS: CLINIMIX E 4.25%-5% SOLUTION 1,000 ML IV SCH (11:02)
[2017-02-21] MEDS: MIRALAX NG SCH (11:02)
--- NOTE | 2017-02-21 13:34 | PROGRESS NOTE ---
DATE: 02/21/2017 SUBJECTIVE: The patient is confused this morning. She does not know who I am, and she is very feeble, asking assistance for feeding. No family was there. OBJECTIVE: Right side of the neck swelling is much improved, and chest is clear. Heart sounds are regular. Belly is soft, protuberant. Neurologic exam nonfocal. INVESTIGATIONS: CBC, white cell count 10, hematocrit 34, platelets 146,000. ASSESSMENT AND PLAN: 1. Altered mental status due to metabolic encephalopathy. 2. Deconditioning off the vent. Continue on BiPAP. Physical therapy as well as for feeding. 3. Deep venous thrombosis and gastrointestinal prophylaxis as per order sheet. 4. Chronic obstructive pulmonary disease on cefepime, vancomycin, and IV steroids. 5. Constipation, on MiraLAX. 6. Hypothyroidism, on Synthroid 75 mcg daily. LEVEL OF DOCUMENTATION: 25 minutes. We will discuss with the family after this weekend about the disposition. cc: Torsten Black MD
[2017-02-21] MEDS: DULCOLAX PR SCH (23:46)
[2017-02-22] MEDS: VANCOMYCIN 1,300 MG in NS 250 ML IV SCH ×3 (00:03→23:21)
[2017-02-22] MEDS: SOLU-MEDROL IV SCH ×6 (01:33→20:36)
[2017-02-22] MEDS: DUONEB (A & A) INH SCH ×4 (02:38→19:03)
[2017-02-22] MEDS: CLINIMIX E 4.25%-5% SOLUTION 1,000 ML IV SCH ×2 (03:44→20:33)
[2017-02-22] MEDS: MAXIPIME 1 GM in NS 50 ML IV SCH ×2 (05:09→21:32)
[2017-02-22] MEDS: SYNTHROID PO SCH (06:25)
[2017-02-22 06:49] LABS: MANUAL DIFF NEEDED? NO
[2017-02-22 06:56] LABS: HEMATOCRIT 32.7 % (37.0-47.0); HEMOGLOBIN 10.1 g/dL (12.0-16.0); LYMPH# 1.61 X1000 (1.2-3.4); LYMPH% 16.3 % (20.5-51.1); MCH 30.1 PG (27-31); MCHC 30.9 g/dL (33-37); MCV 97.3 FL (81-99); MONO# 0.06 X1000 (0.11-0.59); MONO% 0.6 % (1.7-9.3); NEUT% 83.1 % (42.2-75.2); PLT 133 X1000 (130-400); RBC 3.36 XMIL (4.2-5.4)
[2017-02-22] MEDS: PEPCID IV SCH ×2 (08:50→20:35)
[2017-02-22] MEDS: LOVENOX SUBQ SCH (08:50)
[2017-02-22] MEDS: MIRALAX NG SCH (08:50)
--- NOTE | 2017-02-22 14:49 | PROGRESS NOTE ---
DATE: 02/22/2017 SUBJECTIVE: Patient is weak, confused. No family is there. REVIEW OF SYSTEMS: None reported. PHYSICAL EXAMINATION: Vital Signs: Afebrile, tachycardic, stable. Input and output positive 1800. HEENT: Right-sided neck mass is still present, slightly red. Chest: Clear. Heart: Sounds are regular. Abdomen: Belly is soft, protuberant. Extremities: No peripheral edema, cyanosis. Neurologic: No obvious neurological deficits. LABORATORY: CBC: White cell count 9, hematocrit 32, platelets 133,000. Blood cultures were negative. ASSESSMENT AND PLAN: 1. Acute respiratory failure. Improved. 2. Chronic lymphocytic leukemia with lymphoma. Refusing treatment. DVT GI prophylaxis as per order sheet. 3. Constipation, on MiraLAX. 4. Chronic obstructive pulmonary disease with pneumonia on cefepime and IV vancomycin. We will discontinue cefepime due to intermittent confusion. We will discuss with Dr. Lebron Cummins. Also on IV steroids. The patient is still reluctant to go for further treatment for chronic lymphocytic leukemia. We will discuss with the family about possible rehab placement. Extremely deconditioned. LEVEL OF DOCUMENTATION: 25 minutes. cc: Torsten Black MD
[2017-02-22] MEDS: DULCOLAX PR SCH (20:35)
[2017-02-23] MEDS: DUONEB (A & A) INH SCH ×4 (02:55→21:00)
[2017-02-23] MEDS: SYNTHROID PO SCH (06:02)
[2017-02-23] MEDS: SOLU-MEDROL IV SCH ×5 (06:02→22:32)
[2017-02-23 07:01] LABS: MANUAL DIFF NEEDED? NO
--- NOTE | 2017-02-23 07:33 | PROGRESS NOTE ---
DATE: 02/23/2017 PRESENT ILLNESS: The patient is admitted to the hospital with right lung pneumonia. She also has lymphadenopathy, especially in the neck where a node appeared to herniate through the skin. MEDICATIONS: The patient currently has been on vancomycin and cefepime for 13 days. Overall, she has had 19 days of antibiotic treatment. PHYSICAL EXAMINATION: Vital Signs: Temperature is 97.4 degrees, pulse 95, respirations 20, blood pressure 124/67. General: This is a chronically ill and lethargic, middle- aged female. She is in no acute distress. Neck: The patient's lymphadenopathy on the right side is prominent. The area where the lymph node appeared to herniate through the skin has an eschar on it. Lungs: Clear to auscultation. Cardiovascular: Heart rate is regular. Abdomen: Soft and nontender. LAB AND X-RAY: The only lab for today is a CBC which was done yesterday. CBC shows a white count of 9890, hemoglobin 10.1, and platelet count 133,000. ASSESSMENT AND PLAN: Patient has pneumonia. For now, I am going to continue antibiotics. Today, I am going to go ahead and get a creatinine and a chest x-ray. COMORBIDITIES: Patient's comorbidities include COPD, lymphoma, low IgG, low IgA. cc: MD Torsten Cruz MD MTDD
--- NOTE | 2017-02-23 07:39 | Diag Imaging Result Doc PS360 ---
CHEST-1 VIEW - 02/23/2017 INDICATION: pneumonia TECHNIQUE: COMPARISON: 02/17/2017 FINDINGS: The patient has been extubated. Lung volumes are much lower. There is some hazy faint infiltrates centrally right greater than left. There is a stable trace right pleural effusion. The appearance is very similar to prior. Heart size is normal. IMPRESSION: Patient extubated. Lung volumes are much lower. Otherwise no significant change from prior. Electronically signed by Jayden Potter 02/23/2017 7:37 AM
[2017-02-23 07:42] LABS: AGAP 8; BUN 25 mg/dL (8-22); CALCIUM 9.4 mg/dL (8.8-10.2); CHLORIDE 99 mmol/L (98-107); COSMO 283; HEMATOCRIT 33.7 % (37.0-47.0); HEMOGLOBIN 10.4 g/dL (12.0-16.0); LYMPH# 2.14 X1000 (1.2-3.4); MCH 30.2 PG (27-31); MCHC 30.9 g/dL (33-37); MONO# 0.28 X1000 (0.11-0.59); MONO% 2.3 % (1.7-9.3); MPV 12.7 FL (7.4-10.4); NEUT% 79.7 % (42.2-75.2); PLT 140 X1000 (130-400); POTASSIUM 4.9 mmol/L (3.5-5.1); RBC 3.44 XMIL (4.2-5.4); SODIUM 140 mmol/L (136-145); TCO2 33 mmol/L (25-35)
[2017-02-23] MEDS: LOVENOX SUBQ SCH (09:09)
[2017-02-23] MEDS: MIRALAX NG SCH (09:09)
[2017-02-23] MEDS: PEPCID IV SCH ×3 (09:09→22:32)
[2017-02-23] MEDS: MAXIPIME 1 GM in NS 50 ML IV SCH ×2 (09:10→20:00)
[2017-02-23] MEDS: VANCOMYCIN 1,300 MG in NS 250 ML IV SCH (11:56)
[2017-02-23] MEDS: CLINIMIX E 4.25%-5% SOLUTION 1,000 ML IV SCH (15:00)
[2017-02-23] MEDS: DULCOLAX PR SCH (20:01)
--- NOTE | 2017-02-23 21:10 | PROGRESS NOTE ---
DATE: 02/23/2017 SUBJECT: Patient is getting better slowly the deconditioning, eating well without assistance, huge mass in the right neck noted. OBJECTIVE: Chest: Is clear. Heart: Sounds are regular. Belly: Soft, nontender, good bowel sounds. Neuro: No neurological deficits. INVESTIGATIONS: CBC, white cell count 11, hematocrit 33, platelets 140,000. SMA 7 is normal. Chest x-ray on 02/23/2017 low lung volumes, no significant changes noted. ASSESSMENT AND PLAN: 1. Acute chronic obstructive pulmonary disease status post extubation stable. 2. Deconditioning and weakness, out of the bed with physical therapy, possible rehab placement. Continue BiPAP machine in the nighttime. 3. Protein calorie malnutrition. IV clinimix 60 mL/hour. DVT, GI prophylaxis. Will decrease the prednisone. Patient still not interested in further chemotherapy for chronic lymphocytic leukemia and Branch Chief consult for possible rehab placement. LEVEL OF DOCUMENTATION: 15 minutes. cc: Torsten Black MD MTDD
[2017-02-24] MEDS: VANCOMYCIN 1,500 MG in NS 250 ML IV SCH ×2 (01:01→12:20)
[2017-02-24] MEDS: DUONEB (A & A) INH SCH ×4 (03:09→21:00)
[2017-02-24] MEDS: CLINIMIX E 4.25%-5% SOLUTION 1,000 ML IV SCH (05:34)
[2017-02-24] MEDS: SYNTHROID PO SCH ×2 (05:34→06:23)
[2017-02-24 06:20] LABS: MANUAL DIFF NEEDED? NO
[2017-02-24 07:25] LABS: HEMATOCRIT 32.2 % (37.0-47.0); LYMPH# 1.86 X1000 (1.2-3.4); LYMPH% 22.3 % (20.5-51.1); MCH 30.5 PG (27-31); MCHC 31.1 g/dL (33-37); MCV 98.2 FL (81-99); MONO# 0.16 X1000 (0.11-0.59); MONO% 1.9 % (1.7-9.3); MPV 11.9 FL (7.4-10.4); NEUT% 75.8 % (42.2-75.2); PLT 116 X1000 (130-400); RBC 3.28 XMIL (4.2-5.4)
[2017-02-24] MEDS: MIRALAX NG SCH (08:17)
[2017-02-24] MEDS: SOLU-MEDROL IV SCH ×2 (08:18→19:59)
[2017-02-24] MEDS: LOVENOX SUBQ SCH (08:19)
[2017-02-24] MEDS: MAXIPIME 1 GM in NS 50 ML IV SCH ×2 (08:19→19:59)
[2017-02-24] MEDS: PEPCID IV SCH ×3 (08:19→22:32)
[2017-02-24] MEDS: DULCOLAX PR SCH (20:11)
--- NOTE | 2017-02-24 21:00 | PROGRESS NOTE ---
DATE: 02/24/2017 SUBJECT: Patient is slowly getting better, mental status improving, feeble, week, not able to do any activities. Needs assistance for feeding, transferring and bathing, no family was there. PHYSICAL EXAMINATION: Vital Signs: Stable. HEENT: Within normal limits. Chest: Clear. Heart: Sounds are regular. Belly: Is soft, nontender. Good bowel sounds. ASSESSMENT AND PLAN: 1. Acute respiratory failure improving, BiPAP at nighttime. 2. Deconditioning, feeble, discussed with the patient. Agreeable for rehab placement. rehabilitation services aide consult. 3. Deep vein thrombosis, gastrointestinal prophylaxis. 4. Hypothyroidism on Synthroid. 5. Constipation on MiraLAX and continue present medical therapy. The patient is stable to be transferred to the rehab once a bed is available. LEVEL OF DOCUMENTATION: Is 15 minutes. cc: Torsten Black MD
--- NOTE | 2017-02-24 23:40 | DISCHARGE SUMMARY ---
ADMISSION DATE: 02/05/2017 DISCHARGE DATE: 02/26/2017 DISCHARGING DIAGNOSIS: Acute respiratory failure due to chronic obstructive pulmonary disease exacerbation with right upper lobe pneumonia. SECONDARY DIAGNOSES: 1. IgG deficiency. 2. Chronic right bronchiectasis. 3. 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 4. Hypothyroidism. 5. Chronic loculated effusion on the right side. 6. Chronic lymphocytic leukemia with worsening of lymphadenopathy in the right neck. 7. Secondary infection in the right neck due to Staph epidermidis. 8. Moderate protein calorie malnutrition. 9. Deconditioning. CONSULT: 1. Dr. Nair. 2. Dr. Lebron Cummins. PROCEDURES: 1. Ventilator support. 2. IgG transfusion. BRIEF HISTORY: Please see the H and P that was done by hospitalist. In brief she is a 61-year- old white female with above problems noncompliant, has been battling with the CLL with lymphadenopathy, IgG deficiency, refusing for further treatment under the care of Dr. Davies. Has been worsening of lymphadenopathy in the belly, splenomegaly, right-sided lymphadenopathy. In fact I had a discussion in my office about the chemotherapy and further plans. Patient refusing further treatment, instead she continues to believe in holistic medicine. I also gave the option if she does not want to do chemotherapy she can go for palliative hospice care instead of coming back to the hospital. However she did not make up any mind, she is a full code. She came into the ER with shortness of breath, cough and wheezing with acute respiratory failure, hypoxemia, hypercarbia requiring ventilator support. HOSPITAL COURSE: In ICU patient was started on ventilator support and during this time she was given propofol for sedation and also IV steroids, bronchodilators, IV antibiotics with cefepime and vancomycin. Dr. Cummins was consulted. IgG transfusion was given. She also had enteral feeding as well as TPN with supportive care for Lovenox for DVT prophylaxis, Protonix for GI prophylaxis. She developed right upper lobe pneumonia requiring aggressive IV antibiotics. Finally she was extubated and transferred to the ICU in stable condition. She is extremely feeble deconditioning requiring BiPAP in the nighttime to assist the ventilator failure. At the request of the family, she has been transferred to rehab for convalescence. She is not interested in any further chemotherapy at this time. LABS: CBC, white cell count 8.3, hematocrit 32, platelet 116,000. SMA 7, sodium 140, potassium 4.9, chloride 99, CO2 33, BUN 25, creatinine 0.3, glucose 89. Chest x-ray is better and blood cultures were negative. Sputum cultures are negative. Wound cultures from the neck Staph epidermidis. DISCHARGE INSTRUCTIONS: Pneumococcal vaccine 2014. Will also give a Prevnar 13 prior to the discharge, oxygen 2 L, Bi-PAP machine 15/5 at 8 p.m. to morning 6 a.m. IgG transfusion once a month, Synthroid 75 mcg daily, guaifenesin 600 p.o. b.i.d., prednisone 10 mg daily, multivitamin 1 tablet daily, MiraLAX 17 g daily, Bactrim Double Strength 1 tablet p.o. b.i.d. for 2 weeks, Probiotic 1 tablet daily, Xopenex 1 inhaler q.8 as needed and follow up with my office in 2 weeks. cc: MD Dr. Korey Cruz
[2017-02-25] MEDS: VANCOMYCIN 1,500 MG in NS 250 ML IV SCH ×3 (01:10→13:43)
[2017-02-25] MEDS: DUONEB (A & A) INH SCH ×4 (03:00→19:30)
[2017-02-25] MEDS: CLINIMIX E 4.25%-5% SOLUTION 1,000 ML IV SCH ×2 (04:43→16:58)
[2017-02-25 06:01] LABS: MANUAL DIFF NEEDED? NO
[2017-02-25 06:06] LABS: HEMATOCRIT 33.7 % (37.0-47.0); HEMOGLOBIN 10.4 g/dL (12.0-16.0); LYMPH# 1.89 X1000 (1.2-3.4); LYMPH% 20.1 % (20.5-51.1); MCH 30.3 PG (27-31); MCHC 30.9 g/dL (33-37); MCV 98.3 FL (81-99); MONO# 0.17 X1000 (0.11-0.59); MONO% 1.8 % (1.7-9.3); MPV 11.8 FL (7.4-10.4); NEUT% 78.1 % (42.2-75.2); PLT 118 X1000 (130-400); RBC 3.43 XMIL (4.2-5.4)
[2017-02-25] MEDS: SYNTHROID PO SCH (06:41)
[2017-02-25 09:02] LABS: BE 16.3 mmoll (-3.0-3.0); PO2(98.6) 61 mmHg (60-100); SAO2 95.2 % (95.0-100.0); pH(98.6) 7.38 (7.35-7.45)
[2017-02-25 09:03] LABS: BLOOD TYPE ARTERIAL; METHB 1.2 % (0.0-1.5); MODALITY CANNULA; O2(CT) 13.7 mL/dL (15.0-23.0); SAMPLE BLOOD; THB 10.6 g/dL (11.5-17.4)
[2017-02-25 09:04] LABS: ALLEN TEST YES; DRAW SITE R RADIAL
[2017-02-25] MEDS: MAXIPIME 1 GM in NS 50 ML IV SCH ×2 (09:05→20:52)
[2017-02-25] MEDS: SOLU-MEDROL IV SCH ×2 (09:06→20:51)
[2017-02-25] MEDS: PEPCID IV SCH ×2 (09:06→20:51)
[2017-02-25] MEDS: MIRALAX NG SCH (09:07)
[2017-02-25] MEDS: LOVENOX SUBQ SCH (09:07)
[2017-02-25 09:09] LABS: PCO2(98.6) 75 mmHg (35-45)
--- NOTE | 2017-02-25 10:17 | Diag Imaging Result Doc PS360 ---
EXAM: CHEST-PORTABLE INDICATION: increased WOB TECHNIQUE: One view COMPARISON: 02/23/2017 FINDINGS: The mild basilar infiltrates, more prominent on the right, are unchanged. There is probably a trace right effusion that is stable. No new consolidation is appreciated. Cardiac silhouette is stable. IMPRESSION: Stable chest. Electronically signed by Wyatt Sawant 02/25/2017 10:15 AM
[2017-02-25] MEDS: TYLENOL PO PRN (17:04)
--- NOTE | 2017-02-25 18:06 | PROGRESS NOTE ---
DATE: 02/25/2017 PRESENT ILLNESS: The patient has a bibasilar pneumonia. She also has lymphadenopathy most prominent in the neck. On the right side where the neck appeared to herniate through the skin is all healed now and there is no visible lymph node, and there is no visible perforation of the skin. MEDICATIONS: This is the 14th day of treatment with vancomycin and cefepime. Overall, she has had 20 days of antibiotic therapy. PHYSICAL EXAMINATION: Vital Signs: Temperature is 98.5 degrees, pulse 114, respirations 18, blood pressure 118/59. General: This is a chronically ill and malnourished, lethargic middle-aged female. She is in no acute distress. Neck: The patient has a prominent lymphadenopathy on the right side of the neck, but the wound has completely healed and the actual lymph node itself is not visible. Lungs: Had bilateral rhonchi. Cardiovascular: Regular heart rate. Abdomen: Soft and nontender. LAB AND X-RAY: Chest x-ray shows stable bibasilar infiltrates. CBC shows a white count of 9380, hemoglobin 10.4, and platelet count 118,000. Blood gases show a pH of 7.38, a PO2 of 61, and a pCO2 of 75. Random vancomycin level is 13.8. ASSESSMENT AND PLAN: Patient has pneumonia. The plan is that Dr. Black is going to dismiss her tomorrow on as an outpatient. Patient's comorbidities include the patient has lymphoma, chronic obstructive pulmonary disease, low IgG and IgA. cc: MD Torsten Cruz MD
[2017-02-25] MEDS: DULCOLAX PR SCH (20:52)
--- NOTE | 2017-02-25 22:33 | PROGRESS NOTE ---
DATE: 02/25/2017 SUBJECTIVE: The patient is interested in going for rehab. She is not interested in going to see Dr. Davies. This morning, she has a little bit of shortness of breath, not using BiPAP machine. She is extremely feeble. OBJECTIVE: Vital signs: Temperature is 98 degrees, heart rate is 111, blood pressure is 122/66, 98% on 3 L. HEENT: Within normal limits. Neck: Supple. Chest: Clear. Heart: Sounds are regular. Abdomen: Belly is soft, protuberant. INVESTIGATIONS: CBC: White cell count 9.3, hematocrit 33, platelets 118,000. PH is 7.38, pCO2 75, on 3 L. SMA7 is normal. ASSESSMENT AND PLAN: 1. Acute respiratory failure. Use the BiPAP at nighttime. 2. Refusing chemotherapy for CLL. 3. Discussed with the social media director for fdc placement. 4. Living Will is Full Code. cc: Torsten Black MD MTDD
[2017-02-26] MEDS: VANCOMYCIN 1,500 MG in NS 250 ML IV SCH (01:46)
[2017-02-26] MEDS: DUONEB (A & A) INH SCH ×3 (03:35→15:19)
[2017-02-26 06:19] LABS: MANUAL DIFF NEEDED? NO
[2017-02-26 06:27] LABS: HEMATOCRIT 31.5 % (37.0-47.0); HEMOGLOBIN 9.8 g/dL (12.0-16.0); IMM GRAN# 0.02 X1000 (0.0-0.04); IMM GRAN% 0.2 % (0.0-0.5); LYMPH# 1.96 X1000 (1.2-3.4); MCH 30.5 PG (27-31); MCHC 31.1 g/dL (33-37); MCV 98.1 FL (81-99); MONO# 0.13 X1000 (0.11-0.59); MONO% 1.3 % (1.7-9.3); MPV 11.8 FL (7.4-10.4); NEUT% 78.5 % (42.2-75.2); PLT 102 X1000 (130-400); RBC 3.21 XMIL (4.2-5.4)
[2017-02-26] MEDS: SYNTHROID PO SCH (06:39)
[2017-02-26 07:50] VITALS: BP 122/61
[2017-02-26] MEDS ORDERED: PREVNAR 13 IM ONE (08:42)
[2017-02-26] MEDS: MAXIPIME 1 GM in NS 50 ML IV SCH (09:48)
[2017-02-26] MEDS: SOLU-MEDROL IV SCH (09:54)
[2017-02-26] MEDS: LOVENOX SUBQ SCH (09:56)
[2017-02-26] MEDS: MIRALAX NG SCH (09:56)
== END 2017-02-26 15:34 ==
LOC: ED 21:56 → SUPCPDRO 02-05 02:12 → SUATTDRO 02-05 02:12 → EDIPHOLD 02-05 02:12 → ICU 02-05 12:32 → 4N 02-20 20:54
PROVIDERS: ADMIT Internal Medicine; ATTEND Internal Medicine